=== PATIENT | female | born 1970 | race Caucasian/White ===

== ENCOUNTER 2020-08-07 12:40 | Observation (INO) | payer MEDICAID, OTHER ==
[~2020-08-07] VITALS: Ht 165.1 cm; Wt 85.6 kg
[2020-08-07] MEDS ORDERED: ONDANSETRON 4 MG/2 ML (SDV) Z0FRAN IVP ONE (13:00)
[2020-08-07] MEDS ORDERED: LACTATED RINGERS 1,000 ML IV ONE (13:00)
[2020-08-07] MEDS ORDERED: FAMOTIDINE 20MG/2ML IV (PEPCID) IVP ONE (13:00)
[2020-08-07] MEDS ORDERED: PANTOPRAZOLE 40 MG (PROTONIX) VIAL IV ONE (13:00)
[2020-08-07 13:08] LABS: BASOPHILS % (AUTO) 0 % (0-10); EOSINOPHILS # (AUTO) 0.2 10^3/uL (0.0-0.3); EOSINOPHILS % (AUTO) 1 % (0-10); HEMATOCRIT 38 % (35-52); HEMOGLOBIN 12.5 g/dL (11.5-16.0); LYMPHOCYTES # (AUTO) 2.7 10^3/uL (1.0-4.0); LYMPHOCYTES % (AUTO) 14 % (12-44); MEAN CORPUSCULAR HEMOGLOBIN 32 pg (25-34); MEAN CORPUSCULAR HGB CONC 33 g/dL (32-36); MEAN CORPUSCULAR VOLUME 96 fL (80-99); MEAN PLATELET VOLUME 10.9 fL (9.0-12.2); MONOCYTES # (AUTO) 1.2 10^3/uL (0.0-1.0); MONOCYTES % (AUTO) 6 % (0-12); NEUTROPHILS # (AUTO) 15.1 10^3/uL (1.8-7.8); NEUTROPHILS % (AUTO) 78 % (42-75); PLATELET COUNT 224 10^3/uL (130-400); WHITE BLOOD COUNT 19.3 10^3/uL (4.3-11.0)
[2020-08-07 13:20] LABS: EOSINOPHILS % (MANUAL) 2 %; LYMPHOCYTES % (MANUAL) 24 %; MONOCYTES % (MANUAL) 3 %; NEUTROPHILS % (MANUAL) 71 %; TOXIC GRANULATION/VACUOLAZATIO 1+
[2020-08-07 13:22] LABS: ALBUMIN 3.6 GM/DL (3.2-4.5); BILIRUBIN,TOTAL 0.3 MG/DL (0.1-1.0); CALCIUM 9.1 MG/DL (8.5-10.1); POTASSIUM 4.3 MMOL/L (3.6-5.0); TOTAL PROTEIN 8.5 GM/DL (6.4-8.2)
[2020-08-07 13:23] LABS: INR 1.2 (0.8-1.4); PROTHROMBIN TIME PATIENT 15.7 SEC (12.2-14.7)
--- NOTE | 2020-08-07 14:12 | Diagnostic Imaging Report ---
Indication: Hemoptysis No priors FINDINGS: There is limited lung expansion crowding the markings. This may account for vague increased density projecting over the basilar portion of the left lower lung however the possibility of a developing infiltrate could not be excluded. There is no failure pattern. No effusion and no pneumothorax. IMPRESSION: Limited by suboptimal inspiration. Equivocal findings for developing infiltrate in the left base. Dictated by: Dictated on workstation # [id number]
[2020-08-07 14:16] LABS: CLARITY,URINE CLOUDY; COLOR,URINE YELLOW; GLUCOSE, URINE (UA) NEGATIVE (NEGATIVE); KETONES,URINE TRACE (NEGATIVE); LEUKOCYTE ESTERASE ,URINE 2+ (NEGATIVE); NITRITE,URINE NEGATIVE (NEGATIVE); PROTEIN,URINE 2+ (NEGATIVE)
[2020-08-07] MEDS ORDERED: CATHETER FLUSH 10 ML SYR IV PRN ×2 (14:30→20:15)
[2020-08-07] MEDS ORDERED: NS 100 ML (IVPB) BAG IV ONE (14:30)
[2020-08-07] MEDS ORDERED: HOLD METFORMIN - RECEIVED CONTRAST 20 ML VIAL IV SCH (14:30)
[2020-08-07] MEDS ORDERED: IOHEXOL 350 MG/ML 100 ML (OMNIPAQUE 350) VIAL IV ONE (14:30)
[2020-08-07 14:41] LABS: BACTERIA,URINE TRACE /HPF; WBC,URINE 50-100 /HPF
[2020-08-07 14:42] LABS: AMORPHOUS SEDIMENT,UR FEW AMOR URATES /LPF
[2020-08-07 14:52] LABS: BILIRUBIN,URINE 1+ (NEGATIVE)
--- NOTE | 2020-08-07 15:36 | Diagnostic Imaging Report ---
PROCEDURE: CT abdomen and pelvis with contrast. TECHNIQUE: Multiple contiguous axial images were obtained through the abdomen and pelvis after administration of intravenous contrast. Auto Exposure Controls were utilized during the CT exam to meet ALARA standards for radiation dose reduction. All CT scans use one or more of the following dose optimizing techniques: automated exposure control, MA and/or KvP adjustment based on patient size and exam type or iterative reconstruction. INDICATION: Hemoptysis There are no prior CT studies available for comparison The stomach is distended by gas and fluid. This appearance is nonspecific. There is no sign of a gastric outlet obstruction however. There is also gas and fluid in both the large and small bowel in a nonspecific fashion. There is no sign of bowel obstruction. There does appear to be a considerable amount of fecal material in the rectosigmoid portion of the colon. There is no acute abnormality of the liver, spleen, pancreas, adrenals, gallbladder, kidneys, aorta or inferior vena cava. The urinary bladder is not well-distended and consequently difficult to assess. There is no obvious bladder abnormality evident. The thickened appearance of the bladder wall may be secondary to incomplete distention. The possibility of cystitis should also be considered. The uterus is small. The appendix is not well-visualized but there are no indirect signs of acute appendicitis. There is no mass or free fluid collection in the pelvis. The bone windows are unremarkable for fracture or for destructive lesion. There is a small amount of atelectasis/infiltrate in each lung base. IMPRESSION: 1. The stomach is distended by fluid and gas but there is no clear evidence for gastric outlet obstruction. If further study is desired, either endoscopy or an upper GI exam would be recommended. 2. The bowel gas pattern is nonspecific. There is no sign of bowel obstruction. 3. The urinary bladder is not well distended and difficult to assess. There is no obvious bladder abnormality identified, but the possibility of cystitis should be considered.. 4. These results were discussed with Dr. Obregon in the Emergency Room. Dictated by: Dictated on workstation # [id number]
[2020-08-07] MEDS ORDERED: cefTRIAXone FOR IV USE 1,000 MG in WATER (STERILE) FOR INJECTION 10 ML IV ONE (15:45)
[2020-08-07] MEDS ORDERED: MEROPENEM 500 MG in WATER (STERILE) FOR INJECTION 10 ML IV ONE (17:30)
--- NOTE | 2020-08-07 17:44 | ED General ---
General Chief Complaint: Coughing Up Blood Stated Complaint: COUGHING UP BLOOD Nursing Triage Note: patient brought by ems with complaint of coughing up blood. EMS states dried blood on bed looked like "coffee ground emesis" patient is from [place]. Nursing Sepsis Screen: No Definite Risk Source of Information: Patient, Caregiver, EMS Exam Limitations: Other (Intellectual disability) History of Present Illness Date Seen by Provider: Aug 07, 2020 Time Seen by Provider: 12:56 Initial Comments This 50 year old woman is a client of [facility] And presents to the emergency room with complaints of "coughing up blood". It was reported this looks like coffee grounds. She is afebrile. She reports a sensation of pain in the epigastrium. It is also noted that she has been treated for several days with Rocephin for UTI. Prior to that she had completed a course of Bactrim. She is tachycardic but vital signs are otherwise normal. She has significant intellectual disabilities and is therefore a poor historian and uncooperative with some aspects of exam. Her primary care provider is Rayna Jarrett. Allergies and Home Medications Allergies Coded Allergies: No Known Drug Allergies (Unverified , 08/07/20) Patient Home Medication List Home Medication List Reviewed: Yes Review of Systems Review of Systems Constitutional: no symptoms reported EENTM: no symptoms reported Respiratory: see HPI Cardiovascular: no symptoms reported Gastrointestinal: see HPI Genitourinary: no symptoms reported Musculoskeletal: no symptoms reported Skin: no symptoms reported Psychiatric/Neurological: See HPI Hematologic/Lymphatic: No Symptoms Reported Immunological/Allergic: no symptoms reported Past Lnpgrdn-Qgkoqo-Wqokub Hx Past Med/Social Hx: Reviewed Nursing Past Med/Soc Hx Patient Social History Alcohol Use: Denies Use Recreational Drug Use: No Smoking Status: Never a Smoker 2nd Hand Smoke Exposure: No Recent Foreign Travel: No Contact w/Someone Who Travel: No Recent Infectious Disease Expo: No Immunizations Up To Date Tetanus Booster (TDap): Unknown Date of Influenza Vaccine: May 24, 2020 Past Medical History Surgeries: No (Unknown) Respiratory: No Cardiac: No Neurological: Yes (Intellectual disability) Seizure Disorder : No Genitourinary: Yes (Urinary tract infection) Gastrointestinal: No Musculoskeletal: No Endocrine: No HEENT: No Cancer: No Psychosocial: No Integumentary: No Physical Exam-Suspected Sepsis Physical Exam Vital Signs Vital Signs - First Documented 08/07/20 13:00 Temp 37.2 Pulse 104 Resp 20 B/P (MAP) 135/95 (108) Pulse Ox 92 O2 Delivery Room Air Capillary Refill : Less Than 3 Seconds Blood Pressure Mean: 108 Height, Weight, BMI Height: '" Weight: lbs. oz. 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 as Tested Skin: normal color, warm/dry Focused Exam Lactate Level 08/07/20 14:58: Lactic Acid Level 0.88 Lactic Acid Level Progress/Results/Core Measures Suspected Sepsis Recent Fever Within 48 Hours: No Infection Criteria Present: None New/Unexplained Altered Menta: No Sepsis Screen: No Definite Risk SIRS Temperature: Pulse: 104 Respiratory Rate: 20 Laboratory Tests 08/07/20 12:40: White Blood Count 19.3H Blood Pressure 135 /95 Mean: 108 08/07/20 14:58: Lactic Acid Level 0.88 Laboratory Tests 08/07/20 12:40: Creatinine 1.00, INR Comment 1.2, Platelet Count 224, Total Bilirubin 0.3 Results/Orders Lab Results Laboratory Tests Test 08/07/20 12:25 08/07/20 12:40 08/07/20 14:08 08/07/20 14:58 Range/Units Coronavirus 2019 (TEJAS) Negative Negative White Blood Count 19.3 H 4.3-11.0 10^3/uL Red Blood Count 3.97 3.80-5.11 10^6/uL Hemoglobin 12.5 11.5-16.0 g/dL Hematocrit 38 35-52 % Mean Corpuscular Volume 96 80-99 fL Mean Corpuscular Hemoglobin 32 25-34 pg Mean Corpuscular Hemoglobin Concent 33 32-36 g/dL Red Cell Distribution Width 15.3 H 10.0-14.5 % Platelet Count 224 130-400 10^3/uL Mean Platelet Volume 10.9 9.0-12.2 fL Immature Granulocyte % (Auto) 1 % Neutrophils (%) (Auto) 78 H 42-75 % Lymphocytes (%) (Auto) 14 12-44 % Monocytes (%) (Auto) 6 0-12 % Eosinophils (%) (Auto) 1 0-10 % Basophils (%) (Auto) 0 0-10 % Neutrophils # (Auto) 15.1 H 1.8-7.8 10^3/uL Lymphocytes # (Auto) 2.7 1.0-4.0 10^3/uL Monocytes # (Auto) 1.2 H 0.0-1.0 10^3/uL Eosinophils # (Auto) 0.2 0.0-0.3 10^3/uL Basophils # (Auto) 0.0 0.0-0.1 10^3/uL Immature Granulocyte # (Auto) 0.1 0.0-0.1 10^3/uL Neutrophils % (Manual) 71 % Lymphocytes % (Manual) 24 % Monocytes % (Manual) 3 % Eosinophils % (Manual) 2 % Toxic Granulation 1+ Prothrombin Time 15.7 H 12.2-14.7 SEC INR Comment 1.2 0.8-1.4 Activated Partial Thromboplast Time 48 H 24-35 SEC Sodium Level 134 L 135-145 MMOL/L Potassium Level 4.3 3.6-5.0 MMOL/L Chloride Level 97 L 98-107 MMOL/L Carbon Dioxide Level 23 21-32 MMOL/L Anion Gap 14 5-14 MMOL/L Blood Urea Nitrogen 18 7-18 MG/DL Creatinine 1.00 0.60-1.30 MG/DL Estimat Glomerular Filtration Rate 59 BUN/Creatinine Ratio 18 Glucose Level 119 H 70-105 MG/DL Calcium Level 9.1 8.5-10.1 MG/DL Corrected Calcium 9.4 8.5-10.1 MG/DL Total Bilirubin 0.3 0.1-1.0 MG/DL Aspartate Amino Transf (AST/SGOT) 15 5-34 U/L Alanine Aminotransferase (ALT/SGPT) 19 0-55 U/L Alkaline Phosphatase 109 40-136 U/L C-Reactive Protein High Sensitivity 15.43 H 0.00-0.50 MG/DL Total Protein 8.5 H 6.4-8.2 GM/DL Albumin 3.6 3.2-4.5 GM/DL Lipase 51 8-78 U/L Serum Test, Qualitative NEGATIVE NEGATIVE Urine Color YELLOW Urine Clarity CLOUDY Urine pH 6.0 5-9 Urine Specific [place] >=1.030 1.016-1.022 Urine Protein 2+ H NEGATIVE Urine Glucose (UA) NEGATIVE NEGATIVE Urine Ketones TRACE H NEGATIVE Urine Nitrite NEGATIVE NEGATIVE Urine Bilirubin 1+ H NEGATIVE Urine Urobilinogen 0.2 < = 1.0 MG/DL Urine Leukocyte Esterase 2+ H NEGATIVE Urine RBC (Auto) 3+ H NEGATIVE Urine RBC 5-10 H /HPF Urine WBC 50-100 H /HPF Urine Crystals PRESENT H /LPF Urine Amorphous Sediment FEW DAMIR URATES H /LPF Urine Bacteria TRACE /HPF Urine Casts NONE /LPF Urine Mucus NEGATIVE /LPF Urine Culture Indicated CULTURE PENDING Lactic Acid Level 0.88 0.50-2.00 MMOL/L Micro Results Microbiology 08/07/20 Influenza Types A,B Antigen (GLENNY) - Final, Complete My Orders Orders - SAMMY ARANGO MD Covid 19 Inhouse Test (08/07/20 12:56) Cbc With Automated Diff (08/07/20 12:59) Comprehensive Metabolic Panel (08/07/20 12:59) Hs C Reactive Protein (08/07/20 12:59) Hcg,Qualitative Serum (08/07/20 12:59) Protime With Inr (08/07/20 12:59) Partial Thromboplastin Time (08/07/20 12:59) Ed Iv/Invasive Line Start (08/07/20 12:59) Lactated Ringers (Lr 1000 Ml Iv Solution (08/07/20 13:00) Famotidine Injection (Pepcid Injection) (08/07/20 13:00) Pantoprazole Injection (Protonix Injecti (08/07/20 13:00) Ondansetron Injection (Zofran Injectio (08/07/20 13:00) Chest 1 View, Ap/Pa Only (08/07/20 12:59) Manual Differential (08/07/20 12:40) Lipase (08/07/20 13:31) Blood Culture (08/07/20 13:51) Sputum Culture (08/07/20 13:51) Urinalysis (08/07/20 13:51) Urine Culture (08/07/20 13:51) Vital Signs Adult Sepsis Patie Q15M (08/07/20 13:51) O2 (08/07/20 13:51) Remove Rings In Anticipation O (08/07/20 13:51) Lactic Acid Analyzer (08/07/20 13:51) Influenza A And B Antigens (08/07/20 13:52) Ct Abdomen/Pelvis W (08/07/20 13:54) Iohexol Injection (Omnipaque 350 Mg/Ml 1 (08/07/20 14:30) Received Contrast (Hold Metformin- Contr (08/07/20 14:30) Sodium Chloride Flush (Catheter Flush Sy (08/07/20 14:30) Ns (Ivpb) (Sodium Chloride 0.9% Ivpb Bag (08/07/20 14:30) Ceftriaxone For Iv Use (Rocephin For I (08/07/20 15:45) Meropenem (Merrem 500 Mg) (08/07/20 17:30) Medications Given in ED Current Medications Medications Dose Ordered Sig/Edvin Route Start Time Stop Time Status Last Admin Dose Admin Ceftriaxone Sodium 1000 mg/ Sterile Water 10 ml @ 200 mls/hr ONCE ONCE IV 08/07/20 15:45 08/07/20 15:47 DC 08/07/20 16:22 200 MLS/HR Famotidine 20 mg ONCE ONCE IVP 08/07/20 13:00 08/07/20 13:02 DC 08/07/20 13:28 20 MG Iohexol 100 ml ONCE ONCE IV 08/07/20 14:30 08/07/20 14:35 DC 08/07/20 15:11 100 ML Lactated Ringer's 1,000 ml @ 0 mls/hr Q0M ONCE IV 08/07/20 13:00 08/07/20 13:02 DC 08/07/20 13:28 0 MLS/HR Meropenem 500 mg/ Sterile Water 10 ml @ 200 mls/hr ONCE ONCE IV 08/07/20 17:30 08/07/20 17:33 DC 08/07/20 19:08 200 MLS/HR Ondansetron HCl 8 mg ONCE ONCE IVP 08/07/20 13:00 08/07/20 13:02 DC 08/07/20 13:28 8 MG Pantoprazole 80 mg ONCE ONCE IV 08/07/20 13:00 08/07/20 13:02 DC 08/07/20 13:29 80 MG Sodium Chloride 100 ml ONCE ONCE IV 08/07/20 14:30 08/07/20 14:35 DC 08/07/20 15:11 80 ML Vital Signs/I&O 08/07/20 08/07/20 08/07/20 13:00 19:24 19:44 Temp 37.2 37.2 36.8 Pulse 104 90 96 Resp 18 B/P (MAP) 135/95 (108) 117/94 108/64 Pulse Ox 92 94 93 O2 Delivery Room Air Room Air Room Air Capillary Refill : Less Than 3 Seconds Blood Pressure Mean: 108 Progress Note : Progress Note Because of concern for possible coffee-ground emesis, Protonix and Pepcid were administered. A liter of IV fluid was administered. Zofran was also given for nausea. There was a significant amount of bowel gas noted on the chest x-ray. Therefore a CT scan was ordered to follow. Since patient is a poor historian and there is leukocytosis, evaluation of the abdomen and pelvis with CT scan was felt critical. Patient did meet septic criteria with tachycardia and leukocytosis. Source of infection was found to be urinary tract infection. Rocephin was given for initial management. However, patient seems to be failing outpatient Rocephin therapy, therefore we further treated with meropenem. Patient also had been on Bactrim and appears to have failed that. Because ashwini matthews does meet sepsis criteria and has failed multiple antibiotics in the outpatient setting, admission was felt most appropriate. I spoke with the caregiver at [facility] who agreed with this decision. Diagnostic Imaging Diagonstic Imaging: Xray Plain Films/CT/US/NM/MRI: chest Comments Chest x-ray viewed by me and report reviewed. See report below: NAME: BIJU GEE [facility] REC#: [id number] PT STATUS: REG ER : 1970 PHYSICIAN: SAMMY ARANGO MD ADMIT DATE: 08/07/20/ER Signed Date of Exam:08/07/20 CHEST 1 VIEW, AP/PA ONLY Indication: Hemoptysis No priors FINDINGS: There is limited lung expansion crowding the markings. This may account for vague increased density projecting over the basilar portion of the left lower lung however the possibility of a developing infiltrate could not be excluded. There is no failure pattern. No effusion and no pneumothorax. IMPRESSION: Limited by suboptimal inspiration. Equivocal findings for developing infiltrate in the left base. Dictated by: Dictated on workstation # [id number] Dict: 08/07/20 1407 Trans: 08/07/20 1531 [facility] [id number] Interpreted by: CONSUELO BALTAZAR Electronically signed by: CONSUELO BALTAZAR 08/07/20 1531 Diagonstic Imaging: CT Plain Films/CT/US/NM/MRI: abdomen, pelvis Comments CT abdomen pelvis viewed by me and report reviewed. See report below: NAME: BIJU GEE [facility] REC#: [id number] PT STATUS: REG ER : 1970 PHYSICIAN: SAMMY ARANGO MD ADMIT DATE: 08/07/20/ER Draft Date of Exam:08/07/20 CT ABDOMEN/PELVIS W PROCEDURE: CT abdomen and pelvis with contrast. TECHNIQUE: Multiple contiguous axial images were obtained through the abdomen and pelvis after administration of intravenous contrast. Auto Exposure Controls were utilized during the CT exam to meet ALARA standards for radiation dose reduction. All CT scans use one or more of the following dose optimizing techniques: automated exposure control, MA and/or KvP adjustment based on patient size and exam type or iterative reconstruction. INDICATION: Hemoptysis There are no prior CT studies available for comparison The stomach is distended by gas and fluid. This appearance is nonspecific. There is no sign of a gastric outlet obstruction however. There is also gas and fluid in both the large and small bowel in a nonspecific fashion. There is no sign of bowel obstruction. There does appear to be a considerable amount of fecal material in the rectosigmoid portion of the colon. There is no acute abnormality of the liver, spleen, pancreas, adrenals, gallbladder, kidneys, aorta or inferior vena cava. The urinary bladder is not well-distended and consequently difficult to assess. There is no obvious bladder abnormality evident. The uterus is small. The appendix is not well-visualized but there are no indirect signs of acute appendicitis. There is no mass or free fluid collection in the pelvis. The bone windows are unremarkable for fracture or for destructive lesion. There is a small amount of atelectasis/infiltrate in each lung base. IMPRESSION: 1. The stomach is distended by fluid and gas but there is no clear evidence for gastric outlet obstruction. If further study is desired, either endoscopy or an upper GI exam would be recommended. 2. The bowel gas pattern is nonspecific. There is no sign of bowel obstruction. 3. The urinary bladder is not well distended and difficult to assess. There is no obvious bladder abnormality. 4. These results were discussed with Dr. Obregon in the Emergency Room. Dictated on workstation # [id number] Dict: 08/07/20 1522 Trans: 08/07/20 1536 [facility] [id number] Interpreted by: PHAN ANTONY MD Departure Communication (Admissions) Time/Spoke to Admitting Phy: 17:29 Dr. Casiano Impression Primary Impression: Sepsis Qualified Codes: A41.9 - Sepsis, unspecified organism Additional Impressions: Urinary tract infection Qualified Codes: N39.0 - Urinary tract infection, site not specified Coffee ground vomiting Disposition: ADMITTED INPATIENT Condition: Improved Admissions Decision to Admit Reason: Admit from ER (General) Decision to Admit/Date: Aug 07, 2020 Time/Decision to Admit Time: 17:29 Copy Copies To 1: RAYNA JARRETT MD, JOSHUA T MD Aug 07, 2020 17:44
[2020-08-07] MEDS ORDERED: WATER (STERILE) FOR INJECTION 10 ML ONE (19:03)
--- NOTE | 2020-08-07 19:30 | NUR ---
BIJU GEE admitted to room 411-1, with an admitting diagnosis of UTI, SEPSIS, on 08/07/20 from ED via [facility], accompanied by STAFF.BIJU GEE introduced to surroundings, call light, bed controls, phone, TV, temperature control, lights, meal times, smoking policy, visitor policy, side rail policy, bathrooms and showers. Patient Rights given to patient in the handbook. BIJU GEE verbalizes understanding that [facility] is not responsible for the loss or damage to any personal effects or valuables that are kept in the patients posession during their hospitalization.BIJU GEE verbalizes understanding of Interdisciplinary Patient Education. Patient and/or family were informed about the Rapid Response Team and its purpose.
[2020-08-07 19:44] VITALS: BP 108/64
[2020-08-07] MEDS ORDERED: ONDANSETRON 4 MG/2 ML (SDV) Z0FRAN IV PRN (20:15)
[2020-08-07] MEDS ORDERED: clonazePAM 1 MG (KlonoPIN) TAB PO PRN (20:15)
[2020-08-07] MEDS ORDERED: ACETAMINOPHEN 500 MG TAB (TYLENOL) PO PRN (20:15)
[2020-08-07] MEDS: LACTATED RINGERS 1,000 ML IV SCH (21:48)
[2020-08-07] MEDS: PANTOPRAZOLE 40 MG (PROTONIX) VIAL IV SCH (21:49)
[2020-08-07] MEDS: PHENobarbital 64.8 MG (1 GRAIN) TAb PO SCH (22:04)
[2020-08-07] MEDS: QUEtiapine 200 MG (SEROquel) TAB IMMEDIATE RELEASE PO SCH (22:04)
[2020-08-07] MEDS: ZIPRASIDONE 40 MG (GEODON) CAP PO SCH (22:04)
[2020-08-07] MEDS: FAMOTIDINE 20MG/2ML IV (PEPCID) IV SCH (22:05)
[2020-08-07] MEDS: PHENYTOIN ORAL SUSPENSION 125 MG/5 ML UDC PO SCH (22:08)
[2020-08-07] MEDS: MEROPENEM 500 MG/SWFI 10 ML IV PUSH IV SCH ×2 (23:49)
[2020-08-08 00:45] VITALS: BP 101/63
[2020-08-08] MEDS: LACTATED RINGERS 1,000 ML IV SCH ×2 (04:40→12:12)
[2020-08-08 04:42] VITALS: BP 101/67
[2020-08-08] MEDS: MEROPENEM 500 MG/SWFI 10 ML IV PUSH IV SCH ×6 (05:07→19:12)
[2020-08-08 05:32] LABS: BASOPHILS % (AUTO) 0 % (0-10); HEMOGLOBIN 10.7 g/dL (11.5-16.0); MEAN CORPUSCULAR HEMOGLOBIN 31 pg (25-34); MONOCYTES # (AUTO) 0.8 10^3/uL (0.0-1.0)
[2020-08-08 05:34] LABS: EOSINOPHILS # (AUTO) 0.2 10^3/uL (0.0-0.3); EOSINOPHILS % (AUTO) 2 % (0-10); HEMATOCRIT 34 % (35-52); LYMPHOCYTES # (AUTO) 2.2 10^3/uL (1.0-4.0); LYMPHOCYTES % (AUTO) 23 % (12-44); MEAN CORPUSCULAR HGB CONC 32 g/dL (32-36); MEAN CORPUSCULAR VOLUME 98 fL (80-99); MONOCYTES % (AUTO) 9 % (0-12); NEUTROPHILS # (AUTO) 6.3 10^3/uL (1.8-7.8); NEUTROPHILS % (AUTO) 66 % (42-75); PLATELET COUNT 145 10^3/uL (130-400); WHITE BLOOD COUNT 9.6 10^3/uL (4.3-11.0)
[2020-08-08 05:55] LABS: CHLORIDE 98 MMOL/L (98-107); POTASSIUM 4.1 MMOL/L (3.6-5.0); SODIUM 135 MMOL/L (135-145)
[2020-08-08 05:56] LABS: CALCIUM 8.5 MG/DL (8.5-10.1); GLUCOSE 75 MG/DL (70-105)
[2020-08-08 05:58] LABS: CARBON DIOXIDE 26 MMOL/L (21-32)
[2020-08-08 06:00] LABS: CREATININE SERUM 0.83 MG/DL (0.60-1.30); GFR ESTIMATED > 60
[2020-08-08 06:01] LABS: BUN/CREATININE RATIO 17
[2020-08-08 08:00] VITALS: BP 131/86
[2020-08-08 12:00] VITALS: BP 134/73
--- NOTE | 2020-08-08 12:11 | History & Physical-Hospitalist ---
SISSY SHEN MED STUDENT 08/08/20 1211: History of Present Illness HPI/Chief Complaint CC: hematemesis, urinary tract infection HPI per ED: This 50 year old woman is a client of [facility] And presents to the emergency room with complaints of "coughing up blood". It was reported this looks like coffee grounds. She is afebrile. She reports a sensation of pain in the epigastrium. It is also noted that she has been treated for several days with Rocephin for UTI. Prior to that she had completed a course of Bactrim. She is tachycardic but vital signs are otherwise normal. She has significant intellectual disabilities and is therefore a poor historian and uncooperative with some aspects of exam. Her primary care provider is Rayna Jarrett. HPI: Jarvis presents from [facility] with complaints of coffee ground emesis. She reports that she got hurt yesterday and that she was throwing up, but is unable to provide any more situational context. She stated that she had "been bitten by a spider and turned into a werewolf, who does not like ladybugs." She also stated that she was screaming yesterday and that was scaring people. Jarvis also exhibits echolalia. Pt has significant intellectual disabilities and because of this, is a poor historian. She was cooperative with the physical exam. Source: patient, old records Exam Limitations: other (Intellectual Disability ) Date Seen 08/08/20 Time Seen by a Provider: 14:00 Attending Physician Doc Casiano MD PCP Referring Physician Date of Admission Aug 07, 2020 at 17:41 Home Medications & Allergies Home Medications Reviewed patient Home Medication Reconciliation performed by pharmacy medication reconciliations orthophotography technician and/or nursing. Patients Allergies have been reviewed. Allergies Allergies Coded Allergies No Known Drug Allergies (Vbceabwuir24/15/20) Past Eospjew-Uyucim-Iqzemt Hx Past Med/Social Hx: Reviewed Nursing Past Med/Soc Hx Patient Social History Employed/Student: unemployed Alcohol Use: Denies Use Recreational Drug Use: No Smoking Status: Never a Smoker 2nd Hand Smoke Exposure: No Recent Foreign Travel: No Contact w/other who traveled: No Recent Infectious Disease Expo: No Immunizations Up To Date Tetanus Booster (TDap): Unknown Date of Influenza Vaccine: May 24, 2020 Past Medical History Neurological: Seizure Disorder Intellectual Disability : No Unable to obtain accurate past medical history due to patient's intellectual disability. Family History Unable to obtain accurate family history due to patient's intellectual disability Review of Systems ROS-Unable to Obtain: Unable to obtain Physical Exam Physical Exam Vital Signs Vital Signs - First Documented 08/07/20 13:00 Temp 37.2 Pulse 104 Resp 20 B/P (MAP) 135/95 (108) Pulse Ox 92 O2 Delivery Room Air Capillary Refill : Less Than 3 Seconds Height, Weight, BMI Height: '" Weight: lbs. oz. kg; 31.40 BMI Method: General Appearance: No Apparent Distress, WD/WN HEENT: PERRL/EOMI; No Scleral Icterus (L), No Scleral Icterus (R) Neck: Non Tender, Supple; No Lymphadenopathy (L), No Lymphadenopathy (R) Respiratory: Chest Non Tender, Lungs Clear, No Accessory Muscle Use, No Respiratory Distress Cardiovascular: Regular Rate, Rhythm, No Murmur, Normal Peripheral Pulses, Other (1+ edema ) Gastrointestinal: Normal Bowel Sounds, Non Tender, Soft Neurologic/Psychiatric: Alert, Disoriented (Unable to state where she is, the date, or her name ) Skin: Normal Color, Warm/Dry; No Diaphoresis Lymphatic: No Adenopathy Results Results/Procedures Labs Laboratory Tests 08/07/20 12:40 08/08/20 05:00 Patient resulted labs reviewed. Assessment/Plan Admission Diagnosis Sepsis, Urinary tract infection Assessment and Plan Urinary tract infection Currently on Meropenem 500 mg/Sterile water. 10 mls @200 mls/hr Patient had previously failed treatment with Macrobid and Ceftriaxone Sepsis on arrival Met two of four SIRS Criteria., source of infection- urinary tract infection Wbc count decreased from 19.3 to 9.6 today Heart rate of 114, down to 90 Continue to monitor for development of severe sepsis with end-stage organ d amage Normocytic Anemia Hgb 10.7, was 12.5 (08/08/20) Most likely due to hematemesis Nurse stated there has not been any more vomiting today Continue to monitor Hgb at this time. Diagnosis/Problems Diagnosis/Problems (1) Urinary tract infection Status: Acute Assessment & Plan: Currently on Meropenem 500 mg/Sterile water. 10 mls @200 mls/hr Patient had previously failed treatment with Macrobid and Ceftriaxone Qualifiers: Urinary tract infection type: site unspecified Hematuria presence: without hematuria Qualified Codes: N39.0 - Urinary tract infection, site not specified (2) Sepsis Status: Acute Assessment & Plan: Met two of four SIRS Criteria., source of infection- urinary tract infection Wbc count decreased from 19.3 to 9.6 today Heart rate of 114, down to 90 Continue to monitor for development of severe sepsis with end-stage organ damage Qualifiers: Sepsis type: sepsis due to unspecified organism Sepsis acute organ dy sfunction status: without acute organ dysfunction Qualified Codes: A41.9 - Sepsis, unspecified organism (3) Normocytic anemia Status: Acute Assessment & Plan: Hgb 10.7, was 12.5 (08/08/20) Most likely due to hematemesis Nurse stated there has not been any more vomiting today Continue to monitor Hgb at this time. Clinical Quality Measures DVT/VTE Risk/Contraindication: Risk Factor Score Per Nursin RFS Level Per Nursing on Admit: 4+=Very High DOC CASIANO MD 08/08/204: Review of Systems Constitutional: see HPI Physical Exam Physical Exam HEENT: Other (poor dentition) Extremity: No Calf Tenderness, No Pedal Edema Neurologic/Psychiatric: Other (echolalia noted ) Assessment/Plan Admission Diagnosis Admission Status: Observation Assessment and Plan Pt admitted with sepsis from a UTI. Had been treated with Rocephin as an outpatient without resolution. Admitted for IV Merrem. Will await c/s. Hgb dropped some but HDS. Surgery consulted. Appreciate recs. If remains stable he will facilitate outpatient EGD. Supervisory-Addendum Brief Verification & Attestation Participated in pt care: history, MDM, physical Personally performed: exam, history, MDM, supervision of care Care discussed with: Medical Student Procedures: n/a Results interpretation: Verified all documentation Verification and Attestation of Medical Student E/M Service A medical student performed and documented this service in my presence. I reviewed and verified all information documented by the medical student and made modifications to such information, when appropriate. I personally performed the physical exam and medical decision making. Doc Casiano, Aug 08, 2020,19:45 SISSY SHEN MED STUDENT Aug 08, 2020 12:11 DOC CASIANO MD Aug 08, 2020 19:54
[2020-08-08] MEDS: PHENobarbital 64.8 MG (1 GRAIN) TAb PO SCH ×2 (12:15→20:42)
[2020-08-08] MEDS: QUEtiapine 200 MG (SEROquel) TAB IMMEDIATE RELEASE PO SCH ×2 (12:16→20:43)
[2020-08-08] MEDS: SERTRALINE 100 MG (ZOLOFT) TAB PO SCH (12:16)
[2020-08-08] MEDS: PANTOPRAZOLE 40 MG (PROTONIX) VIAL IV SCH ×2 (12:16→20:43)
[2020-08-08] MEDS: QUEtiapine 100 MG (SEROquel) TAB IMMEDIATE RELEASE PO SCH (12:17)
[2020-08-08] MEDS: PHENYTOIN ORAL SUSPENSION 125 MG/5 ML UDC PO SCH ×2 (12:57→20:42)
[2020-08-08] MEDS: ZIPRASIDONE 40 MG (GEODON) CAP PO SCH ×2 (12:58→19:13)
[2020-08-08] MEDS: FAMOTIDINE 20MG/2ML IV (PEPCID) IV SCH ×2 (13:09→20:43)
[2020-08-08 16:00] VITALS: BP 107/71
[2020-08-08 20:00] VITALS: BP 120/81
[2020-08-09] VITALS: BP 100/52
[2020-08-09] MEDS: MEROPENEM 500 MG/SWFI 10 ML IV PUSH IV SCH ×6 (00:01→13:13)
[2020-08-09 04:15] VITALS: BP 110/66
--- NOTE | 2020-08-09 04:19 | NUR ---
assumed care from TARA Arnold. agree with previous assessment. Pt resting in bed with eyes closed.
[2020-08-09 06:07] LABS: MEAN PLATELET VOLUME 10.5 fL (9.0-12.2); WHITE BLOOD COUNT 7.3 10^3/uL (4.3-11.0)
[2020-08-09 06:18] LABS: BUN/CREATININE RATIO 13; CALCIUM 8.4 MG/DL (8.5-10.1); CARBON DIOXIDE 26 MMOL/L (21-32); CHLORIDE 102 MMOL/L (98-107); CREATININE SERUM 0.77 MG/DL (0.60-1.30); GFR ESTIMATED > 60; GLUCOSE 91 MG/DL (70-105); POTASSIUM 3.5 MMOL/L (3.6-5.0); SODIUM 140 MMOL/L (135-145)
--- NOTE | 2020-08-09 07:50 | Progress Note - Surgery ---
MELISSA WHITE MED STUDENT 08/09/20 0749: Subjective Date Seen by a Provider: Aug 09, 2020 Time Seen by a Provider: 06:45 Subjective/Events-last exam Pt seen and examined. Pt was awake in bed, NAD. Pt has intellectual disability, responds with nonsensical responses at times, and is a poor historian. She did not appear to be in pain or discomfort. Review of Systems Pulmonary: No Dyspnea Cardiovascular: No: Chest Pain Gastrointestinal: No: Nausea, Vomiting, Abdominal Pain Focused Exam Lactate Level 08/07/20 14:58: Lactic Acid Level 0.88 Objective Exam Vital Signs Date Time Temp Pulse Resp B/P (MAP) Pulse Ox O2 Delivery O2 Flow Rate FiO2 08/09/20 04:15 36.1 90 22 110/66 (81) 96 Room Air 08/09/20 00:00 37.2 84 20 100/52 (68) 95 Room Air 08/08/20 20:00 37.2 99 18 120/81 (94) 96 Room Air 08/08/20 20:00 Room Air 08/08/20 16:00 37.2 103 20 107/71 (83) 94 Room Air 08/08/20 12:00 37.0 100 20 134/73 (93) 95 Room Air 08/08/20 08:58 Room Air 08/08/20 08:00 36.1 90 18 131/86 (101) 97 Room Air I & O 08/09/20 07:00 Intake Total 1160 ml Balance 1160 ml Capillary Refill : Less Than 3 Seconds General Appearance: No Apparent Distress, WD/WN HEENT: PERRL/EOMI, Other (poor dentition) Neck: Full Range of Motion, Normal Inspection; No Lymphadenopathy (L), No Lymphadenopathy (R) Respiratory: No Accessory Muscle Use, No Respiratory Distress Cardiovascular: No JVD, Other (1+ edema ) Gastrointestinal: other (pt refused abd exam) Extremity: Normal Inspection, Normal Range of Motion Neurologic/Psychiatric: Alert, Disoriented, Other (echolalia noted ) Skin: Normal Color, Warm/Dry; No Diaphoresis Lymphatic: No Adenopathy Results Lab Laboratory Tests 08/09/20 05:51: White Blood Count 7.3, Red Blood Count 3.19L, Hemoglobin 10.0L, Hematocrit 31L, Mean Corpuscular Volume 96, Mean Corpuscular Hemoglobin 31, Mean Corpuscular Hemoglobin Concent 33, Red Cell Distribution Width 15.5H, Platelet Count 146, Mean Platelet Volume 10.5, Sodium Level 140, Potassium Level 3.5L, Chloride Lev el 102, Carbon Dioxide Level 26, Anion Gap 12, Blood Urea Nitrogen 10, Creatinine 0.77, Estimat Glomerular Filtration Rate > 60, BUN/Creatinine Ratio 13, Glucose Level 91, Calcium Level 8.4L Microbiology 08/07/20 Blood Culture - Preliminary, Resulted No growth 08/07/20 Urine Culture - Final, Complete >=3 Gram Positive Isolates 08/07/20 Influenza Types A,B Antigen (GLENNY) - Final, Complete Assessment/Plan Assessment/Plan Assessment/Plan Hematemesis - coffee ground Anemia - Hgb 10.0 Intellectual disability Sepsis UTI Hgb continues to be stable at 10.0 Continue to monitor for further hematemesis Continue to monitor labs No surgical intervention needed at this time, may need upper scope if s/s worsen or significant changes in labs Clinical Quality Measures DVT/VTE Risk/Contraindication: Risk Factor Score Per Nursin RFS Level Per Nursing on Admit: 4+=Very High IRENE PATRICK DO 08/09/202114: Subjective Subjective/Events-last exam Patient laughing and smiling. Feeling well. She has not had any further hematemesis. Patient is tolerating diet. Appears to be comfortable. Objective Exam General Appearance: No Apparent Distress, WD/WN HEENT: PERRL/EOMI Neck: Full Range of Motion, Normal Inspection Respiratory: Chest Non Tender, No Accessory Muscle Use, No Respiratory Distress Cardiovascular: Regular Rate, Rhythm, No JVD Gastrointestinal: non tender, soft Extremity: Normal Inspection, Normal Range of Motion Neurologic/Psychiatric: Alert, Other (Intellectual disability) Skin: Normal Color, Warm/Dry Lymphatic: No Adenopathy Assessment/Plan Assessment/Plan Assessment/Plan Hematemesis - coffee ground Anemia - Hgb 10.0 Intellectual disability Sepsis UTI Hgb continues to be stable at 10.0 Continue to monitor for further hematemesis Protonix Medical management No surgical intervention, would plan outpatient endoscopy. Supervisory-Addendum Brief Verification & Attestation Participated in pt care: history, MDM, physical Personally performed: exam, history, MDM, supervision of care Care discussed with: Medical Student Procedures: n/a Results interpretation: Verified all documentation Verification and Attestation of Medical Student E/M Service A medical student performed and documented this service in my presence. I reviewed and verified all information documented by the medical student and made modifications to such information, when appropriate. I personally performed the physical exam and medical decision making. Irene Patrick, Aug 09, 2020,21:13 MELISSA WHITE MED STUDENT Aug 09, 2020 07:49 IRENE PATRICK DO Aug 09, 2020 21:15
[2020-08-09 08:00] VITALS: BP 153/95
[2020-08-09] MEDS: PHENYTOIN ORAL SUSPENSION 125 MG/5 ML UDC PO SCH (09:15)
[2020-08-09] MEDS: QUEtiapine 100 MG (SEROquel) TAB IMMEDIATE RELEASE PO SCH (09:16)
[2020-08-09] MEDS: PHENobarbital 64.8 MG (1 GRAIN) TAb PO SCH (09:17)
[2020-08-09] MEDS: PANTOPRAZOLE 40 MG (PROTONIX) VIAL IV SCH (09:17)
[2020-08-09] MEDS: FAMOTIDINE 20MG/2ML IV (PEPCID) IV SCH (09:17)
[2020-08-09] MEDS: SERTRALINE 100 MG (ZOLOFT) TAB PO SCH (09:17)
[2020-08-09] MEDS: ZIPRASIDONE 40 MG (GEODON) CAP PO SCH (09:17)
--- NOTE | 2020-08-09 10:55 | Discharge Inst-Simple/Standard ---
Discharge Inst-Standard Patient Instructions/Follow Up Plan of Care/Instructions/FU: Please continue to take your medications as written. Please follow up with your primary care doctor to follow up this hospital stay. Activity as Tolerated: Yes Discharge Diet: Soft Diet Return to The Hospital For: Chest pain, shortness of breath, fever, confusion, vomiting blood, if you feel you are getting worse. DOC GARCIA MD Aug 09, 2020 10:55
--- NOTE | 2020-08-09 11:57 | NUR ---
CM/SS: [facility] contacted - TARA Maravilla letting her know that pt would be discharged today. They will plan to pick her up around 2pm today. Information is faxed to her on hospital stay. Awaiting the discharge orders. Renita thanks this worker for calling.
[2020-08-09 12:00] VITALS: BP 119/74
--- NOTE | 2020-08-09 12:45 | Consultation - Surgery ---
MELISSA WHITE MED STUDENT 08/09/20 1245: History of Present Illness History of Present Illness Patient Consulted On(jay jay/time) 08/08/20 13:50 Date Seen by Provider: Aug 08, 2020 Time Seen by Provider: 16:00 Reason for Visit: Sepsis, UTI, hematemesis History of Present Illness HPI per ED: This 50 year old woman is a client of [facility] And presents to the emergency room with complaints of "coughing up blood". It was reported this looks like coffee grounds. She is afebrile. She reports a sensation of pain in the epigastrium. It is also noted that she has been treated for several days with Rocephin for UTI. Prior to that she had completed a course of Bactrim. She is tachycardic but vital signs are otherwise normal. She has significant intellectual disabilities and is therefore a poor historian and uncooperative with some aspects of exam. Her primary care provider is Rayna Jarrett. HPI: Pt is being consulted for new onset hematemesis beginning yesterday. He has intellectual disability and is a poor historian, responding appropriately to some questions but with nonsensical answers to others. She denies chest pain, SO B, abd pain, N/V. Allergies and Home Medications Allergies Coded Allergies: No Known Drug Allergies (Unverified , 08/07/20) Home Medications Cefdinir 300 Mg Capsule, 300 MG PO BID Prescribed by: DOC GARCIA on 08/09/20 1321 Patient Home Medication List Home Medication List Reviewed: Yes Past Oamrogu-Zvvwrb-Hizgqy Hx Patient Social History Alcohol Use: Denies Use Recreational Drug Use: No Smoking Status: Never a Smoker 2nd Hand Smoke Exposure: No Recent Foreign Travel: No Contact w/Someone Who Travel: No Recent Infectious Disease Expo: No Immunizations Up To Date Tetanus Booster (TDap): Unknown Date of Influenza Vaccine: May 24, 2020 Surgeries History of Surgeries: No (Unknown) Respiratory History of Respiratory Disorde: No Cardiovascular History of Cardiac Disorders: No Neurological History of Neurological Disord: Yes (Intellectual disability) Neurological Disorders: Seizure Disorder Reproductive System : No Genitourinary History of Genitourinary Disor: Yes (Urinary tract infection) Gastrointestinal History of Gastrointestinal Di: No Musculoskeletal History of Musculoskeletal Dis: No Endocrine History of Endocrine Disorders: No HEENT History of HEENT Disorders: No Cancer History of Cancer: No Psychosocial History of Psychiatric Problem: No Integumentary History of Skin or Integumenta: No Review of Systems-General ROS-Unable to Obtain: unable to obtain certain parts due to nonsensical responses Respiratory: No short of breath Cardiovascular: No chest pain Gastrointestinal: No abdominal pain, No constipation, No diarrhea; hematemesis; No nausea : No All Other Systems Reviewed Negative Unless Noted: Yes Physical Exam-General Problems Physical Exam Vital Signs Vital Signs - First Documented 08/07/20 13:00 Temp 37.2 Pulse 104 Resp 20 B/P (MAP) 135/95 (108) Pulse Ox 92 O2 Delivery Room Air Capillary Refill : Less Than 3 Seconds General Appearance: WD/WN, no apparent distress Eyes: Bilateral Eye Normal Inspection HEENT: PERRL/EOMI Neck: full range of motion, normal inspection Respiratory: no respiratory distress, no accessory muscle use, other (pt refused ) Cardiovascular: no edema, no JVD, other (pt refused) Gastrointestinal: non tender, soft Rectal: deferred Back: normal inspection Extremities: normal range of motion, normal inspection Neurologic/Psychiatric: no motor/sensory deficits, alert, disoriented x 3 (intellectual disability) Skin: normal color, warm/dry Data Review Labs Laboratory Tests 08/09/20 05:51: White Blood Count 7.3, Red Blood Count 3.19L, Hemoglobin 10.0L, Hematocrit 31L, Mean Corpuscular Volume 96, Mean Corpuscular Hemoglobin 31, Mean Corpuscular Hemoglobin Concent 33, Red Cell Distribution Width 15.5H, Platelet Count 146, Mean Platelet Volume 10.5, Sodium Level 140, Potassium Level 3.5L, Chloride Level 102, Carbon Dioxide Level 26, Anion Gap 12, Blood Urea Nitrogen 10, Creatinine 0.77, Estimat Glomerular Filtration Rate > 60, BUN/Creatinine Ratio 13, Glucose Level 91, Calcium Level 8.4L Microbiology 08/07/20 Blood Culture - Preliminary, Resulted No growth 08/07/20 Urine Culture - Final, Complete >=3 Gram Positive Isolates 08/07/20 Influenza Types A,B Antigen (GLENNY) - Final, Complete Assessment/Plan Assessment/Plan Assessment/Plan Hematemesis - hx coffee ground emesis, none since admission Anemia - Hgb 10.7 Intellectual disability Sepsis UTI Hgb continues to be stable at 10.7 Continue to monitor for further hematemesis Continue to monitor labs No surgical intervention needed at this time, may need upper scope if s/s worsen or significant changes in labs Clinical Quality Measures DVT/VTE Risk/Contraindication: Risk Factor Score Per Nursin RFS Level Per Nursing on Admit: 4+=Very High TUNG PAINTER DO 08/09/202109: History of Present Illness History of Present Illness History of Present Illness Consult requested by Dr. Rodriguez for hematemesis Late entry patient was seen on 08/08/2020. Patient is a 50-year-old female who presented to the emergency department yesterday with coughing up blood. It looked like coffee-ground emesis. Patient is poor historian and unable to provide any information. Nursing has reported that she has not had any further emesis today. Allergies and Home Medications Allergies Coded Allergies: No Known Drug Allergies (Unverified , 08/07/20) Home Medications Cefdinir 300 Mg Capsule, 300 MG PO BID Prescribed by: DOC GARCIA on 08/09/20 1321 Patient Home Medication List Home Medication List Reviewed: Yes Past Ttfzpev-Nvyaxq-Fhzxlj Hx Reviewed Nursing Assessment Reviewed/Agree w Nursing PMH: Yes Family Medical History Significant Family History: No Pertinent Family Hx Review of Systems-General ROS-Unable to Obtain: Patient unable to provide Physical Exam-General Problems Physical Exam General Appearance: WD/WN, no apparent distress HEENT: PERRL/EOMI, normal ENT inspection Neck: non-tender, normal inspection Respiratory: chest non-tender, no respiratory distress, no accessory muscle use Cardiovascular: regular rate, rhythm, no JVD Gastrointestinal: non tender, soft, no organomegaly Rectal: deferred Back: normal inspection, no CVA tenderness Extremities: normal range of motion, normal inspection Neurologic/Psychiatric: no motor/sensory deficits, alert, disoriented x 3 (intellectual disability) Skin: normal color, warm/dry Lymphatic: no adenopathy Assessment/Plan Assessment/Plan Assessment/Plan Hematemesis - hx coffee ground emesis, none since admission Anemia - Hgb 10.7 Intellectual disability Sepsis UTI Hgb continues to be stable at 10.7 Continue to monitor for further hematemesis Continue to monitor labs No surgical intervention needed at this time, may need upper scope if s/s worsen or significant changes in labs Supervisory-Addendum Brief Verification & Attestation Participated in pt care: history, MDM, physical Personally performed: exam, history, MDM, supervision of care Care discussed with: Medical Student Procedures: n/a Results interpretation: Verified all documentation Verification and Attestation of Medical Student E/M Service A medical student performed and documented this service in my presence. I reviewed and verified all information documented by the medical student and made modifications to such information, when appropriate. I personally performed the physical exam and medical decision making. Tung Painter, Aug 09, 2020,21:09 FOR DATE 08/08/20 MELISSA WHITE MED STUDENT Aug 09, 2020 12:45 TUNG PAINTER DO Aug 09, 2020 21:10
[2020-08-09] MEDS: QUEtiapine 200 MG (SEROquel) TAB IMMEDIATE RELEASE PO SCH (13:13)
[2020-08-09] MEDS ORDERED: CEFD300C3 PO (13:21)
--- NOTE | 2020-08-20 12:15 | Physician Query-Final Dx ---
ALICE LUCERO 08/20/20 1215: Final Diagnosis Give Final Diagnosis Please give Final Diagnosis MINH ENRIQUEZ 08/29/20 0954: DOC GARCIA MD 09/03/20 1848: Final Diagnosis Give Final Diagnosis Sepsis from UTI ALICE LUCERO Aug 20, 2020 12:15 MINH ENRIQUEZ Aug 29, 2020 09:54 DOC GARCIA MD Sep 03, 2020 18:48
== END 2020-08-09 14:45 | disposition home or self-care (01) ==
LOC: ER 12:42 → 4TH 17:41 → UNDOADMOB 17:41 → 4TH 19:30 → UNDODISOB 08-09 14:47
PROVIDERS: ADMIT Family Medicine; ATTEND Family Medicine
DX: A41.9 Sepsis, unspecified organism (principal); N39.0 Urinary tract infection, site not specified; Z20.828 Contact with and (suspected) exposure to other viral communicable diseases
CPT/HCPCS: 71045; 74177; 80048 ×2; 80053; 81000; 83605; 83690; 84703; 85007; 85025; 85027 ×2; 85610; 85730; 86141 ×2; 87040; 87088; 87804; 96361; 96374; 96375; 99284; G0378; U0002; 36415; 87635

== ENCOUNTER 2021-11-17 17:09 | Inpatient (IN) | payer MEDICARE, MEDICAID ==
[~2021-11-17] VITALS: Ht 162.5 cm; Wt 101.8 kg
[~2021-11-17 17:09] MED LIST: CEFD300C3 PO
[2021-11-17 17:35] LABS: BASOPHILS % (AUTO) 0 % (0-10); EOSINOPHILS % (AUTO) 0 % (0-10); HEMATOCRIT 31 % (35-52); HEMOGLOBIN 10.4 g/dL (11.5-16.0); LYMPHOCYTES # (AUTO) 1.3 10^3/uL (1.0-4.0); LYMPHOCYTES % (AUTO) 12 % (12-44); MEAN CORPUSCULAR HEMOGLOBIN 32 pg (25-34); MEAN CORPUSCULAR HGB CONC 34 g/dL (32-36); MEAN CORPUSCULAR VOLUME 93 fL (80-99); MEAN PLATELET VOLUME 10.4 fL (9.0-12.2); MONOCYTES # (AUTO) 1.4 10^3/uL (0.0-1.0); MONOCYTES % (AUTO) 13 % (0-12); NEUTROPHILS # (AUTO) 7.6 10^3/uL (1.8-7.8); NEUTROPHILS % (AUTO) 74 % (42-75); PLATELET COUNT 157 10^3/uL (130-400); WHITE BLOOD COUNT 10.3 10^3/uL (4.3-11.0)
--- NOTE | 2021-11-17 17:36 | ED Abdominal Pain ---
General Chief Complaint: Fever-Adult/Adol Stated Complaint: FEVER History of Present Illness Date Seen by Provider: Nov 17, 2021 Time Seen by Provider: 17:20 Initial Comments 51-year-old female presents via EMS for fever. She is in an adult [facility], history of mental health and disabilities. Chronic UTIs. Unable to obtain history from patient and no staff members are present. Timing/Duration: 2-3 Days Severity/Quality: Moderate Associated Symptoms: Denies Symptoms Allergies and Home Medications Allergies Coded Allergies: No Known Drug Allergies (Unverified , 08/07/20) Patient Home Medication List Home Medication List Reviewed: Yes Cefdinir (Cefdinir) 300 Mg Capsule, 300 MG PO BID Prescribed by: DOC GARCIA on 08/09/20 1321 Review of Systems Review of Systems Constitutional: see HPI, fever Genitourinary: See HPI, Other (cloudy urine) Skin: see HPI, other (patient with stool to legs and genitals, poor hygeine, malodorous. ) All Other Systems Reviewed Negative Unless Noted: Yes Past Qtjjyup-Cpzsud-Rppblv Hx Patient Social History Tobacco Use?: No Substance use?: No Alcohol Use?: No Immunizations Up To Date Tetanus Booster (TDap): Unknown Influenza Vaccine Up-to-Date: Yes; Up-to-Date Past Medical History Surgeries: No (Unknown) Respiratory: No Cardiac: No Neurological: Yes (Intellectual disability) Seizure Disorder Genitourinary: Yes (Urinary tract infection) Gastrointestinal: No Musculoskeletal: No Endocrine: No HEENT: No Cancer: No Psychosocial: No Integumentary: No Family Medical History Reviewed Nursing Family Hx No Pertinent Family Hx Unable to obtain accurate family history due to patient's intellectual disability Physical Exam Vital Signs Vital Signs - First Documented 11/17/21 11/17/21 17:14 17:15 Temp 38.6 Pulse 118 Resp 21 B/P (MAP) 134/81 (98) Pulse Ox 96 O2 Delivery Nasal Cannula O2 Flow Rate 2.00 Capillary Refill : Height/Weight/BMI Height: '" Weight: lbs. oz. kg; 31.40 BMI Method: General Appearance: WD/WN, no apparent distress Neck: non-tender, full range of motion, supple, normal inspection Respiratory: chest non-tender, lungs clear, normal breath sounds Cardiovascular: normal peripheral pulses, regular rate, rhythm Gastrointestinal: normal bowel sounds, non tender, soft Back: normal inspection, no CVA tenderness Neurologic/Psychiatric: alert Skin: normal color, warm/dry, other (No skin ulcers. ) Focused Exam Lactate Level 11/17/21 17:20: Lactic Acid Level 0.72 Lactic Acid Level Laboratory Tests Test 11/17/21 17:20 Lactic Acid Level 0.72 MMOL/L (0.50-2.00) Progress/Results/Core Measures Results/Orders Lab Results Laboratory Tests Test 11/17/21 17:20 11/17/21 17:30 Range/Units White Blood Count 10.3 4.3-11.0 10^3/uL Red Blood Count 3.30 L 3.80-5.11 10^6/uL Hemoglobin 10.4 L 11.5-16.0 g/dL Hematocrit 31 L 35-52 % Mean Corpuscular Volume 93 80-99 fL Mean Corpuscular Hemoglobin 32 25-34 pg Mean Corpuscular Hemoglobin Concent 34 32-36 g/dL Red Cell Distribution Width 14.1 10.0-14.5 % Platelet Count 157 130-400 10^3/uL Mean Platelet Volume 10.4 9.0-12.2 fL Immature Granulocyte % (Auto) 0 % Neutrophils (%) (Auto) 74 42-75 % Lymphocytes (%) (Auto) 12 12-44 % Monocytes (%) (Auto) 13 H 0-12 % Eosinophils (%) (Auto) 0 0-10 % Basophils (%) (Auto) 0 0-10 % Neutrophils # (Auto) 7.6 1.8-7.8 10^3/uL Lymphocytes # (Auto) 1.3 1.0-4.0 10^3/uL Monocytes # (Auto) 1.4 H 0.0-1.0 10^3/uL Eosinophils # (Auto) 0.0 0.0-0.3 10^3/uL Basophils # (Auto) 0.0 0.0-0.1 10^3/uL Immature Granulocyte # (Auto) 0.0 0.0-0.1 10^3/uL Prothrombin Time 14.9 H 12.2-14.7 SEC INR Comment 1.1 0.8-1.4 Activated Partial Thromboplast Time 41 H 24-35 SEC Sodium Level 129 L 135-145 MMOL/L Potassium Level 3.8 3.6-5.0 MMOL/L Chloride Level 99 98-107 MMOL/L Carbon Dioxide Level 17 L 21-32 MMOL/L Anion Gap 13 5-14 MMOL/L Blood Urea Nitrogen 19 H 7-18 MG/DL Creatinine 1.43 H 0.60-1.30 MG/DL Estimat Glomerular Filtration Rate 44 BUN/Creatinine Ratio 13 Glucose Level 122 H 70-105 MG/DL Lactic Acid Level 0.72 0.50-2.00 MMOL/L Calcium Level 8.7 8.5-10.1 MG/DL Corrected Calcium 9.3 8.5-10.1 MG/DL Total Bilirubin 0.7 0.1-1.0 MG/DL Aspartate Amino Transf (AST/SGOT) 17 5-34 U/L Alanine Aminotransferase (ALT/SGPT) 20 0-55 U/L Alkaline Phosphatase 116 40-136 U/L Total Protein 7.5 6.4-8.2 GM/DL Albumin 3.2 3.2-4.5 GM/DL Influenza Type A (RT-PCR) Not Detected Not Detecte Influenza Type B (RT-PCR) Not Detected Not Detecte SARS-CoV-2 RNA (RT-PCR) Not Detected Not Detecte Urine Color PALE YELLOW Urine Clarity TURBID Urine pH 8.0 5-9 Urine Specific Harris 1.015 L 1.016-1.022 Urine Protein 2+ H NEGATIVE Urine Glucose (UA) NEGATIVE NEGATIVE Urine Ketones 2+ H NEGATIVE Urine Nitrite POSITIVE H NEGATIVE Urine Bilirubin NEGATIVE NEGATIVE Urine Urobilinogen NORMAL < = 1.0 MG/DL Urine Leukocyte Esterase 3+ H NEGATIVE Urine RBC (Auto) 2+ H NEGATIVE Urine RBC NONE /HPF Urine WBC >100 H /HPF Urine Crystals PRESENT H /LPF Urine Amorphous Sediment LARGE DAMIR PHOSPHATE H /LPF Urine Bacteria LARGE H /HPF Urine Casts NONE /LPF Urine Mucus LARGE H /LPF Urine Culture Indicated CULTURE PENDING My Orders Orders - JESUS BARBA Influenza A And B By Pcr (11/17/21 17:20) Covid 19 Inhouse Test (11/17/21 17:20) Cbc With Automated Diff (11/17/21 17:20) Comprehensive Metabolic Panel (11/17/21 17:20) Blood Culture (11/17/21 17:20) Sputum Culture (11/17/21 17:20) Urinalysis (11/17/21 17:20) Urine Culture (11/17/21 17:20) Protime With Inr (11/17/21 17:20) Partial Thromboplastin Time (11/17/21 17:20) Chest 1 View, Ap/Pa Only (11/17/21 17:20) Ed Iv/Invasive Line Start (11/17/21 17:20) Vital Signs Adult Sepsis Patie Q15M (11/17/21 17:20) O2 (11/17/21 17:20) Lactic Acid Analyzer (11/17/21 17:20) Ibuprofen Tablet (Motrin Tablet) (11/17/21 17:43) Ed Iv/Invasive Line Start (11/17/21 18:15) Ns Iv 1000 Ml (Sodium Chloride 0.9%) (11/17/21 18:15) Cefepime Injection (Maxipime Injection) (11/17/21 18:15) Medications Given in ED Current Medications Medications Dose Ordered Sig/Devin Route Start Time Stop Time Status Last Admin Dose Admin Cefepime HCl 1000 mg/Sodium Chloride 50 ml @ 100 mls/hr ONCE ONCE IV 11/17/21 18:15 11/17/21 18:44 DC 11/17/21 18:33 100 MLS/HR Vital Signs/I&O 11/17/21 11/17/21 17:14 17:15 Temp 38.6 Pulse 118 Resp 21 B/P (MAP) 134/81 (98) Pulse Ox 96 96 O2 Delivery Nasal Cannula Nasal Cannula O2 Flow Rate 2.00 2.00 Progress Progress Note : Time: 17:20 Progress Note Patient seen and evaluated, awaiting staff members present to obtain more history. Will obtain labs, normal saline infusing from EMS. 1814 staff here from [facility], more history obtained. She recently stopped doxycycline for a UTI. She usually takes Macrobid daily but it was stopped while she was on the other antibiotic. Notified the staff member of the patient's poor hygiene when she arrived. [address] Rodriguez, agreed with plans for admission for IV antibiotics and fluid rehydration related to hyponatremia. Will have social service consult tomorrow. Diagnostic Imaging Diagonstic Imaging: Xray Plain Films/CT/US/NM/MRI: chest Comments NAME: [facility] REC#: [id number] PT STATUS: REG ER : 1970 PHYSICIAN: JESUS BARBA ADMIT DATE: 11/17/21/ER Signed Date of Exam:11/17/21 CHEST 1 VIEW, AP/PA ONLY EXAMINATION: Chest 1 view. HISTORY: Fever. COMPARISON: 08/07/2020. FINDINGS: The lung volumes are low. No focal consolidation is seen. Patchy opacities are seen in the lung bases. No large pleural effusion or pneumothorax is seen. The cardiomediastinal silhouette is prominent. No acute osseous abnormality is seen. IMPRESSION: 1. Low lung volumes with patchy bibasilar opacities. Findings may represent atelectasis, edema or infection. 2. Cardiomegaly. Dictated by: Dictated on workstation # [id number] Dict: 11/17/211814 Trans: 11/17/211816 [facility] [id number] Interpreted by: CHATO EASTON DO Electronically signed by: CHATO EASTON DO 11/17/211816 Reviewed: Reviewed by Me Departure Impression Primary Impression: UTI (urinary tract infection) Qualified Codes: N30.01 - Acute cystitis with hematuria Additional Impression: Hyponatremia Disposition: ADMITTED INPATIENT Condition: Stable Admissions Decision to Admit/Date: Nov 17, 2021 JESUS BARBA Nov 17, 2021 17:36
[2021-11-17] MEDS ORDERED: IBUPROFEN 800 MG (MOTRIN) TAB PO STA (17:43)
[2021-11-17 17:44] LABS: POTASSIUM 3.8 MMOL/L (3.6-5.0)
[2021-11-17 17:45] LABS: CALCIUM 8.7 MG/DL (8.5-10.1); INR 1.1 (0.8-1.4); PROTHROMBIN TIME PATIENT 14.9 SEC (12.2-14.7)
[2021-11-17 17:48] LABS: BILIRUBIN,TOTAL 0.7 MG/DL (0.1-1.0)
[2021-11-17 18:03] LABS: COLOR,URINE PALE YELLOW
[2021-11-17 18:04] LABS: CLARITY,URINE TURBID; GLUCOSE, URINE (UA) NEGATIVE (NEGATIVE); PROTEIN,URINE 2+ (NEGATIVE)
[2021-11-17 18:05] LABS: ALBUMIN 3.2 GM/DL (3.2-4.5); CREATININE SERUM 1.43 MG/DL (0.60-1.30); TOTAL PROTEIN 7.5 GM/DL (6.4-8.2)
[2021-11-17 18:05] LABS: AMORPHOUS SEDIMENT,UR LARGE AMOR PHOSPHATE /LPF; BACTERIA,URINE LARGE /HPF; BILIRUBIN,URINE NEGATIVE (NEGATIVE); KETONES,URINE 2+ (NEGATIVE); LEUKOCYTE ESTERASE ,URINE 3+ (NEGATIVE); NITRITE,URINE POSITIVE (NEGATIVE); WBC,URINE >100 /HPF
[2021-11-17] MEDS ORDERED: CEFEPIME INJECTION 1,000 MG in NS (IVPB) 50 ML IV ONE (18:15)
[2021-11-17] MEDS ORDERED: NS IV 1000 ML 1,000 ML IV SCH (18:15)
--- NOTE | 2021-11-17 18:19 | Diagnostic Imaging Report ---
EXAMINATION: Chest 1 view. HISTORY: Fever. COMPARISON: 08/07/2020. FINDINGS: The lung volumes are low. No focal consolidation is seen. Patchy opacities are seen in the lung bases. No large pleural effusion or pneumothorax is seen. The cardiomediastinal silhouette is prominent. No acute osseous abnormality is seen. IMPRESSION: 1. Low lung volumes with patchy bibasilar opacities. Findings may represent atelectasis, edema or infection. 2. Cardiomegaly. Dictated by: Dictated on workstation # [id number]
[2021-11-17 20:28] VITALS: BP 128/84
[2021-11-17] MEDS ORDERED: NS IV 1000 ML 1,000 ML ONE (20:28)
[2021-11-17] MEDS ORDERED: ONDANSETRON 4 MG/2 ML (SDV) Z0FRAN IV PRN (21:15)
[2021-11-17] MEDS ORDERED: ACETAMINOPHEN 325 MG TABLET PO PRN (21:15)
[2021-11-17] MEDS ORDERED: IBUPROFEN 600 MG (MOTRIN) TAB PO PRN (21:15)
[2021-11-17] MEDS: NS IV 1000 ML 1,000 ML IV SCH (22:37)
[2021-11-17] MEDS: CEFEPIME 1,000 MG/NS 50 ML IVPB IV SCH ×2 (23:54)
[2021-11-17 23:55] VITALS: BP 137/88
[2021-11-18 04:38] VITALS: BP 144/82
[2021-11-18] MEDS: CEFEPIME 1,000 MG/NS 50 ML IVPB IV SCH ×2 (05:25)
[2021-11-18 05:44] LABS: EOSINOPHILS # (AUTO) 0.1 10^3/uL (0.0-0.3); EOSINOPHILS % (AUTO) 1 % (0-10); HEMOGLOBIN 10.9 g/dL (11.5-16.0)
[2021-11-18 05:47] LABS: BASOPHILS % (AUTO) 0 % (0-10); HEMATOCRIT 34 % (35-52); LYMPHOCYTES # (AUTO) 0.8 10^3/uL (1.0-4.0); LYMPHOCYTES % (AUTO) 8 % (12-44); MEAN CORPUSCULAR HEMOGLOBIN 32 pg (25-34); MEAN CORPUSCULAR HGB CONC 32 g/dL (32-36); MEAN CORPUSCULAR VOLUME 99 fL (80-99); MEAN PLATELET VOLUME 10.8 fL (9.0-12.2); MONOCYTES # (AUTO) 1.2 10^3/uL (0.0-1.0); MONOCYTES % (AUTO) 12 % (0-12); NEUTROPHILS # (AUTO) 7.9 10^3/uL (1.8-7.8); NEUTROPHILS % (AUTO) 78 % (42-75); PLATELET COUNT 126 10^3/uL (130-400)
[2021-11-18 06:28] LABS: BAND NEUTROPHILS 9 %; ELLIPT/OVALOCYTES SLIGHT; EOSINOPHILS % (MANUAL) 1 %; LYMPHOCYTES % (MANUAL) 7 %; MONOCYTES % (MANUAL) 8 %; NEUTROPHILS % (MANUAL) 75 %
[2021-11-18 06:32] LABS: ALBUMIN 3.1 GM/DL (3.2-4.5); BILIRUBIN,TOTAL 0.5 MG/DL (0.1-1.0); CALCIUM 8.3 MG/DL (8.5-10.1); CREATININE SERUM 1.52 MG/DL (0.60-1.30); TOTAL PROTEIN 7.6 GM/DL (6.4-8.2)
[2021-11-18 07:16] VITALS: BP 121/75
[2021-11-18] MEDS: NS IV 1000 ML 1,000 ML IV SCH ×2 (07:27→17:37)
[2021-11-18] MEDS: cefTRIAXone 2,000 MG in NS (IVPB) 50 ML IV SCH (08:42)
[2021-11-18 11:17] VITALS: BP 129/72
[2021-11-18] MEDS ORDERED: SENN-117 PO (12:10)
[2021-11-18] MEDS ORDERED: CLON1TAB13 PO (12:10)
[2021-11-18] MEDS ORDERED: ASCO500T17 PO (12:10)
[2021-11-18] MEDS ORDERED: ONDA-106 PO (12:10)
[2021-11-18] MEDS ORDERED: QUET400T13 PO (12:10)
[2021-11-18] MEDS ORDERED: PHEN60TA9 PO (12:10)
[2021-11-18] MEDS ORDERED: DIPH25TA65 PO (12:10)
[2021-11-18] MEDS ORDERED: NITR-68 PO (12:10)
[2021-11-18] MEDS ORDERED: PHEN50TA5 PO (12:10)
[2021-11-18] MEDS ORDERED: IBUP-2185 PO (12:10)
[2021-11-18] MEDS ORDERED: NYST60PO TP (12:10)
[2021-11-18] MEDS ORDERED: HALO5TAB PO (12:10)
[2021-11-18] MEDS ORDERED: CLON0.5T25 PO (12:10)
[2021-11-18] MEDS ORDERED: CRAN450T9 PO (12:10)
[2021-11-18] MEDS ORDERED: PANT40TA52 PO (12:10)
[2021-11-18] MEDS ORDERED: DOXY100T2 PO (12:10)
[2021-11-18] MEDS ORDERED: ACET-2267 PO (12:10)
[2021-11-18] MEDS ORDERED: LOPE2TAB34 PO (12:10)
[2021-11-18] MEDS ORDERED: SERT-414 PO (12:10)
[2021-11-18] MEDS ORDERED: CARB15DR87 OU (12:10)
[2021-11-18] MEDS ORDERED: CLON0.5T4 PO (12:16)
--- NOTE | 2021-11-18 12:21 | History & Physical ---
ALVARO KENNEDY 11/18/21 1221: History of Present Illness History of Present Illness Reason for visit/HPI Pt is a 51yo female w/PMH of chronic UTIs and mental health issues who presented to the ER yesterday from her adult care facility due to fever. She was recently treated for a UTI with doxycycline and finished her course, but apparently did not restart the macrobid that she usually takes daily. She was awake and talking this morning but unable to provide much info about her health. She denies any pain, SOA, N/V or sweats/chills at the moment. Date of Admission Nov 18, 2021 at 12:02 Date Seen by a Provider: Nov 18, 2021 Time Seen by a Provider: 09:30 I consulted on this patient on 11/18/21 12:16 Attending Physician Nisha Sheppard MD Admitting Physician Faizan Fierro MD Consult Allergies and Home Medications Allergies Coded Allergies: No Known Drug Allergies (Unverified , 08/07/20) Patient Home Medication List Acetaminophen (Tylenol Extra Strength) 500 Mg Tablet, 1,000 MG PO Q6H PRN for PAIN-MILD (1-4), (Reported) Entered as Reported by: LAUREN CHOPRA on 11/18/211209 Last Action: Held Ascorbic Acid (Vitamin C) 500 Mg Tablet, 500 MG PO DAILY, (Reported) Entered as Reported by: LAUREN CHOPRA on 11/18/211209 Last Action: Held Carbamide Peroxide (Debrox) 15 Ml Drops, 5 DROPS OU BID, (Reported) Entered as Reported by: LAUREN CHOPRA on 11/18/211209 Last Action: Continued Clonazepam (Clonazepam) 1 Mg Tablet, 1 MG PO HS, (Reported) Entered as Reported by: LAUREN CHOPRA on 11/18/211209 Last Action: Continued Clonazepam (Clonazepam) 0.5 Mg Tablet, 0.5 MG PO DAILY, (Reported) Entered as Reported by: LAUREN CHOPRA on 11/18/211215 Last Action: Continued Cranberry Fruit (Cranberry) 450 Mg Tablet, 450 MG PO BID, (Reported) Entered as Reported by: LAUREN CHOPRA on 11/18/211209 Last Action: Held Diphenhydramine HCl (Benadryl Allergy) 25 Mg Tablet, 25 MG PO Q6H PRN for ALLERGY SYMPTOMS, (Reported) Entered as Reported by: LAUREN CHOPRA on 11/18/211209 Last Action: Held Doxycycline Hyclate (Doxycycline Hyclate) 100 Mg Tablet, 100 MG PO BID, (Reported) Entered as Reported by: LAUREN CHOPRA on 11/18/211209 Last Action: Held Haloperidol (Haloperidol) 5 Mg Tablet, 5 MG PO BID, (Reported) Entered as Reported by: LAUREN CHOPRA on 11/18/211209 Last Action: Continued Ibuprofen (Ibuprofen) 200 Mg Capsule, 400 MG PO Q6H PRN for PAIN-MILD (1-4), (Reported) Entered as Reported by: LAUREN CHOPRA on 11/18/211209 Last Action: Held Loperamide HCl (Loperamide) 2 Mg Tablet, 2 MG PO Q6H PRN for DIARRHEA, (Reported ) Entered as Reported by: LAUREN CHOPRA on 11/18/211209 Last Action: Held Nitrofurantoin Macrocrystal (Macrodantin) 100 Mg Capsule, 100 MG PO DAILY, (Reported) Entered as Reported by: LAUREN CHOPRA on 11/18/211209 Last Action: Held Nystatin (Nystop) 60 Gm Powder, 1 APPLIC TP Q8H PRN for GAULDING/REDNESS, (R eported) Entered as Reported by: LAUREN CHOPRA on 11/18/211209 Last Action: Held Ondansetron HCl (Ondansetron HCl) 8 Mg Tablet, 8 MG PO Q6H PRN for NAUSEA/VOMITING-1ST LINE, (Reported) Entered as Reported by: LAUREN CHOPRA on 11/18/211209 Last Action: Held Pantoprazole Sodium (Pantoprazole Sodium) 40 Mg Tablet.dr, 40 MG PO BID, (Reported) Entered as Reported by: LAUREN CHOPRA on 11/18/211209 Last Action: Continued Phenobarbital (Phenobarbital) 60 Mg Tablet, 60 MG PO BID, (Reported) Entered as Reported by: LAUREN CHOPRA on 11/18/211209 Last Action: Converted Phenytoin (Phenytoin) 50 Mg Tab.chew, 150 MG PO BID, (Reported) Entered as Reported by: LAUREN CHOPRA on 11/18/211209 Last Action: Continued Quetiapine Fumarate (Quetiapine Fumarate) 400 Mg Tablet, 400 MG PO BID, (Reported) Entered as Reported by: LAUREN CHOPRA on 11/18/211209 Last Action: Reviewed Sennosides/Docusate Sodium (Stimulant Laxative Plus Tablet) 1 Each Tablet, 1 EA PO BID, (Reported) Entered as Reported by: LAUREN CHOPRA on 11/18/211209 Last Action: Held Sertraline HCl (Sertraline HCl) 100 Mg Tablet, 200 MG PO DAILY, (Reported) Entered as Reported by: LAUREN CHOPRA on 11/18/211209 Last Action: Continued Discontinued Medications Cefdinir (Cefdinir) 300 Mg Capsule, 300 MG PO BID Discontinued Reason: No Longer Taking Prescribed by: DOC GARCIA on 08/09/20 1321 Last Action: Discontinued Past Wfliagv-Ibgzuh-Isofuk Hx Patient Social History Tobacco Use?: No Smoking Status: Never a Smoker Smokeless Tobacco Frequency: Never a User Use of E-Cig and/or Vaping Lee: Never a User Substance use?: No Alcohol Use?: No Pt feels they are or have been: No Immunizations Up To Date Date of Influenza Vaccine: May 24, 2020 Tetanus Booster (TDap): Unknown Current Status Advance Directives: Unable to obtain Communicates: Verbally Primary Language: Arabic Preferred Spoken Language: Arabic Is interpretation needed?: No Implanted or Applied Medical D: None Past Medical History Seizure Disorder Family Medical History Reviewed Nursing Family Hx No Pertinent Family Hx Unable to obtain accurate family history due to patient's intellectual disability Review of Systems Constitutional: No chills, No diaphoresis Respiratory: No short of breath Gastrointestinal: No abdominal pain, No nausea, No vomiting Physical Exam Vital Signs Vital Signs - First Documented 11/17/21 11/17/21 17:14 17:15 Temp 38.6 Pulse 118 Resp 21 B/P (MAP) 134/81 (98) Pulse Ox 96 O2 Delivery Nasal Cannula O2 Flow Rate 2.00 Capillary Refill : Height, Weight, BMI Height: '" Weight: lbs. oz. kg; 38.55 BMI Method: General Appearance: Obese (severely obese) HEENT: PERRL/EOMI Neck: Normal Inspection, Supple Respiratory: Lungs Clear, No Accessory Muscle Use Cardiovascular: Tachycardia Gastrointestinal: Normal Bowel Sounds, Non Tender, Soft Extremity: Normal Inspection, No Pedal Edema Neurologic/Psychiatric: Alert Skin: Normal Color Assessment/Plan Assessment and Plan UTI, Sepsis KAROLINA Hyponatremia, resolved Culture revealed proteus species. Continue IV fluids, d/c Cefepime, started Rocephin Creatinine 1.52 today - was 1.43 on admission Sodium up to 135 today Admission Diagnosis UTI, sepsis Admission Status: Inpatient Order (span 2 midnights) Reason for Inpatient Admission: IV fluids, abx NISHA SHEPPARD MD 11/18/212020: History of Present Illness History of Present Illness Time Seen by a Provider: 11:25 Allergies and Home Medications Allergies Coded Allergies: No Known Drug Allergies (Unverified , 08/07/20) Patient Home Medication List Home Medication List Reviewed: Yes Acetaminophen (Tylenol Extra Strength) 500 Mg Tablet, 1,000 MG PO Q6H PRN for PAIN-MILD (1-4), (Reported) Entered as Reported by: LAUREN CHOPRA on 11/18/211209 Last Action: Held Ascorbic Acid (Vitamin C) 500 Mg Tablet, 500 MG PO DAILY, (Reported) Entered as Reported by: LAUREN CHOPRA on 11/18/211209 Last Action: Held Carbamide Peroxide (Debrox) 15 Ml Drops, 5 DROPS OU BID, (Reported) Entered as Reported by: LAUREN CHOPRA on 11/18/211209 Last Action: Continued Clonazepam (Clonazepam) 1 Mg Tablet, 1 MG PO HS, (Reported) Entered as Reported by: LAUREN CHOPRA on 11/18/211209 Last Action: Continued Clonazepam (Clonazepam) 0.5 Mg Tablet, 0.5 MG PO DAILY, (Reported) Entered as Reported by: LAUREN CHOPRA on 11/18/211215 Last Action: Continued Cranberry Fruit (Cranberry) 450 Mg Tablet, 450 MG PO BID, (Reported) Entered as Reported by: LAUREN CHOPRA on 11/18/211209 Last Action: Held Diphenhydramine HCl (Benadryl Allergy) 25 Mg Tablet, 25 MG PO Q6H PRN for ALLERGY SYMPTOMS, (Reported) Entered as Reported by: LAUREN CHOPRA on 11/18/211209 Last Action: Held Doxycycline Hyclate (Doxycycline Hyclate) 100 Mg Tablet, 100 MG PO BID, (Reported) Entered as Reported by: LAUREN CHOPRA on 11/18/211209 Last Action: Held Haloperidol (Haloperidol) 5 Mg Tablet, 5 MG PO BID, (Reported) Entered as Reported by: LAUREN CHOPRA on 11/18/211209 Last Action: Continued Ibuprofen (Ibuprofen) 200 Mg Capsule, 400 MG PO Q6H PRN for PAIN-MILD (1-4), (Reported) Entered as Reported by: LAUREN CHOPRA on 11/18/211209 Last Action: Held Loperamide HCl (Loperamide) 2 Mg Tablet, 2 MG PO Q6H PRN for DIARRHEA, (Reported) Entered as Reported by: LAUREN CHOPRA on 11/18/211209 Last Action: Held Nitrofurantoin Macrocrystal (Macrodantin) 100 Mg Capsule, 100 MG PO DAILY, (Reported) Entered as Reported by: LAUREN CHOPRA on 11/18/211209 Last Action: Held Nystatin (Nystop) 60 Gm Powder, 1 APPLIC TP Q8H PRN for GAULDING/REDNESS, (Rep orted) Entered as Reported by: LAUREN CHOPRA on 11/18/211209 Last Action: Held Ondansetron HCl (Ondansetron HCl) 8 Mg Tablet, 8 MG PO Q6H PRN for NAUSEA/VOMITING-1ST LINE, (Reported) Entered as Reported by: LAUREN CHOPRA on 11/18/211209 Last Action: Held Pantoprazole Sodium (Pantoprazole Sodium) 40 Mg Tablet.dr, 40 MG PO BID, (Reported) Entered as Reported by: LAUREN CHOPRA on 11/18/211209 Last Action: Continued Phenobarbital (Phenobarbital) 60 Mg Tablet, 60 MG PO BID, (Reported) Entered as Reported by: LAUREN CHOPRA on 11/18/211209 Last Action: Converted Phenytoin (Phenytoin) 50 Mg Tab.chew, 150 MG PO BID, (Reported) Entered as Reported by: LAUREN CHOPRA on 11/18/211209 Last Action: Continued Quetiapine Fumarate (Quetiapine Fumarate) 400 Mg Tablet, 400 MG PO BID, (Reported) Entered as Reported by: LAUREN CHOPRA on 11/18/211209 Last Action: Reviewed Sennosides/Docusate Sodium (Stimulant Laxative Plus Tablet) 1 Each Tablet, 1 EA PO BID, (Reported) Entered as Reported by: LAUREN CHOPRA on 11/18/21 1210 Last Action: Held Sertraline HCl (Sertraline HCl) 100 Mg Tablet, 200 MG PO DAILY, (Reported) Entered as Reported by: LAUREN CHOPRA on 11/18/21 1210 Last Action: Continued Discontinued Medications Cefdinir (Cefdinir) 300 Mg Capsule, 300 MG PO BID Discontinued Reason: No Longer Taking Prescribed by: DOC GARCIA on 08/09/20 1321 Last Action: Discontinued Past Ozuwhqi-Tpyyig-Ntbzef Hx Past Medical History Anxiety, Bipolar Family Medical History No Pertinent Family Hx Assessment/Plan Assessment and Plan Admitted with sepsis due to UTI. Transition to Rocephin, urine culture with Proteus. Resume home meds. Problems: (1) Sepsis Status: Acute (2) UTI (urinary tract infection) Status: Acute Qualifiers: Qualified Codes: N30.01 - Acute cystitis with hematuria Admission Diagnosis Admission Status: Inpatient Order (span 2 midnights) Reason for Inpatient Admission: IV antibiotics Supervisory-Addendum Brief Verification & Attestation Participated in pt care: history, MDM, physical Personally performed: exam, history, MDM, supervision of care Care discussed with: Medical Student Procedures: n/a Results interpretation: Verified all documentation A medical student performed and documented this service in my presence. I reviewed and verified all information documented by the medical student and made modifications to such information, when appropriate. I personally performed the physical exam and medical decision making. ALVARO KENNEDY Nov 18, 2021 12:21 NISHA SHEPPARD MD Nov 18, 2021 20:21
[2021-11-18 15:40] VITALS: BP 111/56
[2021-11-18 19:34] VITALS: BP 111/57
[2021-11-18] MEDS ORDERED: clonazePAM 1 MG (KlonoPIN) TAB PO SCH (21:00)
[2021-11-18] MEDS ORDERED: PHENYTOIN ORAL SUSPENSION 125 MG/5 ML UDC ONE (22:06)
[2021-11-18] MEDS: PANTOPRAZOLE 40 MG (PROTONIX) TAB PO SCH (22:11)
[2021-11-18] MEDS: HALOPERIDOL 5 MG (HALDOL) TAB PO SCH (22:11)
[2021-11-18] MEDS: PHENYTOIN ORAL SUSPENSION 125 MG/5 ML UDC PO SCH (22:14)
[2021-11-18 23:56] VITALS: BP 121/67
[2021-11-19 03:10] VITALS: BP 107/79
[2021-11-19] MEDS: NS IV 1000 ML 1,000 ML IV SCH (03:39)
[2021-11-19] MEDS: PANTOPRAZOLE 40 MG (PROTONIX) TAB PO SCH (06:03)
[2021-11-19 07:50] VITALS: BP 119/81
[2021-11-19] MEDS ORDERED: clonazePAM 0.5 MG (KlonoPIN) TAB PO SCH (09:00)
[2021-11-19] MEDS ORDERED: CARBAM PEROXIDE 6.5% 15 ML DROPS (DEBROX) EACH EAR SCH (09:00)
[2021-11-19] MEDS ORDERED: SERTRALINE 100 MG (ZOLOFT) TAB PO SCH (09:00)
[2021-11-19] MEDS ORDERED: PHENobarbital 64.8 MG (1 GRAIN) TAb PO SCH (09:00)
[2021-11-19] MEDS: PHENYTOIN ORAL SUSPENSION 125 MG/5 ML UDC PO SCH (09:28)
[2021-11-19] MEDS: HALOPERIDOL 5 MG (HALDOL) TAB PO SCH (09:28)
[2021-11-19] MEDS: cefTRIAXone 2,000 MG in NS (IVPB) 50 ML IV SCH (09:29)
[2021-11-19 10:05] LABS: CALCIUM 8.2 MG/DL (8.5-10.1); CREATININE SERUM 0.99 MG/DL (0.60-1.30); POTASSIUM 3.6 MMOL/L (3.6-5.0)
[2021-11-19] MEDS ORDERED: guaiFENesin/DM (ROBITUSSIN DM) 10 ML UDC PO PRN (11:45)
[2021-11-19 12:02] VITALS: BP 120/75
[2021-11-19] MEDS ORDERED: AMOX-355 PO (12:53)
[2021-11-19 14:05] VITALS: BP 120/75
--- NOTE | 2021-11-19 16:54 | Discharge Summary ---
ALVARO KENNEDY 11/19/21 1654: Diagnosis/Chief Complaint Date of Admission Nov 18, 2021 at 12:02 Date of Discharge Nov 19, 2021 at 14:45 Discharge Date: Nov 19, 2021 Admission Diagnosis Admission Diagnosis UTI with sepsis Discharge Diagnosis UTI with sepsis Discharge Summary Hospital Course Hospital Course Jarvis is a 51yo female w/PMH of chronic UTIs and mental health issues who presented to the ER on 11/17 from her adult care facility due to fever. She was diagnosed with a septic UTI and hyponatremia. After receiving IV fluids and Cefepime in the ER, she was admitted and her treatment was switched to Rocephin. Her sodium was normalized by 11/18. Her vital signs have been stable throughout her stay and she has not had a fever since yesterday afternoon. She is medically stable for discharge and will continue treating UTI with PO Augmentin. Labs Laboratory Tests 11/17/21 17:20: Red Blood Count 3.30L, Hemoglobin 10.4L, Hematocrit 31L, Monocytes (%) (Auto) 13H, Monocytes # (Auto) 1.4H, Prothrombin Time 14.9H, Activated Partial Thromboplast Time 41H, Sodium Level 129L, Carbon Dioxide Level 17L, Blood Urea Nitrogen 19H, Creatinine 1.43H, Glucose Level 122H 11/17/21 17:30: Urine Specific [place] 1.015L, Urine Protein 2+H, Urine Ketones 2+H, Urine Nitrite POSITIVEH, Urine Leukocyte Esterase 3+H, Urine RBC (Auto) 2+H, Urine WBC >100H, Urine Crystals PRESENTH, Urine Amorphous Sediment LARGE DAMIR PHOSPHATEH, Urine Bacteria LARGEH, Urine Mucus LARGEH 11/18/21 05:37: Red Blood Count 3.46L, Hemoglobin 10.9L, Hematocrit 34L, Monocytes # (Auto) 1.2H , Carbon Dioxide Level 15L, Blood Urea Nitrogen 24H, Creatinine 1.52H, Platelet Count 126L, Neutrophils (%) (Auto) 78H, Lymphocytes (%) (Auto) 8L, Neutrophils # (Auto) 7.9H, Lymphocytes # (Auto) 0.8L, Chloride Level 108H, Calcium Level 8.3L, Albumin 3.1L 11/19/21 09:25: Carbon Dioxide Level 18L, Glucose Level 138H, Chloride Level 111H, Calcium Level 8.2L Laboratory Tests 11/19/21 09:25: Sodium Level 139, Potassium Level 3.6, Chloride Level 111H, Carbon Dioxide Level 18L, Anion Gap 10, Blood Urea Nitrogen 14, Creatinine 0.99, Estimat Glomerular Filtration Rate 69, BUN/Creatinine Ratio 14, Glucose Level 138H, Calcium Level 8.2L Microbiology 11/17/21 Blood Culture - Preliminary, Resulted No growth 11/17/21 Urine Culture - Final, Complete Proteus mirabilis Active Scripts Active Augmentin 500-125 Tablet (Amoxicillin/Potassium Clav) 1 Each Tablet 1 Each PO BID 7 Days Reported Clonazepam 0.5 Mg Tablet 0.5 Mg PO DAILY Vitamin C (Ascorbic Acid) 500 Mg Tablet 500 Mg PO DAILY Tylenol Extra Strength (Acetaminophen) 500 Mg Tablet 1,000 Mg PO Q6H PRN Sertraline HCl 100 Mg Tablet 200 Mg PO DAILY TAKES 2 (100MG) TABS Stimulant Laxative Plus Tablet (Sennosides/Docusate Sodium) 1 Each Tablet 1 Ea PO BID Quetiapine Fumarate 400 Mg Tablet 400 Mg PO BID Phenytoin 50 Mg Tab.chew 150 Mg PO BID TAKES 3 (50MG) TABS Phenobarbital 60 Mg Tablet 60 Mg PO BID Pantoprazole Sodium 40 Mg Tablet.dr 40 Mg PO BID Ondansetron HCl 8 Mg Tablet 8 Mg PO Q6H PRN Nystop (Nystatin) 60 Gm Powder 1 Applic TP Q8H PRN Macrodantin (Nitrofurantoin Macrocrystal) 100 Mg Capsule 100 Mg PO DAILY Loperamide (Loperamide HCl) 2 Mg Tablet 2 Mg PO Q6H PRN Ibuprofen 200 Mg Capsule 400 Mg PO Q6H PRN Haloperidol 5 Mg Tablet 5 Mg PO BID Debrox (Carbamide Peroxide) 15 Ml Drops 5 Drops OU BID Cranberry (Cranberry Fruit) 450 Mg Tablet 450 Mg PO BID Clonazepam 1 Mg Tablet 1 Mg PO HS Benadryl Allergy (Diphenhydramine HCl) 25 Mg Tablet 25 Mg PO Q6H PRN Procedures None. Discharge Physical Examination Allergies: Coded Allergies: No Known Drug Allergies (Unverified , 08/07/20) Vitals & I&Os Vital Signs Date Time Temp Pulse Resp B/P (MAP) Pulse Ox O2 Delivery O2 Flow Rate FiO2 11/19/21 14:05 36.2 98 18 120/75 97 Nasal Cannula 2.00 General Appearance: Alert, No Acute Distress HEENT: PERRLA, EOMI Respiratory: Clear to Auscultation Cardiovascular: Regular Rate Abdominal: Normal Bowel Sounds, Soft Discharge Home Medications Reviewed and agree with Discharge Medication list on patient's Discharge Instruction sheet Instructions to Patient/Family Please see electronic discharge instructions given to patient. Copy Copies To 1: PAYAM VAZQUEZ MD, JARIN M MD 11/19/21 1943: Diagnosis/Chief Complaint Discharge Time: 11:25 Discharge Summary Discharge Physical Examination Allergies: Coded Allergies: No Known Drug Allergies (Unverified , 08/07/20) Copy Copies To 1: PAYAM VAZQUEZ MD Supervisory-Addendum Brief Verification & Attestation Participated in pt care: history, MDM, physical Personally performed: exam, history, MDM, supervision of care Care discussed with: Medical Student Procedures: n/a Results interpretation: Verified all documentation A medical student performed and documented this service in my presence. I reviewed and verified all information documented by the medical student and made modifications to such information, when appropriate. I personally performed the physical exam and medical decision making. ALVARO KENNEDY Nov 19, 2021 16:54 NISHA SHEPPARD MD Nov 19, 2021 19:43
== END 2021-11-19 14:45 | disposition home or self-care (01) | DRG 872 ==
LOC: EDUNIT# 17:09 → EDSEX 17:10 → ER 17:10 → 4TH 19:00 → OBSVTOIN 11-18 12:02 → 4TH 11-19 09:44
PROVIDERS: ADMIT Family Medicine; ATTEND Internal Medicine
PROC: 8E0ZXY6 Isolation (ICD-10-PCS; principal; 2021-11-17)
DX: A41.59 Other Gram-negative sepsis (principal); N30.01 Acute cystitis with hematuria; N17.9 Acute kidney failure, unspecified; E87.1 Hypo-osmolality and hyponatremia; G40.909 Epilepsy, unspecified, not intractable, without status epilepticus; F41.9 Anxiety disorder, unspecified; F31.9 Bipolar disorder, unspecified; F79 Unspecified intellectual disabilities; Z20.822 Contact with and (suspected) exposure to COVID-19; Z79.899 Other long term (current) drug therapy
CPT/HCPCS: 36415; 71045; 80048; 80053; 81000; 83605; 85007; 85025; 85027; 85610; 85730; 87040; 87077; 87088; 87186; 87636; 94760; G0378

== ENCOUNTER 2021-11-20 12:00 | Emergency (ER) | payer MEDICARE, MEDICAID ==
[~2021-11-20] VITALS: Ht 162.5 cm; Wt 101.8 kg
[~2021-11-20 12:00] MED LIST changes: +ACET-2267 PO; +AMOX-355 PO; +ASCO500T17 PO; +CARB15DR87 OU; +CLON0.5T25 PO; +CLON0.5T4 PO; +CLON1TAB13 PO; +CRAN450T9 PO; +DIPH25TA65 PO; +DOXY100T2 PO; +HALO5TAB PO; +IBUP-2185 PO; +LOPE2TAB34 PO; +NITR-68 PO; +NYST60PO TP; +ONDA-106 PO; +PANT40TA52 PO; +PHEN50TA5 PO; +PHEN60TA9 PO; +QUET400T13 PO; +SENN-117 PO; +SERT-414 PO
--- NOTE | 2021-11-20 12:25 | ED General ---
General Stated Complaint: LOW 02 Source of Information: Patient Exam Limitations: No Limitations (TACOS CARMEN APRN) History of Present Illness Date Seen by Provider: Nov 20, 2021 Time Seen by Provider: 12:24 Initial Comments To ER with c/o low O2 and lethargy. She is MR From [place]. Just discharged yesterday from inpatient admission for UTI/hyponatremia. Timing/Duration: 1-2 Days Severity: Moderate Associated Systoms: Denies Symptoms (TACOS CARMEN APRN) Allergies and Home Medications Allergies Coded Allergies: No Known Drug Allergies (Unverified , 08/07/20) Patient Home Medication List Home Medication List Reviewed: Yes (TACOS CARMEN APRN) Acetaminophen (Tylenol Extra Strength) 500 Mg Tablet, 1,000 MG PO Q6H PRN for PAIN-MILD (1-4), (Reported) Entered as Reported by: LAUREN CHOPRA on 11/18/21 1210 Amoxicillin/Potassium Clav (Augmentin 500-125 Tablet) 1 Each Tablet, 1 EACH PO BID Prescribed by: NISHA SHEPPARD on 11/19/21 1253 Ascorbic Acid (Vitamin C) 500 Mg Tablet, 500 MG PO DAILY, (Reported) Entered as Reported by: LAUREN CHOPRA on 11/18/21 1210 Carbamide Peroxide (Debrox) 15 Ml Drops, 5 DROPS OU BID, (Reported) Entered as Reported by: LAUREN CHOPRA on 11/18/21 121 Clonazepam (Clonazepam) 1 Mg Tablet, 1 MG PO HS, (Reported) Entered as Reported by: LAUREN CHOPRA on 11/18/21 1210 Clonazepam (Clonazepam) 0.5 Mg Tablet, 0.5 MG PO DAILY, (Reported) Entered as Reported by: LAUREN CHOPRA on 11/18/21 1216 Cranberry Fruit (Cranberry) 450 Mg Tablet, 450 MG PO BID, (Reported) Entered as Reported by: LAUREN CHOPRA on 11/18/21 121 Diphenhydramine HCl (Benadryl Allergy) 25 Mg Tablet, 25 MG PO Q6H PRN for ALLERGY SYMPTOMS, (Reported) Entered as Reported by: LAUREN CHOPRA on 11/18/21 121 Haloperidol (Haloperidol) 5 Mg Tablet, 5 MG PO BID, (Reported) Entered as Reported by: LAUREN CHOPRA on 11/18/211209 Ibuprofen (Ibuprofen) 200 Mg Capsule, 400 MG PO Q6H PRN for PAIN-MILD (1-4), (Reported) Entered as Reported by: LAUREN CHOPRA on 11/18/211209 Loperamide HCl (Loperamide) 2 Mg Tablet, 2 MG PO Q6H PRN for DIARRHEA, (Reported) Entered as Reported by: LAUREN CHOPRA on 11/18/211209 Nitrofurantoin Macrocrystal (Macrodantin) 100 Mg Capsule, 100 MG PO DAILY, (Reported) Entered as Reported by: LAUREN CHOPRA on 11/18/211209 Nystatin (Nystop) 60 Gm Powder, 1 APPLIC TP Q8H PRN for GAULDING/REDNESS, (Reported) Entered as Reported by: LAUREN CHOPRA on 11/18/211209 Ondansetron HCl (Ondansetron HCl) 8 Mg Tablet, 8 MG PO Q6H PRN for NAUSEA/VOMITING-1ST LINE, (Reported) Entered as Reported by: LAUREN HCOPRA on 11/18/211209 Pantoprazole Sodium (Pantoprazole Sodium) 40 Mg Tablet.dr, 40 MG PO BID, (Reported) Entered as Reported by: LAUREN CHOPRA on 11/18/211209 Phenobarbital (Phenobarbital) 60 Mg Tablet, 60 MG PO BID, (Reported) Entered as Reported by: LAUREN CHOPRA on 11/18/211209 Phenytoin (Phenytoin) 50 Mg Tab.chew, 150 MG PO BID, (Reported) Entered as Reported by: LAUREN CHOPRA on 11/18/211209 Quetiapine Fumarate (Quetiapine Fumarate) 400 Mg Tablet, 400 MG PO BID, (Reported) Entered as Reported by: LAUREN CHOPRA on 11/18/211209 Sennosides/Docusate Sodium (Stimulant Laxative Plus Tablet) 1 Each Tablet, 1 EA PO BID, (Reported) Entered as Reported by: LAUREN CHOPRA on 11/18/211209 Sertraline HCl (Sertraline HCl) 100 Mg Tablet, 200 MG PO DAILY, (Reported) Entered as Reported by: LAUREN CHOPRA on 11/18/211209 Discontinued Medications Cefdinir (Cefdinir) 300 Mg Capsule, 300 MG PO BID Discontinued Reason: No Longer Taking Prescribed by: DOC GARCIA on 08/09/20 1321 Doxycycline Hyclate (Doxycycline Hyclate) 100 Mg Tablet, 100 MG PO BID, (Reported) Entered as Reported by: LAUREN CHOPRA on 11/18/21 1210 Review of Systems Review of Systems Constitutional: see HPI EENTM: see HPI Respiratory: no symptoms reported Cardiovascular: no symptoms reported Genitourinary: no symptoms reported Musculoskeletal: no symptoms reported Skin: no symptoms reported Psychiatric/Neurological: No Symptoms Reported Hematologic/Lymphatic: No Symptoms Reported (TACOS CARMEN APRN) Past Evpblwt-Yfeonf-Yxxpxj Hx Immunizations Up To Date Tetanus Booster (TDap): Unknown (TACOS CARMEN APRN) Past Medical History Surgery/Hospitalization HX: UTI, psych admissions Surgeries: No (Unknown) Respiratory: No Cardiac: No Neurological: Yes (Intellectual disability) Seizure Disorder Genitourinary: Yes (Urinary tract infection) Gastrointestinal: No Musculoskeletal: No Endocrine: No HEENT: No Cancer: No Psychosocial: No Anxiety, Bipolar Integumentary: No (TACOS CARMEN APRN) Family Medical History No Pertinent Family Hx Unable to obtain accurate family history due to patient's intellectual disability (TACOS CARMEN APRN) Physical Exam Vital Signs Vital Signs - First Documented 11/20/21 11/20/21 12:05 13:42 Temp 35.5 Pulse 109 Resp 19 B/P (MAP) 130/93 (105) Pulse Ox 97 O2 Delivery Room Air (SAMMY ARANGO MD) Vital Signs Capillary Refill : (TACOS CARMEN APRN) Height, Weight, BMI Height: '" Weight: lbs. oz. kg; 38.55 BMI Method: General Appearance: No Apparent Distress, WD/WN, Other (O2 94-95% room air, HR 105. ) Eyes: Bilateral Eye Normal Inspection, Bilateral Eye PERRL, Bilateral Eye EOMI Neck: Full Range of Motion, Normal Inspection Respiratory: Lungs Clear, Normal Breath Sounds, No Accessory Muscle Use, No Respiratory Distress Cardiovascular: Regular Rate, Rhythm, Normal Peripheral Pulses Gastrointestinal: Normal Bowel Sounds, Non Tender, Soft Extremity: Normal Capillary Refill, Normal Inspection Neurologic/Psychiatric: Alert, Oriented x3, Other (talkative and interactive with me. Does not seem lethargic to me though I dont know her baseline. ) Skin: Normal Color, Warm/Dry (TACOS CARMEN APRN) Focused Exam Lactate Level 11/20/21 12:19: Lactic Acid Level 0.96 (SAMMY ARANGO MD) Lactic Acid Level Laboratory Tests Test 11/20/21 12:19 Lactic Acid Level 0.96 MMOL/L (0.50-2.00) (SAMMY ARANGO MD) Progress/Results/Core Measures Suspected Sepsis SIRS Temperature: Pulse: Respiratory Rate: Laboratory Tests 11/20/21 12:19: White Blood Count 8.4 Blood Pressure / Mean: 11/20/21 12:19: Lactic Acid Level 0.96 Laboratory Tests 11/20/21 12:19: Creatinine 1.08, INR Comment 1.0, Platelet Count 196, Total Bilirubin 0.3 (TACOS CARMEN APRN) Results/Orders Lab Results Laboratory Tests Test 11/20/21 12:19 Range/Units White Blood Count 8.4 4.3-11.0 10^3/uL Red Blood Count 3.42 L 3.80-5.11 10^6/uL Hemoglobin 10.8 L 11.5-16.0 g/dL Hematocrit 33 L 35-52 % Mean Corpuscular Volume 97 80-99 fL Mean Corpuscular Hemoglobin 32 25-34 pg Mean Corpuscular Hemoglobin Concent 33 32-36 g/dL Red Cell Distribution Width 14.6 H 10.0-14.5 % Platelet Count 196 130-400 10^3/uL Mean Platelet Volume 10.8 9.0-12.2 fL Immature Granulocyte % (Auto) 1 % Neutrophils (%) (Auto) 70 42-75 % Lymphocytes (%) (Auto) 20 12-44 % Monocytes (%) (Auto) 8 0-12 % Eosinophils (%) (Auto) 1 0-10 % Basophils (%) (Auto) 0 0-10 % Neutrophils # (Auto) 5.9 1.8-7.8 10^3/uL Lymphocytes # (Auto) 1.7 1.0-4.0 10^3/uL Monocytes # (Auto) 0.7 0.0-1.0 10^3/uL Eosinophils # (Auto) 0.1 0.0-0.3 10^3/uL Basophils # (Auto) 0.0 0.0-0.1 10^3/uL Immature Granulocyte # (Auto) 0.0 0.0-0.1 10^3/uL Prothrombin Time 14.0 12.2-14.7 SEC INR Comment 1.0 0.8-1.4 Activated Partial Thromboplast Time 35 24-35 SEC Sodium Level 142 135-145 MMOL/L Potassium Level 3.9 3.6-5.0 MMOL/L Chloride Level 108 H 98-107 MMOL/L Carbon Dioxide Level 19 L 21-32 MMOL/L Anion Gap 15 H 5-14 MMOL/L Blood Urea Nitrogen 11 7-18 MG/DL Creatinine 1.08 0.60-1.30 MG/DL Estimat Glomerular Filtration Rate 62 BUN/Creatinine Ratio 10 Glucose Level 106 H 70-105 MG/DL Lactic Acid Level 0.96 0.50-2.00 MMOL/L Calcium Level 8.8 8.5-10.1 MG/DL Corrected Calcium 9.5 8.5-10.1 MG/DL Total Bilirubin 0.3 0.1-1.0 MG/DL Aspartate Amino Transf (AST/SGOT) 20 5-34 U/L Alanine Aminotransferase (ALT/SGPT) 19 0-55 U/L Alkaline Phosphatase 112 40-136 U/L B-Type Natriuretic Peptide 28.5 <100.0 PG/ML Total Protein 8.1 6.4-8.2 GM/DL Albumin 3.1 L 3.2-4.5 GM/DL (SAMMY ARANGO MD) Micro Results Microbiology 11/20/21 Blood Culture - Preliminary, Resulted No growth (SAMMY ARANGO MD) Vital Signs/I&O 11/20/21 11/20/21 12:05 13:42 Temp 35.5 Pulse 109 100 Resp 19 22 B/P (MAP) 130/93 (105) 130/83 Pulse Ox 97 98 O2 Delivery Room Air (SAMMY ARANGO MD) Vital Signs/I&O Capillary Refill : (TACOS CARMEN APRN) Diagnostic Imaging Diagonstic Imaging: Xray Comments NAME: [facility] REC#: [id number] PT STATUS: REG ER : 1970 PHYSICIAN: TACOS CARMEN APRN ADMIT DATE: 11/20/21/ER Draft Date of Exam:11/20/21 CHEST 1 VIEW, AP/PA ONLY INDICATION: Dyspnea. TECHNIQUE/COMPARISON: A single AP view of the chest was obtained with comparison made to the study of 11/17/2021. FINDINGS: The study is limited by suboptimal inspiration. There is slight improvement in aeration of the lung bases with mild residual atelectasis. There is a rounded focus projecting over the left upper lobe at the level of the aortic knob. This is seen better on the current study. No pneumothorax or definite pleural fluid is identified. IMPRESSION: Probable persistent basilar atelectasis. Patchy rounded area in the left upper lobe may represent focal infiltrate. Short-term radiographic followup is suggested to document resolution and exclude other underlying pathology. Dictated on workstation # [id number] Dict: 11/20/21 1243 Trans: 11/20/21 1247 [id number] Interpreted by: CONSUELO CHAVARRIA MD Electronically signed by: (TACOS CARMEN APRN) Departure Communication (Admissions) She was given Rx for augmentin for tx of UTI upon discharge--this has not yet been started. (TACOS CARMEN APRN) Impression Primary Impression: MARIAH pneumonia Disposition: 01 HOME, SELF-CARE Condition: Stable Departure-Patient Inst. Decision time for Depature: 13:18 (TACOS CARMEN APRN) Referrals: PAYAM VAZQUEZ MD (PCP/Family) Primary Care Physician Patient Instructions: Pneumonia in Adults Add. Discharge Instructions: There is a question of pneumnia in the left upper lobe. Start the antibitioc that was sent in yesterday (augmentin). Follow up with Primary care in a week or two for repeat chest x ray. Return to ER for any worsening. ATTENDING PHYSICIAN NOTE: I was physically present as attending physician in the emergency department during the care of this patient, but I was not directly involved in the decision making or delivery of care for this patient. (SAMMY ARANGO MD) TACOS CARMEN APRN Nov 20, 2021 12:25 SAMMY ARANGO MD Nov 22, 2021 06:12
[2021-11-20 12:29] LABS: BASOPHILS % (AUTO) 0 % (0-10); EOSINOPHILS # (AUTO) 0.1 10^3/uL (0.0-0.3); EOSINOPHILS % (AUTO) 1 % (0-10); HEMATOCRIT 33 % (35-52); HEMOGLOBIN 10.8 g/dL (11.5-16.0); LYMPHOCYTES # (AUTO) 1.7 10^3/uL (1.0-4.0); LYMPHOCYTES % (AUTO) 20 % (12-44); MEAN CORPUSCULAR HEMOGLOBIN 32 pg (25-34); MEAN CORPUSCULAR HGB CONC 33 g/dL (32-36); MEAN CORPUSCULAR VOLUME 97 fL (80-99); MEAN PLATELET VOLUME 10.8 fL (9.0-12.2); MONOCYTES # (AUTO) 0.7 10^3/uL (0.0-1.0); MONOCYTES % (AUTO) 8 % (0-12); NEUTROPHILS # (AUTO) 5.9 10^3/uL (1.8-7.8); NEUTROPHILS % (AUTO) 70 % (42-75); PLATELET COUNT 196 10^3/uL (130-400); WHITE BLOOD COUNT 8.4 10^3/uL (4.3-11.0)
[2021-11-20 12:38] LABS: ALBUMIN 3.1 GM/DL (3.2-4.5); POTASSIUM 3.9 MMOL/L (3.6-5.0)
[2021-11-20 12:39] LABS: CALCIUM 8.8 MG/DL (8.5-10.1)
[2021-11-20 12:41] LABS: TOTAL PROTEIN 8.1 GM/DL (6.4-8.2)
[2021-11-20 12:42] LABS: BILIRUBIN,TOTAL 0.3 MG/DL (0.1-1.0)
[2021-11-20 12:44] LABS: CREATININE SERUM 1.08 MG/DL (0.60-1.30)
--- NOTE | 2021-11-20 12:48 | Diagnostic Imaging Report ---
INDICATION: Dyspnea. TECHNIQUE/COMPARISON: A single AP view of the chest was obtained with comparison made to the study of 11/17/2021. FINDINGS: The study is limited by suboptimal inspiration. There is slight improvement in aeration of the lung bases with mild residual atelectasis. There is a rounded focus projecting over the left upper lobe at the level of the aortic knob. This is seen better on the current study. No pneumothorax or definite pleural fluid is identified. IMPRESSION: Probable persistent basilar atelectasis. Patchy rounded area in the left upper lobe may represent focal infiltrate. Short-term radiographic followup is suggested to document resolution and exclude other underlying pathology. Dictated by: Dictated on workstation # [id number]
[2021-11-20 13:42] VITALS: BP 130/83
== END 2021-11-20 13:42 | disposition home or self-care (01) ==
LOC: EDUNIT# 12:00 → ER 12:01
DX: J18.1 Lobar pneumonia, unspecified organism (principal)
CPT/HCPCS: 36415; 71045; 80053; 83605; 83880; 85025; 85610; 85730; 87040; 93005

== ENCOUNTER 2022-08-04 14:16 | Emergency (ER) | payer MEDICARE, MEDICAID ==
--- NOTE | 2022-08-04 15:51 | ED Neurological Problem ---
General Chief Complaint: Neurological Problems Stated Complaint: SEIZURE Nursing Triage Note: PT TO TRIAGE WITH COMPLAINT OF SEIZURE. STATES PT HAD A SEIZURE LAST APPROX 10 MINUTES. STATES PT TAKES SEIZURE MEDS. INITIALLY WAS SENT TO URGENT FOR EVALUATION, BUT WAS TOLD TO ER. STAFF STATES PT IS NOT ACTING HERSELF. 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 Source: other (caregiver) Exam Limitations: clinical condition (mental/intellectual disability) History of Present Illness Date Seen by Provider: Aug 04, 2022 Time Seen by Provider: 15:35 Initial Comments Patient is a 52-year-old female history of mental/intellectual disability who lives in a longterm history of seizure disorder, reportedly had a 10-minute long seizure today. As far as the caregiver who is present with the patient knows she does not have any "rescue medications". She is back to her normal level of disability. She is able to say yes and no and converse minimally. She is refusing any medications currently. She states she has not had lunch. She is holding onto her baby doll which she has at all times. Caregiver at the bedside states that she has been out of her phenobarbital for 5 days and that the pharmacy "has it on order". No recent illnesses at the longterm that the caregiver is aware of such as COVID or flu. Patient has not been ill. No concerns for injury during the seizure. History is limited as the caregiver present was not with the patient when she had her seizure earlier. Timing/Duration: 1-3 hours Allergies and Home Medications Allergies Coded Allergies: No Known Drug Allergies (Unverified , 08/07/20) Patient Home Medication List Home Medication List Reviewed: Yes Acetaminophen (Tylenol Extra Strength) 500 Mg Tablet, 1,000 MG PO Q6H PRN for PAIN-MILD (1-4), (Reported) Entered as Reported by: LAUREN CHOPRA on 11/18/21 1210 Amoxicillin/Potassium Clav (Augmentin 500-125 Tablet) 1 Each Tablet, 1 EACH PO BID Prescribed by: NISHA SHEPPARD on 11/19/21 1253 Ascorbic Acid (Vitamin C) 500 Mg Tablet, 500 MG PO DAILY, (Reported) Entered as Reported by: LAUREN CHOPRA on 11/18/21 1210 Carbamide Peroxide (Debrox) 15 Ml Drops, 5 DROPS OU BID, (Reported) Entered as Reported by: LAUREN CHOPRA on 11/18/21 1210 Clonazepam (Clonazepam) 1 Mg Tablet, 1 MG PO HS, (Reported) Entered as Reported by: LAUREN CHOPRA on 11/18/21 121 Clonazepam (Clonazepam) 0.5 Mg Tablet, 0.5 MG PO DAILY, (Reported) Entered as Reported by: LAUREN CHOPRA on 11/18/21 121 Cranberry Fruit (Cranberry) 450 Mg Tablet, 450 MG PO BID, (Reported) Entered as Reported by: LAUREN CHOPRA on 11/18/21 121 Diphenhydramine HCl (Benadryl Allergy) 25 Mg Tablet, 25 MG PO Q6H PRN for ALLERGY SYMPTOMS, (Reported) Entered as Reported by: LAUREN CHOPRA on 11/18/21 121 Haloperidol (Haloperidol) 5 Mg Tablet, 5 MG PO BID, (Reported) Entered as Reported by: LAUREN CHOPRA on 11/18/211209 Ibuprofen (Ibuprofen) 200 Mg Capsule, 400 MG PO Q6H PRN for PAIN-MILD (1-4), (Reported) Entered as Reported by: LAUREN CHOPRA on 11/18/211209 Loperamide HCl (Loperamide) 2 Mg Tablet, 2 MG PO Q6H PRN for DIARRHEA, (Reported) Entered as Reported by: LAUREN CHOPRA on 11/18/21 121 Nitrofurantoin Macrocrystal (Macrodantin) 100 Mg Capsule, 100 MG PO DAILY, (Reported) Entered as Reported by: LAUREN CHOPRA on 11/18/211209 Nystatin (Nystop) 60 Gm Powder, 1 APPLIC TP Q8H PRN for GAULDING/REDNESS, (Reported) Entered as Reported by: LAUREN CHOPRA on 11/18/211209 Ondansetron HCl (Ondansetron HCl) 8 Mg Tablet, 8 MG PO Q6H PRN for NAUSEA/VOMITING-1ST LINE, (Reported) Entered as Reported by: LAUREN CHOPRA on 11/18/21 121 Pantoprazole Sodium (Pantoprazole Sodium) 40 Mg Tablet.dr, 40 MG PO BID, (Reported) Entered as Reported by: LAUREN CHOPRA on 11/18/21 121 Phenobarbital (Phenobarbital) 60 Mg Tablet, 60 MG PO BID, (Reported) Entered as Reported by: LAUREN CHOPRA on 11/18/21 1210 Phenytoin (Phenytoin) 50 Mg Tab.chew, 150 MG PO BID, (Reported) Entered as Reported by: LAUREN CHOPRA on 11/18/21 121 Quetiapine Fumarate (Quetiapine Fumarate) 400 Mg Tablet, 400 MG PO BID, (Reported) Entered as Reported by: LAUREN CHOPRA on 11/18/21 121 Sennosides/Docusate Sodium (Stimulant Laxative Plus Tablet) 1 Each Tablet, 1 EA PO BID, (Reported) Entered as Reported by: LAUREN CHOPRA on 11/18/21 121 Sertraline HCl (Sertraline HCl) 100 Mg Tablet, 200 MG PO DAILY, (Reported) Entered as Reported by: LAUREN CHOPRA on 11/18/211209 Review of Systems Review of Systems Constitutional: see HPI patient unable to provide HPI/ROS due to intellectual disability Past Yjjyaop-Kzsrit-Dpyiqa Hx Patient Social History Tobacco Use?: No Use of E-Cig and/or Vaping dev: No Substance use?: No Alcohol Use?: No Pt feels they are or have been: No Immunizations Up To Date Tetanus Booster (TDap): Unknown Influenza Vaccine Up-to-Date: Yes; Up-to-Date First/Initial COVID19 Vaccinat: 2020 Second COVID19 Vaccination Reilly: 2020 Past Medical History Surgery/Hospitalization HX: UTI, psych admissions Surgeries: No (Unknown) Respiratory: No Cardiac: No Neurological: Yes (Intellectual disability) Seizure Disorder Genitourinary: Yes (Urinary tract infection) Gastrointestinal: No Musculoskeletal: No Endocrine: No HEENT: No Cancer: No Psychosocial: No Anxiety, Bipolar Integumentary: No Family Medical History No Pertinent Family Hx Unable to obtain accurate family history due to patient's intellectual disability Physical Exam Vital Signs Vital Signs - First Documented 08/04/22 14:24 Temp 36.3 Pulse 121 Resp 20 B/P (MAP) 125/84 (98) Pulse Ox 96 O2 Delivery Room Air Capillary Refill : Less Than 3 Seconds Height, Weight, BMI Height: '" Weight: lbs. oz. kg; 38.00 BMI Method: General Appearance: WD/WN, no apparent distress HEENT: PERRL/EOMI, other (moist oral mucosa - extremely poor dentition with multiple necrotic teeth visible on cursory exam. no bleeding from the mouth noted) Neck: normal inspection Respiratory: lungs clear, normal breath sounds, no respiratory distress, no accessory muscle use Cardiovascular: regular rate, rhythm, tachycardia (110), other (2+ right radial pulse (patient will not allow palpation of left radial pulse as she is holding her babydoll with that arm)) Gastrointestinal: normal bowel sounds, soft Extremities: normal range of motion, no pedal edema Neurologic/Psychiatric: alert, normal mood/affect ((per caregiver)) Crainal Nerves: normal speech, PERRL Motor/Sensory: no motor deficit Skin: normal color, warm/dry Progress/Results/Core Measures Results/Orders Vital Signs/I&O 08/04/22 14:24 Temp 36.3 Pulse 121 Resp 20 B/P (MAP) 125/84 (98) Pulse Ox 96 O2 Delivery Room Air Blood Pressure Mean: 98 Progress Progress Note : Time: 15:48 Progress Note Patient seen and examined, recent seizure this morning staff reported of 10 minutes duration. Patient is back to her neurologic baseline. Currently out of her phenobarbital which is 60 mg twice daily. Caregiver reported to nurse Garcia RN, just after I saw the patient that they have her phenobarbitol now at the facility. No clinical or objective findings to warrant laboratory evaluation. No need for emergent imaging such as CT scan of the head as the patient seems to be neurologically again at her baseline. Patient will be returned to [facility]. Departure Impression Primary Impression: Seizure Additional Impression: subtherapeutic phenobarbitol level Disposition: 01 HOME, SELF-CARE Condition: Stable Departure-Patient Inst. Decision time for Depature: 15:50 Referrals: NO,LOCAL PHYSICIAN (PCP/Family) Primary Care Physician Patient Instructions: Seizures, Adult (DC) Add. Discharge Instructions: Resume her normal schedule of medications today. Return to the Emergency Department for any new, concerning or emergent complaints. SISSY THORNE MD Aug 04, 2022 15:51
[2022-08-04 15:56] VITALS: BP 108/86
[2022-08-04] MEDS ORDERED: CLON1TAB13 PO ×2 (23:23→23:45)
[2022-08-04] MEDS ORDERED: CLON0.5T4 PO ×2 (23:23→23:45)
[2022-08-04] MEDS ORDERED: CEFD300C3 PO (23:23)
== END 2022-08-04 15:57 | disposition home or self-care (01) ==
LOC: EDUNIT# 14:16 → ER 14:19
DX: G40.909 Epilepsy, unspecified, not intractable, without status epilepticus (principal); R89.2 Abnormal level of other drugs, medicaments and biological substances in specimens from other organs, systems and tissues
CPT/HCPCS: 99282

== ENCOUNTER 2022-08-04 20:31 | Emergency (ER) | payer MEDICARE, MEDICAID ==
[~2022-08-04] VITALS: Ht 167.7 cm; Wt 72.7 kg
--- NOTE | 2022-08-04 20:56 | ED General ---
General Chief Complaint: Neurological Problems Stated Complaint: SEIZURE History of Present Illness Date Seen by Provider: Aug 04, 2022 Allergies and Home Medications Allergies Coded Allergies: No Known Drug Allergies (Unverified , 08/07/20) Patient Home Medication List Acetaminophen (Tylenol Extra Strength) 500 Mg Tablet, 1,000 MG PO Q6H PRN for PAIN-MILD (1-4), (Reported) Entered as Reported by: LAUREN CHOPRA on 11/18/21 1210 Amoxicillin/Potassium Clav (Augmentin 500-125 Tablet) 1 Each Tablet, 1 EACH PO BID Prescribed by: NISHA SHEPPARD on 11/19/21 1253 Ascorbic Acid (Vitamin C) 500 Mg Tablet, 500 MG PO DAILY, (Reported) Entered as Reported by: LAUREN CHOPRA on 11/18/21 121 Carbamide Peroxide (Debrox) 15 Ml Drops, 5 DROPS OU BID, (Reported) Entered as Reported by: LAUREN CHOPRA on 11/18/21 1210 Clonazepam (Clonazepam) 1 Mg Tablet, 1 MG PO HS, (Reported) Entered as Reported by: LAUREN CHOPRA on 11/18/21 1210 Clonazepam (Clonazepam) 0.5 Mg Tablet, 0.5 MG PO DAILY, (Reported) Entered as Reported by: LAUREN CHOPRA on 11/18/21 1216 Cranberry Fruit (Cranberry) 450 Mg Tablet, 450 MG PO BID, (Reported) Entered as Reported by: LAUREN CHOPRA on 11/18/21 121 Diphenhydramine HCl (Benadryl Allergy) 25 Mg Tablet, 25 MG PO Q6H PRN for ALLERGY SYMPTOMS, (Reported) Entered as Reported by: LAUREN CHOPRA on 11/18/21 1210 Haloperidol (Haloperidol) 5 Mg Tablet, 5 MG PO BID, (Reported) Entered as Reported by: LAUREN CHOPRA on 11/18/21 121 Ibuprofen (Ibuprofen) 200 Mg Capsule, 400 MG PO Q6H PRN for PAIN-MILD (1-4), (Reported) Entered as Reported by: LAUREN CHOPRA on 11/18/21 121 Loperamide HCl (Loperamide) 2 Mg Tablet, 2 MG PO Q6H PRN for DIARRHEA, (Reported) Entered as Reported by: LAUREN CHOPRA on 11/18/21 121 Nitrofurantoin Macrocrystal (Macrodantin) 100 Mg Capsule, 100 MG PO DAILY, (Reported) Entered as Reported by: LAUREN CHOPRA on 11/18/211209 Nystatin (Nystop) 60 Gm Powder, 1 APPLIC TP Q8H PRN for GAULDING/REDNESS, (Reported) Entered as Reported by: LAUREN CHOPRA on 11/18/211209 Ondansetron HCl (Ondansetron HCl) 8 Mg Tablet, 8 MG PO Q6H PRN for NAUSEA/VOMITING-1ST LINE, (Reported) Entered as Reported by: LAUREN CHOPRA on 11/18/211209 Pantoprazole Sodium (Pantoprazole Sodium) 40 Mg Tablet.dr, 40 MG PO BID, (Reported) Entered as Reported by: LAUREN CHOPRA on 11/18/211209 Phenobarbital (Phenobarbital) 60 Mg Tablet, 60 MG PO BID, (Reported) Entered as Reported by: LAUREN CHOPRA on 11/18/211209 Phenytoin (Phenytoin) 50 Mg Tab.chew, 150 MG PO BID, (Reported) Entered as Reported by: LAUREN CHOPRA on 11/18/211209 Quetiapine Fumarate (Quetiapine Fumarate) 400 Mg Tablet, 400 MG PO BID, (Reported) Entered as Reported by: LAUREN CHOPRA on 11/18/211209 Sennosides/Docusate Sodium (Stimulant Laxative Plus Tablet) 1 Each Tablet, 1 EA PO BID, (Reported) Entered as Reported by: LAUREN CHOPRA on 11/18/211209 Sertraline HCl (Sertraline HCl) 100 Mg Tablet, 200 MG PO DAILY, (Reported) Entered as Reported by: LAUREN CHOPRA on 11/18/211209 Past Iyhbspf-Jwcvde-Gwuiko Hx Immunizations Up To Date Tetanus Booster (TDap): Unknown First/Initial COVID19 Vaccinat: 2020 Second COVID19 Vaccination Reilly: 2020 Past Medical History Surgery/Hospitalization HX: UTI, psych admissions Surgeries: No (Unknown) Respiratory: No Cardiac: No Neurological: Yes (Intellectual disability) Seizure Disorder Genitourinary: Yes (Urinary tract infection) Gastrointestinal: No Musculoskeletal: No Endocrine: No HEENT: No Cancer: No Psychosocial: No Anxiety, Bipolar Integumentary: No Family Medical History No Pertinent Family Hx Unable to obtain accurate family history due to patient's intellectual disability Physical Exam Vital Signs Vital Signs - First Documented 08/04/22 20:36 Temp 36.1 Pulse 107 Resp 20 B/P (MAP) 119/87 (98) Pulse Ox 94 O2 Delivery Room Air Capillary Refill : Height, Weight, BMI Height: '" Weight: lbs. oz. kg; 38.00 BMI Method: Progress/Results/Core Measures Suspected Sepsis SIRS Temperature: Pulse: Respiratory Rate: Laboratory Tests 08/04/22 22:15: White Blood Count 11.5H Blood Pressure / Mean: Laboratory Tests 08/04/22 22:15: Creatinine 0.88, Platelet Count 255, Total Bilirubin 0.3 Results/Orders Lab Results Laboratory Tests Test 08/04/22 22:15 Range/Units White Blood Count 11.5 H 4.3-11.0 10^3/uL Red Blood Count 3.50 L 3.80-5.11 10^6/uL Hemoglobin 10.6 L 11.5-16.0 g/dL Hematocrit 33 L 35-52 % Mean Corpuscular Volume 94 80-99 fL Mean Corpuscular Hemoglobin 30 25-34 pg Mean Corpuscular Hemoglobin Concent 32 32-36 g/dL Red Cell Distribution Width 15.4 H 10.0-14.5 % Platelet Count 255 130-400 10^3/uL Mean Platelet Volume 9.6 9.0-12.2 fL Immature Granulocyte % (Auto) 0 % Neutrophils (%) (Auto) 81 H 42-75 % Lymphocytes (%) (Auto) 12 12-44 % Monocytes (%) (Auto) 7 0-12 % Eosinophils (%) (Auto) 0 0-10 % Basophils (%) (Auto) 0 0-10 % Neutrophils # (Auto) 9.4 H 1.8-7.8 10^3/uL Lymphocytes # (Auto) 1.3 1.0-4.0 10^3/uL Monocytes # (Auto) 0.8 0.0-1.0 10^3/uL Eosinophils # (Auto) 0.0 0.0-0.3 10^3/uL Basophils # (Auto) 0.0 0.0-0.1 10^3/uL Immature Granulocyte # (Auto) 0.0 0.0-0.1 10^3/uL Sodium Level 135 135-145 MMOL/L Potassium Level 3.7 3.6-5.0 MMOL/L Chloride Level 103 98-107 MMOL/L Carbon Dioxide Level 19 L 21-32 MMOL/L Anion Gap 13 5-14 MMOL/L Blood Urea Nitrogen 10 7-18 MG/DL Creatinine 0.88 0.60-1.30 MG/DL Estimat Glomerular Filtration Rate 79 BUN/Creatinine Ratio 11 Glucose Level 135 H 70-105 MG/DL Calcium Level 9.2 8.5-10.1 MG/DL Corrected Calcium 9.5 8.5-10.1 MG/DL Total Bilirubin 0.3 0.1-1.0 MG/DL Aspartate Amino Transf (AST/SGOT) 10 5-34 U/L Alanine Aminotransferase (ALT/SGPT) 14 0-55 U/L Alkaline Phosphatase 103 40-136 U/L Total Protein 8.6 H 6.4-8.2 GM/DL Albumin 3.6 3.2-4.5 GM/DL My Orders Orders - VERONICA PIERCE APRN Lorazepam Injection (Ativan Injection) (08/04/22 21:00) Cbc With Automated Diff (08/04/22 21:51) Comprehensive Metabolic Panel (08/04/22 21:51) Chest 1 View, Ap/Pa Only (08/04/22 21:51) Medications Given in ED Current Medications Medications Dose Ordered Sig/Devin Route Start Time Stop Time Status Last Admin Dose Admin Lorazepam 1 mg ONCE ONCE IM 08/04/22 21:00 08/04/22 21:01 DC 08/04/22 22:05 1 MG Vital Signs/I&O 08/04/22 20:36 Temp 36.1 Pulse 107 Resp 20 B/P (MAP) 119/87 (98) Pulse Ox 94 O2 Delivery Room Air Capillary Refill : Departure Impression Primary Impression: Observed seizure-like activity Additional Impression: Benzodiazepine withdrawal Disposition: HOME, SELF-CARE Condition: Improved Departure-Patient Inst. Decision time for Depature: 23:16 Referrals: NO,LOCAL PHYSICIAN (PCP/Family) Primary Care Physician Patient Instructions: Seizures Add. Discharge Instructions: Plan: 1. Take antibiotics twice a day as directed and complete full course even if she begins to feel better. 2. Call Dr. Fierro office first thing tomorrow to schedule close follow-up, she will be given a short prescription for clonazepam 0.5 mg to be taken daily in the morning and quazepam 1 mg to be taken at bedtime as previously prescribed. 3. Make sure that she takes her phenytoin at home as directed. 4. If she has any increasing symptoms such as shortness of breath, cough, fever, nausea, vomiting you can have her follow-up with her primary care or return to the ER for evaluation. 5. Her chest x-ray was concerning for some developing pneumonia, will go ahead and initiate antibiotics today again this is where close follow-up with your primary care provider will be beneficial. 6. You have been provided copies of her labs and imaging, make sure you take this to your follow-up appointment with you. 7. As discussed in the ER she had not been receiving her phenobarbital, clonzapam 0.5 mg in the morning, clonzapam 1mg mg at bedtime and is likely the cause of her seizure activity due to benzodiazepine withdrawal. 8. Return for any other new or concerning symptoms. All discharge instructions reviewed with patient and/or family. Voiced understanding. Scripts Cefdinir (Cefdinir) 300 Mg Capsule 300 MG PO BID for 10 Days, #20 CAP 0 Refills Prov: VERONICA PIERCE RELOCATION COUNSELOR 08/04/22 Clonazepam (Clonazepam) 0.5 Mg Tablet 0.5 MG PO DAILY for 7 Days, #7 TAB Prov: VERONICA IPERCE RELOCATION COUNSELOR 08/04/22 Clonazepam (Clonazepam) 1 Mg Tablet 1 MG PO HS, #7 TAB Prov: VERONICA PIERCE RELOCATION COUNSELOR 08/04/22 VERONICA PIERCE RELOCATION COUNSELOR Aug 04, 2022 20:56
[2022-08-04] MEDS ORDERED: LORazepam INJ 2 MG/ML (ATIVAN) VIAL IM ONE (21:00)
[2022-08-04 22:20] LABS: BASOPHILS % (AUTO) 0 % (0-10); EOSINOPHILS % (AUTO) 0 % (0-10); HEMATOCRIT 33 % (35-52); HEMOGLOBIN 10.6 g/dL (11.5-16.0); LYMPHOCYTES # (AUTO) 1.3 10^3/uL (1.0-4.0); LYMPHOCYTES % (AUTO) 12 % (12-44); MEAN CORPUSCULAR HEMOGLOBIN 30 pg (25-34); MEAN CORPUSCULAR HGB CONC 32 g/dL (32-36); MEAN CORPUSCULAR VOLUME 94 fL (80-99); MEAN PLATELET VOLUME 9.6 fL (9.0-12.2); MONOCYTES # (AUTO) 0.8 10^3/uL (0.0-1.0); MONOCYTES % (AUTO) 7 % (0-12); NEUTROPHILS # (AUTO) 9.4 10^3/uL (1.8-7.8); NEUTROPHILS % (AUTO) 81 % (42-75); PLATELET COUNT 255 10^3/uL (130-400); WHITE BLOOD COUNT 11.5 10^3/uL (4.3-11.0)
[2022-08-04 22:44] LABS: ALBUMIN 3.6 GM/DL (3.2-4.5); BILIRUBIN,TOTAL 0.3 MG/DL (0.1-1.0); CALCIUM 9.2 MG/DL (8.5-10.1); CREATININE SERUM 0.88 MG/DL (0.60-1.30); POTASSIUM 3.7 MMOL/L (3.6-5.0); TOTAL PROTEIN 8.6 GM/DL (6.4-8.2)
[2022-08-04] MEDS ORDERED: CEFD300C3 PO (23:23)
[2022-08-04] MEDS ORDERED: CLON1TAB13 PO ×2 (23:23→23:45)
[2022-08-04] MEDS ORDERED: CLON0.5T4 PO ×2 (23:23→23:45)
[2022-08-04 23:45] VITALS: BP 141/91
--- NOTE | 2022-08-05 08:03 | Diagnostic Imaging Report ---
CHEST 1 VIEW, AP/PA ONLY Indication: Aspiration Comparison: 11/20/2021 Findings: No focal airspace disease in the visualized lungs. No pleural effusion or pneumothorax. Normal cardiomediastinal silhouette. Impression: 1. No acute cardiopulmonary process by portable radiography. Dictated by: Dictated on workstation # [id number]
== END 2022-08-04 23:45 | disposition home or self-care (01) ==
LOC: EDUNIT# 20:31 → ER 20:32
DX: G40.909 Epilepsy, unspecified, not intractable, without status epilepticus (principal); F13.239 Sedative, hypnotic or anxiolytic dependence with withdrawal, unspecified
CPT/HCPCS: 36415; 71045; 80053; 85025

== ENCOUNTER 2022-10-28 10:20 | Emergency (ER) | payer MEDICARE, MEDICAID ==
[~2022-10-28] VITALS: Ht 172.7 cm; Wt 72.7 kg
[2022-10-28] MEDS ORDERED: NS IV 1000 ML 1,000 ML IV STA ×2 (10:51→11:39)
--- NOTE | 2022-10-28 10:55 | ED General ---
General Chief Complaint: General Problems/Pain Stated Complaint: LETHARGIC | Source of Information: Caregiver (from [place]) Exam Limitations: Physical Impairments (in patient; caregiver supplies history) History of Present Illness Date Seen by Provider: Oct 28, 2022 Time Seen by Provider: 10:42 Initial Comments Patient is a 52-year-old intellectually disabled individual who presents to the emergency room from a [facility] with chief complaint of not acting like herself, rapid heartbeat. She had COVID about 2 weeks ago. She has not really been eating and drinking as much as normal. She has had a coarse wet cough. No reported fevers. No nausea or vomiting. No problems with bowel or bladder reported. No falls or trauma reported. History limited as the patient is not capable of providing review of systems HPI due to her intellectual disability and the caregiver with her normally is one of their drivers and does not know her as well as some of the other caregivers. Timing/Duration: 3-4 Days Severity: Moderate Associated Systoms: Loss of Appetite, Weakness, Other (Tachycardia) Allergies and Home Medications Allergies Coded Allergies: No Known Drug Allergies (Unverified , 10/28/22) Patient Home Medication List Home Medication List Reviewed: Yes Acetaminophen (Tylenol Extra Strength) 500 Mg Tablet, 1,000 MG PO Q6H PRN for PAIN-MILD (1-4), (Reported) Entered as Reported by: LAUREN CHOPRA on 11/18/21 1210 Amoxicillin/Potassium Clav (Augmentin 500-125 Tablet) 1 Each Tablet, 1 EACH PO BID Prescribed by: NISHA SHEPPARD on 11/19/21 1253 Ascorbic Acid (Vitamin C) 500 Mg Tablet, 500 MG PO DAILY, (Reported) Entered as Reported by: LAUREN CHOPRA on 11/18/21 1210 Carbamide Peroxide (Debrox) 15 Ml Drops, 5 DROPS OU BID, (Reported) Entered as Reported by: LAUREN CHOPRA on 11/18/21 1210 Cefdinir (Cefdinir) 300 Mg Capsule, 300 MG PO BID Prescribed by: VERONICA PIERCE on 08/04/22 2323 Cefdinir (Cefdinir) 300 Mg Capsule, 300 MG PO BID Prescribed by: SISSY THORNE on 10/28/22 1307 Clonazepam (Clonazepam) 1 Mg Tablet, 1 MG PO HS Prescribed by: LIDIA LYONS on 08/04/222345 Clonazepam (Clonazepam) 0.5 Mg Tablet, 0.5 MG PO DAILY Prescribed by: LIDIA LYONS on 08/04/222345 Cranberry Fruit (Cranberry) 450 Mg Tablet, 450 MG PO BID, (Reported) Entered as Reported by: LAUREN CHOPRA on 11/18/211209 Diphenhydramine HCl (Benadryl Allergy) 25 Mg Tablet, 25 MG PO Q6H PRN for ALLERGY SYMPTOMS, (Reported) Entered as Reported by: LAUREN CHOPRA on 11/18/211209 Haloperidol (Haloperidol) 5 Mg Tablet, 5 MG PO BID, (Reported) Entered as Reported by: LAUREN CHOPRA on 11/18/211209 Ibuprofen (Ibuprofen) 200 Mg Capsule, 400 MG PO Q6H PRN for PAIN-MILD (1-4), (Reported) Entered as Reported by: LAUREN CHOPRA on 11/18/211209 Loperamide HCl (Loperamide) 2 Mg Tablet, 2 MG PO Q6H PRN for DIARRHEA, (Reported) Entered as Reported by: LAUREN CHOPRA on 11/18/211209 Nitrofurantoin Macrocrystal (Macrodantin) 100 Mg Capsule, 100 MG PO DAILY, (Reported) Entered as Reported by: LAUREN CHOPRA on 11/18/211209 Nystatin (Nystop) 60 Gm Powder, 1 APPLIC TP Q8H PRN for GAULDING/REDNESS, (Reported) Entered as Reported by: LAUREN CHOPRA on 11/18/211209 Ondansetron HCl (Ondansetron HCl) 8 Mg Tablet, 8 MG PO Q6H PRN for NAUSEA /VOMITING-1ST LINE, (Reported) Entered as Reported by: LAUREN CHOPRA on 11/18/211209 Pantoprazole Sodium (Pantoprazole Sodium) 40 Mg Tablet.dr, 40 MG PO BID, (Reported) Entered as Reported by: LAUREN CHOPRA on 11/18/211209 Phenobarbital (Phenobarbital) 60 Mg Tablet, 60 MG PO BID, (Reported) Entered as Reported by: LAUREN CHOPRA on 11/18/211209 Phenytoin (Phenytoin) 50 Mg Tab.chew, 150 MG PO BID, (Reported) Entered as Reported by: LAUERN CHOPRA on 11/18/21 1210 Quetiapine Fumarate (Quetiapine Fumarate) 400 Mg Tablet, 400 MG PO BID, (Reported) Entered as Reported by: LAUREN CHOPRA on 11/18/21 1210 Sennosides/Docusate Sodium (Stimulant Laxative Plus Tablet) 1 Each Tablet, 1 EA PO BID, (Reported) Entered as Reported by: LAUREN CHOPRA on 11/18/21 1210 Sertraline HCl (Sertraline HCl) 100 Mg Tablet, 200 MG PO DAILY, (Reported) Entered as Reported by: LAUREN CHOPRA on 11/18/21 1210 Review of Systems Review of Systems Constitutional: see HPI Unable to obtain from patient due to her intellectual disability Past [id number] Hx Immunizations Up To Date Tetanus Booster (TDap): Unknown First/Initial COVID19 Vaccinat: 2020 Second COVID19 Vaccination Reilly: 2020 Third COVID19 Vaccination Date: 2020 Past Medical History Surgery/Hospitalization HX: UTI, psych admissions Surgeries: No (Unknown) Respiratory: No Cardiac: No Neurological: Yes (Intellectual disability) Seizure Disorder Genitourinary: Yes (Urinary tract infection) Gastrointestinal: No Musculoskeletal: No Endocrine: No HEENT: No Cancer: No Psychosocial: No Anxiety, Bipolar Integumentary: No Family Medical History No Pertinent Family Hx Unable to obtain accurate family history due to patient's intellectual disability Physical Exam Vital Signs Vital Signs - First Documented 10/28/22 10:35 Temp 35.9 Pulse 87 Resp 18 B/P (MAP) 113/63 (80) Pulse Ox 95 O2 Delivery Room Air Capillary Refill : Height, Weight, BMI Height: '" Weight: lbs. oz. kg; 25.00 BMI Method: General Appearance: No Apparent Distress, WD/WN HEENT: Pharynx Normal, Other (Dry mucous membranes, poor dentition) Neck: Supple Respiratory: No Accessory Muscle Use, No Respiratory Distress, Decreased Breath Sounds (Diminished breath sounds throughout, room air oxygen saturations 92 to 94%) Cardiovascular: Regular Rate, Rhythm, Tachycardia (121) Gastrointestinal: Soft, Other (Patient moans and is upset with palpation of the abdomen (especially lower/suprapubic region). Normal bowel sounds, soft, nondistended; no rebound.) Extremity: Normal Inspection, Normal Range of Motion, Non Tender, No Calf Tenderness, No Pedal Edema Neurologic/Psychiatric: Alert, No Motor/Sensory Deficits Skin: Normal Color, Warm/Dry Focused Exam Lactate Level 10/28/22 12:10: Lactic Acid Level 1.66 Lactic Acid Level Laboratory Tests Test 10/28/22 12:10 Lactic Acid Level 1.66 MMOL/L (0.50-2.00) Progress/Results/Core Measures Suspected Sepsis SIRS Temperature: Pulse: Respiratory Rate: Laboratory Tests 10/28/22 10:55: White Blood Count 20.1H Blood Pressure / Mean: 10/28/22 12:10: Lactic Acid Level 1.66 Laboratory Tests 10/28/22 10:55: Creatinine 1.07, Platelet Count 361, Total Bilirubin 0.2 10/28/22 12:05: INR Comment 1.0 Results/Orders Lab Results Laboratory Tests Test 10/28/22 10:55 10/28/22 11:30 10/28/22 12:05 10/28/22 12:10 Range/Units White Blood Count 20.1 H 4.3-11.0 10^3/uL Red Blood Count 4.45 3.80-5.11 10^6/uL Hemoglobin 13.7 11.5-16.0 g/dL Hematocrit 42 35-52 % Mean Corpuscular Volume 94 80-99 fL Mean Corpuscular Hemoglobin 31 25-34 pg Mean Corpuscular Hemoglobin Concent 33 32-36 g/dL Red Cell Distribution Width 15.7 H 10.0-14.5 % Platelet Count 361 130-400 10^3/uL Mean Platelet Volume 9.2 9.0-12.2 fL Immature Granulocyte % (Auto) 1 % Neutrophils (%) (Auto) 86 H 42-75 % Lymphocytes (%) (Auto) 9 L 12-44 % Monocytes (%) (Auto) 4 0-12 % Eosinophils (%) (Auto) 0 0-10 % Basophils (%) (Auto) 0 0-10 % Neutrophils # (Auto) 17.2 H 1.8-7.8 10^3/uL Lymphocytes # (Auto) 1.9 1.0-4.0 10^3/uL Monocytes # (Auto) 0.8 0.0-1.0 10^3/uL Eosinophils # (Auto) 0.1 0.0-0.3 10^3/uL Basophils # (Auto) 0.1 0.0-0.1 10^3/uL Immature Granulocyte # (Auto) 0.1 0.0-0.1 10^3/uL Neutrophils % (Manual) 84 % Lymphocytes % (Manual) 12 % Monocytes % (Manual) 4 % Toxic Granulation 2+ Blood Morphology Comment NORMAL Sodium Level 136 135-145 MMOL/L Potassium Level 5.1 H 3.6-5.0 MMOL/L Chloride Level 106 98-107 MMOL/L Carbon Dioxide Level 19 L 21-32 MMOL/L Anion Gap 11 5-14 MMOL/L Blood Urea Nitrogen 29 H 7-18 MG/DL Creatinine 1.07 0.60-1.30 MG/DL Estimat Glomerular Filtration Rate 62 BUN/Creatinine Ratio 27 Glucose Level 146 H 70-105 MG/DL Calcium Level 10.0 8.5-10.1 MG/DL Total Bilirubin 0.2 0.1-1.0 MG/DL Direct Bilirubin 0.2 0.0-0.3 MG/DL Indirect Bilirubin 0.0 MG/DL Aspartate Amino Transf (AST/SGOT) 22 5-34 U/L Alanine Aminotransferase (ALT/SGPT) 39 0-55 U/L Alkaline Phosphatase 151 H 40-136 U/L Total Protein 10.1 H 6.4-8.2 GM/DL Albumin 3.9 3.2-4.5 GM/DL Urine Color BROWN H Urine Clarity CLOUDY Urine pH 8.0 5-9 Urine Specific [place] 1.020 1.016-1.022 Urine Protein 3+ H NEGATIVE Urine Glucose (UA) 1+ H NEGATIVE Urine Ketones 1+ H NEGATIVE Urine Nitrite POSITIVE H NEGATIVE Urine Bilirubin 2+ H NEGATIVE Urine Urobilinogen 1.0 < = 1.0 MG/DL Urine Leukocyte Esterase 2+ H NEGATIVE Urine RBC (Auto) 3+ H NEGATIVE Urine RBC 10-25 H /HPF Urine WBC 25-50 H /HPF Urine Squamous Epithelial Cells 2-5 /HPF Urine Crystals NONE /LPF Urine Bacteria LARGE H /HPF Urine Casts NONE /LPF Urine Mucus SMALL H /LPF Urine Culture Indicated YES Prothrombin Time 13.4 12.2-14.7 SEC INR Comment 1.0 0.8-1.4 Activated Partial Thromboplast Time 28 24-35 SEC Lactic Acid Level 1.66 0.50-2.00 MMOL/L My Orders Orders - FADUMO,SISSY M MD Ed Iv/Invasive Line Start (10/28/22 10:51) Cbc With Automated Diff (10/28/22 10:51) Basic Metabolic Panel (10/28/22 10:51) Ua Culture If Indicated (10/28/22 10:51) Ns Iv 1000 Ml (Sodium Chloride 0.9%) (10/28/22 10:51) Manual Differential (10/28/22 10:55) Blood Culture (10/28/22 11:37) Sputum Culture (10/28/22 11:37) Protime With Inr (10/28/22 11:37) Partial Thromboplastin Time (10/28/22 11:37) Ed Iv/Invasive Line Start (10/28/22 11:37) Vital Signs Adult Sepsis Patie Q15M (10/28/22 11:37) O2 (10/28/22 11:37) Remove Rings In Anticipation O (10/28/22 11:37) Lactic Acid Analyzer (10/28/22 11:37) Liver Panel (10/28/22 11:37) Ns Iv 1000 Ml (Sodium Chloride 0.9%) (10/28/22 11:39) Urine Culture (10/28/22 11:30) Ceftriaxone 1 Gm Pre-Mix (Rocephin 1 Gm (10/28/22 12:30) Medications Given in ED Current Medications Medications Dose Ordered Sig/Devin Route Start Time Stop Time Status Last Admin Dose Admin Ceftriaxone Sodium/Dextrose 50 ml @ 100 mls/hr ONCE ONCE IV 10/28/22 12:30 10/28/22 12:59 DC 10/28/22 12:43 100 MLS/HR Vital Signs/I&O 10/28/22 10:35 Temp 35.9 Pulse 87 Resp 18 B/P (MAP) 113/63 (80) Pulse Ox 95 O2 Delivery Room Air Capillary Refill : Progress Note : Time: 13:07 Departure Impression Primary Impression: Urinary tract infection Qualified Codes: N39.0 - Urinary tract infection, site not specified; R31.9 - Hematuria, unspecified Additional Impression: Dehydration Disposition: 01 HOME, SELF-CARE Condition: Improved Departure-Patient Inst. Decision time for Depature: 13:05 Referrals: PAYAM FIERRO MD (PCP/Family) Primary Care Physician Patient Instructions: Urinary Tract Infection, Adult (DC) Add. Discharge Instructions: She will need to be on antibiotics twice a day for the next 6 days starting tomorrow. Cefdinir 300 mg twice a day. Encourage fluids so that she stays well-hydrated. She can have Tylenol or ibuprofen as needed for pain. If she gets a fever over 101, has worsening abdominal pain or vomiting please bring her back to the emergency room for reevaluation. She needs to follow-up with Dr. Fierro in 1 week. Scripts Cefdinir (Cefdinir) 300 Mg Capsule 300 MG PO BID, #12 CAP 0 Refills Prov: SISSY THORNE MD 10/28/22 Copy Copies To 1: PAYAM FIERRO MD, KATHRYN M MD Oct 28, 2022 10:54
[2022-10-28 11:06] LABS: BASOPHILS # (AUTO) 0.1 10^3/uL (0.0-0.1); BASOPHILS % (AUTO) 0 % (0-10); EOSINOPHILS # (AUTO) 0.1 10^3/uL (0.0-0.3); EOSINOPHILS % (AUTO) 0 % (0-10); HEMATOCRIT 42 % (35-52); HEMOGLOBIN 13.7 g/dL (11.5-16.0); LYMPHOCYTES # (AUTO) 1.9 10^3/uL (1.0-4.0); LYMPHOCYTES % (AUTO) 9 % (12-44); MEAN CORPUSCULAR HEMOGLOBIN 31 pg (25-34); MEAN CORPUSCULAR HGB CONC 33 g/dL (32-36); MEAN CORPUSCULAR VOLUME 94 fL (80-99); MEAN PLATELET VOLUME 9.2 fL (9.0-12.2); MONOCYTES # (AUTO) 0.8 10^3/uL (0.0-1.0); MONOCYTES % (AUTO) 4 % (0-12); NEUTROPHILS # (AUTO) 17.2 10^3/uL (1.8-7.8); NEUTROPHILS % (AUTO) 86 % (42-75); PLATELET COUNT 361 10^3/uL (130-400); WHITE BLOOD COUNT 20.1 10^3/uL (4.3-11.0)
[2022-10-28 11:18] LABS: POTASSIUM 5.1 MMOL/L (3.6-5.0)
[2022-10-28 11:24] LABS: CREATININE SERUM 1.07 MG/DL (0.60-1.30); LYMPHOCYTES % (MANUAL) 12 %; MONOCYTES % (MANUAL) 4 %; NEUTROPHILS % (MANUAL) 84 %; RBC MORPH NORMAL; TOXIC GRANULATION/VACUOLAZATIO 2+
[2022-10-28 11:41] LABS: BILIRUBIN,URINE 2+ (NEGATIVE); CLARITY,URINE CLOUDY; COLOR,URINE BROWN; GLUCOSE, URINE (UA) 1+ (NEGATIVE); KETONES,URINE 1+ (NEGATIVE); LEUKOCYTE ESTERASE ,URINE 2+ (NEGATIVE); NITRITE,URINE POSITIVE (NEGATIVE); PROTEIN,URINE 3+ (NEGATIVE)
[2022-10-28 11:51] LABS: ALBUMIN 3.9 GM/DL (3.2-4.5)
[2022-10-28 11:54] LABS: TOTAL PROTEIN 10.1 GM/DL (6.4-8.2)
[2022-10-28 11:54] LABS: BACTERIA,URINE LARGE /HPF; WBC,URINE 25-50 /HPF
[2022-10-28 11:56] LABS: BILIRUBIN,TOTAL 0.2 MG/DL (0.1-1.0)
[2022-10-28 12:00] LABS: BILIRUBIN,DIRECT 0.2 MG/DL (0.0-0.3)
[2022-10-28] MEDS ORDERED: cefTRIAXone 1 GM PRE-MIX 50 ML IV ONE (12:30)
[2022-10-28 12:36] LABS: PROTHROMBIN TIME PATIENT 13.4 SEC (12.2-14.7)
[2022-10-28] MEDS ORDERED: CEFD300C3 PO (13:07)
[2022-10-28] MEDS ORDERED: KETOROLAC 15 MG/ML VIAL IVP ONE (13:15)
[2022-10-28 13:50] VITALS: BP 121/81
== END 2022-10-28 13:50 | disposition home or self-care (01) ==
LOC: EDUNIT# 10:20 → ER 10:23
DX: N39.0 Urinary tract infection, site not specified (principal); E86.0 Dehydration
CPT/HCPCS: 36415; 80048; 80076; 81000; 83605; 85007; 85027; 85610; 85730; 87040; 87077; 87088; 87186; 93005

== ENCOUNTER → 2022-10-31 | Outpatient (CLI) | payer MEDICARE, MEDICAID ==
--- NOTE | 2022-10-31 16:51 | Diagnostic Imaging Report ---
INDICATION: Cough and shortness of breath PA and lateral chest obtained at 0411 p.m. and compared to 08/04/2022. Heart is normal in size. There is central vascular congestion. Overlying artifact is noted. There is no definite consolidation or pneumothorax or pleural fluid. IMPRESSION: Cardiomegaly. There is some central vascular congestion noted with no focal consolidation or pneumothorax or pleural fluid. There is poor inspiration. Dictated by: Dictated on workstation # [id number]
== END ==
LOC: RAD 15:42
PROVIDERS: ATTEND Nurse Practitioner Family
DX: R09.89 Other specified symptoms and signs involving the circulatory and respiratory systems (principal); R05.9 Cough, unspecified; R06.02 Shortness of breath
CPT/HCPCS: 71046

== ENCOUNTER 2023-02-11 17:41 | Inpatient (IN) | payer MEDICARE, MEDICAID ==
[~2023-02-11] VITALS: Ht 165 cm; Wt 95.1 kg
--- NOTE | 2023-02-11 17:52 | ED General ---
General Stated Complaint: CODE History of Present Illness Date Seen by Provider: Feb 11, 2023 Time Seen by Provider: 17:49 Initial Comments 52-year-old female brought in from [facility]. She has known MR. Patient had a witnessed cardiac/respiratory collapse after choking on a pancake. Patient had CPR started immediately was in asystole for approximately 15 to 20 minutes had 4 rounds of epi. Patient then had ROSC. Patient arrives intubated nonresponsive with fixed pupils. (MOHINI JONAS DO) Allergies and Home Medications Allergies Coded Allergies: No Known Drug Allergies (Unverified , 10/28/22) Patient Home Medication List Home Medication List Reviewed: Yes (MOHINI JONAS DO) Acetaminophen (Tylenol Extra Strength) 500 Mg Tablet, 1,000 MG PO Q6H PRN for PAIN-MILD (1-4), (Reported) Entered as Reported by: LAUREN CHOPRA on 11/18/21 1210 Amoxicillin/Potassium Clav (Augmentin 500-125 Tablet) 1 Each Tablet, 1 EACH PO BID Prescribed by: NISHA SHEPPARD on 11/19/21 1253 Ascorbic Acid (Vitamin C) 500 Mg Tablet, 500 MG PO DAILY, (Reported) Entered as Reported by: LAUREN CHOPRA on 11/18/21 1210 Carbamide Peroxide (Debrox) 15 Ml Drops, 5 DROPS OU BID, (Reported) Entered as Reported by: LAUREN CHOPRA on 11/18/21 1210 Cefdinir (Cefdinir) 300 Mg Capsule, 300 MG PO BID Prescribed by: VERONICA PIERCE on 08/04/22 2323 Cefdinir (Cefdinir) 300 Mg Capsule, 300 MG PO BID Prescribed by: SISSY THORNE on 10/28/22 1307 Clonazepam (Clonazepam) 1 Mg Tablet, 1 MG PO HS Prescribed by: LIDIA LYONS on 08/04/22 2346 Clonazepam (Clonazepam) 0.5 Mg Tablet, 0.5 MG PO DAILY Prescribed by: LIDIA LYONS on 08/04/22 2346 Cranberry Fruit (Cranberry) 450 Mg Tablet, 450 MG PO BID, (Reported) Entered as Reported by: LAUREN CHOPRA on 11/18/21 1210 Diphenhydramine HCl (Benadryl Allergy) 25 Mg Tablet, 25 MG PO Q6H PRN for ALLERGY SYMPTOMS, (Reported) Entered as Reported by: LAUREN CHOPRA on 11/18/211209 Haloperidol (Haloperidol) 5 Mg Tablet, 5 MG PO BID, (Reported) Entered as Reported by: LAUREN CHOPRA on 11/18/211209 Ibuprofen (Ibuprofen) 200 Mg Capsule, 400 MG PO Q6H PRN for PAIN-MILD (1-4), (Reported) Entered as Reported by: LAUREN CHOPRA on 11/18/211209 Loperamide HCl (Loperamide) 2 Mg Tablet, 2 MG PO Q6H PRN for DIARRHEA, (Reported) Entered as Reported by: LAUREN CHOPRA on 11/18/211209 Nitrofurantoin Macrocrystal (Macrodantin) 100 Mg Capsule, 100 MG PO DAILY, (Reported) Entered as Reported by: LAUREN CHOPRA on 11/18/211209 Nystatin (Nystop) 60 Gm Powder, 1 APPLIC TP Q8H PRN for GAULDING/REDNESS, (Reported) Entered as Reported by: LAUREN CHOPRA on 11/18/211209 Ondansetron HCl (Ondansetron HCl) 8 Mg Tablet, 8 MG PO Q6H PRN for NAUSEA/VOMITING-1ST LINE, (Reported) Entered as Reported by: LAUREN CHOPRA on 11/18/211209 Pantoprazole Sodium (Pantoprazole Sodium) 40 Mg Tablet.dr, 40 MG PO BID, (Reported) Entered as Reported by: LAUREN CHOPRA on 11/18/211209 Phenobarbital (Phenobarbital) 60 Mg Tablet, 60 MG PO BID, (Reported) Entered as Reported by: LAUREN CHOPRA on 11/18/211209 Phenytoin (Phenytoin) 50 Mg Tab.chew, 150 MG PO BID, (Reported) Entered as Reported by: LAUREN CHOPRA on 11/18/211209 Quetiapine Fumarate (Quetiapine Fumarate) 400 Mg Tablet, 400 MG PO BID, (Report ed) Entered as Reported by: LAUREN CHOPRA on 11/18/211209 Sennosides/Docusate Sodium (Stimulant Laxative Plus Tablet) 1 Each Tablet, 1 EA PO BID, (Reported) Entered as Reported by: LAUREN CHOPRA on 3/28/22 1210 Sertraline HCl (Sertraline HCl) 100 Mg Tablet, 200 MG PO DAILY, (Reported) Entered as Reported by: LAUREN CHOPRA on 11/18/21 1210 Review of Systems Review of Systems Constitutional: see HPI (MOHINI JONAS DO) Past [place] Hx Immunizations Up To Date Tetanus Booster (TDap): Unknown First/Initial COVID19 Vaccinat: 2020 Second COVID19 Vaccination Reilly: 2020 Third COVID19 Vaccination Date: 2020 (MOHINI JONAS DO) Past Medical History Surgery/Hospitalization HX: UTI, psych admissions, PATIENT OF [place], COGNITIVE/DEVELOPMENTAL DISABILITY Surgeries: No (Unknown) Respiratory: No Cardiac: No Neurological: Yes (Intellectual disability) Seizure Disorder Genitourinary: Yes (Urinary tract infection) Gastrointestinal: No Musculoskeletal: No Endocrine: No HEENT: No Cancer: No Psychosocial: No Anxiety, Bipolar Integumentary: No (MOHINI JONAS DO) Family Medical History No Pertinent Family Hx Unable to obtain accurate family history due to patient's intellectual disability (MOHINI JONAS DO) Physical Exam Vital Signs Vital Signs - First Documented 02/11/23 02/11/23 17:42 18:21 Temp 36.6 Pulse 126 Resp 10 B/P (MAP) 94/62 (73) Pulse Ox 100 O2 Delivery Ambu Bag FiO2 60 (SISSY THORNE MD) Vital Signs Capillary Refill : (MOHINI JONAS DO) Height, Weight, BMI Height: '" Weight: lbs. oz. kg; 24.00 BMI Method: General Appearance: Other (Intubated) Eyes: Bilateral Eye Other (Fixed pupils) Respiratory: Other (Intubated) Cardiovascular: Tachycardia Neurologic/Psychiatric: Other (Intubated, nonresponsive) (MOHINI JONAS DO) Focused Exam Lactate Level 02/11/23 17:49: Lactic Acid Level 9.32*H (SISSY THORNE MD) Time of Focused Exam: 18:30 Respiratory: Lungs Clear, No Accessory Muscle Use, No Respiratory Distress Cardiovascular: Regular Rate, Rhythm Capillary Refill: Less Than 3 Seconds Skin: warm/dry, pallor Lactic Acid Level Laboratory Tests Test 02/11/23 17:49 Lactic Acid Level 9.32 MMOL/L (0.50-2.00) *H (SISSY THORNE MD) Within 3hrs of presentation: Admin fluids, Admin ABX, Blood cultures prior to ABX's, Focus exam, Lactate level (SISSY THORNE MD) Procedures/Interventions Lumen: triple Central Line Procedure: sterile drapes applied, sterile dressing applied Position: internal jugular (R) Anesthesia: Lidocaine Volume Anesthetic (ccs): 2 Complications: none Post Position: sutured, good blood return, position confirmed w/ CXR (SISSY THORNE MD) I&D : Progress [facility] forceps and hemostats used to pull multiple small and large pieces of food product from oropharynx and trachea (SISSY THORNE MD) Progress/Results/Core Measures Suspected Sepsis SIRS Temperature: Pulse: Respiratory Rate: Blood Pressure / Mean: (JONAS,MOHINI L DO) Results/Orders Lab Results Laboratory Tests Test 02/11/23 17:47 02/11/23 17:49 Range/Units Urine Color YELLOW Urine Clarity CLOUDY Urine pH 8.0 5-9 Urine Specific [place] 1.020 1.016-1.022 Urine Protein 3+ H NEGATIVE Urine Glucose (UA) NEGATIVE NEGATIVE Urine Ketones NEGATIVE NEGATIVE Urine Nitrite NEGATIVE NEGATIVE Urine Bilirubin NEGATIVE NEGATIVE Urine Urobilinogen 0.2 < = 1.0 MG/DL Urine Leukocyte Esterase 3+ H NEGATIVE Urine RBC (Auto) 2+ H NEGATIVE Urine RBC 5-10 H /HPF Urine WBC TNTC H /HPF Urine Squamous Epithelial Cells 5-10 /HPF Urine Crystals PRESENT H /LPF Urine Triple Phosphate Crystals FEW H /LPF Urine Bacteria LARGE H /HPF Urine Casts NONE /LPF Urine Mucus NEGATIVE /LPF Urine Other FEW TRANS CELLS /HPF Urine Culture Indicated YES White Blood Count 19.3 H 4.3-11.0 10^3/uL Red Blood Count 3.22 L 3.80-5.11 10^6/uL Hemoglobin 10.0 L 11.5-16.0 g/dL Hematocrit 33 L 35-52 % Mean Corpuscular Volume 102 H 80-99 fL Mean Corpuscular Hemoglobin 31 25-34 pg Mean Corpuscular Hemoglobin Concent 31 L 32-36 g/dL Red Cell Distribution Width 16.4 H 10.0-14.5 % Platelet Count 291 130-400 10^3/uL Mean Platelet Volume 9.7 9.0-12.2 fL Immature Granulocyte % (Auto) 6 % Neutrophils (%) (Auto) 65 42-75 % Lymphocytes (%) (Auto) 24 12-44 % Monocytes (%) (Auto) 5 0-12 % Eosinophils (%) (Auto) 0 0-10 % Basophils (%) (Auto) 0 0-10 % Neutrophils # (Auto) 12.5 H 1.8-7.8 10^3/uL Lymphocytes # (Auto) 4.7 H 1.0-4.0 10^3/uL Monocytes # (Auto) 1.0 0.0-1.0 10^3/uL Eosinophils # (Auto) 0.1 0.0-0.3 10^3/uL Basophils # (Auto) 0.1 0.0-0.1 10^3/uL Immature Granulocyte # (Auto) 1.1 H 0.0-0.1 10^3/uL Neutrophils % (Manual) 55 % Lymphocytes % (Manual) 31 % Monocytes % (Manual) 4 % Metamyelocytes % 2 % Myelocytes % 1 % Band Neutrophils 7 % Macrocytosis SLIGHT Sodium Level 136 135-145 MMOL/L Potassium Level 3.9 3.6-5.0 MMOL/L Chloride Level 103 98-107 MMOL/L Carbon Dioxide Level 14 L 21-32 MMOL/L Anion Gap 19 H 5-14 MMOL/L Blood Urea Nitrogen 15 7-18 MG/DL Creatinine 1.30 0.60-1.30 MG/DL Estimat Glomerular Filtration Rate 49 BUN/Creatinine Ratio 12 Glucose Level 292 H 70-105 MG/DL Lactic Acid Level 9.32 *H 0.50-2.00 MMOL/L Calcium Level 8.8 8.5-10.1 MG/DL Corrected Calcium 9.5 8.5-10.1 MG/DL Magnesium Level 2.1 1.6-2.4 MG/DL Total Bilirubin 0.2 0.1-1.0 MG/DL Aspartate Amino Transf (AST/SGOT) 87 H 5-34 U/L Alanine Aminotransferase (ALT/SGPT) 36 0-55 U/L Alkaline Phosphatase 154 H 40-136 U/L Troponin I < 0.028 <0.028 NG/ML Total Protein 7.6 6.4-8.2 GM/DL Albumin 3.1 L 3.2-4.5 GM/DL (SISSY THORNE MD) My Orders Orders - SISSY THORNE MD Ceftriaxone Iv/Im (Rocephin Iv/Im) (02/11/23 18:45) Blood Culture (02/11/23 18:40) Lactic Acid Analyzer (02/11/23 18:40) Blood Culture (02/11/23 18:44) Ns Iv 1000 Ml (Sodium Chloride 0.9%) (02/11/23 19:03) Chest 1 View, Ap/Pa Only (02/11/23 19:52) Ed Admission (Communication) (02/11/23 19:52) (SISSY THORNE MD) Medications Given in ED Current Medications Medications Dose Ordered Sig/Devin Route Start Time Stop Time Status Last Admin Dose Admin Ceftriaxone Sodium 1000 mg/ Sodium Chloride 50 ml @ 100 mls/hr ONCE ONCE IV 02/11/23 18:45 02/11/23 19:14 DC 02/11/23 20:44 100 MLS/HR Propofol 100 ml @ ud STK-MED ONCE IV 02/11/23 18:02 02/11/23 18:07 DC 02/11/23 18:12 20 MLS/HR Sodium Chloride 1,000 ml @ ud STK-MED ONCE .ROUTE 02/11/23 19:03 02/11/23 19:07 DC 02/11/23 19:40 1,000 MLS/HR (SISSY THORNE MD) Vital Signs/I&O 02/11/23 02/11/23 02/11/23 02/11/23 17:42 18:12 18:21 21:00 Temp 36.6 36.6 Pulse 126 112 117 84 Resp 10 22 16 B/P (MAP) 94/62 (73) 124/72 109/75 Pulse Ox 100 100 100 O2 Delivery Ambu Bag Mechanical Ventilator FiO2 60 02/11/23 23:59 Intake Total 100 ml Balance 100 ml (SISSY THORNE MD) Vital Signs/I&O Capillary Refill : (MOHINI JONAS DO) Progress Note : Time: 21:06 Progress Note Patient seen and examined by me at shift change, 6:15 PM. Patient tachycardic in the 120s good blood pressure. Intubated and being bagged. Sats 96%. Lung sounds mostly clear. Abdomen slightly distended. Heart regular and tachycardic. No obvious outward signs of trauma. Pupils dilated approximately 5 mm. Patient had copious amounts of partially chewed food in the oropharynx and upper trachea. Chiara forceps and hemostats used to remove is much as possible. Differential diagnosis based on history and physical exam, respiratory arrest due to aspiration. Laboratory evaluation includes CBC, Chem-12, troponin, blood cultures, lactic acid, urinalysis, chest x-ray, CT head without contrast, postcentral line placement chest x-ray. Labs reviewed and interpreted by me. CBC shows a white blood cell count of 19.3, hemoglobin of 10 hematocrit of 33 platelet count of 291. Chem-12 shows a sodium of 136 potassium of 3.9 chloride of 103 bicarb of 14 BUN of 15 creatinine 1.3 serum blood sugar 292. Her AST is slightly elevated at 87 alk phos of 154. Albumin is low at 3.1. Troponin is undetectable, lactic acid is significantly elevated at 9.32. Her urinalysis shows 3+ protein with 3+ leukocyte esterase and too numerous to count white blood cells, large bacteria. Cultures have been sent. Patient is treated in the emergency department with normal saline x3 L. She is given 1 g of Rocephin IV. At 1 point on propofol for sedation she did drop her pressures into the mid 70s systolic. Right internal jugular central line was placed, triple-lumen. No complications. Post procedure chest x-ray was reviewed by me, she is developing possible infiltrates in the right middle and right lower lobe. Orogastric tube has been placed. Heart rate is down in the 70s currently. Blood pressure is good. 30ml/kg fluid bolus 2190 ml (lactic >9) - this has been satisfied with 2L NS and additional IV medications. She is on 60% FiO2. AC; TV 450 with 5 of PEEP and still on propofol. ABG is still pending. Case was discussed with Dr. Kowalski on for the hospitalist service who accepts the patient to the ICU. I also spoke with Dr. Shaw telemetry ICU at 8:24 PM. (SISSY THORNE MD) ECG Initial ECG Impression Date: Feb 11, 2023 Initial ECG Impression Time: 18:02 Initial ECG Rate: 121 Initial ECG Rhythm: S.Tach Comment sinus tach 121; no acute ST segment change (SISSY THORNE MD) Diagnostic Imaging Diagonstic Imaging: Xray Comments [facility] [place] NAME: [facility] REC#: [id number] PT STATUS: REG ER : 1970 PHYSICIAN: MOHINI JONAS DO ADMIT DATE: 02/11/23/ER Signed Date of Exam:02/11/23 CHEST 1 VIEW, AP/PA ONLY INDICATION: Post code, intubated. TECHNIQUE: Single view chest 5:57 PM. CORRELATION STUDY: 10/31/2022 FINDINGS: Overlying defibrillator pads and monitor leads are present obscuring detail. Endotracheal tube, tip approximately 5.4 cm above the efren. Heart size and mediastinum are unremarkable. Left costophrenic angle incompletely imaged. Visualized lung rush generally clear. There is rather prominent gas distention of the stomach. IMPRESSION: 1. Endotracheal tube tip at approximately the level of the clavicles. Dictated by: Dictated on workstation # [id number] Dict: 02/11/231823 Trans: 02/11/231920 JOSSELYN [id number] Interpreted by: DOMINIQUE THORNTON DO Electronically signed by: DOMINIQUE THORNTON DO 02/11/231920 Diagonstic Imaging: CT Comments [facility] [place] NAME: [facility] REC#: [id number] PT STATUS: REG ER : 1970 PHYSICIAN: MOHINI JONAS DO ADMIT DATE: 02/11/23/ER Draft Date of Exam:02/11/23 CT HEAD WO PROCEDURE: CT head without contrast. TECHNIQUE: Multiple contiguous axial images were obtained through the brain without the use of intravenous contrast. Auto Exposure Controls were utilized during the CT exam to meet ALARA standards for radiation dose reduction. INDICATION: 52-year-old female, choked on pancakes. Code. CORRELATION STUDY: None. FINDINGS: There is generalized atrophic changes, advanced for the patient's age. There is a streak artifact over the skull base and posterior fossa. No definitive regional area of decreased attenuation suggest edema. No midline shift or mass effect. No intracranial hemorrhage. Opacification of the posterior nasal cavity. Small amount of fluid in the sphenoid sinuses. Mastoid air cells clear. Examination is compromised by suboptimal patient positioning. IMPRESSION: Negative for acute intracranial abnormality. Generalized atrophic changes, advanced for the patient's age. Dictated on workstation # [id number] Dict: 02/11/232024 Trans: 02/11/232054 PJE [id number] Interpreted by: DOMINIQUE THORNTON DO Electronically signed by: [place] [facility]: Xray Plain Films/CT/US/NM/MRI: chest Comments [facility] [place] NAME: [facility] REC#: [id number] PT STATUS: REG ER : 1970 PHYSICIAN: SISSY THORNE MD ADMIT DATE: 02/11/23/ER Draft Date of Exam:02/11/23 CHEST 1 VIEW, AP/PA ONLY INDICATION: Choked on pancakes, intubated, code. TECHNIQUE: Single view chest 8:02 PM. CORRELATION STUDY: 02/11/2023. FINDINGS: Endotracheal tube is in the trachea, approximately 3.4 cm above the efren. Gastric tube tip in the fundal aspect of the stomach. Right IJ central line tip at the high right atrium. Heart size and mediastinum are generally stable. Vasculature appears increased with bilateral perihilar opacities that may reflect central edema. Minimal patchy opacity in the right mid lung field and lung base. Questioned trace left pleural effusion. IMPRESSION: 1. Support lines and tubes as above. 2. Central bilateral perihilar opacities favors edema. More focal opacity in right mid and lower lung field could be reflective of asymmetric edema versus perhaps aspiration. Follow-up imaging recommended. Dictated on workstation # [id number] Dict: 02/11/232026 Trans: 02/11/232049 PJE [id number] Interpreted by: DOMINIQUE THORNTON DO Electronically signed by: (SISSY THORNE MD) Critical Care Note Critical Care Start Time: 18:00 Stop Time: 20:00 Total Time (minutes) 45 minutes critical care time in the evaluation and management of this 52-year-old status post respiratory arrest with ROSC. Time includes initial evaluation, fluid resuscitation. Review of medical records. Management of sedation. Discussion with admitting provider, discussed XUN with telemetry ICU, discussion with family. Time does not include that spent in procedures of foreign body removal from the airway and central line placement. (SISSY THORNE MD) Departure Communication (Admissions) Time/Spoke to Admitting Phy: 19:[address] Kowalski (Hospitalist regional psychiatric director) accepts to ICU Time/Spoke to Consulting Phy: 20:24 discussed with eICU (SISSY THORNE MD) Impression Primary Impression: Respiratory arrest Additional Impression: Aspiration into respiratory tract Qualified Codes: T17.908A - Unspecified foreign body in respiratory tract, part unspecified causing other injury, initial encounter Disposition: ADMITTED INPATIENT Condition: Critical Admissions Decision to Admit Reason: Admit from ER (General) Decision to Admit/Date: Feb 11, 2023 Time/Decision to Admit Time: 21:06 (SISSY THORNE MD) Departure-Patient Inst. Referrals: PAYAM VAZQUEZ MD (PCP/Family) Primary Care Physician MOHINI JONAS DO Feb 11, 2023 17:52 SISSY THORNE MD Feb 11, 2023 21:11
[2023-02-11 17:59] LABS: BASOPHILS # (AUTO) 0.1 10^3/uL (0.0-0.1); BASOPHILS % (AUTO) 0 % (0-10); EOSINOPHILS # (AUTO) 0.1 10^3/uL (0.0-0.3); EOSINOPHILS % (AUTO) 0 % (0-10); HEMATOCRIT 33 % (35-52); LYMPHOCYTES # (AUTO) 4.7 10^3/uL (1.0-4.0); LYMPHOCYTES % (AUTO) 24 % (12-44); MEAN CORPUSCULAR HEMOGLOBIN 31 pg (25-34); MEAN CORPUSCULAR HGB CONC 31 g/dL (32-36); MEAN CORPUSCULAR VOLUME 102 fL (80-99); MEAN PLATELET VOLUME 9.7 fL (9.0-12.2); MONOCYTES % (AUTO) 5 % (0-12); NEUTROPHILS # (AUTO) 12.5 10^3/uL (1.8-7.8); NEUTROPHILS % (AUTO) 65 % (42-75); PLATELET COUNT 291 10^3/uL (130-400); WHITE BLOOD COUNT 19.3 10^3/uL (4.3-11.0)
[2023-02-11] MEDS ORDERED: PROPOFOL DRIP (ICU) 100 ML IV ONE (18:02)
[2023-02-11 18:06] LABS: BILIRUBIN,URINE NEGATIVE (NEGATIVE); CLARITY,URINE CLOUDY; COLOR,URINE YELLOW; GLUCOSE, URINE (UA) NEGATIVE (NEGATIVE); KETONES,URINE NEGATIVE (NEGATIVE); LEUKOCYTE ESTERASE ,URINE 3+ (NEGATIVE); NITRITE,URINE NEGATIVE (NEGATIVE); PROTEIN,URINE 3+ (NEGATIVE)
[2023-02-11 18:09] LABS: ALBUMIN 3.1 GM/DL (3.2-4.5)
[2023-02-11 18:10] LABS: CHLORIDE 103 MMOL/L (98-107); POTASSIUM 3.9 MMOL/L (3.6-5.0); SODIUM 136 MMOL/L (135-145)
[2023-02-11 18:11] LABS: CALCIUM 8.8 MG/DL (8.5-10.1)
[2023-02-11 18:12] LABS: GLUCOSE 292 MG/DL (70-105); TOTAL PROTEIN 7.6 GM/DL (6.4-8.2)
[2023-02-11 18:13] LABS: CARBON DIOXIDE 14 MMOL/L (21-32)
[2023-02-11 18:14] LABS: BILIRUBIN,TOTAL 0.2 MG/DL (0.1-1.0)
[2023-02-11 18:15] LABS: ALKALINE PHOSPHATASE 154 U/L (40-136)
[2023-02-11 18:16] LABS: BAND NEUTROPHILS 7 %; GFR ESTIMATED 49; LYMPHOCYTES % (MANUAL) 31 %; MONOCYTES % (MANUAL) 4 %; NEUTROPHILS % (MANUAL) 55 %
[2023-02-11 18:17] LABS: BUN/CREATININE RATIO 12; METAMYELOCYTES % 2 %; MYELOCYTES % 1 %
[2023-02-11 18:18] LABS: MAGNESIUM 2.1 MG/DL (1.6-2.4)
[2023-02-11 18:19] LABS: ALANINE AMINOTRANSFERASE 36 U/L (0-55)
[2023-02-11 18:28] LABS: BACTERIA,URINE LARGE /HPF; TRIPLE PHOSPHATE CRYSTAL,UR FEW /LPF; WBC,URINE TNTC /HPF
[2023-02-11 18:29] LABS: URINE OTHER FEW TRANS CELLS /HPF
--- NOTE | 2023-02-11 18:29 | Diagnostic Imaging Report ---
INDICATION: Post code, intubated. TECHNIQUE: Single view chest 5:57 PM. CORRELATION STUDY: 10/31/2022 FINDINGS: Overlying defibrillator pads and monitor leads are present obscuring detail. Endotracheal tube, tip approximately 5.4 cm above the efren. Heart size and mediastinum are unremarkable. Left costophrenic angle incompletely imaged. Visualized lung rush generally clear. There is rather prominent gas distention of the stomach. IMPRESSION: 1. Endotracheal tube tip at approximately the level of the clavicles. Dictated by: Dictated on workstation # [id number]
[2023-02-11] MEDS ORDERED: cefTRIAXone IV/IM 1,000 MG in NS (IVPB) 50 ML IV ONE (18:45)
[2023-02-11] MEDS ORDERED: NS IV 1000 ML 1,000 ML ONE (19:03)
--- NOTE | 2023-02-11 20:34 | Tele-ICU Progress Note ---
Subjective Date Seen by a Provider: Feb 11, 2023 Subjective/Events-last exam This virtual visit was conducted using real time audio/video. Thank you for asking us to see this patient for respiratory insufficiency due to recent asystolic arrest due to aspirating a pancaake. ROSC after epi x 4. PMH:Developmentally disabled, recent UTI. PE: VSS. 108/77. O2 sat 100% on AC16/450/60%/+5. HEENT: No obvious masses, adenopathy or JVD. Chest: clear to auscultation. CV: RRR S1 S2 No murmur or added sounds. Abd: Non-tender. Bowel sounds Y. : Unremarkable. [place] Y. [employer]IC/psychiatric: Grossly intact. No obvious focal findings. Extremities: No edema. Capillary refill < 3 seconds. Skin: unremarkable. Results: Elevated WCC 19.3, Lactate 9.32. Decreased Hb10.0. CXR: clear. Available chart/ vitals / labs / images reviewed. Video assessment done using teleICU camera, rest of exam as per RN. A/P: Respiratory insufficiency: Continue present management with ventilator, weaning O2 as nadiya. Monitor for increasing oxygenation needs. Critical Care: critically ill patient. Cont. IVF, abx Discussed with TARA Gutierrez and ER . Asked RN to reach out to eICU if any questions or concerns later. Time spent with patient/coordination of care with other health professionals (mins): 25 Sepsis Event Evaluation Height, Weight, BMI Height: '" Weight: lbs. oz. kg; 26.00 BMI Method: Focused Exam Lactate Level 02/11/23 17:49: Lactic Acid Level 9.32*H Lactic Acid Level Laboratory Tests Test 02/11/23 17:49 Lactic Acid Level 9.32 MMOL/L (0.50-2.00) *H Exam Exam Patient acknowledged, consented, and participated in this virtual visit which was conducted using real time audio/video Vital Signs Date Time Temp Pulse Resp B/P (MAP) Pulse Ox O2 Delivery O2 Flow Rate FiO2 02/11/23 18:21 117 22 100 60 02/11/23 18:12 112 124/72 02/11/23 17:42 36.6 126 10 94/62 (73) 100 Ambu Bag Height & Weight Height: '" Weight: lbs. oz. kg; 26.00 BMI Method: General Appearance: Other (Intubated) Respiratory: Other (Intubated) Cardiovascular: Tachycardia Capillary Refill: Less Than 3 Seconds Neurologic/Psychiatric: Other (Intubated, nonresponsive) Results Lab Laboratory Tests 02/11/23 17:49 Assessment/Plan Assessment/Plan See free text. Critical Care: Ventilator Management KARLA HEDRICK MD Feb 11, 2023 20:34
--- NOTE | 2023-02-11 20:50 | Diagnostic Imaging Report ---
INDICATION: Choked on pancakes, intubated, code. TECHNIQUE: Single view chest 8:02 PM. CORRELATION STUDY: 02/11/2023. FINDINGS: Endotracheal tube is in the trachea, approximately 3.4 cm above the efren. Gastric tube tip in the fundal aspect of the stomach. Right IJ central line tip at the high right atrium. Heart size and mediastinum are generally stable. Vasculature appears increased with bilateral perihilar opacities that may reflect central edema. Minimal patchy opacity in the right mid lung field and lung base. Questioned trace left pleural effusion. IMPRESSION: 1. Support lines and tubes as above. 2. Central bilateral perihilar opacities favors edema. More focal opacity in right mid and lower lung field could be reflective of asymmetric edema versus perhaps aspiration. Follow-up imaging recommended. Dictated by: Dictated on workstation # [id number]
--- NOTE | 2023-02-11 20:55 | Diagnostic Imaging Report ---
PROCEDURE: CT head without contrast. TECHNIQUE: Multiple contiguous axial images were obtained through the brain without the use of intravenous contrast. Auto Exposure Controls were utilized during the CT exam to meet ALARA standards for radiation dose reduction. INDICATION: 52-year-old female, choked on pancakes. Code. CORRELATION STUDY: None. FINDINGS: There is generalized atrophic changes, advanced for the patient's age. There is a streak artifact over the skull base and posterior fossa. No definitive regional area of decreased attenuation suggest edema. No midline shift or mass effect. No intracranial hemorrhage. Opacification of the posterior nasal cavity. Small amount of fluid in the sphenoid sinuses. Mastoid air cells clear. Examination is compromised by suboptimal patient positioning. IMPRESSION: Negative for acute intracranial abnormality. Generalized atrophic changes, advanced for the patient's age. Dictated by: Dictated on workstation # [id number]
[2023-02-11] MEDS ORDERED: BISACODYL 10 MG SUPP (DULCOLAX) PR PRN (22:00)
[2023-02-11] MEDS ORDERED: polyethylene glycoL POWDER 17 GM (MIRALAX) PACK PO PRN (22:00)
[2023-02-11] MEDS ORDERED: NS IV 500 ML 500 ML IV PRN (22:00)
[2023-02-11] MEDS ORDERED: ONDANSETRON 4 MG (ZOFRAN) ORAL DISSOLVE TAB PO PRN (22:00)
[2023-02-11] MEDS ORDERED: MELATONIN 3 MG TABLET PO PRN (22:00)
[2023-02-11] MEDS ORDERED: ANTACID SUSP 30 ML UDC (MYLANTA) PO PRN (22:00)
[2023-02-11] MEDS ORDERED: ACETAMINOPHEN 325 MG TABLET PO PRN (22:00)
[2023-02-11] MEDS ORDERED: ONDANSETRON 4 MG/2 ML (SDV) Z0FRAN IV PRN (22:00)
[2023-02-11] MEDS ORDERED: MILK OF MAGNESIA 400 MG/5 ML 30 ML UDC PO PRN (22:00)
[2023-02-11] MEDS ORDERED: diphenhydrAMINE 50 MG/ML INJ (BENADRYL) IVP PRN (22:00)
[2023-02-11] MEDS ORDERED: diphenhydrAMINE 25 MG TAB (BENADRYL) PO PRN (22:00)
[2023-02-11] MEDS ORDERED: LACTULOSE SYRUP 10GM/15ML (ENULOSE) 30ML UDC PO PRN (22:00)
[2023-02-11] MEDS ORDERED: VANCOMYCIN INJECTION 0.1 MG in NS (IVPB) 250 ML IV SCH (22:00)
[2023-02-11] MEDS ORDERED: CALCIUM CARBONATE 500 MG (TUMS) TAB.CHEW PO PRN (22:00)
[2023-02-11 22:32] VITALS: BP 111/78
[2023-02-11] MEDS: NS IV 1000 ML 1,000 ML IV SCH (23:05)
[2023-02-11] MEDS ORDERED: PIPERACILLIN/TAZO 4.5 GM VIAL (ZOSYN) IV ONE (23:19)
[2023-02-11] MEDS ORDERED: NS (IVPB) 100 ML ONE (23:20)
[2023-02-11] MEDS: PIPERACILLIN SODIUM/TAZOBACTAM 4.5 GM in NS (IVPB) 100 ML IV SCH (23:24)
[2023-02-12] VITALS (8 sets, daily range): BP systolic 96–119; BP diastolic 58–75
[2023-02-12] MEDS: inSUlin ASPART (NovoLOG) 1 UNIT/0.01 ML (CHARGE PER UNIT) SC SCH ×5 (00:08→23:46)
[2023-02-12] MEDS ORDERED: VANCOMYCIN 1250 MG/NS 250 ML PREMIX IV ONE (00:15)
[2023-02-12] MEDS: PROPOFOL DRIP (ICU) 100 ML IV SCH ×4 (03:43→20:12)
[2023-02-12 04:32] LABS: BASOPHILS % (AUTO) 0 % (0-10); EOSINOPHILS % (AUTO) 0 % (0-10); HEMATOCRIT 28 % (35-52); HEMOGLOBIN 8.7 g/dL (11.5-16.0); LYMPHOCYTES # (AUTO) 0.9 10^3/uL (1.0-4.0); LYMPHOCYTES % (AUTO) 6 % (12-44); MEAN CORPUSCULAR HEMOGLOBIN 31 pg (25-34); MEAN CORPUSCULAR HGB CONC 32 g/dL (32-36); MEAN CORPUSCULAR VOLUME 98 fL (80-99); MEAN PLATELET VOLUME 9.8 fL (9.0-12.2); MONOCYTES # (AUTO) 0.5 10^3/uL (0.0-1.0); MONOCYTES % (AUTO) 3 % (0-12); NEUTROPHILS # (AUTO) 14.6 10^3/uL (1.8-7.8); NEUTROPHILS % (AUTO) 91 % (42-75); PLATELET COUNT 193 10^3/uL (130-400); WHITE BLOOD COUNT 16.2 10^3/uL (4.3-11.0)
[2023-02-12 04:42] LABS: ALBUMIN 2.6 GM/DL (3.2-4.5)
[2023-02-12 04:44] LABS: CALCIUM 7.9 MG/DL (8.5-10.1)
[2023-02-12 04:45] LABS: TOTAL PROTEIN 6.5 GM/DL (6.4-8.2)
[2023-02-12 04:47] LABS: BILIRUBIN,TOTAL 0.3 MG/DL (0.1-1.0)
[2023-02-12 04:48] LABS: PHOSPHORUS 2.9 MG/DL (2.3-4.7)
[2023-02-12 04:49] LABS: CREATININE SERUM 0.79 MG/DL (0.60-1.30)
[2023-02-12 04:51] LABS: MAGNESIUM 1.6 MG/DL (1.6-2.4)
[2023-02-12] MEDS: KCL 20 MEQ TAB (K-DUR) PO SCH (04:51)
[2023-02-12] MEDS ORDERED: MAGNESIUM 1 GM/100 ML IVPB 100 ML IV SCH (05:15)
[2023-02-12] MEDS: POTASSIUM CL 10MEQ/50ML IVPB 50 ML IV SCH ×9 (05:20→21:40)
[2023-02-12] MEDS: PIPERACILLIN SODIUM/TAZOBACTAM 4.5 GM in NS (IVPB) 100 ML IV SCH ×3 (05:29→21:39)
[2023-02-12] MEDS: MAGNESIUM 1 GM/100 ML IVPB 100 ML IV SCH ×4 (05:29→08:20)
--- NOTE | 2023-02-12 05:38 | History & Physical ---
History of Present Illness HPI/Chief Complaint Chief complaint: Acute hypoxic respiratory failure due to sausage obstructing airway suspected anoxic brain injury HPI: This is a 52-year-old female who is intellectually challenged who lives at a nursing home who suffered an airway obstruction with sausage she had been eating for supper. She was found to have obstructed airway for 15 minutes before she arrived to the ER. Suction device remove the food she was successfully intubated with central line placement and ROSC obtained following respiratory arrest causing cardiac arrest. Her DURABLE POWER OF BRAND SALES CONSULTANT is a nurse and all details were updated and the decision to remain full code if she were to go into cardiac arrest again was made. At this current time patient is stable not requiring any pressor therapy she did receive broad-spectrum antibiotics to cover for aspiration pneumonia and currently she is on a spontaneous breathing trial with hopes to wean off ventilator soon. Source: family, RN/, old records Exam Limitations: clinical condition Date Seen 02/12/23 Time Seen by a Provider: 10:00 Attending Physician Faizan Fierro MD PCP Admitting Physician: Siena Kowalski DO Attending Physician: Siena Kowalski DO Referring Physician Date of Admission Feb 11, 2023 at 21:12 Home Medications & Allergies Home Medications Reviewed patient Home Medication Reconciliation performed by pharmacy medication reconciliations chemical production technician and/or nursing. Patients Allergies have been reviewed. Allergies Allergies Coded Allergies No Known Drug Allergies (Unverified10/28/22) Past Lwjdzwp-Memvbh-Xerjsn Hx Past Med/Social Hx: Reviewed Nursing Past Med/Soc Hx, Reviewed and Corrections made Patient Social History Marrital Status: single Employed/Student: unemployed Alcohol Use: Denies Use Smoking Status: Never a Smoker 2nd Hand Smoke Exposure: No Immunizations Up To Date Tetanus Booster (TDap): Unknown Date of Influenza Vaccine: May 24, 2020 Past Medical History Neurological: Seizure Disorder Intellectual Disability Psychosocial: Anxiety, Bipolar Family History No Pertinent Family Hx Unable to obtain accurate family history due to patient's intellectual disability Review of Systems ROS-Unable to Obtain: Intubation Constitutional: see HPI Physical Exam Physical Exam Vital Signs Vital Signs - First Documented 02/11/23 02/11/23 02/11/23 17:42 18:21 21:46 Temp 36.6 Pulse 126 Resp 10 B/P (MAP) 94/62 (73) Pulse Ox 100 O2 Delivery Ambu Bag O2 Flow Rate 50.00 FiO2 60 Capillary Refill : Less Than 3 Seconds Height, Weight, BMI Height: '" Weight: lbs. oz. kg; 26.81 BMI Method: General Appearance: No Apparent Distress, Chronically ill, Other (Intubated) Eyes: Bilateral Eye Other (Fixed pupils) Respiratory: Lungs Clear, No Accessory Muscle Use, No Respiratory Distress Cardiovascular: Regular Rate, Rhythm Neurologic/Psychiatric: Other (Intubated, nonresponsive) Results Results/Procedures Labs Laboratory Tests 02/11/23 17:49 02/12/23 04:04 02/12/23 15:00 Patient resulted labs reviewed. Assessment/Plan Admission Diagnosis Assessment: Acute hypoxic respiratory failure from sausage lodged in airway causing respiratory arrest and cardiac arrest but ROSC obtained by paramedics during arrest outside of hospital aspiration pneumonia Intellectual delay Seizure disorder Plan: IV antibiotics Ventilator Sedatives Admission Status: Inpatient Order (span 2 midnights) Reason for Inpatient Admission: Respiratory arrest SIENA KOWALSKI DO Feb 12, 2023 05:38
[2023-02-12] MEDS: PANTOPRAZOLE 40 MG (PROTONIX) VIAL IV SCH (06:21)
--- NOTE | 2023-02-12 06:52 | Diagnostic Imaging Report ---
INDICATION: Pneumonia Single AP view of the chest is obtained with comparison made to study one day earlier. Endotracheal tube remains in place with tip at the level of thoracic inlet. Nasogastric tube passes below the diaphragm. There is mild perihilar atelectasis and/or pneumonitis with mild blunting left costophrenic sulcus. These findings have remained stable. There is no pneumothorax or new infiltrate. IMPRESSION: Atelectasis and/or pneumonitis have not significantly changed. Dictated by: Dictated on workstation # [id number]
[2023-02-12] MEDS: NS IV 1000 ML 1,000 ML IV SCH ×3 (07:00→18:56)
[2023-02-12] MEDS ORDERED: ROCURONIUM 50 MG/5 ML (ZEMURON) VIAL IV ONE (07:03)
[2023-02-12] MEDS: ENOXAPARIN 40 MG/0.4 ML (LOVENOX) SYR SC SCH (07:53)
[2023-02-12] MEDS: DOCUSATE SODIUM 100 MG (COLACE) CAP PO SCH ×2 (07:53→21:11)
[2023-02-12] MEDS: SENNOSIDES 8.6 MG (SENOKOT) TAB PO SCH ×2 (07:53→21:11)
--- NOTE | 2023-02-12 08:40 | Tele-ICU Progress Note ---
Subjective Date Seen by a Provider: Feb 12, 2023 Time Seen by a Provider: 08:32 Subjective/Events-last exam (Tele-ICU Physician , Progress Note ) Service provided via interactive audio and video telecommunications E-CARE system to a patient admitted to ICU bed in [facility]. Patient is seen today due to persistent need of ICU care Available chart/ vitals / labs / Images reviewed Video assessment done using teleICU camera, rest of exam as per RN Discussed with RN Events overnight : Hospital course: 52 y/o F with PMhx significant for developmental delay who was brought in to ED following cardiac arrest from choking event at [facility]. Per EMS pt required 4 rounds of CPR with ROSC. She was intubated for airway protection and admitted to MICU for close monitoring. 02/12: No events overnight. Remains intubated. Mild jerking mvmts noted concerning for anoxic brain injury. A/P Acute respiratory failure -Intubated and sedated on propofol. -Wean sedation as tolerated. Will likely need neuro consult for EEG to r/o subclinical status Leukocytosis: -Concern for ? aspiration -Cont broad spectrum antibiotics, awaiting final cultures Lactic acidosis: Resolved -Likely elevated in setting of post arrest Lines : periph , (Central Line Necessity Reviewed) Woods: + Nutrition: NPO VTE Prophylaxis: cordell 1`30 bid Stress Ulcer Prophylaxis:protonix Plans in collaboration with bedside consultants and IM MDs. Discussed with RN to reach out if any questions or concerns A total of 25 minutes of critical care time was devoted to this patient today, required to treat and/or prevent further deterioration of critical care condition ( as above ) Sepsis Event Evaluation Height, Weight, BMI Height: '" Weight: lbs. oz. kg; 26.81 BMI Method: Focused Exam Lactate Level 02/11/23 17:49: Lactic Acid Level 9.32*H 02/11/23 21:58: Lactic Acid Level 1.23 Time of Focused Exam: 18:30 Exam Exam Patient acknowledged, consented, and participated in this virtual visit which was conducted using real time audio/video Vital Signs Date Time Temp Pulse Resp B/P (MAP) Pulse Ox O2 Delivery O2 Flow Rate FiO2 02/12/23 08:00 35.6 88 30 103/60 (74) 97 Mechanical Ventilator 21.00 02/12/23 07:42 35.9 Mechanical Ventilator 21.00 02/12/23 07:14 Mechanical Ventilator 21.00 02/12/23 07:09 90 19 100 21 02/12/23 07:03 84 02/12/23 07:00 35.5 85 16 96/67 (77) 100 Mechanical Ventilator 35.00 02/12/23 06:45 35.5 81 15 107/63 (75) 99 Mechanical Ventilator 35.00 02/12/23 06:30 35.5 81 16 97/68 (78) 99 Mechanical Ventilator 35.00 02/12/23 06:30 35.5 80 16 97/68 (78) 100 Mechanical Ventilator 35.00 02/12/23 06:15 35.5 79 14 104/67 (77) 100 Mechanical Ventilator 35.00 02/12/23 06:00 35.5 78 15 98/66 (78) 100 Mechanical Ventilator 35.00 02/12/23 06:00 35.5 75 16 98/66 (77) 100 Mechanical Ventilator 35.00 02/12/23 05:54 35 02/12/23 05:45 35.6 76 12 94/62 (72) Mechanical Ventilator 35.00 02/12/23 05:30 35.6 75 16 94/64 (74) 99 Mechanical Ventilator 35.00 02/12/23 05:30 35.5 75 16 94/64 (75) 99 Mechanical Ventilator 35.00 02/12/23 05:15 35.6 77 15 98/65 (76) 99 Mechanical Ventilator 35.00 02/12/23 05:00 35.5 77 15 98/66 (77) 99 Mechanical Ventilator 35.00 02/12/23 05:00 35.5 74 16 98/66 (77) 99 Mechanical Ventilator 35.00 02/12/23 04:45 35.5 79 15 100/68 (75) Mechanical Ventilator 35.00 02/12/23 04:30 35.5 79 16 106/71 (84) 100 Mechanical Ventilator 35.00 02/12/23 04:30 35.6 76 16 106/71 (83) 99 Mechanical Ventilator 35.00 02/12/23 04:28 Mechanical Ventilator 35.00 02/12/23 04:21 75 104/73 02/12/23 04:15 35.6 83 11 105/73 (83) 100 Mechanical Ventilator 35.00 6/22/23 04:10 100 Mechanical Ventilator 50 02/12/23 04:00 35.6 80 15 106/73 (83) 100 Mechanical Ventilator 35.00 02/12/23 04:00 35.5 84 16 106/73 (84) 100 Mechanical Ventilator 50.00 02/12/23 03:45 35.5 74 15 104/70 (82) Mechanical Ventilator 50.00 02/12/23 03:43 77 111/75 02/12/23 03:30 35.5 79 15 111/75 (86) 100 Mechanical Ventilator 50.00 02/12/23 03:30 35.5 79 16 111/75 (87) 100 Mechanical Ventilator 50.00 02/12/23 03:15 35.5 76 16 109/74 (84) 100 Mechanical Ventilator 50.00 02/12/23 03:00 35.5 79 16 104/71 (82) 100 Mechanical Ventilator 50.00 02/12/23 03:00 35.5 79 16 111/76 (88) 100 Mechanical Ventilator 50.00 02/12/23 02:45 35.5 67 16 104/71 (84) Mechanical Ventilator 50.00 02/12/23 02:30 35.5 68 16 103/67 (79) 100 Mechanical Ventilator 50.00 02/12/23 02:30 35.5 70 13 103/67 (81) 100 Mechanical Ventilator 50.00 02/12/23 02:15 35.5 68 16 107/73 (84) 100 Mechanical Ventilator 50.00 02/12/23 02:00 35.4 64 16 100/72 (81) 100 Mechanical Ventilator 50.00 02/12/23 02:00 35.4 16 100/72 (81) 100 Mechanical Ventilator 50.00 02/12/23 01:45 35.4 63 16 101/71 (81) 100 Mechanical Ventilator 50.00 02/12/23 01:38 62 16 100 50 02/12/23 01:21 50 02/12/23 01:00 65 02/12/23 01:00 35.4 104/70 (83) Mechanical Ventilator 60.00 02/12/23 01:00 35.4 63 16 104/70 (81) 100 Mechanical Ventilator 50.00 02/12/23 00:45 35.4 65 16 104/72 (83) 100 Mechanical Ventilator 50.00 02/12/23 00:45 35.4 65 15 104/72 (83) 100 Mechanical Ventilator 60.00 02/12/23 00:30 35.4 69 16 101/67 (78) 100 Mechanical Ventilator 60.00 02/12/23 00:30 35.4 69 16 101/67 (78) 100 Mechanical Ventilator 50.00 02/12/23 00:15 35.4 101/70 (81) 02/12/23 00:00 35.4 69 16 100/70 (80) 100 Mechanical Ventilator 50.00 02/12/23 00:00 35.4 70 15 100/70 (81) 100 Mechanical Ventilator 60.00 02/11/23 23:59 100 Mechanical Ventilator 60 02/11/23 23:45 35.4 73 16 104/72 (83) Mechanical Ventilator 60.00 02/11/23 23:45 35.4 72 16 104/72 (83) 100 Mechanical Ventilator 50.00 02/11/23 23:30 35.4 73 15 108/76 (85) 100 Mechanical Ventilator 60.00 02/11/23 23:30 35.4 72 16 108/76 (87) 100 Mechanical Ventilator 50.00 02/11/23 23:15 35.3 73 15 104/75 (86) 100 Mechanical Ventilator 60.00 02/11/23 23:15 35.3 73 16 104/75 (85) 100 Mechanical Ventilator 50.00 02/11/23 23:00 35.3 73 16 109/75 (86) 100 Mechanical Ventilator 50.00 02/11/23 23:00 35.3 73 16 109/75 (87) 02/11/23 22:45 35.3 71 15 112/79 (90) Mechanical Ventilator 02/11/23 22:45 35.3 72 16 112/79 (90) 100 Mechanical Ventilator 50.00 02/11/23 22:32 73 16 100 60 02/11/23 22:30 35.3 73 16 111/78 (89) 100 Mechanical Ventilator 50.00 02/11/23 22:30 35.3 73 16 111/78 (88) 100 Mechanical Ventilator 02/11/23 22:15 35.3 74 15 112/78 (90) 100 Mechanical Ventilator 02/11/23 22:15 35.3 75 16 112/78 (89) 100 Mechanical Ventilator 50.00 02/11/23 22:12 732 104/76 02/11/23 22:02 75 16 113/81 (92) 100 Mechanical Ventilator 50.00 02/11/23 22:00 76 16 02/11/23 21:46 36.1 75 16 117/82 (94) 100 Mechanical Ventilator 50.00 02/11/23 21:39 71 02/11/23 21:00 36.6 84 16 109/75 100 Mechanical Ventilator 02/11/23 18:21 117 22 100 60 02/11/23 18:12 112 124/72 02/11/23 17:42 36.6 126 10 94/62 (73) 100 Ambu Bag I & O 02/12/23 07:00 Intake Total 1600 ml Output Total 850 ml Balance 750 ml Height & Weight Height: '" Weight: lbs. oz. kg; 26.81 BMI Method: General Appearance: Other (Intubated) Respiratory: Lungs Clear, No Accessory Muscle Use, No Respiratory Distress Cardiovascular: Regular Rate, Rhythm Capillary Refill: Less Than 3 Seconds Neurologic/Psychiatric: Other (Intubated, nonresponsive) Results Lab Laboratory Tests 02/11/23 17:49 02/12/23 04:04 Radiology Date of Exam:02/11/23 CT HEAD WO PROCEDURE: CT head without contrast. TECHNIQUE: Multiple contiguous axial images were obtained through the brain without the use of intravenous contrast. Auto Exposure Controls were utilized during the CT exam to meet ALARA standards for radiation dose reduction. INDICATION: 52-year-old female, choked on pancakes. Code. CORRELATION STUDY: None. FINDINGS: There is generalized atrophic changes, advanced for the patient's age. There is a streak artifact over the skull base and posterior fossa. No definitive regional area of decreased attenuation suggest edema. No midline shift or mass effect. No intracranial hemorrhage. Opacification of the posterior nasal cavity. Small amount of fluid in the sphenoid sinuses. Mastoid air cells clear. Examination is compromised by suboptimal patient positioning. IMPRESSION: Negative for acute intracranial abnormality. Generalized atrophic changes, advanced for the patient's age. Assessment/Plan Assessment/Plan . ALEJANDRO ALVAREZ MD Feb 12, 2023 08:40
[2023-02-12] MEDS: VANCOMYCIN 1250 MG/NS 250 ML PREMIX IV SCH ×2 (10:10→22:42)
[2023-02-12] MEDS ORDERED: OLAN10TA71 PO (10:48)
[2023-02-12] MEDS ORDERED: CLON1TAB13 PO (10:48)
[2023-02-12] MEDS ORDERED: SENN-259 PO (10:48)
[2023-02-12] MEDS ORDERED: GUAI5SYR PO (10:48)
[2023-02-12] MEDS ORDERED: ERGO1250 PO (10:54)
[2023-02-12 10:57] LABS: ABG BASE EXCESS -5.7 MMOL/L (-2.5-2.5); ABG OXYGEN SATURATION 98 % (94-100); ABG PCO2 31 MMHG (35-45); ABG PH 7.39 (7.37-7.43); ABG PO2 87 MMHG (79-93); ABG TCO2 19.5 MMOL/L (21.0-31.0)
[2023-02-12 11:00] LABS: INSPIRED O2 21%; PATIENT TEMP 36.4; VENTILATOR YES
[2023-02-12] MEDS ORDERED: RT-ALBUTEROL SULF 2.5 MG/3 ML PRE-MIX VIAL INH PRN (11:30)
[2023-02-12] MEDS: RT-ALBUTEROL SULF 2.5 MG/3 ML PRE-MIX VIAL INH SCH ×2 (14:14→22:01)
[2023-02-12] MEDS: NOREPINEPHRINE 8 MG/250 ML 250 ML IV SCH (16:20)
[2023-02-12] MEDS ORDERED: KCL 20 MEQ TAB (K-DUR) PO NR (17:15)
[2023-02-12] MEDS ORDERED: POTASSIUM BICARB 20 MEQ (EFFER-K) TABLET PO NR (18:30)
[2023-02-12] MEDS: levETIRAcetam 1000 mg/NS 100ml 100 ML IV SCH (21:13)
[2023-02-13 02:20] VITALS: BP 109/71
[2023-02-13] MEDS: RT-ALBUTEROL SULF 2.5 MG/3 ML PRE-MIX VIAL INH SCH ×4 (02:20→21:45)
[2023-02-13] MEDS: PROPOFOL DRIP (ICU) 100 ML IV SCH ×2 (02:24→10:18)
[2023-02-13] MEDS: NS IV 1000 ML 1,000 ML IV SCH ×3 (03:01→18:38)
[2023-02-13 03:50] LABS: BASOPHILS % (AUTO) 0 % (0-10); EOSINOPHILS % (AUTO) 0 % (0-10); HEMATOCRIT 26 % (35-52); LYMPHOCYTES # (AUTO) 1.7 10^3/uL (1.0-4.0); LYMPHOCYTES % (AUTO) 18 % (12-44); MEAN CORPUSCULAR HEMOGLOBIN 31 pg (25-34); MEAN CORPUSCULAR HGB CONC 31 g/dL (32-36); MEAN CORPUSCULAR VOLUME 98 fL (80-99); MEAN PLATELET VOLUME 9.7 fL (9.0-12.2); MONOCYTES # (AUTO) 0.6 10^3/uL (0.0-1.0); MONOCYTES % (AUTO) 6 % (0-12); NEUTROPHILS # (AUTO) 7.5 10^3/uL (1.8-7.8); NEUTROPHILS % (AUTO) 76 % (42-75); PLATELET COUNT 165 10^3/uL (130-400); WHITE BLOOD COUNT 9.9 10^3/uL (4.3-11.0)
[2023-02-13 04:01] LABS: ALBUMIN 2.5 GM/DL (3.2-4.5); POTASSIUM 3.6 MMOL/L (3.6-5.0)
[2023-02-13 04:04] LABS: TOTAL PROTEIN 6.2 GM/DL (6.4-8.2)
[2023-02-13 04:05] LABS: BILIRUBIN,TOTAL 0.2 MG/DL (0.1-1.0)
[2023-02-13 04:07] LABS: CREATININE SERUM 0.81 MG/DL (0.60-1.30); PHOSPHORUS 2.9 MG/DL (2.3-4.7)
[2023-02-13 04:10] LABS: MAGNESIUM 2.1 MG/DL (1.6-2.4)
[2023-02-13] MEDS: MAGNESIUM 1 GM/100 ML IVPB 100 ML IV SCH (04:16)
[2023-02-13] MEDS: POTASSIUM CL 10MEQ/50ML IVPB 50 ML IV SCH (04:57)
[2023-02-13] MEDS: KCL 20 MEQ TAB (K-DUR) PO SCH (04:57)
[2023-02-13] MEDS: inSUlin ASPART (NovoLOG) 1 UNIT/0.01 ML (CHARGE PER UNIT) SC SCH ×3 (04:58→18:35)
[2023-02-13] MEDS: PIPERACILLIN SODIUM/TAZOBACTAM 4.5 GM in NS (IVPB) 100 ML IV SCH ×3 (05:33→22:59)
[2023-02-13] MEDS ORDERED: POTASSIUM BICARB 20 MEQ (EFFER-K) TABLET PO ONE (06:00)
[2023-02-13] MEDS: PANTOPRAZOLE 40 MG (PROTONIX) VIAL IV SCH (06:20)
[2023-02-13 08:13] VITALS: BP 130/82
[2023-02-13 08:13] LABS: ABG BASE EXCESS -6.6 MMOL/L (-2.5-2.5); ABG OXYGEN SATURATION 98 % (94-100); ABG PCO2 31 MMHG (35-45); ABG PH 7.37 (7.37-7.43); ABG PO2 91 MMHG (79-93)
[2023-02-13 08:16] LABS: ALLENS TEST POSITIVE; INSPIRED O2 ROOM AIR
[2023-02-13 08:17] LABS: PATIENT TEMP 35.5; VENTILATOR YES
[2023-02-13] MEDS: LACRI-LUBE OPTHALMIC OINT 3.5 GM TUBE OU PRN ×2 (08:32→21:23)
[2023-02-13] MEDS: DOCUSATE SODIUM 100 MG (COLACE) CAP PO SCH ×2 (08:33→21:12)
[2023-02-13] MEDS: levETIRAcetam 1000 mg/NS 100ml 100 ML IV SCH ×2 (08:33→21:09)
[2023-02-13] MEDS: SENNOSIDES 8.6 MG (SENOKOT) TAB PO SCH ×2 (08:33→21:12)
[2023-02-13] MEDS: ENOXAPARIN 40 MG/0.4 ML (LOVENOX) SYR SC SCH (08:33)
[2023-02-13] MEDS ORDERED: TROUGH ORDER-PHARMACY XX ONE (09:00)
[2023-02-13] MEDS ORDERED: ACETAMINOPHEN 500 MG TAB (TYLENOL) PO PRN (10:30)
[2023-02-13] MEDS: NOREPINEPHRINE 8 MG/250 ML 250 ML IV SCH (10:35)
[2023-02-13 10:45] VITALS: BP 122/72
--- NOTE | 2023-02-13 11:18 | Tele-ICU Progress Note ---
Subjective Date Seen by a Provider: Feb 13, 2023 Time Seen by a Provider: 11:17 Subjective/Events-last exam (Tele-ICU Physician , Progress Note ) Service provided via interactive audio and video telecommunications E-CARE system to a patient admitted to ICU bed in [facility]. Patient is seen today due to persistent need of ICU care Available chart/ vitals / labs / Images reviewed Video assessment done using teleICU camera, rest of exam as per RN Discussed with RN Events overnight : Afebrile hemodynamically stable Respiratory - 21 I/O = Drips: Pressors- no VENT SETTINGS and ABG reviewed NOT CANDIDATE for SBTreviewed possible contraindications including Cardiovascular Stability /Sedation Score / FI02/PEEP / ABG / CXR/ secretions Sedation, discussed with RN, RASS on propofol 20 Hospital course: AC 16-400-+5 21 % - RASS - 2 on propofol 20 A/P S/p witnessed cardiac/respiratory collapse after choking -EMS pt required 4 rounds of CPR with ROSC, CPR started immediately was in asystole for approximately 15 to 20 minutes had 4 rounds of epi. Acute respiratory failure -Intubated 02/12 - - AC 16-400-+5 21 % - RASS - 2 on propofol 20 - will stop propofol , try to assess mental status AMS post arrest - asystole for approximately 15 to 20 minutes , nonresponsive with fixed pupils on arrival - will stop propofol , try to assess mental status - less likely seizure, will resume home AED , keppra started empirically - follow Leukocytosis / UTI -Concern for ? aspiration -antibiotics, awaiting final cultures Will start TF tomorrow - as per RN - minimal bowel sounds Lives in care center. She has known MR- ? state guardian Lines : periph , (Central Line Necessity Reviewed) Woods: + Nutrition: VTE Prophylaxis: cordell 40 Stress Ulcer Prophylaxis:protonix Lines : R IJ , (Central Line Necessity Reviewed) Woods: + OG: Nutrition: npo Analgesia: Anxiety/ delirium VTE Prophylaxis: Stress Ulcer Prophylaxis: Plans in collaboration with bedside consultants and IM MDs. Discussed with RN to reach out if any questions or concerns Case and care daily discussed on multidisciplinary rounds ( RN, PharmD, Port Patrol Officer , Respiratory Therapy, culture room worker ) A total of 33 minutes of critical care time was devoted to this patient today, required to treat and/or prevent further deterioration of critical care condition ( as above ) . I am remotely monitoring this patient from another state. I am unable to do the bedside exam, and history/physical and pertinent information is taken from other notes in the computer and bedside staff. Sepsis Event Evaluation Height, Weight, BMI Height: '" Weight: lbs. oz. kg; 26.99 BMI Method: Focused Exam Lactate Level 02/11/23 17:49: Lactic Acid Level 9.32*H 02/11/23 21:58: Lactic Acid Level 1.23 Time of Focused Exam: 18:30 Exam Exam Patient acknowledged, consented, and participated in this virtual visit which was conducted using real time audio/video Vital Signs Date Time Temp Pulse Resp B/P (MAP) Pulse Ox O2 Delivery O2 Flow Rate FiO2 02/13/23 11:00 35.8 88 18 118/76 (87) 95 Mechanical Ventilator 21.00 02/13/23 10:45 87 18 98 21 02/13/23 10:00 35.7 86 16 114/74 (87) 96 Mechanical Ventilator 21.00 02/13/23 09:00 35.7 86 18 121/79 (93) 96 Mechanical Ventilator 21.00 02/13/23 08:13 82 16 96 21 02/13/23 08:00 35.5 80 16 122/81 (96) 96 Mechanical Ventilator 21.00 02/13/23 07:56 36.0 02/13/23 07:00 80 02/13/23 07:00 35.3 80 16 123/80 (98) 97 Mechanical Ventilator 21.00 02/13/23 06:59 80 123/80 02/13/23 06:00 35.2 80 15 118/79 (92) 97 Mechanical Ventilator 21.00 02/13/23 05:36 21 02/13/23 05:00 35.2 80 16 111/75 (87) 97 Mechanical Ventilator 21.00 02/13/23 04:45 35.2 80 16 110/74 (88) 96 Mechanical Ventilator 21.00 02/13/23 04:30 35.2 81 15 115/77 (91) 97 Mechanical Ventilator 21.00 02/13/23 04:15 98 Mechanical Ventilator 21 02/13/23 04:15 35.2 81 15 113/76 (89) 94 Mechanical Ventilator 21.00 02/13/23 04:00 35.2 81 15 115/77 (90) 97 Mechanical Ventilator 21.00 02/13/23 03:15 35.3 16 111/71 (86) 97 Mechanical Ventilator 21.00 02/13/23 03:00 35.4 83 16 109/71 (86) 96 Mechanical Ventilator 21.00 02/13/23 02:45 35.4 84 15 111/73 (87) 97 Mechanical Ventilator 21.00 02/13/23 02:30 35.5 82 15 110/71 (86) 94 Mechanical Ventilator 21.00 02/13/23 02:24 82 109/71 02/13/23 02:20 82 16 97 21 02/13/23 02:15 35.5 82 16 109/71 (86) 94 Mechanical Ventilator 21.00 02/13/23 02:00 35.6 82 16 104/71 (82) 96 Mechanical Ventilator 21.00 02/13/23 01:45 35.6 82 15 106/70 (83) 95 Mechanical Ventilator 21.00 02/13/23 01:30 35.7 82 16 104/69 (81) 95 Mechanical Ventilator 21.00 02/13/23 01:23 21 02/13/23 01:15 35.7 82 16 95/61 (74) 97 Mechanical Ventilator 21.00 02/13/23 01:00 83 02/13/23 01:00 35.8 82 15 91/60 (71) 97 Mechanical Ventilator 21.00 02/13/23 00:45 35.8 92/61 (70) 02/13/23 00:30 35.8 86 16 93/60 (70) 94 Mechanical Ventilator 21.00 02/13/23 00:15 35.9 93/58 (69) 02/13/23 00:02 89 96/60 02/13/23 00:00 36.0 02/12/23 23:59 97 Mechanical Ventilator 21 02/12/23 23:00 36.1 96 15 103/63 (76) 96 Mechanical Ventilator 21.00 02/12/23 22:01 97 16 96 21 02/12/23 22:00 36.4 96 17 107/65 (79) 96 Mechanical Ventilator 21.00 02/12/23 21:54 21 02/12/23 21:45 36.4 96 16 102/67 (78) 94 Mechanical Ventilator 21.00 02/12/23 21:30 36.4 97 16 108/69 (81) 94 Mechanical Ventilator 21.00 02/12/23 21:15 36.5 96 16 105/65 (79) 92 Mechanical Ventilator 21.00 02/12/23 21:00 36.5 98 18 101/64 (75) 96 Mechanical Ventilator 21.00 02/12/23 20:45 36.6 97 16 101/64 (77) 95 Mechanical Ventilator 21.00 02/12/23 20:30 36.6 98 16 104/64 (76) 94 Mechanical Ventilator 21.00 02/12/23 20:15 36.6 97 16 109/65 (79) Mechanical Ventilator 21.00 02/12/23 20:12 97 111/67 02/12/23 20:00 36.6 96 17 111/67 (82) 96 Mechanical Ventilator 21.00 02/12/23 20:00 96 Mechanical Ventilator 21 02/12/23 19:56 36.4 02/12/23 19:00 100 02/12/23 19:00 36.8 99 18 109/63 (78) 96 Mechanical Ventilator 21.00 02/12/23 18:31 99 18 95 21 02/12/23 18:30 98 103/58 02/12/23 18:00 37.1 100 17 90/54 (66) 95 Mechanical Ventilator 21.00 02/12/23 17:20 21 02/12/23 17:00 37.2 106 18 109/66 (80) 95 Mechanical Ventilator 21.00 02/12/23 16:00 37.3 109 17 102/62 (75) 95 Mechanical Ventilator 21.00 02/12/23 16:00 96 Mechanical Ventilator 21 02/12/23 15:27 36.5 02/12/23 15:00 37.4 111 8 104/63 (77) 94 Mechanical Ventilator 21.00 02/12/23 14:45 112 114/68 02/12/23 14:29 110 119/69 02/12/23 14:15 105 23 94 21 02/12/23 14:00 37.3 107 10 110/72 (85) 96 Mechanical Ventilator 21.00 02/12/23 13:20 30 02/12/23 13:00 37.0 105 7 121/71 (88) 98 Mechanical Ventilator 21.00 02/12/23 12:51 93 02/12/23 12:00 98 Mechanical Ventilator 30 02/12/23 12:00 36.6 92 114/71 (85) Mechanical Ventilator 21.00 02/12/23 11:39 102 25 100 30 02/12/23 11:33 36.0 Mechanical Ventilator 21.00 02/12/23 11:19 35.8 92 100 I & O 02/13/23 07:00 Intake Total 5405 ml Output Total 1650 ml Balance 3755 ml Height & Weight Height: '" Weight: lbs. oz. kg; 26.99 BMI Method: General Appearance: No Apparent Distress, Chronically ill, Other (Intubated) Respiratory: Lungs Clear, No Accessory Muscle Use, No Respiratory Distress Cardiovascular: Regular Rate, Rhythm Capillary Refill: Less Than 3 Seconds Neurologic/Psychiatric: Other (Intubated, nonresponsive) Results Lab Laboratory Tests 02/11/23 17:49 02/12/23 04:04 02/12/23 15:00 02/13/23 03:40 Assessment/Plan Assessment/Plan 1 FATMATA REYES MD Feb 13, 2023 11:18
--- NOTE | 2023-02-13 12:00 | Progress Note ---
Subjective Date Seen by a Provider: Feb 13, 2023 Time Seen by a Provider: 11:45 Subjective/Events-last exam No progress being made Maintain on ventilator Anoxic brain injury clear that she will not recover Signed letter of terminal illness and eICU will also sign it and submit to courts Focused Exam Lactate Level 02/11/23 17:49: Lactic Acid Level 9.32*H 02/11/23 21:58: Lactic Acid Level 1.23 Time of Focused Exam: 18:30 Objective Exam Last Set of Vital Signs Vital Signs Date Time Temp Pulse Resp B/P (MAP) Pulse Ox O2 Delivery O2 Flow Rate FiO2 02/13/23 11:54 36.0 02/13/23 11:00 88 18 118/76 (87) 95 Mechanical Ventilator 21.00 02/13/23 10:45 21 Capillary Refill : Less Than 3 Seconds I&O Intake and Output 02/13/23 00:00 Intake Total 4105 ml Output Total 2225 ml Balance 1880 ml Intake Oral 150 ml IV Total 3955 ml Output Urine Total 1975 ml Gastric Drainage Total 250 ml General: Other (Eyes open but nonresponsive) Lungs: Clear to Auscultation Heart: Regular Rate Results Lab Laboratory Tests 02/12/23 15:00: Potassium Level 3.0L 02/12/23 17:35: Glucometer 130H 02/12/23 23:43: Glucometer 104 02/13/23 03:40: Potassium Level 3.6, White Blood Count 9.9, Red Blood Count 2.62L, Hemoglobin 8.0L, Hematocrit 26L, Mean Corpuscular Volume 98, Mean Corpuscular Hemoglobin 31, Mean Corpuscular Hemoglobin Concent 31L, Red Cell Distribution Width 17.1H, Platelet Count 165, Mean Platelet Volume 9.7, Immature Granulocyte % (Auto) 0, Neutrophils (%) (Auto) 76H, Lymphocytes (%) (Auto) 18, Monocytes (%) (Auto) 6, Eosinophils (%) (Auto) 0, Basophils (%) (Auto) 0, Neutrophils # (Auto) 7.5, Lymphocytes # (Auto) 1.7, Monocytes # (Auto) 0.6, Eosinophils # (Auto) 0.0, Basophils # (Auto) 0.0, Immature Granulocyte # (Auto) 0.0, Sodium Level 142, Chloride Level 117H, Carbon Dioxide Level 17L, Anion Gap 8, Blood Urea Nitrogen 10, Creatinine 0.81, Estimat Glomerular Filtration Rate 87, BUN/Creatinine Ratio 12, Glucose Level 103, Calcium Level 8.0L, Corrected Calcium 9.2, Phosphorus Level 2.9, Magnesium Level 2.1, Total Bilirubin 0.2, Aspartate Amino Transf (AST/SGOT) 46H, Alanine Aminotransferase (ALT/SGPT) 51, Alkaline Phosphatase 113, Total Protein 6.2L, Albumin 2.5L 02/13/23 08:06: Blood Gas Puncture Site R RADIAL, Blood Gas Patient Temperature 35.5, Arterial Blood pH 7.37, Arterial Blood Partial Pressure CO2 31L, Arterial Blood Partial Pressure O2 91, Arterial Blood HCO3 18L, Arterial Blood Total CO2 19.0L, Arterial Blood Oxygen Saturation 98, Arterial Blood Base Excess -6.6L, Adonay Test POSITIVE, Blood Gas Ventilator Setting YES, Blood Gas Inspired Oxygen ROOM AIR 02/13/23 09:05: Vancomycin Level Trough 29.8*H 02/13/23 11:41: Glucometer 103 Microbiology 02/11/23 MRSA Screen - Final, Complete MRSA not isolated 02/11/23 Blood Culture - Preliminary, Resulted No growth 02/11/23 Urine Culture - Preliminary, Resulted Probable E.coli Susceptibility To Follow Mixed Bacterial Estephania See Comments Assessment/Plan Assessment/Plan Assess & Plan/Chief Complaint Assessment: Acute hypoxic respiratory failure from sausage lodged in airway causing respiratory arrest and cardiac arrest but ROSC obtained by paramedics during arrest outside of hospital aspiration pneumonia Intellectual delay Seizure disorder Plan: IV antibiotics Ventilator Sedatives Submit letter to court for terminal extubation and place on hospice and DNR SARA NEAL DO Feb 13, 2023 12:00
--- NOTE | 2023-02-13 12:01 | Diagnostic Imaging Report ---
CHEST 1 VIEW, AP/PA ONLY Indication: Intubation Comparison: 02/12/2023 Findings: Stable ET and enteric tubes. Stable right IJ central venous catheter. Hazy opacity in left lung base are similar. No pneumothorax. Stable cardiac silhouette. Impression: 1. Well-positioned support devices. 2. No change in left basilar opacities that favor atelectasis. Dictated by: Dictated on workstation # [id number]
[2023-02-13 14:52] VITALS: BP 121/78
[2023-02-13 18:18] VITALS: BP 129/85
[2023-02-13] MEDS: NS IV SCH ×3 (20:13)
[2023-02-13] MEDS: PHENYTOIN IV SCH ×3 (20:13)
[2023-02-13] MEDS: MICRON FILTER IV SCH ×3 (20:13)
[2023-02-13 21:45] VITALS: BP 116/78
[2023-02-14] MEDS: inSUlin ASPART (NovoLOG) 1 UNIT/0.01 ML (CHARGE PER UNIT) SC SCH ×4 (00:20→18:06)
[2023-02-14 02:19] VITALS: BP 128/78
[2023-02-14] MEDS: RT-ALBUTEROL SULF 2.5 MG/3 ML PRE-MIX VIAL INH SCH ×4 (02:19→21:39)
[2023-02-14] MEDS: NS IV 1000 ML 1,000 ML IV SCH ×3 (03:37→17:33)
[2023-02-14 03:56] LABS: BASOPHILS % (AUTO) 0 % (0-10); EOSINOPHILS % (AUTO) 0 % (0-10); HEMATOCRIT 26 % (35-52); HEMOGLOBIN 8.3 g/dL (11.5-16.0); LYMPHOCYTES % (AUTO) 10 % (12-44); MEAN CORPUSCULAR HEMOGLOBIN 31 pg (25-34); MEAN CORPUSCULAR HGB CONC 32 g/dL (32-36); MEAN CORPUSCULAR VOLUME 97 fL (80-99); MEAN PLATELET VOLUME 9.6 fL (9.0-12.2); MONOCYTES # (AUTO) 0.5 10^3/uL (0.0-1.0); MONOCYTES % (AUTO) 5 % (0-12); NEUTROPHILS # (AUTO) 8.8 10^3/uL (1.8-7.8); NEUTROPHILS % (AUTO) 84 % (42-75); PLATELET COUNT 165 10^3/uL (130-400); WHITE BLOOD COUNT 10.5 10^3/uL (4.3-11.0)
[2023-02-14 04:04] LABS: ALBUMIN 2.5 GM/DL (3.2-4.5); POTASSIUM 3.6 MMOL/L (3.6-5.0)
[2023-02-14 04:07] LABS: TOTAL PROTEIN 6.2 GM/DL (6.4-8.2)
[2023-02-14 04:09] LABS: BILIRUBIN,TOTAL 0.3 MG/DL (0.1-1.0)
[2023-02-14 04:10] LABS: PHOSPHORUS 2.7 MG/DL (2.3-4.7)
[2023-02-14 04:11] LABS: CREATININE SERUM 0.72 MG/DL (0.60-1.30)
[2023-02-14 04:14] LABS: MAGNESIUM 1.6 MG/DL (1.6-2.4)
[2023-02-14] MEDS: MAGNESIUM 1 GM/100 ML IVPB 100 ML IV SCH ×4 (05:22→08:34)
[2023-02-14] MEDS: NOREPINEPHRINE 8 MG/250 ML 250 ML IV SCH ×2 (05:22→23:04)
[2023-02-14] MEDS: KCL 20 MEQ TAB (K-DUR) PO SCH (05:31)
[2023-02-14] MEDS: POTASSIUM CL 10MEQ/50ML IVPB 50 ML IV SCH (05:31)
[2023-02-14] MEDS: PIPERACILLIN SODIUM/TAZOBACTAM 4.5 GM in NS (IVPB) 100 ML IV SCH (05:41)
[2023-02-14] MEDS ORDERED: TROUGH ORDER-PHARMACY XX ONE (06:00)
[2023-02-14 06:09] VITALS: BP 127/80
[2023-02-14] MEDS: PANTOPRAZOLE 40 MG (PROTONIX) VIAL IV SCH (06:33)
--- NOTE | 2023-02-14 06:36 | Progress Note ---
Subjective Date Seen by a Provider: Feb 14, 2023 Time Seen by a Provider: 11:00 Subjective/Events-last exam No significant changes ESBL on UCx Aunt at bedside No return of cognitive function Focused Exam Lactate Level 02/11/23 17:49: Lactic Acid Level 9.32*H 02/11/23 21:58: Lactic Acid Level 1.23 Time of Focused Exam: 18:30 Objective Exam Last Set of Vital Signs Vital Signs Date Time Temp Pulse Resp B/P (MAP) Pulse Ox O2 Delivery O2 Flow Rate FiO2 02/14/23 06:09 110 19 92 21 02/14/23 06:00 127/80 (96) Mechanical Ventilator 21.00 02/14/23 04:30 36.7 Capillary Refill : Less Than 3 Seconds I&O Intake and Output 02/14/23 00:00 Intake Total 4353 ml Output Total 1300 ml Balance 3053 ml Intake Oral 50 ml IV Total 3803 ml Enteral Flush 100 ml Other 400 ml Output Urine Total 1300 ml General: Other (sedated on vent and unresponsive) Lungs: Clear to Auscultation Heart: Regular Rate Results Lab Laboratory Tests 02/13/23 08:06: Blood Gas Puncture Site R RADIAL, Blood Gas Patient Temperature 35.5, Arterial Blood pH 7.37, Arterial Blood Partial Pressure CO2 31L, Arterial Blood Partial Pressure O2 91, Arterial Blood HCO3 18L, Arterial Blood Total CO2 19.0L, Arterial Blood Oxygen Saturation 98, Arterial Blood Base Excess -6.6L, Adonay Test POSITIVE, Blood Gas Ventilator Setting YES, Blood Gas Inspired Oxygen ROOM AIR 02/13/23 09:05: Vancomycin Level Trough 29.8*H 02/13/23 11:41: Glucometer 103 02/13/23 14:12: Stool Occult Blood Immunoassay NEGATIVE 02/13/23 18:15: Glucometer 95 02/14/23 00:13: Glucometer 92 02/14/23 03:45: White Blood Count 10.5, Red Blood Count 2.69L, Hemoglobin 8.3L, Hematocrit 26L, Mean Corpuscular Volume 97, Mean Corpuscular Hemoglobin 31, Mean Corpuscular Hemoglobin Concent 32, Red Cell Distribution Width 17.4H, Platelet Count 165, Mean Platelet Volume 9.6, Immature Granulocyte % (Auto) 1, Neutrophils (%) (Auto) 84H, Lymphocytes (%) (Auto) 10L, Monocytes (%) (Auto) 5, Eosinophils (%) (Auto) 0, Basophils (%) (Auto) 0, Neutrophils # (Auto) 8.8H, Lymphocytes # (Auto) 1.0, Monocytes # (Auto) 0.5, Eosinophils # (Auto) 0.0, Basophils # (Auto) 0.0, Immature Granulocyte # (Auto) 0.1, Sodium Level 141, Potassium Level 3.6, Chloride Level 115H, Carbon Dioxide Level 18L, Anion Gap 8, Blood Urea Nitrogen 7, Creatinine 0.72, Estimat Glomerular Filtration Rate 101, BUN/Creatinine Ratio 10, Glucose Level 103, Calcium Level 8.0L, Corrected Calcium 9.2, Phosphorus Level 2.7, Magnesium Level 1.6, Total Bilirubin 0.3, Aspartate Amino Transf (AST/SGOT) 35H, Alanine Aminotransferase (ALT/SGPT) 40, Alkaline Phosphatase 114, Total Protein 6.2L, Albumin 2.5L, Triglycerides Level 71 Microbiology 02/11/23 MRSA Screen - Final, Complete MRSA not isolated 02/11/23 Blood Culture - Preliminary, Resulted No growth 02/11/23 Urine Culture - Preliminary, Resulted Probable E.coli Susceptibility To Follow Mixed Bacterial Estephania See Comments Assessment/Plan Assessment/Plan Assess & Plan/Chief Complaint Assessment: Acute hypoxic respiratory failure from sausage lodged in airway causing respiratory arrest and cardiac arrest but ROSC obtained by paramedics during arrest outside of hospital Aspiration pneumonia Intellectual delay Seizure disorder Complicated UTI ESBL change abx to Camila Plan: IV antibiotics Ventilator Sedatives Submit letter to court for terminal extubation and place on hospice and DNR SARA NEAL DO Feb 14, 2023 06:36
[2023-02-14] MEDS: PROPOFOL DRIP (ICU) 100 ML IV SCH ×2 (07:20→18:45)
[2023-02-14] MEDS ORDERED: POTASSIUM BICARB 20 MEQ (EFFER-K) TABLET PO ONE (08:00)
--- NOTE | 2023-02-14 08:22 | Diagnostic Imaging Report ---
EXAMINATION: Chest 1 view HISTORY: Pneumonia. COMPARISON: 02/13/2023 FINDINGS: Endotracheal tube tip terminates 5 cm above the efren. Gastric tube tip terminates below the field of view. There is a small left pleural effusion with overlying airspace opacity. No pneumothorax. Right lung is clear. Heart size is normal. IMPRESSION: 1. Small left pleural effusion with overlying atelectasis or pneumonia. Dictated by: Dictated on workstation # [id number]
[2023-02-14] MEDS: LACRI-LUBE OPTHALMIC OINT 3.5 GM TUBE OU PRN (08:31)
[2023-02-14] MEDS: SENNOSIDES 8.6 MG (SENOKOT) TAB PO SCH ×2 (08:33→21:00)
[2023-02-14] MEDS: ENOXAPARIN 40 MG/0.4 ML (LOVENOX) SYR SC SCH (08:33)
[2023-02-14] MEDS: NS IV SCH ×6 (08:34→21:36)
[2023-02-14] MEDS: levETIRAcetam 1000 mg/NS 100ml 100 ML IV SCH ×2 (08:34→22:05)
[2023-02-14] MEDS: PHENYTOIN IV SCH ×6 (08:34→21:36)
[2023-02-14] MEDS: MICRON FILTER IV SCH ×6 (08:34→21:36)
[2023-02-14] MEDS: DOCUSATE SODIUM 100 MG (COLACE) CAP PO SCH ×2 (08:34→21:00)
--- NOTE | 2023-02-14 10:02 | Tele-ICU Progress Note ---
Subjective Date Seen by a Provider: Feb 14, 2023 Time Seen by a Provider: 10:02 Subjective/Events-last exam (Tele-ICU Physician , Progress Note ) Service provided via interactive audio and video telecommunications E-CARE system to a patient admitted to ICU bed in [facility]. Patient is seen today due to persistent need of ICU care Available chart/ vitals / labs / Images reviewed Video assessment done using teleICU camera, rest of exam as per RN Discussed with RN Events overnight : Afebrile hemodynamically stable Respiratory - 21 I/O =+ Drips: NS 125 Pressors- no VENT SETTINGS and ABG reviewed NOT CANDIDATE for SBTreviewed possible contraindications including Cardiovascular Stability /Sedation Score / FI02/PEEP / ABG / CXR/ secretions Sedation, discussed with RN, RASS on propofol 20 Hospital course: AC 16-400-+5 21 % - RASS - 2 on propofol 20 02/14- AC 12-400-+5 21 % - RR 20s OFF propofol for 24 H , stop IVF , start TF A/P S/p witnessed cardiac/respiratory collapse after choking -EMS pt required 4 rounds of CPR with ROSC, CPR started immediately was in asystole for approximately 15 to 20 minutes had 4 rounds of epi. Acute respiratory failure -Intubated 02/12 - - AC 12-400-+5 21 % - RR 20s - RASS - 2 on propofol 20 AMS post arrest, ANOXIC BRAIN DAMAGE - asystole for approximately 15 to 20 minutes , nonresponsive with fixed pupils on arrival - propofol OFF for 24 H, ninimal if any response , pupils not fixed , breathing over the vent , - less likely seizure, home AED resumed , keppra started empirically - follow Leukocytosis / UTI -Concern for ? aspiration -antibiotics, awaiting final cultures Will start TF - as per RN - minimal bowel sounds She has known MR-Discussed with Dr Kowalski - in my medical opinion pprogmnosius for meanigful brain recovery is extremely poor , agree with letter to court for terminal extubation and place on hospice and DNR Lines : periph , (Central Line Necessity Reviewed) Woods: + Nutrition: VTE Prophylaxis: cordell 40 Stress Ulcer Prophylaxis:protonix Lines : R IJ , (Central Line Necessity Reviewed) Woods: + OG: Nutrition: npo Analgesia: Anxiety/ delirium VTE Prophylaxis: cordell Stress Ulcer Prophylaxis: na Plans in collaboration with bedside consultants and IM MDs. Discussed with RN to reach out if any questions or concerns Case and care daily discussed on multidisciplinary rounds ( RN, PharmD, Pre Billing Clinician , Respiratory Therapy, protective services social worker ) A total of 33 minutes of critical care time was devoted to this patient today, r equired to treat and/or prevent further deterioration of critical care condition ( as above ) . I am remotely monitoring this patient from another state. I am unable to do the bedside exam, and history/physical and pertinent information is taken from other notes in the computer and bedside staff. Sepsis Event Evaluation Height, Weight, BMI Height: '" Weight: lbs. oz. kg; 27.54 BMI Method: Focused Exam Lactate Level 02/11/23 17:49: Lactic Acid Level 9.32*H 02/11/23 21:58: Lactic Acid Level 1.23 Time of Focused Exam: 18:30 Exam Exam Patient acknowledged, consented, and participated in this virtual visit which was conducted using real time audio/video Vital Signs Date Time Temp Pulse Resp B/P (MAP) Pulse Ox O2 Delivery O2 Flow Rate FiO2 02/14/23 09:00 110 21 131/78 (93) 94 Mechanical Ventilator 21.00 02/14/23 08:00 110 20 128/79 (97) 94 Mechanical Ventilator 21.00 02/14/23 07:23 36.7 02/14/23 07:00 112 02/14/23 07:00 112 21 125/79 (93) 92 Mechanical Ventilator 21.00 02/14/23 06:09 110 19 92 21 02/14/23 06:00 109 20 127/80 (96) 94 Mechanical Ventilator 21.00 02/14/23 05:30 21 02/14/23 05:00 111 18 138/87 (104) 95 Mechanical Ventilator 21.00 02/14/23 04:30 36.7 109 21 136/90 (109) 94 Mechanical Ventilator 21.00 02/14/23 04:15 106 21 131/83 (99) 93 Mechanical Ventilator 21.00 02/14/23 04:01 95 Mechanical Ventilator 20 02/14/23 04:00 108 17 128/81 (98) 94 Mechanical Ventilator 21.00 02/14/23 03:45 105 17 129/80 (96) 93 Mechanical Ventilator 21.00 02/14/23 03:30 106 15 127/79 (95) 93 Mechanical Ventilator 21.00 02/14/23 03:15 107 21 124/81 (95) 94 Mechanical Ventilator 21.00 02/14/23 03:00 107 15 128/78 (100) 94 Mechanical Ventilator 21.00 02/14/23 02:45 106 17 128/79 (96) 94 Mechanical Ventilator 21.00 02/14/23 02:30 125/77 (92) 02/14/23 02:19 107 21 95 21 02/14/23 02:15 107 17 126/78 (96) 92 Mechanical Ventilator 21.00 02/14/23 02:00 107 19 130/76 (98) 95 Mechanical Ventilator 21.00 02/14/23 01:45 106 19 128/79 (93) 95 Mechanical Ventilator 21.00 02/14/23 01:30 101 20 132/80 (97) 96 Mechanical Ventilator 21.00 02/14/23 01:21 21 02/14/23 01:15 129/83 (95) 02/14/23 01:00 98 15 128/79 (93) 96 Mechanical Ventilator 21.00 02/14/23 01:00 100 02/14/23 00:45 35.8 96 14 126/77 (92) 96 Mechanical Ventilator 21.00 02/14/23 00:30 100 15 125/79 (93) 96 Mechanical Ventilator 21.00 02/14/23 00:15 108/71 (86) 02/14/23 00:00 114/76 (87) 02/13/23 23:59 96 Mechanical Ventilator 18 02/13/23 23:45 98 13 113/73 (86) 98 Mechanical Ventilator 21.00 02/13/23 23:15 96 15 108/71 (83) 96 Mechanical Ventilator 21.00 02/13/23 23:00 95 13 105/69 (80) Mechanical Ventilator 21.00 02/13/23 22:45 96 13 99/66 (77) 96 Mechanical Ventilator 21.00 02/13/23 22:30 100 13 112/73 (87) 96 Mechanical Ventilator 21.00 02/13/23 22:15 98 15 115/74 (85) Mechanical Ventilator 21.00 02/13/23 22:00 101 17 119/77 (90) Mechanical Ventilator 21.00 02/13/23 21:45 98 14 116/78 (89) 96 Mechanical Ventilator 21.00 02/13/23 21:45 98 14 96 21 02/13/23 21:30 98 13 121/78 (90) 97 Mechanical Ventilator 21.00 02/13/23 21:26 21 02/13/23 21:15 105 16 129/84 (97) 99 Mechanical Ventilator 21.00 02/13/23 21:00 105 16 126/82 (97) 98 Mechanical Ventilator 21.00 02/13/23 20:20 97 Mechanical Ventilator 20 02/13/23 20:00 108 18 126/84 (98) 98 Mechanical Ventilator 21.00 02/13/23 19:15 36.6 108 17 124/81 (94) 97 Mechanical Ventilator 21.00 02/13/23 19:00 108 15 128/82 (96) 98 Mechanical Ventilator 21.00 02/13/23 19:00 108 02/13/23 18:45 112 19 129/84 (98) 97 Mechanical Ventilator 21.00 02/13/23 18:30 112 17 130/84 (97) 98 Mechanical Ventilator 21.00 02/13/23 18:18 110 21 97 21 02/13/23 18:15 110 18 129/85 (97) 79 Mechanical Ventilator 21.00 02/13/23 18:00 110 20 127/83 (97) 98 Mechanical Ventilator 21.00 02/13/23 17:20 21 02/13/23 17:00 106 19 117/80 (90) 98 Mechanical Ventilator 21.00 02/13/23 16:00 96 Mechanical Ventilator 21 02/13/23 16:00 110 20 119/78 (89) 98 Mechanical Ventilator 21.00 02/13/23 16:00 36.4 Mechanical Ventilator 21.00 02/13/23 15:00 114 23 123/71 (88) 96 Mechanical Ventilator 21.00 02/13/23 14:52 113 23 98 21 02/13/23 14:00 36.8 90 21 129/84 (94) 94 Mechanical Ventilator 21.00 02/13/23 13:20 21 02/13/23 13:00 36.4 90 18 129/80 (102) 100 Mechanical Ventilator 21.00 02/13/23 12:30 90 02/13/23 12:00 36.1 88 17 122/78 (96) 100 Mechanical Ventilator 21.00 02/13/23 12:00 95 Mechanical Ventilator 21 02/13/23 11:54 36.0 02/13/23 11:00 35.8 88 18 118/76 (87) 95 Mechanical Ventilator 21.00 02/13/23 10:45 87 18 98 21 I & O 02/14/23 07:00 Intake Total 2978 ml Output Total 1675 ml Balance 1303 ml Height & Weight Height: '" Weight: lbs. oz. kg; 27.54 BMI Method: General Appearance: No Apparent Distress, Chronically ill, Other (Intubated) Respiratory: Lungs Clear, No Accessory Muscle Use, No Respiratory Distress Cardiovascular: Regular Rate, Rhythm Capillary Refill: Less Than 3 Seconds Neurologic/Psychiatric: Other (Intubated, nonresponsive) Results Lab Laboratory Tests 02/12/23 15:00 02/13/23 03:40 02/14/23 03:45 Assessment/Plan Assessment/Plan 1 FATMATA REYES MD Feb 14, 2023 10:02
[2023-02-14 10:54] VITALS: BP 136/80
[2023-02-14] MEDS: MEROPENEM 1,000 MG in NS (IVPB) 100 ML IV SCH ×2 (12:58→20:41)
[2023-02-14 15:01] VITALS: BP 140/86
[2023-02-14] MEDS: KETOROLAC 30 MG/ML VIAL IVP PRN (16:44)
[2023-02-14] MEDS ORDERED: MIDAZOLAM 5 MG/5 ML (VERSED) VIAL IVP ONE (16:45)
[2023-02-14 18:41] VITALS: BP 126/75
[2023-02-14 21:39] VITALS: BP 123/77
[2023-02-15 02:18] VITALS: BP 135/82
[2023-02-15] MEDS: RT-ALBUTEROL SULF 2.5 MG/3 ML PRE-MIX VIAL INH SCH ×4 (02:18→21:11)
[2023-02-15 03:54] LABS: ABG BASE EXCESS -2.3 MMOL/L (-2.5-2.5); ABG OXYGEN SATURATION 97 % (94-100); ABG PCO2 33 MMHG (35-45); ABG PH 7.43 (7.37-7.43); ABG PO2 79 MMHG (79-93); ABG TCO2 22.6 MMOL/L (21.0-31.0); ALLENS TEST YES-POS
[2023-02-15 03:55] LABS: VENTILATOR NO
[2023-02-15 03:56] LABS: INSPIRED O2 21%; PATIENT TEMP 36.1
[2023-02-15] MEDS: MEROPENEM 1,000 MG in NS (IVPB) 100 ML IV SCH ×3 (04:47→20:36)
[2023-02-15 05:07] LABS: BASOPHILS % (AUTO) 0 % (0-10); EOSINOPHILS % (AUTO) 0 % (0-10); HEMATOCRIT 28 % (35-52); HEMOGLOBIN 8.9 g/dL (11.5-16.0); LYMPHOCYTES % (AUTO) 7 % (12-44); MEAN CORPUSCULAR HEMOGLOBIN 31 pg (25-34); MEAN CORPUSCULAR HGB CONC 32 g/dL (32-36); MEAN CORPUSCULAR VOLUME 96 fL (80-99); MONOCYTES # (AUTO) 0.8 10^3/uL (0.0-1.0); MONOCYTES % (AUTO) 6 % (0-12); NEUTROPHILS # (AUTO) 12.8 10^3/uL (1.8-7.8); NEUTROPHILS % (AUTO) 86 % (42-75); PLATELET COUNT 164 10^3/uL (130-400); WHITE BLOOD COUNT 14.9 10^3/uL (4.3-11.0)
[2023-02-15 05:29] LABS: ALBUMIN 2.6 GM/DL (3.2-4.5); BILIRUBIN,TOTAL 0.3 MG/DL (0.1-1.0); CALCIUM 8.2 MG/DL (8.5-10.1); CREATININE SERUM 0.78 MG/DL (0.60-1.30); MAGNESIUM 2.2 MG/DL (1.6-2.4); PHOSPHORUS 2.9 MG/DL (2.3-4.7); POTASSIUM 3.5 MMOL/L (3.6-5.0); TOTAL PROTEIN 6.5 GM/DL (6.4-8.2)
[2023-02-15] MEDS: POTASSIUM CL 10MEQ/50ML IVPB 50 ML IV SCH ×5 (05:46→08:20)
[2023-02-15] MEDS: MAGNESIUM 1 GM/100 ML IVPB 100 ML IV SCH (05:46)
[2023-02-15] MEDS: KCL 20 MEQ TAB (K-DUR) PO SCH (05:46)
[2023-02-15] MEDS: inSUlin ASPART (NovoLOG) 1 UNIT/0.01 ML (CHARGE PER UNIT) SC SCH ×4 (05:49→18:38)
[2023-02-15] MEDS: PROPOFOL DRIP (ICU) 100 ML IV SCH ×2 (06:08→17:58)
[2023-02-15] MEDS: PANTOPRAZOLE 40 MG (PROTONIX) VIAL IV SCH (06:08)
[2023-02-15 06:50] VITALS: BP 138/86
--- NOTE | 2023-02-15 06:51 | Progress Note ---
Subjective Date Seen by a Provider: Feb 15, 2023 Time Seen by a Provider: 11:00 Subjective/Events-last exam No major changes Aunt at bedside Remains on ventilator Labs reviewed Antibiotics maintained Focused Exam Time of Focused Exam: 18:30 Objective Exam Last Set of Vital Signs Vital Signs Date Time Temp Pulse Resp B/P (MAP) Pulse Ox O2 Delivery O2 Flow Rate FiO2 02/15/23 06:08 100 138/86 02/15/23 06:00 21 95 Mechanical Ventilator 21.00 02/15/23 05:21 21 02/14/23 19:30 36.9 Capillary Refill : Less Than 3 Seconds I&O Intake and Output 02/15/23 00:00 Intake Total 3178 ml Output Total 1950 ml Balance 1228 ml Intake Oral 0 ml IV Total 1753 ml Tube Feeding 905 ml Enteral Flush 400 ml Other 120 ml Output Urine Total 1950 ml General: Other (Unresponsive on vent) Lungs: Clear to Auscultation Heart: Regular Rate Results Lab Laboratory Tests 02/14/23 11:42: Glucometer 132H 02/14/23 18:02: Glucometer 115H 02/15/23 00:54: Glucometer 122H 02/15/23 03:40: Blood Gas Puncture Site RR, Blood Gas Patient Temperature 36.1, Arterial Blood pH 7.43, Arterial Blood Partial Pressure CO2 33L, Arterial Blood Partial Pressure O2 79, Arterial Blood HCO3 22L, Arterial Blood Total CO2 22.6, Arterial Blood Oxygen Saturation 97, Arterial Blood Base Excess -2.3, Adonay Test YES-POS, Blood Gas Ventilator Setting NO, Blood Gas Inspired Oxygen 21% 02/15/23 04:50: White Blood Count 14.9H, Red Blood Count 2.86L, Hemoglobin 8.9L, Hematocrit 28L, Mean Corpuscular Volume 96, Mean Corpuscular Hemoglobin 31, Mean Corpuscular Hemoglobin Concent 32, Red Cell Distribution Width 17.2H, Platelet Count 164, Mean Platelet Volume 10.0, Immature Granulocyte % (Auto) 1, Neutrophils (%) (Auto) 86H, Lymphocytes (%) (Auto) 7L, Monocytes (%) (Auto) 6, Eosinophils (%) (Auto) 0, Basophils (%) (Auto) 0, Neutrophils # (Auto) 12.8H, Lymphocytes # (Auto) 1.0, Monocytes # (Auto) 0.8, Eosinophils # (Auto) 0.0, Basophils # (Auto) 0.0, Immature Granulocyte # (Auto) 0.2H, Sodium Level 139, Potassium Level 3.5L, Chloride Level 112H, Carbon Dioxide Level 20L, Anion Gap 7, Blood Urea Nitrogen 11, Creatinine 0.78, Estimat Glomerular Filtration Rate 91, BUN/Creatinine Ratio 14, Glucose Level 111H, Calcium Level 8.2L, Corrected Calcium 9.3, Phosphorus Level 2.9, Magnesium Level 2.2, Total Bilirubin 0.3, Aspartate Amino Transf (AST/SGOT) 32, Alanine Aminotransferase (ALT/SGPT) 33, Alkaline Phosphatase 124, Total Protein 6.5, Albumin 2.6L Microbiology 02/11/23 MRSA Screen - Final, Complete MRSA not isolated 02/11/23 Blood Culture - Preliminary, Resulted No growth 02/11/23 Urine Culture - Final, Complete Mixed Bacterial Estephania#2 Escherichia coli Escherichia coli#2 Assessment/Plan Assessment/Plan Assess & Plan/Chief Complaint Assessment: Acute hypoxic respiratory failure from sausage lodged in airway causing respiratory arrest and cardiac arrest but ROSC obtained by paramedics during arrest outside of hospital Aspiration pneumonia Intellectual delay Seizure disorder Complicated UTI ESBL change abx to Camila Plan: IV antibiotics Ventilator Sedatives Submit letter to court for terminal extubation and place on hospice and DNR SARA NEAL DO Feb 15, 2023 06:51
--- NOTE | 2023-02-15 07:43 | Diagnostic Imaging Report ---
INDICATION: Dyspnea, followup pneumonia. COMPARISON: 02/14/2023. DISCUSSION: Single portable upright view of the chest was obtained. Endotracheal tube, enteric tube, and right-sided central line are stable. Stable normal heart size. Improved aeration of the left lung base. No residual consolidation on today's exam. No pneumothorax or osseous abnormality. IMPRESSION: Improved aeration of the left lung base. Dictated by: Dictated on workstation # [id number]
--- NOTE | 2023-02-15 08:38 | Tele-ICU Progress Note ---
Progress Note video rounds completed 52 y/o female with cardiac arrest secondary to respiratory arrest following aspiration. Cuurently on full ventilatory support: AC /21%/5 All VSS No new changes. Plan is for court order for terminal extubation I am remotely monitoring this patient from another state. I am unable to do the bedside exam, and history/physical and pertinent information is taken from other notes in the computer and bedside staff. Focused Exam Height, Weight, BMI Height: '" Weight: lbs. oz. kg; 29.16 BMI Method: Time of Focused Exam: 18:30 Labs Laboratory Tests 02/15/23 04:50 Results Results/Procedures Labs Laboratory Tests 02/14/23 03:45 02/15/23 04:50 Patient resulted labs reviewed. Results Labs Labs Laboratory Tests 02/14/23 11:42: Glucometer 132H 02/14/23 18:02: Glucometer 115H 02/15/23 00:54: Glucometer 122H 02/15/23 03:40: Blood Gas Puncture Site RR, Blood Gas Patient Temperature 36.1, Arterial Blood pH 7.43, Arterial Blood Partial Pressure CO2 33L, Arterial Blood Partial Pressure O2 79, Arterial Blood HCO3 22L, Arterial Blood Total CO2 22.6, Arterial Blood Oxygen Saturation 97, Arterial Blood Base Excess -2.3, Adonay Test YES-POS, Blood Gas Ventilator Setting NO, Blood Gas Inspired Oxygen 21% 02/15/23 04:50: White Blood Count 14.9H, Red Blood Count 2.86L, Hemoglobin 8.9L, Hematocrit 28L, Mean Corpuscular Volume 96, Mean Corpuscular Hemoglobin 31, Mean Corpuscular Hemoglobin Concent 32, Red Cell Distribution Width 17.2H, Platelet Count 164, Mean Platelet Volume 10.0, Immature Granulocyte % (Auto) 1, Neutrophils (%) (Auto) 86H, Lymphocytes (%) (Auto) 7L, Monocytes (%) (Auto) 6, Eosinophils (%) (Auto) 0, Basophils (%) (Auto) 0, Neutrophils # (Auto) 12.8H, Lymphocytes # (Auto) 1.0, Monocytes # (Auto) 0.8, Eosinophils # (Auto) 0.0, Basophils # (Auto) 0.0, Immature Granulocyte # (Auto) 0.2H, Sodium Level 139, Potassium Level 3.5L, Chloride Level 112H, Carbon Dioxide Level 20L, Anion Gap 7, Blood Urea Nitrogen 11, Creatinine 0.78, Estimat Glomerular Filtration Rate 91, BUN/Creatinine Ratio 14, Glucose Level 111H, Calcium Level 8.2L, Corrected Calcium 9.3, Phosphorus Level 2.9, Magnesium Level 2.2, Total Bilirubin 0.3, Aspartate Amino Transf (AST/SGOT) 32, Alanine Aminotransferase (ALT/SGPT) 33, Alkaline Phosphatase 124, Total Protein 6.5, Albumin 2.6L Microbiology 02/11/23 MRSA Screen - Final, Complete MRSA not isolated 02/11/23 Blood Culture - Preliminary, Resulted No growth 02/11/23 Urine Culture - Final, Complete Mixed Bacterial Estephania#2 Escherichia coli Escherichia coli#2 MANDY ROY MD Feb 15, 2023 08:38
[2023-02-15] MEDS: SENNOSIDES 8.6 MG (SENOKOT) TAB PO SCH ×2 (09:38→21:00)
[2023-02-15] MEDS: DOCUSATE SODIUM 100 MG (COLACE) CAP PO SCH ×2 (09:38→21:00)
[2023-02-15] MEDS: ENOXAPARIN 40 MG/0.4 ML (LOVENOX) SYR SC SCH (09:38)
[2023-02-15] MEDS: NS IV SCH ×6 (09:48→21:46)
[2023-02-15] MEDS: MICRON FILTER IV SCH ×6 (09:48→21:46)
[2023-02-15] MEDS: PHENYTOIN IV SCH ×6 (09:48→21:46)
[2023-02-15] MEDS: levETIRAcetam 1000 mg/NS 100ml 100 ML IV SCH ×2 (09:48→21:59)
[2023-02-15 10:44] VITALS: BP 125/81
[2023-02-15 14:38] VITALS: BP 131/82
[2023-02-15] MEDS: NOREPINEPHRINE 8 MG/250 ML 250 ML IV SCH (17:58)
[2023-02-15 18:41] VITALS: BP 116/74
[2023-02-15 21:11] VITALS: BP 131/81
[2023-02-16] VITALS (7 sets, daily range): BP systolic 91–121; BP diastolic 57–81
[2023-02-16] MEDS: RT-ALBUTEROL SULF 2.5 MG/3 ML PRE-MIX VIAL INH SCH ×4 (02:49→18:44)
[2023-02-16] MEDS: MEROPENEM 1,000 MG in NS (IVPB) 100 ML IV SCH ×3 (04:09→19:43)
[2023-02-16 04:58] LABS: BASOPHILS % (AUTO) 0 % (0-10); EOSINOPHILS % (AUTO) 0 % (0-10); HEMATOCRIT 28 % (35-52); HEMOGLOBIN 8.7 g/dL (11.5-16.0); LYMPHOCYTES # (AUTO) 1.1 10^3/uL (1.0-4.0); LYMPHOCYTES % (AUTO) 7 % (12-44); MEAN CORPUSCULAR HEMOGLOBIN 31 pg (25-34); MEAN CORPUSCULAR HGB CONC 31 g/dL (32-36); MEAN CORPUSCULAR VOLUME 98 fL (80-99); MEAN PLATELET VOLUME 10.3 fL (9.0-12.2); MONOCYTES # (AUTO) 0.8 10^3/uL (0.0-1.0); MONOCYTES % (AUTO) 5 % (0-12); NEUTROPHILS % (AUTO) 86 % (42-75); PLATELET COUNT 204 10^3/uL (130-400); WHITE BLOOD COUNT 15.1 10^3/uL (4.3-11.0)
[2023-02-16] MEDS: PROPOFOL DRIP (ICU) 100 ML IV SCH ×2 (05:00→16:46)
[2023-02-16 05:25] LABS: ALBUMIN 2.6 GM/DL (3.2-4.5); BILIRUBIN,TOTAL 0.3 MG/DL (0.1-1.0); CALCIUM 8.4 MG/DL (8.5-10.1); CREATININE SERUM 0.71 MG/DL (0.60-1.30); MAGNESIUM 1.8 MG/DL (1.6-2.4); PHOSPHORUS 2.4 MG/DL (2.3-4.7); POTASSIUM 3.8 MMOL/L (3.6-5.0); TOTAL PROTEIN 6.7 GM/DL (6.4-8.2)
[2023-02-16 05:34] LABS: LYMPHOCYTES % (MANUAL) 7 %; MONOCYTES % (MANUAL) 4 %; NEUTROPHILS % (MANUAL) 89 %; RBC MORPH NORMAL
[2023-02-16] MEDS: POTASSIUM CL 10MEQ/50ML IVPB 50 ML IV SCH ×3 (05:39→06:03)
[2023-02-16] MEDS: KCL 20 MEQ TAB (K-DUR) PO SCH (05:40)
[2023-02-16] MEDS: MAGNESIUM 1 GM/100 ML IVPB 100 ML IV SCH ×3 (05:40→07:58)
[2023-02-16] MEDS: inSUlin ASPART (NovoLOG) 1 UNIT/0.01 ML (CHARGE PER UNIT) SC SCH ×4 (05:40→18:01)
[2023-02-16] MEDS: PANTOPRAZOLE 40 MG (PROTONIX) VIAL IV SCH (06:03)
--- NOTE | 2023-02-16 06:06 | Progress Note ---
Subjective Date Seen by a Provider: Feb 16, 2023 Time Seen by a Provider: 09:00 Subjective/Events-last exam No changes Awaiting approval from court to terminally extubate after organ donation process Focused Exam Time of Focused Exam: 18:30 Objective Exam Last Set of Vital Signs Vital Signs Date Time Temp Pulse Resp B/P (MAP) Pulse Ox O2 Delivery O2 Flow Rate FiO2 02/16/23 06:00 105 17 121/77 (92) 93 Mechanical Ventilator 21.00 02/16/23 05:21 21 02/15/23 15:53 36.5 Capillary Refill : Less Than 3 Seconds I&O Intake and Output 02/16/23 00:00 Intake Total 1383 ml Output Total 1100 ml Balance 283 ml Intake Oral 0 ml IV Total 653 ml Tube Feeding 510 ml Enteral Flush 200 ml Other 20 ml Output Urine Total 1100 ml General: Other (On ventilator) Lungs: Clear to Auscultation Heart: Regular Rate Results Lab Laboratory Tests 02/15/23 11:32: Glucometer 115H 02/15/23 17:44: Glucometer 121H 02/16/23 00:34: Glucometer 113H 02/16/23 04:40: White Blood Count 15.1H, Red Blood Count 2.85L, Hemoglobin 8.7L, Hematocrit 28L, Mean Corpuscular Volume 98, Mean Corpuscular Hemoglobin 31, Mean Corpuscular Hemoglobin Concent 31L, Red Cell Distribution Width 17.9H, Platelet Count 204, Mean Platelet Volume 10.3, Immature Granulocyte % (Auto) 1, Neutrophils (%) (Auto) 86H, Lymphocytes (%) (Auto) 7L, Monocytes (%) (Auto) 5, Eosinophils (%) (Auto) 0, Basophils (%) (Auto) 0, Neutrophils # (Auto) 13.0H, Lymphocytes # (Auto) 1.1, Monocytes # (Auto) 0.8, Eosinophils # (Auto) 0.0, Basophils # (Auto) 0.0, Immature Granulocyte # (Auto) 0.2H, Neutrophils % (Manual) 89, Lymphocytes % (Manual) 7, Monocytes % (Manual) 4, Blood Morphology Comment NORMAL, Sodium Level 140, Potassium Level 3.8, Chloride Level 111H, Carbon Dioxide Level 21, An ion Gap 8, Blood Urea Nitrogen 14, Creatinine 0.71, Estimat Glomerular Filtration Rate 102, BUN/Creatinine Ratio 20, Glucose Level 105, Calcium Level 8.4L, Corrected Calcium 9.5, Phosphorus Level 2.4, Magnesium Level 1.8, Total Bilirubin 0.3, Aspartate Amino Transf (AST/SGOT) 26, Alanine Aminotransferase (ALT/SGPT) 26, Alkaline Phosphatase 111, Total Protein 6.7, Albumin 2.6L, Triglycerides Level 68 02/16/23 05:42: Bedside Blood Gas pH (LAB) 7.463H, Bedside Blood Gas pCO2 (LAB) 31.1L, Bedside Blood Gas pO2 (LAB) 84, Bedside Blood Gas HCO3 (LAB) 22.3L, POC Blood Gas Total CO2 Calc 23L, Bedside Bl Gas O2 Saturation (Calc) 97, Bedside Arterial Blood Base Excess -2 Microbiology 02/11/23 MRSA Screen - Final, Complete MRSA not isolated 02/11/23 Blood Culture - Preliminary, Resulted No growth 02/11/23 Urine Culture - Final, Complete Mixed Bacterial Estephania#2 Escherichia coli Escherichia coli#2 Assessment/Plan Assessment/Plan Assess & Plan/Chief Complaint Assessment: Acute hypoxic respiratory failure from sausage lodged in airway causing respiratory arrest and cardiac arrest but ROSC obtained by paramedics during arrest outside of hospital Aspiration pneumonia Intellectual delay Seizure disorder Complicated UTI ESBL change abx to Camila Plan: IV antibiotics Ventilator Sedatives Submit letter to court for terminal extubation and place on hospice and DNR Organ donation process SARA NEAL DO Feb 16, 2023 06:06
--- NOTE | 2023-02-16 07:58 | Diagnostic Imaging Report ---
Indication: Pneumonia Single AP view of the chest is obtained with comparison made to study one day earlier. Overall heart size is within normal limits. Pulmonary vascularity is at the upper limits of normal. There is left basilar atelectasis and/or pneumonitis with blunting of the left costophrenic sulcus. Endotracheal tube is in place with tip at the level of thoracic inlet. No pneumothorax is seen. IMPRESSION: Pulmonary vascularity is at the upper limits normal with increasing left basilar density which could be due to atelectasis and/or pneumonitis with associated left pleural fluid. Dictated by: Dictated on workstation # [id number]
[2023-02-16] MEDS: PHENYTOIN IV SCH ×6 (07:59→21:24)
[2023-02-16] MEDS: MICRON FILTER IV SCH ×6 (07:59→21:24)
[2023-02-16] MEDS: NS IV SCH ×6 (07:59→21:24)
[2023-02-16] MEDS: SENNOSIDES 8.6 MG (SENOKOT) TAB PO SCH ×2 (08:06→20:38)
[2023-02-16] MEDS: levETIRAcetam 1000 mg/NS 100ml 100 ML IV SCH ×2 (08:06→20:38)
[2023-02-16] MEDS: ENOXAPARIN 40 MG/0.4 ML (LOVENOX) SYR SC SCH (08:06)
[2023-02-16] MEDS: DOCUSATE SODIUM 10 MG/ML 10 ML UDC (COLACE) PO SCH ×2 (08:18→20:38)
--- NOTE | 2023-02-16 10:24 | Tele-ICU Progress Note ---
Subjective Date Seen by a Provider: Feb 16, 2023 Subjective/Events-last exam (Tele-ICU Physician , Progress Note ) Service provided via interactive audio and video telecommunications E-CARE system to a patient admitted to ICU bed in [facility]. Patient is seen today due to persistent need of ICU care Available chart/ vitals / labs / Images reviewed Video assessment done using teleICU camera, rest of exam as per RN Discussed with RN Events overnight : Afebrile hemodynamically stable Respiratory - 21 I/O =+ Drips: NS 125 Pressors- no VENT SETTINGS and ABG reviewed NOT CANDIDATE for SBTreviewed possible contraindications including Cardiovascular Stability /Sedation Score / FI02/PEEP / ABG / CXR/ secretions Hospital course: AC 16-400-+5 21 % - RASS - 2 on propofol 20 02/14- AC 12-400-+5 21 % - RR 20s OFF propofol for 24 H , stop IVF , start TF 02/16 - off propofol for 72H , not follow any commands A/P S/p witnessed cardiac/respiratory collapse after choking -EMS pt required 4 rounds of CPR with ROSC, CPR started immediately was in asystole for approximately 15 to 20 minutes had 4 rounds of epi. Acute respiratory failure -Intubated 02/12 - - AC 12-400-+5 21 % AMS post arrest, ANOXIC BRAIN DAMAGE - asystole for approximately 15 to 20 minutes , nonresponsive with fixed pupils on arrival - propofol OFF for 72 H, minimal if any response , pupils not fixed , breathing over the vent , - less likely seizure, home AED resumed , keppra started empirically - follow Leukocytosis / UTI- Ecoli -Concern for ? aspiration -merrem Nutritions - cont TF - as per RN - minimal bowel sounds She has known MR-Discussed with Dr Kowalski - in my medical opinion pprogmnosius for meanigful brain recovery is extremely poor , agree with letter to court for terminal extubation and and DNR Lines : periph , (Central Line Necessity Reviewed) Woods: + Nutrition: VTE Prophylaxis: cordell 40 Stress Ulcer Prophylaxis:protonix Lines : R IJ , (Central Line Necessity Reviewed) Woods: + OG: Nutrition: npo Analgesia: Anxiety/ delirium VTE Prophylaxis: cordell Stress Ulcer Prophylaxis: ppi Plans in collaboration with bedside consultants and IM MDs. Discussed with RN to reach out if any questions or concerns Case and care daily discussed on multidisciplinary rounds ( RN, PharmD, Harvesting Manager , Respiratory Therapy, creamery worker ) A total of 33 minutes of critical care time was devoted to this patient today, required to treat and/or prevent further deterioration of critical care condition ( as above ) . I am remotely monitoring this patient from another state. I am unable to do the bedside exam, and history/physical and pertinent information is taken from other notes in the computer and bedside staff. Sepsis Event Evaluation Height, Weight, BMI Height: '" Weight: lbs. oz. kg; 33.35 BMI Method: Focused Exam Time of Focused Exam: 18:30 Exam Exam Patient acknowledged, consented, and participated in this virtual visit which was conducted using real time audio/video Vital Signs Date Time Temp Pulse Resp B/P (MAP) Pulse Ox O2 Delivery O2 Flow Rate FiO2 02/16/23 09:29 97 Mechanical Ventilator 30.00 02/16/23 09:27 98 24 94 30 02/16/23 09:05 36.8 100 92 02/16/23 08:00 100 15 98/60 (73) 92 Mechanical Ventilator 21.00 02/16/23 07:48 36.8 Mechanical Ventilator 21.00 02/16/23 07:45 94 Mechanical Ventilator 21 02/16/23 07:00 103 02/16/23 07:00 103 24 119/82 (94) 93 Mechanical Ventilator 21.00 02/16/23 06:48 101 17 94 21 02/16/23 06:00 105 17 121/77 (92) 93 Mechanical Ventilator 21.00 02/16/23 05:21 21 02/16/23 05:00 112 23 121/77 (92) 94 Mechanical Ventilator 21.00 02/16/23 05:00 107 119/77 02/16/23 04:00 93 Mechanical Ventilator 21 02/16/23 04:00 110 21 129/78 (95) 94 Mechanical Ventilator 21.00 02/16/23 03:00 107 20 119/77 (91) 94 Mechanical Ventilator 21.00 02/16/23 02:49 116 33 94 21 02/16/23 02:00 105 16 119/81 (94) 94 Mechanical Ventilator 21.00 02/16/23 01:21 21 02/16/23 01:00 120 02/16/23 01:00 118 26 118/74 (89) 94 Mechanical Ventilator 21.00 02/16/23 00:00 114 22 118/74 (89) 94 Mechanical Ventilator 21.00 02/15/23 23:59 94 Mechanical Ventilator 21 02/15/23 23:00 116 18 106/67 (80) 94 Mechanical Ventilator 21.00 02/15/23 22:00 115 20 112/79 (90) 93 Mechanical Ventilator 21.00 02/15/23 21:21 21 02/15/23 21:11 121 27 93 21 02/15/23 21:00 125 26 131/81 (98) 93 Mechanical Ventilator 21.00 02/15/23 20:00 118 20 117/74 (88) 94 Mechanical Ventilator 21.00 02/15/23 20:00 94 Mechanical Ventilator 21 02/15/23 19:00 120 02/15/23 19:00 121 20 120/74 (89) 93 Mechanical Ventilator 21.00 02/15/23 18:41 121 21 93 21 02/15/23 18:00 124 23 116/74 (87) 92 Mechanical Ventilator 21.00 02/15/23 17:21 21 02/15/23 17:00 128 25 122/73 (84) 92 Mechanical Ventilator 21.00 02/15/23 16:00 95 Mechanical Ventilator 21 02/15/23 16:00 128 20 119/72 (84) 90 Mechanical Ventilator 21.00 02/15/23 15:53 36.5 02/15/23 15:00 124 22 92 Mechanical Ventilator 21.00 02/15/23 14:38 117 25 92 21 02/15/23 14:00 108 21 131/82 (98) Mechanical Ventilator 21.00 02/15/23 13:21 21 02/15/23 13:00 102 20 133/87 (105) 92 Mechanical Ventilator 21.00 02/15/23 12:26 100 02/15/23 12:00 101 22 137/87 (105) 93 Mechanical Ventilator 21.00 02/15/23 12:00 95 Mechanical Ventilator 21 02/15/23 11:51 36.0 02/15/23 11:00 97 17 133/87 (105) 92 Mechanical Ventilator 21.00 02/15/23 10:44 97 16 91 21 I & O 02/16/23 07:00 Intake Total 1583 ml Output Total 1375 ml Balance 208 ml Height & Weight Height: '" Weight: lbs. oz. kg; 33.35 BMI Method: General Appearance: No Apparent Distress, Chronically ill, Other (Intubated) Respiratory: Lungs Clear, No Accessory Muscle Use, No Respiratory Distress Cardiovascular: Regular Rate, Rhythm Capillary Refill: Less Than 3 Seconds Neurologic/Psychiatric: Other (Intubated, nonresponsive) Results Lab Laboratory Tests 02/15/23 04:50 02/16/23 04:40 Assessment/Plan Assessment/Plan 1 FATMATA REYES MD Feb 16, 2023 10:24
[2023-02-16] MEDS: NOREPINEPHRINE 8 MG/250 ML 250 ML IV SCH (11:53)
[2023-02-16] MEDS: KETOROLAC 30 MG/ML VIAL IVP PRN (17:21)
[2023-02-16] MEDS ORDERED: LORazepam INJ 2 MG/ML (ATIVAN) VIAL IVP ONE (18:00)
[2023-02-17] MEDS ORDERED: fentaNYL INJ 100 MCG/2 ML AMP IVP ONE (00:15)
[2023-02-17] MEDS: inSUlin ASPART (NovoLOG) 1 UNIT/0.01 ML (CHARGE PER UNIT) SC SCH ×5 (00:26→23:16)
[2023-02-17] MEDS: RT-ALBUTEROL SULF 2.5 MG/3 ML PRE-MIX VIAL INH SCH ×7 (02:48→22:05)
[2023-02-17 02:49] VITALS: BP 97/62
[2023-02-17] MEDS: MEROPENEM 1,000 MG in NS (IVPB) 100 ML IV SCH ×3 (04:16→19:36)
[2023-02-17] MEDS: PROPOFOL DRIP (ICU) 100 ML IV SCH ×2 (04:22→15:32)
[2023-02-17 04:47] LABS: BASOPHILS % (AUTO) 0 % (0-10); EOSINOPHILS # (AUTO) 0.1 10^3/uL (0.0-0.3); EOSINOPHILS % (AUTO) 1 % (0-10); HEMATOCRIT 27 % (35-52); HEMOGLOBIN 8.3 g/dL (11.5-16.0); LYMPHOCYTES # (AUTO) 1.3 10^3/uL (1.0-4.0); LYMPHOCYTES % (AUTO) 12 % (12-44); MEAN CORPUSCULAR HEMOGLOBIN 31 pg (25-34); MEAN CORPUSCULAR HGB CONC 31 g/dL (32-36); MEAN CORPUSCULAR VOLUME 100 fL (80-99); MEAN PLATELET VOLUME 10.1 fL (9.0-12.2); MONOCYTES # (AUTO) 0.6 10^3/uL (0.0-1.0); MONOCYTES % (AUTO) 6 % (0-12); NEUTROPHILS # (AUTO) 9.2 10^3/uL (1.8-7.8); NEUTROPHILS % (AUTO) 81 % (42-75); PLATELET COUNT 179 10^3/uL (130-400); WHITE BLOOD COUNT 11.3 10^3/uL (4.3-11.0)
[2023-02-17 04:59] LABS: ALBUMIN 2.4 GM/DL (3.2-4.5); BILIRUBIN,TOTAL 0.2 MG/DL (0.1-1.0); CALCIUM 8.2 MG/DL (8.5-10.1); CREATININE SERUM 0.66 MG/DL (0.60-1.30); PHOSPHORUS 2.2 MG/DL (2.3-4.7); POTASSIUM 3.8 MMOL/L (3.6-5.0); TOTAL PROTEIN 6.3 GM/DL (6.4-8.2)
[2023-02-17] MEDS ORDERED: POTASSIUM CL 10MEQ/50ML IVPB 100 ML IV ONE (05:43)
[2023-02-17] MEDS: POTASSIUM CL 10MEQ/50ML IVPB 50 ML IV SCH ×3 (05:49→06:19)
[2023-02-17] MEDS: NOREPINEPHRINE 8 MG/250 ML 250 ML IV SCH (05:50)
[2023-02-17] MEDS: KCL 20 MEQ TAB (K-DUR) PO SCH (06:20)
[2023-02-17] MEDS: MAGNESIUM 1 GM/100 ML IVPB 100 ML IV SCH (06:20)
[2023-02-17 07:06] VITALS: BP 113/73
[2023-02-17] MEDS: PANTOPRAZOLE 40 MG (PROTONIX) VIAL IV SCH (07:36)
--- NOTE | 2023-02-17 07:44 | Tele-ICU Progress Note ---
Subjective Date Seen by a Provider: Feb 17, 2023 Time Seen by a Provider: 07:39 Subjective/Events-last exam (Tele-ICU Physician , Progress Note ) Service provided via interactive audio and video telecommunications E-CARE system to a patient admitted to ICU bed in [facility]. Patient is seen today due to persistent need of ICU care Available chart/ vitals / labs / Images reviewed Video assessment done using teleICU camera, rest of exam as per RN Discussed with RN 52 yo F with anoxic brain damage after choking led to prolonged CP arrest Remains unresponsive, now on AC 12, Vt 400, FiO2 35%, not much suctioning needs. called for possible Sz activity, IV Atvian given and helped, did not change BP I reviewed CXR, ET ok, vague RLL opacity Off sedation 96h, does not obey commands, no cough or gag, no corneal Getting TF On DVT prophylaxsis with cordell 40 Has right IJ catheter-sit looks ok, State guardian to decide to about withdrawal of care Sepsis Event Evaluation Height, Weight, BMI Height: '" Weight: lbs. oz. kg; 34.19 BMI Method: Focused Exam Time of Focused Exam: 18:30 Exam Exam Patient acknowledged, consented, and participated in this virtual visit which was conducted using real time audio/video Vital Signs Date Time Temp Pulse Resp B/P (MAP) Pulse Ox O2 Delivery O2 Flow Rate FiO2 02/17/23 07:06 89 14 96 30 02/17/23 06:00 102 12 123/81 (95) 94 Mechanical Ventilator 30.00 02/17/23 05:03 30 02/17/23 05:00 94 12 107/72 (82) 92 Mechanical Ventilator 30.00 02/17/23 04:28 92 Mechanical Ventilator 30 02/17/23 04:00 96 12 117/77 (88) 92 Mechanical Ventilator 30.00 02/17/23 03:52 36.6 02/17/23 03:00 96 12 105/67 (80) 94 Mechanical Ventilator 30.00 02/17/23 02:49 98 18 94 30 02/17/23 02:00 96 12 97/62 (75) 93 Mechanical Ventilator 30.00 02/17/23 01:59 30 02/17/23 01:00 90 02/17/23 01:00 90 12 105/68 (80) 91 Mechanical Ventilator 30.00 02/17/23 00:00 36.5 02/17/23 00:00 30 02/17/23 00:00 94 Mechanical Ventilator 30 02/17/23 00:00 92 12 104/69 (81) 97 Mechanical Ventilator 30.00 02/16/23 23:00 91 12 92/61 (71) 94 Mechanical Ventilator 30.00 02/16/23 22:03 86 12 96 30 02/16/23 22:00 86 12 91/61 (71) 95 Mechanical Ventilator 30.00 02/16/23 21:37 30 02/16/23 21:00 89 12 95/60 (72) 96 Mechanical Ventilator 30.00 02/16/23 20:09 92 Mechanical Ventilator 30 02/16/23 20:00 95 12 98/61 (74) 94 Mechanical Ventilator 30.00 02/16/23 19:00 93 02/16/23 19:00 93 12 98/63 (73) 96 Mechanical Ventilator 30.00 02/16/23 18:44 93 12 96 30 02/16/23 18:00 105 187 117/69 (85) 92 Mechanical Ventilator 30.00 02/16/23 17:21 30 02/16/23 17:00 98 20 120/73 (89) 93 Mechanical Ventilator 30.00 02/16/23 16:03 97 Mechanical Ventilator 30 02/16/23 16:00 36.4 Mechanical Ventilator 30.00 02/16/23 16:00 104 19 118/73 (88) 97 Mechanical Ventilator 30.00 02/16/23 15:00 99 15 104/67 (79) 97 Mechanical Ventilator 30.00 02/16/23 14:37 101 15 90 30 02/16/23 14:00 102 13 94/57 (69) 95 Mechanical Ventilator 30.00 02/16/23 13:51 92 Mechanical Ventilator 30.00 02/16/23 13:21 30 02/16/23 13:00 112 17 122/77 (92) 93 Mechanical Ventilator 21.00 02/16/23 12:52 109 02/16/23 12:16 96 Mechanical Ventilator 21 02/16/23 12:16 97 Mechanical Ventilator 21.00 02/16/23 12:00 103 15 125/78 (94) 97 Mechanical Ventilator 30.00 02/16/23 11:53 98 111/72 02/16/23 11:39 36.9 Mechanical Ventilator 30.00 02/16/23 11:00 98 15 115/74 (88) 96 Mechanical Ventilator 30.00 02/16/23 10:00 98 13 111/72 (85) 96 Mechanical Ventilator 30.00 02/16/23 09:29 97 Mechanical Ventilator 30.00 02/16/23 09:27 98 24 94 30 02/16/23 09:21 21 02/16/23 09:05 36.8 100 92 02/16/23 09:00 105 22 113/65 (81) 95 Mechanical Ventilator 21.00 02/16/23 08:00 100 15 98/60 (73) 92 Mechanical Ventilator 21.00 02/16/23 07:48 36.8 Mechanical Ventilator 21.00 02/16/23 07:45 94 Mechanical Ventilator 21 I & O 02/17/23 07:00 Intake Total 1980 ml Output Total 1025 ml Balance 955 ml Height & Weight Height: '" Weight: lbs. oz. kg; 34.19 BMI Method: General Appearance: No Apparent Distress, Chronically ill, Other (Intubated) HEENT: PERRL/EOMI Neck: Other (pupils are 2 mm and do not react to light) Respiratory: Lungs Clear, No Accessory Muscle Use, No Respiratory Distress Cardiovascular: Regular Rate, Rhythm Capillary Refill: Less Than 3 Seconds Gastrointestinal: normal bowel sounds, non tender, soft Extremity: No Pedal Edema Neurologic/Psychiatric: Other (Intubated, nonresponsive) Results Lab Laboratory Tests 02/16/23 04:40 02/17/23 04:34 Assessment/Plan Assessment/Plan Cerebral anoxia after prolong cardiac arrest, state guardian to decide about withdrawal of care, Will continue on vent Continue IV meropenem On IV Kepra and fospheyntoin Will continue ot give PRN Ativan Critical Care: Ventilator Management Time spent with patient (mins): 30 MANDY NAVARRO MD Feb 17, 2023 07:44
[2023-02-17] MEDS: ENOXAPARIN 40 MG/0.4 ML (LOVENOX) SYR SC SCH (08:05)
[2023-02-17] MEDS: SENNOSIDES 8.6 MG (SENOKOT) TAB PO SCH ×2 (08:05→20:32)
[2023-02-17] MEDS: levETIRAcetam 1000 mg/NS 100ml 100 ML IV SCH ×2 (08:05→20:32)
[2023-02-17] MEDS: DOCUSATE SODIUM 10 MG/ML 10 ML UDC (COLACE) PO SCH ×2 (08:05→20:32)
[2023-02-17] MEDS: NS IV SCH ×6 (08:06→20:32)
[2023-02-17] MEDS: PHENYTOIN IV SCH ×6 (08:06→20:32)
[2023-02-17] MEDS: MICRON FILTER IV SCH ×6 (08:06→20:32)
[2023-02-17] MEDS ORDERED: LORazepam INJ 2 MG/ML (ATIVAN) VIAL IVP ONE ×2 (08:15)
--- NOTE | 2023-02-17 09:02 | Diagnostic Imaging Report ---
CHEST 1 VIEW, AP/PA ONLY Indication: Pneumonia Comparison: 02/16/2023 Findings: Stable ET and enteric tubes. Stable right PICC. Stable low lung volumes. Left basilar pulmonary opacities are similar. No pneumothorax. Stable cardiac silhouette. Impression: 1. Stable support devices. 2. Unchanged left basilar opacities that could be due to atelectasis and/or pleural effusion. Dictated by: Dictated on workstation # [id number]
--- NOTE | 2023-02-17 09:08 | Progress Note ---
Subjective Date Seen by a Provider: Feb 17, 2023 Time Seen by a Provider: 09:00 Subjective/Events-last exam No major changes Awaiting court decision regarding terminal extubation and organ harvesting Aunt is at the bedside Focused Exam Time of Focused Exam: 18:30 Objective Exam Last Set of Vital Signs Vital Signs Date Time Temp Pulse Resp B/P (MAP) Pulse Ox O2 Delivery O2 Flow Rate FiO2 02/17/23 08:00 95 15 93/65 (74) 93 Mechanical Ventilator 30.00 02/17/23 07:46 36.6 02/17/23 07:06 30 Capillary Refill : Less Than 3 Seconds I&O Intake and Output 02/17/23 00:00 Intake Total 2080 ml Output Total 1325 ml Balance 755 ml Intake Oral 0 ml IV Total 800 ml Tube Feeding 800 ml Enteral Flush 200 ml Other 280 ml Output Urine Total 1325 ml General: Other (Sedated and intubated) Results Lab Laboratory Tests 02/16/23 11:25: Glucometer 92 02/16/23 17:11: Glucometer 100 02/17/23 00:01: Glucometer 96 02/17/23 04:34: White Blood Count 11.3H, Red Blood Count 2.69L, Hemoglobin 8.3L, Hematocrit 27L, Mean Corpuscular Volume 100H, Mean Corpuscular Hemoglobin 31, Mean Corpuscular Hemoglobin Concent 31L, Red Cell Distribution Width 18.3H, Platelet Count 179, Mean Platelet Volume 10.1, Immature Granulocyte % (Auto) 1, Neutrophils (%) (Auto) 81H, Lymphocytes (%) (Auto) 12, Monocytes (%) (Auto) 6, Eosinophils (%) (Auto) 1, Basophils (%) (Auto) 0, Neutrophils # (Auto) 9.2H, Lymphocytes # (Auto) 1.3, Monocytes # (Auto) 0.6, Eosinophils # (Auto) 0.1, Basophils # (Auto) 0.0, Immature Granulocyte # (Auto) 0.1, Sodium Level 144, Potassium Level 3.8, Chloride Level 112H, Carbon Dioxide Level 24, Anion Gap 8, Blood Urea Nitrogen 13, Creatinine 0.66, Estimat Glomerular Filtration Rate 105, BUN/Creatinine Ratio 20, Glucose Level 110H, Calcium Level 8.2L, Corrected Calcium 9.5, Phosphorus Level 2.2L, Magnesium Level 2.0, Total Bilirubin 0.2, Aspartate Amino Transf (AST/SGOT) 27, Alanine Aminotransferase (ALT/SGPT) 23, Alkaline Phosphatase 90, Total Protein 6.3L, Albumin 2.4L Microbiology 02/11/23 MRSA Screen - Final, Complete MRSA not isolated 02/11/23 Blood Culture - Preliminary, Resulted No growth 02/11/23 Urine Culture - Final, Complete Mixed Bacterial Estephania#2 Escherichia coli Escherichia coli#2 Assessment/Plan Assessment/Plan Assess & Plan/Chief Complaint Assessment: Acute hypoxic respiratory failure from sausage lodged in airway causing respiratory arrest and cardiac arrest but ROSC obtained by paramedics during arrest outside of hospital Aspiration pneumonia Intellectual delay Seizure disorder Complicated UTI ESBL change abx to Camila Plan: IV antibiotics Ventilator Sedatives Submit letter to court for terminal extubation and place on hospice and DNR Organ donation process SARA NEAL DO Feb 17, 2023 09:08
[2023-02-17 10:35] VITALS: BP 113/73
[2023-02-17] MEDS: LORazepam INJ 2 MG/ML (ATIVAN) VIAL IVP PRN ×3 (13:00→22:44)
[2023-02-17 15:22] VITALS: BP 115/77
--- NOTE | 2023-02-17 15:33 | Progress Note ---
Standard Progress Note Progress Notes/Assess & Plan Date Seen by a Provider: Feb 17, 2023 Time Seen by a Provider: 15:33 Progress/Assessment & Plan Again looks like Sz activity, will give 1 mg IVP AtMANDY Ross MD Feb 17, 2023 15:33
[2023-02-17] MEDS ORDERED: LORazepam INJ 2 MG/ML (ATIVAN) VIAL IVP NR (15:45)
[2023-02-17 19:02] VITALS: BP 115/76
[2023-02-17] MEDS: NS IV 1000 ML 1,000 ML IV SCH (20:32)
[2023-02-17 22:05] VITALS: BP 98/53
[2023-02-18] MEDS: NOREPINEPHRINE 8 MG/250 ML 250 ML IV SCH ×2 (00:08→18:27)
[2023-02-18] MEDS: LORazepam INJ 2 MG/ML (ATIVAN) VIAL IVP PRN ×3 (02:00→19:48)
[2023-02-18] MEDS: RT-ALBUTEROL SULF 2.5 MG/3 ML PRE-MIX VIAL INH SCH ×6 (02:06→22:09)
[2023-02-18 02:34] VITALS: BP 105/67
[2023-02-18] MEDS: PROPOFOL DRIP (ICU) 100 ML IV SCH ×2 (02:40→17:10)
[2023-02-18] MEDS: MEROPENEM 1,000 MG in NS (IVPB) 100 ML IV SCH ×3 (04:35→19:36)
[2023-02-18 04:47] LABS: BASOPHILS % (AUTO) 0 % (0-10); EOSINOPHILS # (AUTO) 0.1 10^3/uL (0.0-0.3); EOSINOPHILS % (AUTO) 1 % (0-10); HEMATOCRIT 27 % (35-52); HEMOGLOBIN 8.3 g/dL (11.5-16.0); LYMPHOCYTES # (AUTO) 1.4 10^3/uL (1.0-4.0); LYMPHOCYTES % (AUTO) 14 % (12-44); MEAN CORPUSCULAR HEMOGLOBIN 31 pg (25-34); MEAN CORPUSCULAR HGB CONC 31 g/dL (32-36); MEAN CORPUSCULAR VOLUME 100 fL (80-99); MEAN PLATELET VOLUME 9.8 fL (9.0-12.2); MONOCYTES # (AUTO) 0.6 10^3/uL (0.0-1.0); MONOCYTES % (AUTO) 6 % (0-12); NEUTROPHILS # (AUTO) 7.7 10^3/uL (1.8-7.8); NEUTROPHILS % (AUTO) 78 % (42-75); PLATELET COUNT 183 10^3/uL (130-400); WHITE BLOOD COUNT 9.9 10^3/uL (4.3-11.0)
[2023-02-18 05:19] LABS: ALBUMIN 2.5 GM/DL (3.2-4.5); BILIRUBIN,TOTAL 0.1 MG/DL (0.1-1.0); CALCIUM 8.3 MG/DL (8.5-10.1); CREATININE SERUM 0.57 MG/DL (0.60-1.30); MAGNESIUM 1.8 MG/DL (1.6-2.4); PHOSPHORUS 2.3 MG/DL (2.3-4.7); POTASSIUM 3.9 MMOL/L (3.6-5.0); TOTAL PROTEIN 6.3 GM/DL (6.4-8.2)
[2023-02-18] MEDS: POTASSIUM CL 10MEQ/50ML IVPB 50 ML IV SCH (05:27)
[2023-02-18] MEDS: MAGNESIUM 1 GM/100 ML IVPB 100 ML IV SCH ×3 (05:27→05:48)
[2023-02-18] MEDS: inSUlin ASPART (NovoLOG) 1 UNIT/0.01 ML (CHARGE PER UNIT) SC SCH ×4 (05:27→23:43)
[2023-02-18] MEDS: KCL 20 MEQ TAB (K-DUR) PO SCH (05:27)
--- NOTE | 2023-02-18 05:56 | Progress Note ---
Subjective Date Seen by a Provider: Feb 18, 2023 Time Seen by a Provider: 11:00 Subjective/Events-last exam No changes Maintain on ventilator Submitting letter to courts Focused Exam Time of Focused Exam: 18:30 Objective Exam Last Set of Vital Signs Vital Signs Date Time Temp Pulse Resp B/P (MAP) Pulse Ox O2 Delivery O2 Flow Rate FiO2 02/18/23 05:21 30 02/18/23 05:00 96 12 111/72 (85) 95 Mechanical Ventilator 30.00 02/18/23 03:51 35.6 Capillary Refill : Less Than 3 Seconds I&O Intake and Output 02/18/23 00:00 Intake Total 3353 ml Output Total 1375 ml Balance 1978 ml Intake Oral 0 ml IV Total 1353 ml Tube Feeding 840 ml Enteral Flush 400 ml Other 760 ml Output Urine Total 1375 ml General: Other (Sedated and ventilated) Lungs: Clear to Auscultation Heart: Regular Rate Results Lab Laboratory Tests 02/17/23 11:34: Glucometer 108 02/17/23 17:37: Glucometer 111H 02/17/23 23:15: Glucometer 130H 02/18/23 04:38: White Blood Count 9.9, Red Blood Count 2.66L, Hemoglobin 8.3L, Hematocrit 27L, Mean Corpuscular Volume 100H, Mean Corpuscular Hemoglobin 31, Mean Corpuscular Hemoglobin Concent 31L, Red Cell Distribution Width 18.0H, Platelet Count 183, Mean Platelet Volume 9.8, Immature Granulocyte % (Auto) 1, Neutrophils (%) (Auto) 78H, Lymphocytes (%) (Auto) 14, Monocytes (%) (Auto) 6, Eosinophils (%) (Auto) 1, Basophils (%) (Auto) 0, Neutrophils # (Auto) 7.7, Lymphocytes # (Auto) 1.4, Monocytes # (Auto) 0.6, Eosinophils # (Auto) 0.1, Basophils # (Auto) 0.0, Immature Granulocyte # (Auto) 0.1, Sodium Level 141, Potassium Level 3.9, Chloride Level 109H, Carbon Dioxide Level 26, Anion Gap 6, Blood Urea Nitrogen 11, Creatinine 0.57L, Estimat Glomerular Filtration Rate 109, BUN/Creatinine Ratio 19, Glucose Level 119H, Calcium Level 8.3L, Corrected Calcium 9.5, Phosphorus Level 2.3, Magnesium Level 1.8, Total Bilirubin 0.1, Aspartate Amino Transf (AST/SGOT) 30, Alanine Aminotransferase (ALT/SGPT) 25, Alkaline Phosphatase 88, Total Protein 6.3L, Albumin 2.5L, Triglycerides Level 83 Microbiology 02/11/23 MRSA Screen - Final, Complete MRSA not isolated 02/11/23 Blood Culture - Final, Complete No growth 02/11/23 Urine Culture - Final, Complete Mixed Bacterial Estephania#2 Escherichia coli Escherichia coli#2 Assessment/Plan Assessment/Plan Assess & Plan/Chief Complaint Assessment: Acute hypoxic respiratory failure from sausage lodged in airway causing respiratory arrest and cardiac arrest but ROSC obtained by paramedics during arrest outside of hospital Aspiration pneumonia Intellectual delay Seizure disorder Complicated UTI ESBL change abx to Camila Plan: IV antibiotics Ventilator Sedatives Submit letter to court for terminal extubation and place on hospice and DNR Organ donation process SARA NEAL DO Feb 18, 2023 05:56
[2023-02-18] MEDS ORDERED: POTASSIUM BICARB 20 MEQ (EFFER-K) TABLET PO ONE (06:00)
[2023-02-18] MEDS: PANTOPRAZOLE 40 MG (PROTONIX) VIAL IV SCH (06:03)
[2023-02-18 07:17] VITALS: BP 128/75
[2023-02-18] MEDS: levETIRAcetam 1000 mg/NS 100ml 100 ML IV SCH ×2 (07:58→20:05)
[2023-02-18] MEDS: SENNOSIDES 8.6 MG (SENOKOT) TAB PO SCH ×2 (07:58→20:05)
[2023-02-18] MEDS: NS IV SCH ×6 (07:58→20:06)
[2023-02-18] MEDS: DOCUSATE SODIUM 10 MG/ML 10 ML UDC (COLACE) PO SCH ×2 (07:58→20:05)
[2023-02-18] MEDS: MICRON FILTER IV SCH ×6 (07:58→20:06)
[2023-02-18] MEDS: ENOXAPARIN 40 MG/0.4 ML (LOVENOX) SYR SC SCH (07:58)
[2023-02-18] MEDS: PHENYTOIN IV SCH ×6 (07:58→20:06)
[2023-02-18 10:49] VITALS: BP 110/66
--- NOTE | 2023-02-18 12:06 | Tele-ICU Progress Note ---
Subjective Date Seen by a Provider: Feb 18, 2023 Time Seen by a Provider: 12:06 Subjective/Events-last exam (Tele-ICU Physician , Progress Note ) Service provided via interactive audio and video telecommunications E-CARE system to a patient admitted to ICU bed in [facility]. Patient is seen today due to persistent need of ICU care Available chart/ vitals / labs / Images reviewed Video assessment done using teleICU camera, rest of exam as per RN Discussed with RN Events overnight : Afebrile hemodynamically stable Respiratory - 21 I/O =+ Drips: Pressors- no VENT SETTINGS and ABG reviewed NOT CANDIDATE for SBTreviewed possible contraindications including Cardiovascular Stability /Sedation Score / FI02/PEEP / ABG / CXR/ secretions Hospital course: AC 16-400-+5 21 % - RASS - 2 on propofol 20 02/14- AC 12-400-+5 21 % - RR 20s OFF propofol for 24 H , stop IVF , start TF 02/16 - off propofol for 72H , not follow any commands A/P S/p witnessed cardiac/respiratory collapse after choking -EMS pt required 4 rounds of CPR with ROSC, CPR started immediately was in asystole for approximately 15 to 20 minutes had 4 rounds of epi. Acute respiratory failure -Intubated 02/12 - - AC 12-400-+5 21 % RR 18 -letter to court for terminal extubation and and DNR- await responce AMS post arrest, ANOXIC BRAIN DAMAGE - asystole for approximately 15 to 20 minutes , nonresponsive with fixed pupils on arrival -does not obey commands, no cough or gag, no corneal - propofol OFF since 02/13- breathing over the vent , - less likely seizure, home AED resumed , keppra started empirically - follow Leukocytosis / UTI- Ecoli -Concern for ? aspiration -merrem Nutritions - cont TF She has known MR-Discussed with Dr Kowalski - in my medical opinion pprogmnosius for meanigful brain recovery is extremely poor , agree with letter to court for terminal extubation and and DNR Lines : periph , (Central Line Necessity Reviewed) Woods: + Nutrition: tf VTE Prophylaxis: cordell 40 Stress Ulcer Prophylaxis:protonix Lines : R IJ , (Central Line Necessity Reviewed) Woods: + OG: Nutrition: npo Analgesia: Anxiety/ delirium VTE Prophylaxis: cordell Stress Ulcer Prophylaxis: ppi Plans in collaboration with bedside consultants and IM MDs. Discussed with RN to reach out if any questions or concerns Case and care daily discussed on multidisciplinary rounds ( RN, PharmD, Director Regulatory Affairs , Respiratory Therapy, street worker ) A total of 31 minutes of critical care time was devoted to this patient today, required to treat and/or prevent further deterioration of critical care condition ( as above ) . I am remotely monitoring this patient from another state. I am unable to do the bedside exam, and history/physical and pertinent information is taken from other notes in the computer and bedside staff. Sepsis Event Evaluation Height, Weight, BMI Height: '" Weight: lbs. oz. kg; 35.07 BMI Method: Focused Exam Time of Focused Exam: 18:30 Exam Exam Patient acknowledged, consented, and participated in this virtual visit which was conducted using real time audio/video Vital Signs Date Time Temp Pulse Resp B/P (MAP) Pulse Ox O2 Delivery O2 Flow Rate FiO2 02/18/23 11:50 35.6 Mechanical Ventilator 21.00 02/18/23 11:00 108 16 110/62 (78) 96 Mechanical Ventilator 21.00 02/18/23 10:49 103 14 97 21 02/18/23 10:00 109 16 108/73 (85) 98 Mechanical Ventilator 21.00 02/18/23 09:21 21 02/18/23 09:00 112 19 117/61 (79) 96 Mechanical Ventilator 21.00 02/18/23 08:00 118 30 116/65 (82) 93 Mechanical Ventilator 21.00 02/18/23 07:48 96 Mechanical Ventilator 21 02/18/23 07:32 35.9 Mechanical Ventilator 30.00 02/18/23 07:31 93 21 02/18/23 07:17 Mechanical Ventilator 21.00 02/18/23 07:17 105 22 97 30 02/18/23 07:09 93 02/18/23 07:00 94 20 122/77 (92) 98 Mechanical Ventilator 30.00 02/18/23 06:00 89 12 120/73 (89) 98 Mechanical Ventilator 30.00 02/18/23 05:21 30 02/18/23 05:00 96 12 111/72 (85) 95 Mechanical Ventilator 30.00 02/18/23 04:00 93 Mechanical Ventilator 30 02/18/23 04:00 92 12 113/71 (85) 96 Mechanical Ventilator 30.00 02/18/23 03:51 35.6 02/18/23 03:10 Mechanical Ventilator 30.00 02/18/23 03:00 98 12 114/71 (85) 94 Mechanical Ventilator 35.00 02/18/23 02:37 Mechanical Ventilator 35.00 02/18/23 02:34 101 15 93 35 02/18/23 02:07 Mechanical Ventilator 50.00 02/18/23 02:00 97 12 115/74 (88) 89 Mechanical Ventilator 30.00 02/18/23 01:12 30 02/18/23 01:00 101 12 112/64 (80) 93 Mechanical Ventilator 30.00 02/18/23 01:00 101 02/18/23 00:08 110 98/53 02/18/23 00:00 36.1 02/18/23 00:00 105 12 102/61 (75) 91 Mechanical Ventilator 30.00 02/17/23 23:41 95 Mechanical Ventilator 30 02/17/23 23:00 113 12 113/69 (84) 96 Mechanical Ventilator 30.00 02/17/23 22:15 110 12 106/61 (76) 95 Mechanical Ventilator 30.00 02/17/23 22:05 110 13 95 30 02/17/23 22:00 108 12 96/52 (67) 95 Mechanical Ventilator 30.00 02/17/23 21:21 30 02/17/23 21:00 99 12 118/67 (84) 97 Mechanical Ventilator 30.00 02/17/23 20:00 97 Mechanical Ventilator 30 02/17/23 20:00 109 12 115/70 (85) 96 Mechanical Ventilator 30.00 02/17/23 19:43 35.7 02/17/23 19:05 111 12 115/76 (89) 97 Mechanical Ventilator 30.00 02/17/23 19:02 112 21 97 30 02/17/23 19:00 112 02/17/23 18:00 110 27 109/62 (78) 97 Mechanical Ventilator 30.00 02/17/23 17:21 30 02/17/23 17:00 105 13 112/61 (78) 94 Mechanical Ventilator 30.00 02/17/23 16:24 94 Mechanical Ventilator 30 02/17/23 16:00 115 20 99/57 (71) 95 Mechanical Ventilator 30.00 02/17/23 15:48 36.9 02/17/23 15:22 111 20 93 30 02/17/23 15:00 101 13 88/58 (68) 94 Mechanical Ventilator 30.00 02/17/23 14:00 98 12 95/57 (70) 95 Mechanical Ventilator 30.00 02/17/23 13:21 30 02/17/23 13:00 105 19 92/55 (67) 93 Mechanical Ventilator 30.00 02/17/23 12:36 94 Mechanical Ventilator 30 02/17/23 12:19 103 I & O 02/18/23 07:00 Intake Total 3593 ml Output Total 1725 ml Balance 1868 ml Height & Weight Height: '" Weight: lbs. oz. kg; 35.07 BMI Method: General Appearance: No Apparent Distress, Chronically ill, Other (Intubated) HEENT: PERRL/EOMI Neck: Other (pupils are 2 mm and do not react to light) Respiratory: Lungs Clear, No Accessory Muscle Use, No Respiratory Distress Cardiovascular: Regular Rate, Rhythm Capillary Refill: Less Than 3 Seconds Gastrointestinal: normal bowel sounds, non tender, soft Extremity: No Pedal Edema Neurologic/Psychiatric: Other (Intubated, nonresponsive) Results Lab Laboratory Tests 02/17/23 04:34 02/18/23 04:38 Assessment/Plan Assessment/Plan 1 FATMATA REYES MD Feb 18, 2023 12:06
[2023-02-18 15:22] VITALS: BP 79/55
[2023-02-18] MEDS ORDERED: KETOROLAC 15 MG/ML VIAL IVP NR (17:15)
[2023-02-18] MEDS ORDERED: LORazepam INJ 2 MG/ML (ATIVAN) VIAL IVP NR (17:15)
[2023-02-18 18:42] VITALS: BP 109/69
[2023-02-18 22:09] VITALS: BP 117/67
[2023-02-19] MEDS: LORazepam INJ 2 MG/ML (ATIVAN) VIAL IVP PRN ×7 (00:13→23:49)
[2023-02-19] MEDS: PROPOFOL DRIP (ICU) 100 ML IV SCH ×2 (01:30→13:00)
[2023-02-19 02:49] VITALS: BP 107/68
[2023-02-19] MEDS: RT-ALBUTEROL SULF 2.5 MG/3 ML PRE-MIX VIAL INH SCH ×6 (02:49→22:27)
[2023-02-19] MEDS: MEROPENEM 1,000 MG in NS (IVPB) 100 ML IV SCH ×3 (03:57→20:01)
[2023-02-19 04:10] LABS: BASOPHILS % (AUTO) 0 % (0-10); EOSINOPHILS # (AUTO) 0.1 10^3/uL (0.0-0.3); EOSINOPHILS % (AUTO) 2 % (0-10); HEMATOCRIT 27 % (35-52); HEMOGLOBIN 8.5 g/dL (11.5-16.0); LYMPHOCYTES # (AUTO) 1.7 10^3/uL (1.0-4.0); LYMPHOCYTES % (AUTO) 19 % (12-44); MEAN CORPUSCULAR HEMOGLOBIN 31 pg (25-34); MEAN CORPUSCULAR HGB CONC 31 g/dL (32-36); MEAN CORPUSCULAR VOLUME 99 fL (80-99); MEAN PLATELET VOLUME 9.9 fL (9.0-12.2); MONOCYTES # (AUTO) 0.3 10^3/uL (0.0-1.0); MONOCYTES % (AUTO) 4 % (0-12); NEUTROPHILS # (AUTO) 6.5 10^3/uL (1.8-7.8); NEUTROPHILS % (AUTO) 74 % (42-75); PLATELET COUNT 196 10^3/uL (130-400); WHITE BLOOD COUNT 8.7 10^3/uL (4.3-11.0)
[2023-02-19 04:35] LABS: ALBUMIN 2.4 GM/DL (3.2-4.5)
[2023-02-19 04:36] LABS: POTASSIUM 3.3 MMOL/L (3.6-5.0)
[2023-02-19 04:37] LABS: CALCIUM 8.2 MG/DL (8.5-10.1)
[2023-02-19 04:38] LABS: TOTAL PROTEIN 5.9 GM/DL (6.4-8.2)
[2023-02-19 04:40] LABS: BILIRUBIN,TOTAL 0.1 MG/DL (0.1-1.0)
[2023-02-19 04:41] LABS: PHOSPHORUS 2.3 MG/DL (2.3-4.7)
[2023-02-19 04:42] LABS: CREATININE SERUM 0.56 MG/DL (0.60-1.30)
[2023-02-19 04:44] LABS: MAGNESIUM 2.1 MG/DL (1.6-2.4)
[2023-02-19] MEDS: MAGNESIUM 1 GM/100 ML IVPB 100 ML IV SCH (05:15)
[2023-02-19] MEDS: KCL 20 MEQ TAB (K-DUR) PO SCH (05:18)
[2023-02-19] MEDS: POTASSIUM CL 10MEQ/50ML IVPB 50 ML IV SCH (05:18)
[2023-02-19] MEDS: inSUlin ASPART (NovoLOG) 1 UNIT/0.01 ML (CHARGE PER UNIT) SC SCH ×4 (05:18→23:59)
--- NOTE | 2023-02-19 06:11 | Progress Note ---
Subjective Date Seen by a Provider: Feb 19, 2023 Time Seen by a Provider: 11:00 Subjective/Events-last exam Patient is now DNR After terminal extubation will perform organ harvesting Focused Exam Time of Focused Exam: 18:30 Objective Exam Last Set of Vital Signs Vital Signs Date Time Temp Pulse Resp B/P (MAP) Pulse Ox O2 Delivery O2 Flow Rate FiO2 02/19/23 05:14 21 02/19/23 05:00 96 21 104/72 (83) 100 Mechanical Ventilator 21.00 02/19/23 04:00 35.5 Capillary Refill : Less Than 3 Seconds I&O Intake and Output 02/19/23 00:00 Intake Total 1700 ml Output Total 2400 ml Balance -700 ml Intake Oral 0 ml IV Total 500 ml Tube Feeding 480 ml Enteral Flush 300 ml Other 420 ml Output Urine Total 2400 ml General: Other (Intubated and sedated) Results Lab Laboratory Tests 02/18/23 11:40: Glucometer 99 02/18/23 17:47: Glucometer 97 02/18/23 23:42: Glucometer 102 02/19/23 04:06: White Blood Count 8.7, Red Blood Count 2.75L, Hemoglobin 8.5L, Hematocrit 27L, Mean Corpuscular Volume 99, Mean Corpuscular Hemoglobin 31, Mean Corpuscular Hemoglobin Concent 31L, Red Cell Distribution Width 17.9H, Platelet Count 196, Mean Platelet Volume 9.9, Immature Granulocyte % (Auto) 2, Neutrophils (%) (Auto) 74, Lymphocytes (%) (Auto) 19, Monocytes (%) (Auto) 4, Eosinophils (%) (Auto) 2, Basophils (%) (Auto) 0, Neutrophils # (Auto) 6.5, Lymphocytes # (Auto) 1.7, Monocytes # (Auto) 0.3, Eosinophils # (Auto) 0.1, Basophils # (Auto) 0.0, Immature Granulocyte # (Auto) 0.1, Sodium Level 141, Potassium Level 3.3L, Chloride Level 107, Carbon Dioxide Level 27, Anion Gap 7, Blood Urea Nitrogen 10, Creatinine 0.56L, Estimat Glomerular Filtration Rate 110, BUN/Creatinine Ratio 18, Glucose Level 105, Calcium Level 8.2L, Corrected Calcium 9.5, Phosphorus Level 2.3, Magnesium Level 2.1, Total Bilirubin 0.1, Aspartate Amino Transf (AST/SGOT) 23, Alanine Aminotransferase (ALT/SGPT) 22, Alkaline Phosphatase 90, Total Protein 5.9L, Albumin 2.4L 02/19/23 05:31: Glucometer 108 Microbiology 02/11/23 MRSA Screen - Final, Complete MRSA not isolated 02/11/23 Blood Culture - Final, Complete No growth 02/11/23 Urine Culture - Final, Complete Mixed Bacterial Estephania#2 Escherichia coli Escherichia coli#2 Assessment/Plan Assessment/Plan Assess & Plan/Chief Complaint Assessment: Acute hypoxic respiratory failure from sausage lodged in airway causing respiratory arrest and cardiac arrest but ROSC obtained by paramedics during arrest outside of hospital Aspiration pneumonia Intellectual delay Seizure disorder Complicated UTI ESBL change abx to Camila Plan: IV antibiotics Ventilator Sedatives DNR Organ donation process SARA NEAL DO Feb 19, 2023 06:11
[2023-02-19] MEDS: PANTOPRAZOLE 40 MG (PROTONIX) VIAL IV SCH (06:14)
[2023-02-19] MEDS: POTASSIUM BICARB 20 MEQ (EFFER-K) TABLET PO SCH ×2 (06:14→09:06)
[2023-02-19] MEDS ORDERED: KETOROLAC 15 MG/ML VIAL ONE (06:33)
[2023-02-19] MEDS ORDERED: MIDAZOLAM 2 MG/2 ML (VERSED) VIAL ONE (06:53)
[2023-02-19] MEDS ORDERED: MIDAZOLAM 2 MG/2 ML (VERSED) VIAL IVP ONE (07:00)
[2023-02-19 07:42] VITALS: BP 107/65
--- NOTE | 2023-02-19 08:40 | Tele-ICU Progress Note ---
Subjective Date Seen by a Provider: Feb 19, 2023 Time Seen by a Provider: 08:37 Subjective/Events-last exam (Tele-ICU Physician , Progress Note ) Service provided via interactive audio and video telecommunications E-CARE system to a patient admitted to ICU bed in [facility]. Patient is seen today due to persistent need of ICU care Available chart/ vitals / labs / Images reviewed Video assessment done using teleICU camera, rest of exam as per RN Day 7 on vent Remains unresponsive on vent AC12 Vt 400 FIO2 21%, CBC ok, BMP potassium, 3.3- has been replaced orally Manager Client Service has given permission to prepare for organ donation and then withdraw care. Sepsis Event Evaluation Height, Weight, BMI Height: '" Weight: lbs. oz. kg; 34.93 BMI Method: Focused Exam Time of Focused Exam: 18:30 Exam Exam Patient acknowledged, consented, and participated in this virtual visit which was conducted using real time audio/video Vital Signs Date Time Temp Pulse Resp B/P (MAP) Pulse Ox O2 Delivery O2 Flow Rate FiO2 02/19/23 08:00 36.5 Mechanical Ventilator 25.00 02/19/23 08:00 93 102/65 (77) 95 Mechanical Ventilator 25.00 02/19/23 07:42 93 12 95 21 02/19/23 07:03 98 02/19/23 07:00 100 107/65 (79) 94 Mechanical Ventilator 21.00 02/19/23 06:00 103 115/75 (88) 93 Mechanical Ventilator 21.00 02/19/23 05:14 21 02/19/23 05:00 96 21 104/72 (83) 100 Mechanical Ventilator 21.00 02/19/23 04:00 98 Mechanical Ventilator 21 02/19/23 04:00 35.5 89 14 100/61 (74) 97 Mechanical Ventilator 21.00 02/19/23 03:00 87 14 104/63 (77) 97 Mechanical Ventilator 21.00 02/19/23 02:49 84 13 98 21 02/19/23 02:00 80 12 107/68 (81) 97 Mechanical Ventilator 21.00 02/19/23 01:21 21 02/19/23 01:00 90 02/19/23 01:00 89 12 107/64 (78) 96 Mechanical Ventilator 21.00 02/19/23 00:00 97 Mechanical Ventilator 21 02/19/23 00:00 35.5 90 21 119/75 (90) 97 Mechanical Ventilator 21.00 02/18/23 23:00 86 12 108/66 (80) 97 Mechanical Ventilator 21.00 02/18/23 22:09 96 13 97 21 02/18/23 22:00 90 21 117/67 (84) 100 Mechanical Ventilator 21.00 02/18/23 21:21 21 02/18/23 21:00 85 13 112/66 (81) 98 Mechanical Ventilator 21.00 02/18/23 20:00 97 Mechanical Ventilator 21 02/18/23 20:00 98 16 114/69 (84) 99 Mechanical Ventilator 21.00 02/18/23 19:57 36.0 02/18/23 19:00 100 02/18/23 19:00 96 13 110/68 (82) 96 Mechanical Ventilator 21.00 02/18/23 18:42 96 17 97 21 02/18/23 18:00 101 12 109/69 (82) 97 Mechanical Ventilator 21.00 02/18/23 17:21 21 02/18/23 17:00 104 15 108/75 (86) 97 Mechanical Ventilator 21.00 02/18/23 16:15 98 Mechanical Ventilator 21 02/18/23 16:00 108 39 122/78 (93) 98 Mechanical Ventilator 21.00 02/18/23 15:53 36.1 Mechanical Ventilator 21.00 02/18/23 15:22 103 17 96 21 02/18/23 15:00 108 18 101/66 (78) 96 Mechanical Ventilator 21.00 02/18/23 14:00 98 13 108/64 (79) 97 Mechanical Ventilator 21.00 02/18/23 13:21 21 02/18/23 13:00 101 14 103/63 (76) 97 Mechanical Ventilator 21.00 02/18/23 12:59 101 02/18/23 12:00 98 Mechanical Ventilator 21 02/18/23 12:00 109 16 95/90 (92) 97 Mechanical Ventilator 21.00 02/18/23 11:50 35.6 Mechanical Ventilator 21.00 02/18/23 11:00 108 16 110/62 (78) 96 Mechanical Ventilator 21.00 02/18/23 10:49 103 14 97 21 02/18/23 10:00 109 16 108/73 (85) 98 Mechanical Ventilator 21.00 02/18/23 09:21 21 02/18/23 09:00 112 19 117/61 (79) 96 Mechanical Ventilator 21.00 I & O 02/19/23 06:59 Intake Total 1753 ml Output Total 2775 ml Balance -1022 ml Height & Weight Height: '" Weight: lbs. oz. kg; 34.93 BMI Method: General Appearance: No Apparent Distress, Chronically ill, Other (Intubated) HEENT: PERRL/EOMI Neck: Other (pupils are 2 mm and do not react to light) Respiratory: Lungs Clear, No Accessory Muscle Use, No Respiratory Distress, Rhonci Cardiovascular: Regular Rate, Rhythm Capillary Refill: Less Than 3 Seconds Gastrointestinal: normal bowel sounds, non tender, soft Extremity: No Pedal Edema Neurologic/Psychiatric: Other (Intubated, nonresponsive) Results Lab Laboratory Tests 02/18/23 04:38 02/19/23 04:06 Assessment/Plan Assessment/Plan acute/chronic resp fialure, Court has agreed to let make her an organ donor and then withdraw care, will keep on same vent settings until then. Critical Care: Ventilator Management Time spent with patient (mins): 20 MANDY NAVARRO MD Feb 19, 2023 08:40
[2023-02-19] MEDS: MICRON FILTER IV SCH ×6 (09:06→20:03)
[2023-02-19] MEDS: NS IV SCH ×6 (09:06→20:03)
[2023-02-19] MEDS: PHENYTOIN IV SCH ×6 (09:06→20:03)
[2023-02-19] MEDS: ENOXAPARIN 40 MG/0.4 ML (LOVENOX) SYR SC SCH (09:07)
[2023-02-19] MEDS: SENNOSIDES 8.6 MG (SENOKOT) TAB PO SCH ×2 (09:07→20:04)
[2023-02-19] MEDS: DOCUSATE SODIUM 10 MG/ML 10 ML UDC (COLACE) PO SCH ×2 (09:07→20:04)
[2023-02-19] MEDS: levETIRAcetam 1000 mg/NS 100ml 100 ML IV SCH ×2 (09:08→20:02)
[2023-02-19 10:32] VITALS: BP 103/70
[2023-02-19] MEDS ORDERED: HYDROCORTISONE 250 MG (Solu-CORTEF) VIAL IV ONE (12:30)
[2023-02-19] MEDS ORDERED: HYDROCORTISONE 100 MG/2 ML (Solu-CORTEF) VIAL IV NR (12:30)
[2023-02-19] MEDS: NOREPINEPHRINE 8 MG/250 ML 250 ML IV SCH (12:45)
--- NOTE | 2023-02-19 14:33 | Anesthesia-Procedure Note ---
Procedures/Interventions Procedure Start/Stop/Diagnosis Date of Procedure: Feb 19, 2023 Start Time: 14:10 Stop Time: 14:30 Arterial Line Arterial Line Catheter: 20G Type: Radial Location: Left Procedure: prepped, draped in sterile fashion, good wave-form was obtained, patient tolerated procedure well, no immediate complications, post procedure area cleaned, post procedure dressing applied MARY LENNON CRNA Feb 19, 2023 14:33
[2023-02-19 15:18] VITALS: BP 114/73
[2023-02-19 18:51] VITALS: BP 106/67
[2023-02-19] MEDS: HYDROCORTISONE 100 MG/2 ML (Solu-CORTEF) VIAL IV SCH (20:00)
[2023-02-19 22:27] VITALS: BP 99/60
[2023-02-20] MEDS: PROPOFOL DRIP (ICU) 100 ML IV SCH (00:20)
[2023-02-20 02:15] VITALS: BP 99/60
[2023-02-20] MEDS: RT-ALBUTEROL SULF 2.5 MG/3 ML PRE-MIX VIAL INH SCH ×2 (02:15→06:44)
[2023-02-20] MEDS: HYDROCORTISONE 100 MG/2 ML (Solu-CORTEF) VIAL IV SCH (03:20)
[2023-02-20] MEDS: MEROPENEM 1,000 MG in NS (IVPB) 100 ML IV SCH (03:20)
[2023-02-20] MEDS: MAGNESIUM 1 GM/100 ML IVPB 100 ML IV SCH (05:39)
[2023-02-20] MEDS: POTASSIUM CL 10MEQ/50ML IVPB 50 ML IV SCH (05:43)
[2023-02-20] MEDS: KCL 20 MEQ TAB (K-DUR) PO SCH (05:44)
[2023-02-20] MEDS: inSUlin ASPART (NovoLOG) 1 UNIT/0.01 ML (CHARGE PER UNIT) SC SCH (05:44)
[2023-02-20] MEDS ORDERED: POTASSIUM BICARB 20 MEQ (EFFER-K) TABLET PO ONE (06:00)
[2023-02-20] MEDS: PANTOPRAZOLE 40 MG (PROTONIX) VIAL IV SCH (06:05)
[2023-02-20] MEDS: NOREPINEPHRINE 8 MG/250 ML 250 ML IV SCH (06:05)
[2023-02-20 06:44] VITALS: BP_SYST 106; BP_SYST 114; BP_DIAS 64; BP_DIAS 69
[2023-02-20] MEDS: LORazepam INJ 2 MG/ML (ATIVAN) VIAL IVP PRN (08:20)
[2023-02-20] MEDS: ENOXAPARIN 40 MG/0.4 ML (LOVENOX) SYR SC SCH (08:21)
[2023-02-20] MEDS: DOCUSATE SODIUM 10 MG/ML 10 ML UDC (COLACE) PO SCH (08:21)
[2023-02-20] MEDS: levETIRAcetam 1000 mg/NS 100ml 100 ML IV SCH (08:21)
[2023-02-20] MEDS: PHENYTOIN IV SCH ×3 (08:21)
[2023-02-20] MEDS: NS IV SCH ×3 (08:21)
[2023-02-20] MEDS: MICRON FILTER IV SCH ×3 (08:21)
[2023-02-20] MEDS: SENNOSIDES 8.6 MG (SENOKOT) TAB PO SCH (08:21)
[2023-02-20] MEDS ORDERED: LORazepam/NS DRIP 100 ML IV SCH (08:30)
[2023-02-20] MEDS ORDERED: morphine INJ 10 MG/ML 1ML (SYR OR VIAL) IVP PRN (09:00)
--- NOTE | 2023-02-20 10:39 | Discharge Summary ---
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 Intellectual delay baseline Aspiration pneumonia Discharge Summary Discharge Physical Examination Allergies: Coded Allergies: No Known Drug Allergies (Unverified , 10/28/22) Vitals & I&Os Vital Signs Date Time Temp Pulse Resp B/P (MAP) Pulse Ox O2 Delivery O2 Flow Rate FiO2 02/20/23 08:00 36.2 98 Mechanical Ventilator 35.00 02/20/23 07:00 110 02/20/23 07:00 13 02/20/23 06:44 35 General Appearance: Other (Intubated) Respiratory: Clear to Auscultation Cardiovascular: Regular Rate Hospital Course Was the Problem List Reviewed?: Yes Long hospital course after she sustained unrecoverable anoxic brain injury fo llowing airway obstruction with sausage. She remained intubated until court order appropriate for guardian to make her DO NOT RESUSCITATE and the plan was for organ harvesting post terminal extubation. Labs (last 24 hrs) Laboratory Tests 02/11/23 17:47: Urine Color YELLOW, Urine Clarity CLOUDY, Urine pH 8.0, Urine Specific [place] 1.020, Urine Protein 3+H, Urine Glucose (UA) NEGATIVE, Urine Ketones NEGATIVE, Urine Nitrite NEGATIVE, Urine Bilirubin NEGATIVE, Urine Urobilinogen 0.2, Urine Leukocyte Esterase 3+H, Urine RBC (Auto) 2+H, Urine RBC 5-10H, Urine WBC TNTCH, Urine Squamous Epithelial Cells 5-10, Urine Crystals PRESENTH, Urine Triple Phosphate Crystals FEWH, Urine Bacteria LARGEH, Urine Casts NONE, Urine Mucus NEGATIVE, Urine Other FEW TRANS CELLS, Urine Culture Indicated YES 02/11/23 17:49: White Blood Count 19.3H, Red Blood Count 3.22L, Hemoglobin 10.0L, Hematocrit 33L , Mean Corpuscular Volume 102H, Mean Corpuscular Hemoglobin 31, Mean Corpuscular Hemoglobin Concent 31L, Red Cell Distribution Width 16.4H, Platelet Count 291, Mean Platelet Volume 9.7, Immature Granulocyte % (Auto) 6, Neutrophils (%) (Auto) 65, Lymphocytes (%) (Auto) 24, Monocytes (%) (Auto) 5, Eosinophils (%) (Auto) 0, Basophils (%) (Auto) 0, Neutrophils # (Auto) 12.5H, Lymphocytes # (Auto) 4.7H, Monocytes # (Auto) 1.0, Eosinophils # (Auto) 0.1, Basophils # (Auto) 0.1, Immature Granulocyte # (Auto) 1.1H, Neutrophils % (Manual) 55, Lymphocytes % (Manual) 31, Monocytes % (Manual) 4, Metamyelocytes % 2, Myelocytes % 1, Band Neutrophils 7, Macrocytosis SLIGHT, Sodium Level 136, Potassium Level 3.9, Chloride Level 103, Carbon Dioxide Level 14L, Anion Gap 19H , Blood Urea Nitrogen 15, Creatinine 1.30, Estimat Glomerular Filtration Rate 49 , BUN/Creatinine Ratio 12, Glucose Level 292H, Lactic Acid Level 9.32*H, Calcium Level 8.8, Corrected Calcium 9.5, Magnesium Level 2.1, Total Bilirubin 0.2, Aspartate Amino Transf (AST/SGOT) 87H, Alanine Aminotransferase (ALT/SGPT) 36, Alkaline Phosphatase 154H, Troponin I < 0.028, Total Protein 7.6, Albumin 3.1L 02/11/23 21:12: Lab Scanned Report Referred Lab Report 02/11/23 21:58: Lactic Acid Level 1.23 02/12/23 00:00: Glucometer 110 02/12/23 04:04: White Blood Count 16.2H, Red Blood Count 2.82L, Hemoglobin 8.7L, Hematocrit 28L, Mean Corpuscular Volume 98, Mean Corpuscular Hemoglobin 31, Mean Corpuscular Hemoglobin Concent 32, Red Cell Distribution Width 16.2H, Platelet Count 193, Mean Platelet Volume 9.8, Immature Granulocyte % (Auto) 0, Neutrophils (%) (Auto) 91H, Lymphocytes (%) (Auto) 6L, Monocytes (%) (Auto) 3, Eosinophils (%) (Auto) 0, Basophils (%) (Auto) 0, Neutrophils # (Auto) 14.6H, Lymphocytes # (Auto) 0.9L, Monocytes # (Auto) 0.5, Eosinophils # (Auto) 0.0, Basophils # (Auto) 0.0, Immature Granulocyte # (Auto) 0.1, Sodium Level 139, Potassium Level 3.0L, Chloride Level 111H, Carbon Dioxide Level 17L, Anion Gap 11, Blood Urea Nitrogen 13, Creatinine 0.79, Estimat Glomerular Filtration Rate 90, BUN/Creatinine Ratio 16, Glucose Level 110H, Calcium Level 7.9L, Corrected Calcium 9.0, Phosphorus Level 2.9, Magnesium Level 1.6, Total Bilirubin 0.3, Aspartate Amino Transf (AST/SGOT) 84H, Alanine Aminotransferase (ALT/SGPT) 52, Alkaline Phosphatase 124, Total Protein 6.5, Albumin 2.6L 02/12/23 10:50: Blood Gas Puncture Site R RAD, Blood Gas Patient Temperature 36.4, Arterial Blood pH 7.39, Arterial Blood Partial Pressure CO2 31L, Arterial Blood Partial Pressure O2 87, Arterial Blood HCO3 19L, Arterial Blood Total CO2 19.5L, Art erial Blood Oxygen Saturation 98, Arterial Blood Base Excess -5.7L, [place] Test NA, Blood Gas Ventilator Setting YES, Blood Gas Inspired Oxygen 21% 02/12/23 11:32: Glucometer 102 02/12/23 15:00: Potassium Level 3.0L 02/12/23 17:35: Glucometer 130H 02/12/23 23:43: Glucometer 104 02/13/23 03:40: Potassium Level 3.6, White Blood Count 9.9, Red Blood Count 2.62L, Hemoglobin 8.0L, Hematocrit 26L, Mean Corpuscular Volume 98, Mean Corpuscular Hemoglobin 31, Mean Corpuscular Hemoglobin Concent 31L, Red Cell Distribution Width 17.1H, Platelet Count 165, Mean Platelet Volume 9.7, Immature Granulocyte % (Auto) 0, Neutrophils (%) (Auto) 76H, Lymphocytes (%) (Auto) 18, Monocytes (%) (Auto) 6, Eosinophils (%) (Auto) 0, Basophils (%) (Auto) 0, Neutrophils # (Auto) 7.5, Lymphocytes # (Auto) 1.7, Monocytes # (Auto) 0.6, Eosinophils # (Auto) 0.0, Basophils # (Auto) 0.0, Immature Granulocyte # (Auto) 0.0, Sodium Level 142, Chloride Level 117H, Carbon Dioxide Level 17L, Anion Gap 8, Blood Urea Nitrogen 10, Creatinine 0.81, Estimat Glomerular Filtration Rate 87, BUN/Creatinine Ratio 12, Glucose Level 103, Calcium Level 8.0L, Corrected Calcium 9.2, Phosphorus Level 2.9, Magnesium Level 2.1, Total Bilirubin 0.2, Aspartate Amino Transf (AST/SGOT) 46H, Alanine Aminotransferase (ALT/SGPT) 51, Alkaline Phosphatase 113, Total Protein 6.2L, Albumin 2.5L 02/13/23 08:06: Blood Gas Puncture Site R RADIAL, Blood Gas Patient Temperature 35.5, Arterial Blood pH 7.37, Arterial Blood Partial Pressure CO2 31L, Arterial Blood Partial Pressure O2 91, Arterial Blood HCO3 18L, Arterial Blood Total CO2 19.0L, Arterial Blood Oxygen Saturation 98, Arterial Blood Base Excess -6.6L, [place] Test POSITIVE, Blood Gas Ventilator Setting YES, Blood Gas Inspired Oxygen ROOM AIR 02/13/23 09:05: Vancomycin Level Trough 29.8*H 02/13/23 11:41: Glucometer 103 02/13/23 14:12: Stool Occult Blood Immunoassay NEGATIVE 02/13/23 18:15: Glucometer 95 02/14/23 00:13: Glucometer 92 02/14/23 03:45: White Blood Count 10.5, Red Blood Count 2.69L, Hemoglobin 8.3L, Hematocrit 26L, Mean Corpuscular Volume 97, Mean Corpuscular Hemoglobin 31, Mean Corpuscular Hemoglobin Concent 32, Red Cell Distribution Width 17.4H, Platelet Count 165, Mean Platelet Volume 9.6, Immature Granulocyte % (Auto) 1, Neutrophils (%) (Auto) 84H, Lymphocytes (%) (Auto) 10L, Monocytes (%) (Auto) 5, Eosinophils (%) (Auto) 0, Basophils (%) (Auto) 0, Neutrophils # (Auto) 8.8H, Lymphocytes # (Auto) 1.0, Monocytes # (Auto) 0.5, Eosinophils # (Auto) 0.0, Basophils # (Auto) 0.0, Immature Granulocyte # (Auto) 0.1, Sodium Level 141, Potassium Level 3.6, Chloride Level 115H, Carbon Dioxide Level 18L, Anion Gap 8, Blood Urea Nitrogen 7, Creatinine 0.72, Estimat Glomerular Filtration Rate 101, BUN/Creatinine Ratio 10, Glucose Level 103, Calcium Level 8.0L, Corrected Calcium 9.2, Phosphorus Level 2.7, Magnesium Level 1.6, Total Bilirubin 0.3, Aspartate Amino Transf (AST/SGOT) 35H, Alanine Aminotransferase (ALT/SGPT) 40, Alkaline Phosphatase 114, Total Protein 6.2L, Albumin 2.5L, Triglycerides Level 71 02/14/23 11:42: Glucometer 132H 02/14/23 18:02: Glucometer 115H 02/15/23 00:54: Glucometer 122H 02/15/23 03:40: Blood Gas Puncture Site RR, Blood Gas Patient Temperature 36.1, Arterial Blood pH 7.43, Arterial Blood Partial Pressure CO2 33L, Arterial Blood Partial Pressure O2 79, Arterial Blood HCO3 22L, Arterial Blood Total CO2 22.6, Arterial Blood Oxygen Saturation 97, Arterial Blood Base Excess -2.3, [place] Test YES-POS, Blood Gas Ventilator Setting NO, Blood Gas Inspired Oxygen 21% 02/15/23 04:50: White Blood Count 14.9H, Red Blood Count 2.86L, Hemoglobin 8.9L, Hematocrit 28L, Mean Corpuscular Volume 96, Mean Corpuscular Hemoglobin 31, Mean Corpuscular Hemoglobin Concent 32, Red Cell Distribution Width 17.2H, Platelet Count 164, Mean Platelet Volume 10.0, Immature Granulocyte % (Auto) 1, Neutrophils (%) (Auto) 86H, Lymphocytes (%) (Auto) 7L, Monocytes (%) (Auto) 6, Eosinophils (%) (Auto) 0, Basophils (%) (Auto) 0, Neutrophils # (Auto) 12.8H, Lymphocytes # (Auto) 1.0, Monocytes # (Auto) 0.8, Eosinophils # (Auto) 0.0, Basophils # (Auto) 0.0, Immature Granulocyte # (Auto) 0.2H, Sodium Level 139, Potassium Level 3.5L, Chloride Level 112H, Carbon Dioxide Level 20L, Anion Gap 7, Blood Urea Nitrogen 11, Creatinine 0.78, Estimat Glomerular Filtration Rate 91, BUN/Creatinine Ratio 14, Glucose Level 111H, Calcium Level 8.2L, Corrected Calcium 9.3, Phosphorus Level 2.9, Magnesium Level 2.2, Total Bilirubin 0.3, Aspartate Amino Transf (AST/SGOT) 32, Alanine Aminotransferase (ALT/SGPT) 33, Alkaline Phosphatase 124, Total Protein 6.5, Albumin 2.6L 02/15/23 11:32: Glucometer 115H 02/15/23 17:44: Glucometer 121H 02/16/23 00:34: Glucometer 113H 02/16/23 04:40: White Blood Count 15.1H, Red Blood Count 2.85L, Hemoglobin 8.7L, Hematocrit 28L, Mean Corpuscular Volume 98, Mean Corpuscular Hemoglobin 31, Mean Corpuscular Hemoglobin Concent 31L, Red Cell Distribution Width 17.9H, Platelet Count 204, Mean Platelet Volume 10.3, Immature Granulocyte % (Auto) 1, Neutrophils (%) (Auto) 86H, Lymphocytes (%) (Auto) 7L, Monocytes (%) (Auto) 5, Eosinophils (%) (Auto) 0, Basophils (%) (Auto) 0, Neutrophils # (Auto) 13.0H, Lymphocytes # (Auto) 1.1, Monocytes # (Auto) 0.8, Eosinophils # (Auto) 0.0, Basophils # (Auto) 0.0, Immature Granulocyte # (Auto) 0.2H, Neutrophils % (Manual) 89, Lymphocytes % (Manual) 7, Monocytes % (Manual) 4, Blood Morphology Comment NORMAL, Sodium Level 140, Potassium Level 3.8, Chloride Level 111H, Carbon Dioxide Level 21, Anion Gap 8, Blood Urea Nitrogen 14, Creatinine 0.71, Estimat Glomerular Filtration Rate 102, BUN/Creatinine Ratio 20, Glucose Level 105, Calcium Level 8.4L, Corrected Calcium 9.5, Phosphorus Level 2.4, Magnesium Level 1.8, Total Bilirubin 0.3, Aspartate Amino Transf (AST/SGOT) 26, Alanine Aminotransferase (ALT/SGPT) 26, Alkaline Phosphatase 111, Total Protein 6.7, Albumin 2.6L, Triglycerides Level 68 02/16/23 05:42: Bedside Blood Gas pH (LAB) 7.463H, Bedside Blood Gas pCO2 (LAB) 31.1L, Bedside Blood Gas pO2 (LAB) 84, Bedside Blood Gas HCO3 (LAB) 22.3L, POC Blood Gas Total CO2 Calc 23L, Bedside Bl Gas O2 Saturation (Calc) 97, Bedside Arterial Blood Base Excess -2 02/16/23 11:25: Glucometer 92 02/16/23 17:11: Glucometer 100 02/17/23 00:01: Glucometer 96 02/17/23 04:34: White Blood Count 11.3H, Red Blood Count 2.69L, Hemoglobin 8.3L, Hematocrit 27L, Mean Corpuscular Volume 100H, Mean Corpuscular Hemoglobin 31, Mean Corpuscular Hemoglobin Concent 31L, Red Cell Distribution Width 18.3H, Platelet Count 179, Mean Platelet Volume 10.1, Immature Granulocyte % (Auto) 1, Neutrophils (%) (Auto) 81H, Lymphocytes (%) (Auto) 12, Monocytes (%) (Auto) 6, Eosinophils (%) (Auto) 1, Basophils (%) (Auto) 0, Neutrophils # (Auto) 9.2H, Lymphocytes # (Auto) 1.3, Monocytes # (Auto) 0.6, Eosinophils # (Auto) 0.1, Basophils # (Auto) 0.0, Immature Granulocyte # (Auto) 0.1, Sodium Level 144, Potassium Level 3.8, Chloride Level 112H, Carbon Dioxide Level 24, Anion Gap 8, Blood Urea Nitrogen 13, Creatinine 0.66, Estimat Glomerular Filtration Rate 105, BUN/Creatinine R atio 20, Glucose Level 110H, Calcium Level 8.2L, Corrected Calcium 9.5, [place] sphorus Level 2.2L, Magnesium Level 2.0, Total Bilirubin 0.2, Aspartate Amino Transf (AST/SGOT) 27, Alanine Aminotransferase (ALT/SGPT) 23, Alkaline Phosphatase 90, Total Protein 6.3L, Albumin 2.4L 02/17/23 11:34: Glucometer 108 02/17/23 17:37: Glucometer 111H 02/17/23 23:15: Glucometer 130H 02/18/23 04:38: White Blood Count 9.9, Red Blood Count 2.66L, Hemoglobin 8.3L, Hematocrit 27L, Mean Corpuscular Volume 100H, Mean Corpuscular Hemoglobin 31, Mean Corpuscular Hemoglobin Concent 31L, Red Cell Distribution Width 18.0H, Platelet Count 183, Mean Platelet Volume 9.8, Immature Granulocyte % (Auto) 1, Neutrophils (%) (Auto) 78H, Lymphocytes (%) (Auto) 14, Monocytes (%) (Auto) 6, Eosinophils (%) (Auto) 1, Basophils (%) (Auto) 0, Neutrophils # (Auto) 7.7, Lymphocytes # (Auto) 1.4, Monocytes # (Auto) 0.6, Eosinophils # (Auto) 0.1, Basophils # (Auto) 0.0, Immature Granulocyte # (Auto) 0.1, Sodium Level 141, Potassium Level 3.9, Chloride Level 109H, Carbon Dioxide Level 26, Anion Gap 6, Blood Urea Nitrogen 11, Creatinine 0.57L, Estimat Glomerular Filtration Rate 109, BUN/Creatinine Ratio 19, Glucose Level 119H, Calcium Level 8.3L, Corrected Calcium 9.5, Phosphorus Level 2.3, Magnesium Level 1.8, Total Bilirubin 0.1, Aspartate Amino Transf (AST/SGOT) 30, Alanine Aminotransferase (ALT/SGPT) 25, Alkaline Phosphatase 88, Total Protein 6.3L, Albumin 2.5L, Triglycerides Level 83 02/18/23 11:40: Glucometer 99 02/18/23 17:47: Glucometer 97 02/18/23 23:42: Glucometer 102 02/19/23 04:06: White Blood Count 8.7, Red Blood Count 2.75L, Hemoglobin 8.5L, Hematocrit 27L, Mean Corpuscular Volume 99, Mean Corpuscular Hemoglobin 31, Mean Corpuscular Hemoglobin Concent 31L, Red Cell Distribution Width 17.9H, Platelet Count 196, Mean Platelet Volume 9.9, Immature Granulocyte % (Auto) 2, Neutrophils (%) (Auto) 74, Lymphocytes (%) (Auto) 19, Monocytes (%) (Auto) 4, Eosinophils (%) (Auto) 2, Basophils (%) (Auto) 0, Neutrophils # (Auto) 6.5, Lymphocytes # (Auto) 1.7, Monocytes # (Auto) 0.3, Eosinophils # (Auto) 0.1, Basophils # (Auto) 0.0, Immature Granulocyte # (Auto) 0.1, Sodium Level 141, Potassium Level 3.3L, Chloride Level 107, Carbon Dioxide Level 27, Anion Gap 7, Blood Urea Nitrogen 10, Creatinine 0.56L, Estimat Glomerular Filtration Rate 110, BUN/Creatinine Ratio 18, Glucose Level 105, Calcium Level 8.2L, Corrected Calcium 9.5, Phosphor us Level 2.3, Magnesium Level 2.1, Total Bilirubin 0.1, Aspartate Amino Transf (AST/SGOT) 23, Alanine Aminotransferase (ALT/SGPT) 22, Alkaline Phosphatase 90, Total Protein 5.9L, Albumin 2.4L 02/19/23 05:31: Glucometer 108 02/19/23 11:23: Glucometer 101 02/19/23 11:46: Urine Color YELLOW, Urine Clarity CLEAR, Urine pH 8.5, Urine Specific [place] 1.010L, Urine Protein TRACEH, Urine Glucose (UA) NEGATIVE, Urine Ketones NEGATIVE, Urine Nitrite NEGATIVE, Urine Bilirubin NEGATIVE, Urine Urobilinogen 0.2, Urine Leukocyte Esterase TRACEH, Urine RBC (Auto) 2+H, Urine RBC 25-50H, Urine WBC 10-25H, Urine Squamous Epithelial Cells 2-5, Urine Crystals NONE, Urine Bacteria TRACE, Urine Casts NONE, Urine Mucus NEGATIVE, Urine Culture Indicated YES 02/19/23 11:50: SARS-CoV-2 RNA (RT-PCR) Not Detected 02/19/23 12:00: White Blood Count 11.7H, Red Blood Count 3.09L, Hemoglobin 9.6L, Hematocrit 31L, Mean Corpuscular Volume 99, Mean Corpuscular Hemoglobin 31, Mean Corpuscular Hemoglobin Concent 32, Red Cell Distribution Width 18.0H, Platelet Count 244, Mean Platelet Volume 10.0, Immature Granulocyte % (Auto) 1, Neutrophils (%) (Auto) 76H, Lymphocytes (%) (Auto) 17, Monocytes (%) (Auto) 4, Eosinophils (%) (Auto) 2, Basophils (%) (Auto) 0, Neutrophils # (Auto) 8.9H, Lymphocytes # (Auto) 2.0, Monocytes # (Auto) 0.5, Eosinophils # (Auto) 0.2, Basophils # (Auto) 0.0, Immature Granulocyte # (Auto) 0.2H, Sodium Level 140, Potassium Level 4.5, Chloride Level 106, Carbon Dioxide Level 28, Anion Gap 6, Blood Urea Nitrogen 9, Creatinine 0.60, Estimat Glomerular Filtration Rate 108, BUN/Creatinine Ratio 15, Glucose Level 111H, Mean Blood Glucose 105, Hemoglobin A1c 5.3, Lactic Acid Level 0.61, Calcium Level 8.5, Corrected Calcium 9.6, Phosphorus Level 2.3, Magn esium Level 2.1, Total Bilirubin 0.2, Aspartate Amino Transf (AST/SGOT) 26, Alanine Aminotransferase (ALT/SGPT) 25, Alkaline Phosphatase 98, Lactate Dehydrogenase 240H, Total Creatine Kinase 31, Troponin I < 0.028, Total Protein 6.5, Albumin 2.6L, Triglycerides Level 105, Cholesterol Level 163, LDL Cholesterol Direct 114, VLDL Cholesterol 21, HDL Cholesterol 40, Amylase Level 48, Lipase 65 02/19/23 15:15: Blood Gas Puncture Site L ART LINE, Blood Gas Patient Temperature 36.3, Arterial Blood pH 7.47H, Arterial Blood Partial Pressure CO2 42, Arterial Blood Partial Pressure O2 53L, Arterial Blood HCO3 30H, Arterial Blood Total CO2 31.5H, Arterial Blood Oxygen Saturation 90L, Arterial Blood Base Excess 6.2H, [place] Test NA, Blood Gas Ventilator Setting YES, Blood Gas Inspired Oxygen 21% 02/19/23 17:40: White Blood Count 9.2, Red Blood Count 2.87L, Hemoglobin 9.0L, Hematocrit 28L, Mean Corpuscular Volume 99, Mean Corpuscular Hemoglobin 31, Mean Corpuscular Hemoglobin Concent 32, Red Cell Distribution Width 17.9H, Platelet Count 229, Mean Platelet Volume 10.0, Immature Granulocyte % (Auto) 2, Neutrophils (%) (Auto) 88H, Lymphocytes (%) (Auto) 8L, Monocytes (%) (Auto) 1, Eosinophils (%) (Auto) 0, Basophils (%) (Auto) 0, Neutrophils # (Auto) 8.1H, Lymphocytes # (Auto) 0.8L, Monocytes # (Auto) 0.1, Eosinophils # (Auto) 0.0, Basophils # (Auto) 0.0, Immature Granulocyte # (Auto) 0.2H, Sodium Level 141, Potassium Level 4.3, Chloride Level 106, Carbon Dioxide Level 27, Anion Gap 8, Blood Urea Nitrogen 11, Creatinine 0.62, Estimat Glomerular Filtration Rate 107, BUN/Creatinine Ratio 18, Glucose Level 120H, Mean Blood Glucose 103, Hemoglobin A1c 5.2, Lactic Acid Level 0.91, Calcium Level 8.4L, Corrected Calcium 9.6, Phosphorus Level 2.9, Magnesium Level 2.1, Total Bilirubin 0.2, Aspartate Amino Transf (AST/SGOT) 26, Alanine Aminotransferase (ALT/SGPT) 23, Alkaline Phosphatase 95, Lactate Dehydrogenase 233H, Total Creatine Kinase 26L, Troponin I < 0.028, Total Protein 6.2L, Albumin 2.5L, Triglycerides Level 61, Cholesterol Level 157, LDL Cholesterol Direct 113, VLDL Cholesterol 12, HDL Cholesterol 41, Amylase Level 43, Lipase 41 02/19/23 17:45: Glucometer 114H 02/19/23 21:00: Blood Gas Puncture Site LEFT ART LINE, Blood Gas Patient Temperature 36.5, Arterial Blood pH 7.47H, Arterial Blood Partial Pressure CO2 41, Arterial Blood Partial Pressure O2 54L, Arterial Blood HCO3 30H, Arterial Blood Total CO2 31.1H , Arterial Blood Oxygen Saturation 91L, Arterial Blood Base Excess 6.0H, [place] Test ART LINE, Blood Gas Ventilator Setting YES, Blood Gas Inspired Oxygen 21 02/19/23 23:56: White Blood Count 7.9, Red Blood Count 2.80L, Hemoglobin 8.7L, Hematocrit 28L, Mean Corpuscular Volume 99, Mean Corpuscular Hemoglobin 31, Mean Corpuscular Hemoglobin Concent 32, Red Cell Distribution Width 17.9H, Platelet Count 232, Mean Platelet Volume 10.0, Immature Granulocyte % (Auto) 2, Neutrophils (%) (Auto) 83H, Lymphocytes (%) (Auto) 12, Monocytes (%) (Auto) 2, Eosinophils (%) (Auto) 0, Basophils (%) (Auto) 0, Neutrophils # (Auto) 6.6, Lymphocytes # (Auto) 1.0, Monocytes # (Auto) 0.2, Eosinophils # (Auto) 0.0, Basophils # (Auto) 0.0, Immature Granulocyte # (Auto) 0.2H, Prothrombin Time 14.2, INR Comment 1.1, Activated Partial Thromboplast Time 37H, Fibrinogen 480, Sodium Level 143, Potassium Level 3.6, Chloride Level 107, Carbon Dioxide Level 26, Anion Gap 10, Blood Urea Nitrogen 12, Creatinine 0.62, Estimat Glomerular Filtration Rate 107, BUN/Creatinine Ratio 19, Glucose Level 115H, Lactic Acid Level 0.51, Calcium Level 8.3L, Corrected Calcium 9.5, Ionized Calcium (Measured) 1.16, Ionized Calcium pH 7.47, Ionized Calcium (Corrected) 1.19, Phosphorus Level 2.9, Magnesium Level 2.1, Total Bilirubin 0.1, Gamma Glutamyl Transpeptidase 262H, Aspartate Amino Transf (AST/SGOT) 23, Alanine Aminotransferase (ALT/SGPT) 22, Alkaline Phosphatase 103, Lactate Dehydrogenase 222H, Total Creatine Kinase 22L, Troponin I < 0.028, Total Protein 6.0L, Albumin 2.5L, Triglycerides Level 86, Cholesterol Level 157, LDL Cholesterol Direct 113, VLDL Cholesterol 17, HDL Cholesterol 40, Amylase Level 40, Lipase 33 02/19/23 23:59: Glucometer 118H 02/20/23 03:33: Blood Gas Puncture Site L ART, Blood Gas Patient Temperature 36.2, Arterial Blood pH 7.46H, Arterial Blood Partial Pressure CO2 42, Arterial Blood Partial Pressure O2 62L, Arterial Blood HCO3 30H, Arterial Blood Total CO2 31.5H, Arterial Blood Oxygen Saturation 95, Arterial Blood Base Excess 6.1H, Adonay Test ART LINE, Blood Gas Ventilator Setting YES, Blood Gas Inspired Oxygen 21% 02/20/23 04:12: White Blood Count 12.8H, Red Blood Count 2.92L, Hemoglobin 9.3L, Hematocrit 29L, Mean Corpuscular Volume 98, Mean Corpuscular Hemoglobin 32, Mean Corpuscular Hemoglobin Concent 32, Red Cell Distribution Width 18.1H, Platelet Count 306, Mean Platelet Volume 10.1, Immature Granulocyte % (Auto) 2, Neutrophils (%) (Auto) 77H, Lymphocytes (%) (Auto) 17, Monocytes (%) (Auto) 4, Eosinophils (%) (Auto) 0, Basophils (%) (Auto) 0, Neutrophils # (Auto) 9.8H, Lymphocytes # (Auto) 2.1, Monocytes # (Auto) 0.6, Eosinophils # (Auto) 0.0, Basophils # (Auto) 0.0, Immature Granulocyte # (Auto) 0.3H, Prothrombin Time 13.5, INR Comment 1.0, Activated Partial Thromboplast Time 35, Fibrinogen 495, Sodium Level 143, Potassium Level 3.4L, Chloride Level 107, Carbon Dioxide Level 26, Anion Gap 10, Blood Urea Nitrogen 13, Creatinine 0.66, Estimat Glomerular Filtration Rate 105, BUN/Creatinine Ratio 20, Glucose Level 109H, Lactic Acid Level 0.67, Calcium Level 8.5, Corrected Calcium 9.5, Ionized Calcium (Measured) TNP:Client Request, Ionized Calcium pH TNP:Client Request, Ionized Calcium (Corrected) TNP:Client Request, Phosphorus Level 2.8, Magnesium Level 2.2, Total Bilirubin 0.2, Gamma Glutamyl Transpeptidase TNP:Client Request, Aspartate Amino Transf (AST/SGOT) 24, Alanine Aminotransferase (ALT/SGPT) 23, Alkaline Phosphatase 112, Lactate Dehydrogenase 264H, Total Creatine Kinase 26L, Troponin I < 0.028, Total Protein 6.6, Albumin 2.7L, Triglycerides Level 88, Cholesterol Level 172, LDL Cholesterol Direct 124, VLDL Cholesterol 18, HDL Cholesterol 44, Amylase Level 50, Lipase 48 Microbiology 02/19/23 Blood Culture - Preliminary, Resulted No growth 02/19/23 Gram Stain - Final, Resulted 02/19/23 Sputum Culture - Preliminary, Resulted YEAST 02/19/23 Urine Culture - Final, Complete NO GROWTH Pending Labs Microbiology Date/Time Source Procedure Growth Status 02/19/23 12:00 Port Internal Jugular Blood Culture - Preliminary No growth Resulted 02/19/23 11:53 Sputum Endotracheal Gram Stain - Final Resulted 02/19/23 11:53 Sputum Culture - Preliminary YEAST Resulted 02/19/23 11:50 Peripheral Right Wrist Blood Culture - Preliminary No growth Resulted 02/19/23 11:46 Urine Indwelling Cath (Prison) Urine Culture - Final NO GROWTH Complete 02/11/23 21:50 Nasal MRSA Screen - Final MRSA not isolated Complete 02/11/23 18:50 Peripheral Left Forearm Blood Culture - Final No growth Complete 02/11/23 17:49 Peripheral Left Wrist Blood Culture - Final No growth Complete 02/11/23 17:47 Urine Woods Cath Urine Culture - Final Mixed Bacterial Estephania#2 Escherichia coli Escherichia coli#2 Complete Laboratory Tests 02/11/23 17:47: Urine Color YELLOW, Urine Clarity CLOUDY, Urine pH 8.0, Urine Specific [place] 1.020, Urine Protein 3+, Urine Glucose (UA) NEGATIVE, Urine Ketones NEGATIVE, Urine Nitrite NEGATIVE, Urine Bilirubin NEGATIVE, Urine Urobilinogen 0.2, Urine Leukocyte Esterase 3+, Urine RBC (Auto) 2+, Urine RBC 5-10, Urine WBC TNTC, Urine Squamous Epithelial Cells 5-10, Urine Crystals PRESENT, Urine Triple Phosphate Crystals FEW, Urine Bacteria LARGE, Urine Casts NONE, Urine Mucus NEGATIVE, Urine Other FEW TRANS CELLS, Urine Culture Indicated YES 02/11/23 17:49: White Blood Count 19.3, Red Blood Count 3.22, Hemoglobin 10.0, Hematocrit 33, Mean Corpuscular Volume 102, Mean Corpuscular Hemoglobin 31, Mean Corpuscular Hemoglobin Concent 31, Red Cell Distribution Width 16.4, Platelet Count 291, Mean Platelet Volume 9.7, Immature Granulocyte % (Auto) 6, Neutrophils (%) (Auto) 65, Lymphocytes (%) (Auto) 24, Monocytes (%) (Auto) 5, Eosinophils (%) (Auto) 0, Basophils (%) (Auto) 0, Neutrophils # (Auto) 12.5, Lymphocytes # (Auto) 4.7, Monocytes # (Auto) 1.0, Eosinophils # (Auto) 0.1, Basophils # (Auto) 0.1, Immature Granulocyte # (Auto) 1.1, Neutrophils % (Manual) 55, Lymphocytes % (Manual) 31, Monocytes % (Manual) 4, Metamyelocytes % 2, Myelocytes % 1, Band Neutrophils 7, Macrocytosis SLIGHT, Sodium Level 136, Potassium Level 3.9, Chloride Level 103, Carbon Dioxide Level 14, Anion Gap 19, Blood Urea Nitrogen 15, Creatinine 1.30, Estimat Glomerular Filtration Rate 49, BUN/Creatinine Ratio 12, Glucose Level 292, Lactic Acid Level 9.32, Calcium Level 8.8, Corrected Calcium 9.5, Magnesium Level 2.1, Total Bilirubin 0.2, Aspartate Amino Transf (AST/SGOT) 87, Alanine Aminotransferase (ALT/SGPT) 36, Alkaline Phosphatase 154, Troponin I < 0.028, Total Protein 7.6, Albumin 3.1 02/11/23 21:12: Lab Scanned Report Referred Lab Report 02/11/23 21:58: Lactic Acid Level 1.23 02/12/23 00:00: Glucometer 110 02/12/23 04:04: White Blood Count 16.2, Red Blood Count 2.82, Hemoglobin 8.7, Hematocrit 28, Mean Corpuscular Volume 98, Mean Corpuscular Hemoglobin 31, Mean Corpuscular Hemoglobin Concent 32, Red Cell Distribution Width 16.2, Platelet Count 193, Mean Platelet Volume 9.8, Immature Granulocyte % (Auto) 0, Neutrophils (%) (Auto) 91, Lymphocytes (%) (Auto) 6, Monocytes (%) (Auto) 3, Eosinophils (%) (Auto) 0, Basophils (%) (Auto) 0, Neutrophils # (Auto) 14.6, Lymphocytes # (Auto) 0.9, Monocytes # (Auto) 0.5, Eosinophils # (Auto) 0.0, Basophils # (Auto) 0.0, Immature Granulocyte # (Auto) 0.1, Sodium Level 139, Potassium Level 3.0, Chloride Level 111, Carbon Dioxide Level 17, Anion Gap 11, Blood Urea Nitrogen 13, Creatinine 0.79, Estimat Glomerular Filtration Rate 90, BUN/Creatinine Ratio 16, Glucose Level 110, Calcium Level 7.9, Corrected Calcium 9.0, Phosphorus Level 2.9, Magnesium Level 1.6, Total Bilirubin 0.3, Aspartate Amino Transf (AST/SGOT) 84, Alanine Aminotransferase (ALT/SGPT) 52, Alkaline Phosphatase 124, Total Protein 6.5, Albumin 2.6 02/12/23 10:50: Blood Gas Puncture Site R RAD, Blood Gas Patient Temperature 36.4, Arterial Blood pH 7.39, Arterial Blood Partial Pressure CO2 31, Arterial Blood Partial Pressure O2 87, Arterial Blood HCO3 19, Arterial Blood Total CO2 19.5, Arterial Blood Oxygen Saturation 98, Arterial Blood Base Excess -5.7, [place]ay Test NA, Blood Gas Ventilator Setting YES, Blood Gas Inspired Oxygen 21% 02/12/23 11:32: Glucometer 102 02/12/23 15:00: Potassium Level 3.0 02/12/23 17:35: Glucometer 130 02/12/23 23:43: Glucometer 104 02/13/23 03:40: Potassium Level 3.6, White Blood Count 9.9, Red Blood Count 2.62, Hemoglobin 8.0, Hematocrit 26, Mean Corpuscular Volume 98, Mean Corpuscular Hemoglobin 31, Mean Corpuscular Hemoglobin Concent 31, Red Cell Distribution Width 17.1, Pl atelet Count 165, Mean Platelet Volume 9.7, Immature Granulocyte % (Auto) 0, Neutrophils (%) (Auto) 76, Lymphocytes (%) (Auto) 18, Monocytes (%) (Auto) 6, Eosinophils (%) (Auto) 0, Basophils (%) (Auto) 0, Neutrophils # (Auto) 7.5, Lymphocytes # (Auto) 1.7, Monocytes # (Auto) 0.6, Eosinophils # (Auto) 0.0, Basophils # (Auto) 0.0, Immature Granulocyte # (Auto) 0.0, Sodium Level 142, Chloride Level 117, Carbon Dioxide Level 17, Anion Gap 8, Blood Urea Nitrogen 10, Creatinine 0.81, Estimat Glomerular Filtration Rate 87, BUN/Creatinine Ratio 12, Glucose Level 103, Calcium Level 8.0, Corrected Calcium 9.2, Phosphorus Level 2.9, Magnesium Level 2.1, Total Bilirubin 0.2, Aspartate Amino Transf (AST/SGOT) 46, Alanine Aminotransferase (ALT/SGPT) 51, Alkaline Phosphatase 113, Total Protein 6.2, Albumin 2.5 02/13/23 08:06: Blood Gas Puncture Site R RADIAL, Blood Gas Patient Temperature 35.5, Arterial Blood pH 7.37, Arterial Blood Partial Pressure CO2 31, Arterial Blood Partial Pressure O2 91, Arterial Blood HCO3 18, Arterial Blood Total CO2 19.0, Arterial Blood Oxygen Saturation 98, Arterial Blood Base Excess -6.6, [place] Test POSITIVE, Blood Gas Ventilator Setting YES, Blood Gas Inspired Oxygen ROOM AIR 02/13/23 09:05: Vancomycin Level Trough 29.8 02/13/23 11:41: Glucometer 103 02/13/23 14:12: Stool Occult Blood Immunoassay NEGATIVE 02/13/23 18:15: Glucometer 95 02/14/23 00:13: Glucometer 92 02/14/23 03:45: White Blood Count 10.5, Red Blood Count 2.69, Hemoglobin 8.3, Hematocrit 26, Mean Corpuscular Volume 97, Mean Corpuscular Hemoglobin 31, Mean Corpuscular Hemoglobin Concent 32, Red Cell Distribution Width 17.4, Platelet Count 165, Mean Platelet Volume 9.6, Immature Granulocyte % (Auto) 1, Neutrophils (%) (Auto) 84, Lymphocytes (%) (Auto) 10, Monocytes (%) (Auto) 5, Eosinophils (%) (Auto) 0, Basophils (%) (Auto) 0, Neutrophils # (Auto) 8.8, Lymphocytes # (Auto) 1.0, Monocytes # (Auto) 0.5, Eosinophils # (Auto) 0.0, Basophils # (Auto) 0.0, Immature Granulocyte # (Auto) 0.1, Sodium Level 141, Potassium Level 3.6, Chloride Level 115, Carbon Dioxide Level 18, Anion Gap 8, Blood Urea Nitrogen 7, Creatinine 0.72, Estimat Glomerular Filtration Rate 101, BUN/Creatinine Ratio 10, Glucose Level 103, Calcium Level 8.0, Corrected Calcium 9.2, Phosphorus Level 2.7, Magnesium Level 1.6, Total Bilirubin 0.3, Aspartate Amino Transf (AST/SGOT) 35, Alanine Aminotransferase (ALT/SGPT) 40, Alkaline Phosphatase 114, Total Protein 6.2, Albumin 2.5, Triglycerides Level 71 02/14/23 11:42: Glucometer 132 02/14/23 18:02: Glucometer 115 02/15/23 00:54: Glucometer 122 02/15/23 03:40: Blood Gas Puncture Site RR, Blood Gas Patient Temperature 36.1, Arterial Blood pH 7.43, Arterial Blood Partial Pressure CO2 33, Arterial Blood Partial Pressure O2 79, Arterial Blood HCO3 22, Arterial Blood Total CO2 22.6, Arterial Blood Oxygen Saturation 97, Arterial Blood Base Excess -2.3, [place] Test YES-POS, Blood Gas Ventilator Setting NO, Blood Gas Inspired Oxygen 21% 02/15/23 04:50: White Blood Count 14.9, Red Blood Count 2.86, Hemoglobin 8.9, Hematocrit 28, Mean Corpuscular Volume 96, Mean Corpuscular Hemoglobin 31, Mean Corpuscular Hemoglobin Concent 32, Red Cell Distribution Width 17.2, Platelet Count 164, Mean Platelet Volume 10.0, Immature Granulocyte % (Auto) 1, Neutrophils (%) (Auto) 86, Lymphocytes (%) (Auto) 7, Monocytes (%) (Auto) 6, Eosinophils (%) (Auto) 0, Basophils (%) (Auto) 0, Neutrophils # (Auto) 12.8, Lymphocytes # (Auto) 1.0, Monocytes # (Auto) 0.8, Eosinophils # (Auto) 0.0, Basophils # (Auto) 0.0, Immature Granulocyte # (Auto) 0.2, Sodium Level 139, Potassium Level 3.5, Chloride Level 112, Carbon Dioxide Level 20, Anion Gap 7, Blood Urea Nitrogen 11, Creatinine 0.78, Estimat Glomerular Filtration Rate 91, BUN/Creatinine Ratio 14, Glucose Level 111, Calcium Level 8.2, Corrected Calcium 9.3, Phosphorus Level 2.9, Magnesium Level 2.2, Total Bilirubin 0.3, Aspartate Amino Transf (AST/SGOT) 32, Alanine Aminotransferase (ALT/SGPT) 33, Alkaline Phosphatase 124, Total Protein 6.5, Albumin 2.6 02/15/23 11:32: Glucometer 115 02/15/23 17:44: Glucometer 121 02/16/23 00:34: Glucometer 113 02/16/23 04:40: White Blood Count 15.1, Red Blood Count 2.85, Hemoglobin 8.7, Hematocrit 28, Mean Corpuscular Volume 98, Mean Corpuscular Hemoglobin 31, Mean Corpuscular Hemoglobin Concent 31, Red Cell Distribution Width 17.9, Platelet Count 204, Mean Platelet Volume 10.3, Immature Granulocyte % (Auto) 1, Neutrophils (%) (Auto) 86, Lymphocytes (%) (Auto) 7, Monocytes (%) (Auto) 5, Eosinophils (%) (Auto) 0, Basophils (%) (Auto) 0, Neutrophils # (Auto) 13.0, Lymphocytes # (Auto) 1.1, Monocytes # (Auto) 0.8, Eosinophils # (Auto) 0.0, Basophils # (Auto) 0.0, Immature Granulocyte # (Auto) 0.2, Neutrophils % (Manual) 89, Lymphocytes % (Manual) 7, Monocytes % (Manual) 4, Blood Morphology Comment NORMAL, Sodium Level 140, Potassium Level 3.8, Chloride Level 111, Carbon Dioxide Level 21, Anion Gap 8, Blood Urea Nitrogen 14, Creatinine 0.71, Estimat Glomerular Filtration Rate 102, BUN/Creatinine Ratio 20, Glucose Level 105, Calcium Level 8.4, Corrected Calcium 9.5, Phosphorus Level 2.4, Magnesium Level 1.8, Total Bilirubin 0.3, Aspartate Amino Transf (AST/SGOT) 26, Alanine Aminotransferase (ALT/SGPT) 26, Alkaline Phosphatase 111, Total Protein 6.7, Albumin 2.6, Triglycerides Level 68 02/16/23 05:42: Bedside Blood Gas pH (LAB) 7.463, Bedside Blood Gas pCO2 (LAB) 31.1, Bedside Blood Gas pO2 (LAB) 84, Bedside Blood Gas HCO3 (LAB) 22.3, POC Blood Gas Total CO2 Calc 23, Bedside Bl Gas O2 Saturation (Calc) 97, Bedside Arterial Blood Base Excess -2 02/16/23 11:25: Glucometer 92 02/16/23 17:11: Glucometer 100 02/17/23 00:01: Glucometer 96 02/17/23 04:34: White Blood Count 11.3, Red Blood Count 2.69, Hemoglobin 8.3, Hematocrit 27, Mean Corpuscular Volume 100, Mean Corpuscular Hemoglobin 31, Mean Corpuscular Hemoglobin Concent 31, Red Cell Distribution Width 18.3, Platelet Count 179, Mean Platelet Volume 10.1, Immature Granulocyte % (Auto) 1, Neutrophils (%) (Auto) 81, Lymphocytes (%) (Auto) 12, Monocytes (%) (Auto) 6, Eosinophils (%) (Auto) 1, Basophils (%) (Auto) 0, Neutrophils # (Auto) 9.2, Lymphocytes # (Auto) 1.3, Monocytes # (Auto) 0.6, Eosinophils # (Auto) 0.1, Basophils # (Auto) 0.0, I mmature Granulocyte # (Auto) 0.1, Sodium Level 144, Potassium Level 3.8, Chloride Level 112, Carbon Dioxide Level 24, Anion Gap 8, Blood Urea Nitrogen 13, Creatinine 0.66, Estimat Glomerular Filtration Rate 105, BUN/Creatinine Ratio 20, Glucose Level 110, Calcium Level 8.2, Corrected Calcium 9.5, Phosphorus Level 2.2, Magnesium Level 2.0, Total Bilirubin 0.2, Aspartate Amino Transf (AST/SGOT) 27, Alanine Aminotransferase (ALT/SGPT) 23, Alkaline Phosphatase 90, Total Protein 6.3, Albumin 2.4 02/17/23 11:34: Glucometer 108 02/17/23 17:37: Glucometer 111 02/17/23 23:15: Glucometer 130 02/18/23 04:38: White Blood Count 9.9, Red Blood Count 2.66, Hemoglobin 8.3, Hematocrit 27, Mean Corpuscular Volume 100, Mean Corpuscular Hemoglobin 31, Mean Corpuscular Hemoglobin Concent 31, Red Cell Distribution Width 18.0, Platelet Count 183, Mean Platelet Volume 9.8, Immature Granulocyte % (Auto) 1, Neutrophils (%) (Auto) 78, Lymphocytes (%) (Auto) 14, Monocytes (%) (Auto) 6, Eosinophils (%) (Auto) 1, Basophils (%) (Auto) 0, Neutrophils # (Auto) 7.7, Lymphocytes # (Auto) 1.4, Monocytes # (Auto) 0.6, Eosinophils # (Auto) 0.1, Basophils # (Auto) 0.0, Immature Granulocyte # (Auto) 0.1, Sodium Level 141, Potassium Level 3.9, Chloride Level 109, Carbon Dioxide Level 26, Anion Gap 6, Blood Urea Nitrogen 11, Creatinine 0.57, Estimat Glomerular Filtration Rate 109, BUN/Creatinine Ratio 19, Glucose Level 119, Calcium Level 8.3, Corrected Calcium 9.5, Phospho ruben Level 2.3, Magnesium Level 1.8, Total Bilirubin 0.1, Aspartate Amino Transf (AST/SGOT) 30, Alanine Aminotransferase (ALT/SGPT) 25, Alkaline Phosphatase 88, Total Protein 6.3, Albumin 2.5, Triglycerides Level 83 02/18/23 11:40: Glucometer 99 02/18/23 17:47: Glucometer 97 02/18/23 23:42: Glucometer 102 02/19/23 04:06: White Blood Count 8.7, Red Blood Count 2.75, Hemoglobin 8.5, Hematocrit 27, Mean Corpuscular Volume 99, Mean Corpuscular Hemoglobin 31, Mean Corpuscular Hemoglobin Concent 31, Red Cell Distribution Width 17.9, Platelet Count 196, Mean Platelet Volume 9.9, Immature Granulocyte % (Auto) 2, Neutrophils (%) (Auto) 74, Lymphocytes (%) (Auto) 19, Monocytes (%) (Auto) 4, Eosinophils (%) (Auto) 2, Basophils (%) (Auto) 0, Neutrophils # (Auto) 6.5, Lymphocytes # (Auto) 1.7, Monocytes # (Auto) 0.3, Eosinophils # (Auto) 0.1, Basophils # (Auto) 0.0, Immature Granulocyte # (Auto) 0.1, Sodium Level 141, Potassium Level 3.3, Chlo ride Level 107, Carbon Dioxide Level 27, Anion Gap 7, Blood Urea Nitrogen 10, Creatinine 0.56, Estimat Glomerular Filtration Rate 110, BUN/Creatinine Ratio 18, Glucose Level 105, Calcium Level 8.2, Corrected Calcium 9.5, Phosphorus Level 2.3, Magnesium Level 2.1, Total Bilirubin 0.1, Aspartate Amino Transf (AST/SGOT) 23, Alanine Aminotransferase (ALT/SGPT) 22, Alkaline Phosphatase 90, Total Protein 5.9, Albumin 2.4 02/19/23 05:31: Glucometer 108 02/19/23 11:23: Glucometer 101 02/19/23 11:46: Urine Color YELLOW, Urine Clarity CLEAR, Urine pH 8.5, Urine Specific [place] 1.010, Urine Protein TRACE, Urine Glucose (UA) NEGATIVE, Urine Ketones NEGATIVE, Urine Nitrite NEGATIVE, Urine Bilirubin NEGATIVE, Urine Urobilinogen 0.2, Urine Leukocyte Esterase TRACE, Urine RBC (Auto) 2+, Urine RBC 25-50, Urine WBC 10-25, Urine Squamous Epithelial Cells 2-5, Urine Crystals NONE, Urine Bacteria TRACE, Urine Casts NONE, Urine Mucus NEGATIVE, Urine Culture Indicated YES 02/19/23 11:50: SARS-CoV-2 RNA (RT-PCR) Not Detected 02/19/23 12:00: White Blood Count 11.7, Red Blood Count 3.09, Hemoglobin 9.6, Hematocrit 31, Mean Corpuscular Volume 99, Mean Corpuscular Hemoglobin 31, Mean Corpuscular Hemoglobin Concent 32, Red Cell Distribution Width 18.0, Platelet Count 244, Mean Platelet Volume 10.0, Immature Granulocyte % (Auto) 1, Neutrophils (%) (Auto) 76, Lymphocytes (%) (Auto) 17, Monocytes (%) (Auto) 4, Eosinophils (%) (Auto) 2, Basophils (%) (Auto) 0, Neutrophils # (Auto) 8.9, Lymphocytes # (Auto) 2.0, Monocytes # (Auto) 0.5, Eosinophils # (Auto) 0.2, Basophils # (Auto) 0.0, Immature Granulocyte # (Auto) 0.2, Sodium Level 140, Potassium Level 4.5, Chloride Level 106, Carbon Dioxide Level 28, Anion Gap 6, Blood Urea Nitrogen 9, Creatinine 0.60, Estimat Glomerular Filtration Rate 108, BUN/Creatinine Ratio 15, Glucose Level 111, Mean Blood Glucose 105, Hemoglobin A1c 5.3, Lactic Acid Level 0.61, Calcium Level 8.5, Corrected Calcium 9.6, Phosphorus Level 2.3, Magnesium Level 2.1, Total Bilirubin 0.2, Aspartate Amino Transf (AST/SGOT) 26, Alanine Aminotransferase (ALT/SGPT) 25, Alkaline Phosphatase 98, Lactate Dehydrogenase 240, Total Creatine Kinase 31, Troponin I < 0.028, Total Protein 6.5, Albumin 2.6, Triglycerides Level 105, Cholesterol Level 163, LDL Cholesterol Direct 114, VLDL Cholesterol 21, HDL Cholesterol 40, Amylase Level 48, Lipase 65 02/19/23 15:15: Blood Gas Puncture Site L ART LINE, Blood Gas Patient Temperature 36.3, Arterial Blood pH 7.47, Arterial Blood Partial Pressure CO2 42, Arterial Blood Partial Pressure O2 53, Arterial Blood HCO3 30, Arterial Blood Total CO2 31.5, Arterial Blood Oxygen Saturation 90, Arterial Blood Base Excess 6.2, [place] Test NA, Blood Gas Ventilator Setting YES, Blood Gas Inspired Oxygen 21% 02/19/23 17:40: White Blood Count 9.2, Red Blood Count 2.87, Hemoglobin 9.0, Hematocrit 28, Mean Corpuscular Volume 99, Mean Corpuscular Hemoglobin 31, Mean Corpuscular Hem oglobin Concent 32, Red Cell Distribution Width 17.9, Platelet Count 229, Mean Platelet Volume 10.0, Immature Granulocyte % (Auto) 2, Neutrophils (%) (Auto) 88, Lymphocytes (%) (Auto) 8, Monocytes (%) (Auto) 1, Eosinophils (%) (Auto) 0, Basophils (%) (Auto) 0, Neutrophils # (Auto) 8.1, Lymphocytes # (Auto) 0.8, Monocytes # (Auto) 0.1, Eosinophils # (Auto) 0.0, Basophils # (Auto) 0.0, Immature Granulocyte # (Auto) 0.2, Sodium Level 141, Potassium Level 4.3, Chloride Level 106, Carbon Dioxide Level 27, Anion Gap 8, Blood Urea Nitrogen 11, Creatinine 0.62, Estimat Glomerular Filtration Rate 107, BUN/Creatinine Ratio 18, Glucose Level 120, Mean Blood Glucose 103, Hemoglobin A1c 5.2, Lactic Acid Level 0.91, Calcium Level 8.4, Corrected Calcium 9.6, Phosphorus Level 2.9, Magnesium Level 2.1, Total Bilirubin 0.2, Aspartate Amino Transf (AST/SGOT) 26, Alanine Aminotransferase (ALT/SGPT) 23, Alkaline Phosphatase 95, Lactate Dehydrogenase 233, Total Creatine Kinase 26, Troponin I < 0.028, Total Protein 6.2, Albumin 2.5, Triglycerides Level 61, Cholesterol Level 157, LDL Cholesterol Direct 113, VLDL Cholesterol 12, HDL Cholesterol 41, Amylase Level 43, Lipase 41 02/19/23 17:45: Glucometer 114 02/19/23 21:00: Blood Gas Puncture Site LEFT ART LINE, Blood Gas Patient Temperature 36.5, Arterial Blood pH 7.47, Arterial Blood Partial Pressure CO2 41, Arterial Blood Partial Pressure O2 54, Arterial Blood HCO3 30, Arterial Blood Total CO2 31.1, Arterial Blood Oxygen Saturation 91, Arterial Blood Base Excess 6.0, Adonay Test ART LINE, Blood Gas Ventilator Setting YES, Blood Gas Inspired Oxygen 21 02/19/23 23:56: White Blood Count 7.9, Red Blood Count 2.80, Hemoglobin 8.7, Hematocrit 28, Mean Corpuscular Volume 99, Mean Corpuscular Hemoglobin 31, Mean Corpuscular Hemoglobin Concent 32, Red Cell Distribution Width 17.9, Platelet Count 232, Mean Platelet Volume 10.0, Immature Granulocyte % (Auto) 2, Neutrophils (%) (Auto) 83, Lymphocytes (%) (Auto) 12, Monocytes (%) (Auto) 2, Eosinophils (%) (Auto) 0, Basophils (%) (Auto) 0, Neutrophils # (Auto) 6.6, Lymphocytes # (Auto) 1.0, Monocytes # (Auto) 0.2, Eosinophils # (Auto) 0.0, Basophils # (Auto) 0.0, Immature Granulocyte # (Auto) 0.2, Prothrombin Time 14.2, INR Comment 1.1, Acti vated Partial Thromboplast Time 37, Fibrinogen 480, Sodium Level 143, Potassium Level 3.6, Chloride Level 107, Carbon Dioxide Level 26, Anion Gap 10, Blood Urea Nitrogen 12, Creatinine 0.62, Estimat Glomerular Filtration Rate 107, BUN/Creatinine Ratio 19, Glucose Level 115, Lactic Acid Level 0.51, Calcium Level 8.3, Corrected Calcium 9.5, Ionized Calcium (Measured) 1.16, Ionized Ca lcium pH 7.47, Ionized Calcium (Corrected) 1.19, Phosphorus Level 2.9, Magnesium Level 2.1, Total Bilirubin 0.1, Gamma Glutamyl Transpeptidase 262, Aspartate Amino Transf (AST/SGOT) 23, Alanine Aminotransferase (ALT/SGPT) 22, Alkaline Phosphatase 103, Lactate Dehydrogenase 222, Total Creatine Kinase 22, Troponin I < 0.028, Total Protein 6.0, Albumin 2.5, Triglycerides Level 86, Cholesterol Level 157, LDL Cholesterol Direct 113, VLDL Cholesterol 17, HDL Cholesterol 40, Amylase Level 40, Lipase 33 02/19/23 23:59: Glucometer 118 02/20/23 03:33: Blood Gas Puncture Site L ART, Blood Gas Patient Temperature 36.2, Arterial Blood pH 7.46, Arterial Blood Partial Pressure CO2 42, Arterial Blood Partial Pressure O2 62, Arterial Blood HCO3 30, Arterial Blood Total CO2 31.5, Arterial Blood Oxygen Saturation 95, Arterial Blood Base Excess 6.1, [place]onay Test ART LINE, Blood Gas Ventilator Setting YES, Blood Gas Inspired Oxygen 21% 02/20/23 04:12: White Blood Count 12.8, Red Blood Count 2.92, Hemoglobin 9.3, Hematocrit 29, Mean Corpuscular Volume 98, Mean Corpuscular Hemoglobin 32, Mean Corpuscular Hemoglobin Concent 32, Red Cell Distribution Width 18.1, Platelet Count 306, Mean Platelet Volume 10.1, Immature Granulocyte % (Auto) 2, Neutrophils (%) (Auto) 77, Lymphocytes (%) (Auto) 17, Monocytes (%) (Auto) 4, Eosinophils (%) (Auto) 0, Basophils (%) (Auto) 0, Neutrophils # (Auto) 9.8, Lymphocytes # (Auto) 2.1, Monocytes # (Auto) 0.6, Eosinophils # (Auto) 0.0, Basophils # (Auto) 0.0, Immature Granulocyte # (Auto) 0.3, Prothrombin Time 13.5, INR Comment 1.0, Activated Partial Thromboplast Time 35, Fibrinogen 495, Sodium Level 143, Potassium Level 3.4, Chloride Level 107, Carbon Dioxide Level 26, Anion Gap 10, Blood Urea Nitrogen 13, Creatinine 0.66, Estimat Glomerular Filtration Rate 105, BUN/Creatinine Ratio 20, Glucose Level 109, Lactic Acid Level 0.67, Calcium Level 8.5, Corrected Calcium 9.5, Ionized Calcium (Measured) TNP:Client Request, Ionized Calcium pH TNP:Client Request, Ionized Calcium (Corrected) TNP:Client Request, Phosphorus Level 2.8, Magnesium Level 2.2, Total Bilirubin 0.2, Gamma Glutamyl Transpeptidase TNP:Client Request, Aspartate Amino Transf (AST/SGOT) 24, Alanine Aminotransferase (ALT/SGPT) 23, Alkaline Phosphatase 112, Lactate Dehydrogenase 264, Total Creatine Kinase 26, Troponin I < 0.028, Total Protein 6.6, Albumin 2.7, Triglycerides Level 88, Cholesterol Level 172, LDL Cholesterol Direct 124, VLDL Cholesterol 18, HDL Cholesterol 44, Amylase Level 50, Lipase 48 Discharge Home Medications: Active Scripts Active Reported Vitamin D2 (Ergocalciferol (Vitamin D2)) 1,250 Mcg (17468 Unit) Capsule 1,250 Mcg PO TUES Olanzapine 10 Mg Tablet 10 Mg PO BID Senna Plus 8.6-50 mg Tablet (Sennosides/Docusate Sodium) 8.6 Mg-50 Mg Tablet 1 Each PO BID Guaifenesin Dm Syrup (Guaifenesin/Dextromethorphan) 100 Mg-10 Mg/5 Ml Syrup 10 Ml PO Q8H PRN Clonazepam 1 Mg Tablet 1 Mg PO BID Vitamin C (Ascorbic Acid) 500 Mg Tablet 500 Mg PO DAILY Tylenol Extra Strength (Acetaminophen) 500 Mg Tablet 1,000 Mg PO Q6H PRN Sertraline HCl 100 Mg Tablet 200 Mg PO DAILY TAKES 2 (100MG) TABS Phenytoin 50 Mg Tab.chew 150 Mg PO BID TAKES 3 (50MG) TABS Phenobarbital 60 Mg Tablet 60 Mg PO BID Pantoprazole Sodium 40 Mg Tablet.dr 40 Mg PO BID Ondansetron HCl 8 Mg Tablet 8 Mg PO Q6H PRN Nystop (Nystatin) 100,000 Unit/Gram Powder 1 Applic TP Q8H PRN APPLY TO AFFECTED AREAS Loperamide (Loperamide HCl) 2 Mg Tablet 2 Mg PO Q6H PRN CALL NURSING IF LOOSE/WATERY STOOLS CONTINUE AFTER 2 DOSES Ibuprofen 200 Mg Capsule 400 Mg PO Q6H PRN Haloperidol 5 Mg Tablet 5 Mg PO BID Debrox (Carbamide Peroxide) 15 Ml Drops 5 Drops OU BID Cranberry (Cranberry Fruit) 450 Mg Tablet 450 Mg PO BID Benadryl Allergy (Diphenhydramine HCl) 25 Mg Tablet 25 Mg PO Q6H PRN Instructions to patient/family Please see electronic discharge instructions given to patient. SARA NEAL DO Feb 20, 2023 10:39
== END 2023-02-19 08:29 | disposition expired | DRG 207 ==
LOC: EDUNIT# 17:41 → ER 17:41 → ICU 21:12
PROVIDERS: ADMIT Internal Medicine; ATTEND Internal Medicine
PROC: 5A1955Z Respiratory Ventilation, Greater than 96 Consecutive Hours (ICD-10-PCS; principal; 2023-02-11)
PROC: 02H633Z Insertion of Infusion Device into Right Atrium, Percutaneous Approach (ICD-10-PCS; 2023-02-11)
PROC: 0BC17ZZ Extirpation of Matter from Trachea, Via Natural or Artificial Opening (ICD-10-PCS; 2023-02-11)
DX: T17.420A Food in trachea causing asphyxiation, initial encounter (principal); J69.0 Pneumonitis due to inhalation of food and vomit; J96.21 Acute and chronic respiratory failure with hypoxia; G93.1 Anoxic brain damage, not elsewhere classified; N39.0 Urinary tract infection, site not specified; Z16.12 Extended spectrum beta lactamase (ESBL) resistance; B96.20 Unspecified Escherichia coli [E. coli] as the cause of diseases classified elsewhere; F79 Unspecified intellectual disabilities; Z66 Do not resuscitate; G40.909 Epilepsy, unspecified, not intractable, without status epilepticus; F41.9 Anxiety disorder, unspecified; F31.9 Bipolar disorder, unspecified; Z79.1 Long term (current) use of non-steroidal anti-inflammatories (NSAID); Z79.899 Other long term (current) drug therapy
CPT/HCPCS: 36415; 36556; 36600; 51702; 70450; 71045; 80053; 80061; 80202; 81000; 82150; 82274; 82330; 82550; 82805; 82947; 82977; 83036; 83605; 83615; 83690; 83735; 84100; 84132; 84478; 84484; 85007; 85025; 85027; 85384; 85610; 85730; 86850; 86900; 86901; 87040; 87070; 87081; 87088; 87186; 87205; 87636; 93005; 93041; 94002; 94003; 94640; 94799; 96374; 96375

== ENCOUNTER 2023-02-20 08:57 | Inpatient (IN) | payer OTHER ==
[~2023-02-20 08:57] MED LIST changes: +ERGO1250 PO; +GUAI5SYR PO; +OLAN10TA71 PO; +SENN-259 PO
--- OUTSIDE RECORDS SUMMARY | 2023-02-20 09:04 | XMS REPORT ---
Author Author [facility] Address Unknown Phone Unavailable Care Team Providers Care Ebd Special Education Teacher Name Role Phone ELSA MONTANON Unavailable PROBLEMS Type Condition ICD9-CM Code [id number] Code Onset Dates Condition S tatus W/U Status Risk SNOMED Code Notes Problem Moderate intellectual disability F71 conf irmed 77031007 Problem Impulse control disorder F63.9 confirmed 56609346 Problem Schizophrenia, undifferentiated F20.3 confi rmed [id number] Problem OCD (obsessive compulsive disorder) F42.9 c onfirmed [id number] ALLERGIES No Known Allergies ENCOUNTERS from 1970 to 2022-12-23 Encounter Location Date Provider Diagnosis [facility] [address] [facility] [id number] [place] [address] December, JENNIFER CHARMAINE Schizophrenia, undif ferentiated F20.3 ; Moderate intellectual disability F71 ; OCD (obsessive compulsive disorder) F42.9 ; Impulse control disorder F63.9 and Other chcf (current) drug therapy Z7 9.899 IMMUNIZATIONS Vaccine Route Administration Date Status tdap (history) Unknown March 13, 2011 Administered tdap (history) Unknown Mar 26, 2015 Administered COVID-19 Moderna (history) Unknown Sep 28, 2020 Admin istered COVID-19 Moderna (history) Unknown October 26, 2020 Admin istered 1st Booster MODERNA Bivalent, COVID-19, 0.5mL IM Intramuscular S ept 2021 Administered SOCIAL HISTORY Sex Assigned At : Social History Observation Description Sex Assigned At Unknown Alcohol Screen (Audit-C) Question Answer Notes Did you have a drink containing alcohol in the past year? No Points 0 Interpretation Negative PHQ2 Question Answer Notes In the last 2 weeks, how often have you had little interest or pleasure in doing things? Not at all In the last 2 weeks, how often have you been feeling down, depressed, or hopeless? Not at all Total PHQ2 Score 0 REASON FOR REFERRAL No Information VITAL SIGNS Weight 197.2 lbs December, Weight-kg 89.45 kg December, MEDICATIONS Medication SIG (Take, Route, Frequency, Duration) Notes Start Da te End Date Status Ondansetron HCl 8 MG 1 tablet as needed Orally Once a day Active Ibuprofen 200 MG 2 tablet with food or milk a s needed Orally every 6 hours as needed Active Sertraline HCl 100 mg 2 tablet Orally Once a day for 7 days Active Imodium A-D 2 MG 1 tablet as needed Orally Four times a day Active clonazePAM 1 MG 1 tablet Orally Once a day Active Pantoprazole Sodium 40 MG 1 tablet Orally Once a day Active Senna S 8.6-50 MG 1 tablet in the evening as needed Orally Once a day Active PHENobarbital 60 MG 1 tablet Orally Twice a day Active Vitamin C 500 MG 1 tablet Orally Once a day Active Debrox 6.5 % 5 drops into affected ear Otic Twice a day Active Phenytoin 50 MG 3 tablet Orally twice a day Active Cranberry 450 MG as directed Orally Active Haloperidol 5 MG 1 tablet Orally twice daily for 7 days Active ZyPREXA 10 MG 1 tablet Orally twice a day for 7 days 2021 Active Benadryl Allergy 25 MG 1 tablet at bedtime as needed Orally Once a da y prn Active clonazePAM 0.5 MG 1 tablet at bedtime Orally Once a day for 30 days Active Tylenol Extra Strength 500 MG 1 tablet as needed Orally every 6 hrs Active PROCEDURES from 1970 to 2022-12-23 Procedure Date Ordered Date Performed Result Body Site EKG, TRACING (IN-HOUSE) 2021-01-08 2021-01-08 N/A RESULTS No Results REASON FOR VISIT Psychiatric intake - TARA Moura, Med list verified through facility MAR MEDICAL (GENERAL) HISTORY Type Description Date Medical History Schizophrenia, undifferentiated Medical History Moderate intellectual disability Medical History OCD (obsessive compulsive disorder) Medical History Impulse control disorder Medical History covid 08/2021 Surgical History No know Surgical history Goals Section No Information Health Concerns No Information MEDICAL EQUIPMENT No Information MENTAL STATUS No Information FUNCTIONAL STATUS No Information ASSESSMENTS Encounter Date Diagnosis Assessment Notes Treatment Notes Treatm ent Clinical Notes December, Schizophrenia, undifferentiated (ICD-10 - F20.3) December, Moderate intellectual disability (ICD-10 - F71) December, OCD (obsessive compulsive disorder) (ICD -10 - F42.9) December, Impulse control disorder (ICD-10 - F63.9 ) December, 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 -If safety becomes an issue, patient is to call the crisis line at [phone] or . Discussed patient diagnoses, to include treatment options, as well as alternative therapies. Risks vs benefits of pharmacological treatment vs none explained. Risks vs benefits discussed over the start of Haldol to include EPS, TD, NMS, dizziness, sedation, dry mouth, blurred vision, urinary retention, and constipation. PLAN OF TREATMENT Medication Medication Name Sig Start Date Stop Date Sertraline HCl 100 mg 2 tablet Orally Once a day for 7 days Haloperidol 5 MG 1 tablet Orally twice daily for 7 days ZyPREXA 10 MG 1 tablet Orally twice a day for 7 days Sep, 2 022 Next Appt Details 2 Months Reason: Follow-up Follow Up:2 MonthsBH Follow-up Insurance Providers Payer Name Payer Address Payer Phone Insured Name Patient Relati onship to Insured Coverage Start Date Coverage End Date Subscriber Number Group Nu mber [employer] MEDIC[employer] Part A [address] [facility] [phone] Jarvis Kang Self - patient is the insured [id number] [address] [address] [facility] [phone] Jarvis Kang Self - patient is the insured 001 [id number] PAZ [employer] 19 [address] [facility] [address] Jarvis Kang Self - patient is the insured [id number]
--- OUTSIDE RECORDS SUMMARY | 2023-02-20 09:04 | XMS REPORT ---
Author Author [facility] Address Unknown Phone Unavailable Care Team Providers Care Recessing Machine Operator Name Role Phone ELSA MONTANON Unavailable PROBLEMS Type Condition ICD9-CM Code ZXV49-KD Code Onset Dates Condition S tatus W/U Status Risk SNOMED Code Notes Problem Moderate intellectual disability F71 conf irmed [id number] Problem Impulse control disorder F63.9 confirmed [id number] Problem Schizophrenia, undifferentiated F20.3 confi rmed [id number] Problem OCD (obsessive compulsive disorder) F42.9 c onfirmed [id number] ALLERGIES No Known Allergies ENCOUNTERS from 1970 to 2023-01-07 Encounter Location Date Provider Diagnosis [facility] [address] [facility] [id number] [place] [address] Jan, JENNIFER CHARMAINE IMMUNIZATIONS Vaccine Route Administration Date Status tdap [...] REASON FOR REFERRAL No Information VITAL SIGNS No information MEDICATIONS Medication SIG (Take, Route, Frequency, Duration) [...] needed Orally every 6 hrs Active PROCEDURES No Information RESULTS No Results REASON FOR VISIT medication request MEDICAL (GENERAL) HISTORY Type Description Date Medical History Schizophrenia, undifferentiated Medical History Moderate intellectual disability Medical History OCD (obsessive compulsive disorder) Medical History Impulse control disorder Medical History covid 08/2021 Surgical History No know Surgical history Goals Section No Information Health Concerns No Information MEDICAL EQUIPMENT No Information MENTAL STATUS No Information FUNCTIONAL STATUS No Information ASSESSMENTS No Information PLAN OF TREATMENT Medication Medication Name Sig Start Date Stop Date Sertraline HCl 100 mg 2 tablet Orally Once a day for 7 days Haloperidol 5 MG 1 tablet Orally twice daily for 7 days ZyPREXA 10 MG 1 tablet Orally twice a day for 7 days Sep, 2 022 Insurance Providers Payer Name Payer Address Payer Phone Insured Name Patient Relati onship to Insured Coverage Start Date Coverage End Date Subscriber Number Group Nu mber [facility] [address] [facility] [id number] Jarvis Kang Self - patient is the insured [id number] [facility] [address] [facility] [id number] Jarvis Kang Self - patient is the insured [id number] [employer] MEDICARE Part A [address] [facility] [address] Jarvis Kang Self - patient is the insured [id number]
[2023-02-20] MEDS ORDERED: morphine INJ 10 MG/ML 1ML (SYR OR VIAL) IVP PRN (09:15)
[2023-02-20] MEDS: LORazepam/NS DRIP 100 ML IV SCH ×2 (09:15→11:12)
[2023-02-20] MEDS ORDERED: HEParin 1000 UNIT/ML (10ML VIAL) FOR BOLUS IV NR (09:30)
[2023-02-20] MEDS ORDERED: morphine INJ 4 MG/ML 1 ML (VIAL/SYRINGE) IVP ONE ×4 (10:10→11:59)
--- NOTE | 2023-02-20 10:42 | History & Physical ---
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 She remained intubated until court order agreed for guardian to make her DO NOT RESUSCITATE. She wanted to be an organ donor the organ harvesting the was assembled and she was terminally extubated but she did not in the amount of time for organ harvesting so she was placed on comfort care. Source: RN/MD, old records Exam Limitations: clinical condition Date Seen 02/20/23 Time Seen by a Provider: 12:30 Attending Physician Faizan Fierro MD PCP Admitting Physician: Siena Kowalski DO Attending Physician: Siena Kowalski DO Referring Physician Date of Admission Feb 20, 2023 at 08:57 Home Medications & Allergies Home Medications Reviewed patient Home Medication Reconciliation performed by pharmacy medication reconciliations billing and quality technician and/or nursing. Patients Allergies have been reviewed. Allergies Allergies Coded Allergies No Known Drug Allergies (Unverified10/28/22) Past [id number] Hx Past Med/Social Hx: Reviewed Nursing Past Med/Soc Hx, Reviewed and Corrections made Patient Social History Marrital Status: single Employed/Student: unemployed Alcohol Use: Denies Use Smoking Status: Never a Smoker 2nd Hand Smoke Exposure: No Immunizations Up To Date Tetanus Booster (TDap): Unknown Date of Influenza Vaccine: May 24, 2020 Past Medical History Neurological: Developmental Disorder, Seizure Disorder Intellectual Disability Psychosocial: Anxiety, Bipolar Family History No Pertinent Family Hx Unable to obtain accurate family history due to patient's intellectual disability Review of Systems Constitutional: see HPI Physical Exam Physical Exam Vital Signs Vital Signs - First Documented 02/20/23 02/20/23 09:15 10:12 Pulse 106 B/P (MAP) 112/62 O2 Delivery Room Air O2 Flow Rate 0.00 Capillary Refill : Height, Weight, BMI Height: '" Weight: lbs. oz. kg; 34.93 BMI Method: General Appearance: Chronically ill, Other (Terminally ill) Results Results/Procedures Labs Patient resulted labs reviewed. Assessment/Plan Admission Diagnosis Assessment: End-of-life care Plan: Comfort care Admission Status: Inpatient Order (span 2 midnights) Reason for Inpatient Admission: Terminal care SIENA KOWALSKI DO Feb 20, 2023 10:42
[2023-02-20] MEDS ORDERED: RT-ALBUTEROL/IPRATROPIUM 3 ML (DUONEB) VIAL INH PRN (10:45)
[2023-02-20] MEDS ORDERED: ACETAMINOPHEN 650 MG SUPP (TYLENOL) PR PRN (10:45)
[2023-02-20] MEDS ORDERED: SALIVA SUBSTITUTE 60 ML SPRAY(MOUTHKOTE) MM PRN (10:45)
[2023-02-20] MEDS ORDERED: ONDANSETRON 4 MG/2 ML (SDV) Z0FRAN IVP PRN (10:45)
[2023-02-20] MEDS ORDERED: SCOPOLAMINE 1.5 MG (TRANSDERM-SCOP) PATCH TOP SCH (10:45)
[2023-02-20] MEDS ORDERED: GLYCOPYRROLATE 0.2 MG/ML (ROBINUL) 2 ML VIAL IV PRN (10:45)
[2023-02-20] MEDS ORDERED: LORazepam ORAL CONCENTRATE 2 MG/ML 30 ML (ATIVAN) PO PRN (10:45)
[2023-02-20] MEDS ORDERED: ARTIFICAL TEARS 0.4 ML UNIT DOSE (REFRESH PLUS) OU PRN (10:45)
[2023-02-20] MEDS ORDERED: ATROPINE 1% OPHTHALMIC SOLN 2 ML SL PRN (10:45)
[2023-02-20] MEDS ORDERED: HEParin (CENTRAL IV FLUSH) 500 UNIT/5 ML SYR IV ONE (11:06)
[2023-02-20 11:12] VITALS: BP 77/47
[2023-02-20] MEDS ORDERED: LORazepam INJ 2 MG/ML (ATIVAN) VIAL IVP PRN (13:00)
--- NOTE | 2023-02-20 13:31 | Discharge Summary ---
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 Discharge Summary Discharge Physical Examination Allergies: Coded Allergies: No Known Drug Allergies (Unverified , 10/28/22) Vitals & I&Os Vital Signs Date Time Temp Pulse Resp B/P (MAP) Pulse Ox O2 Delivery O2 Flow Rate FiO2 02/20/23 11:12 105 77/47 02/20/23 10:12 Room Air 0.00 Hospital Course Was the Problem List Reviewed?: Yes See HPI Discharge Home Medications: Active Scripts Active Reported Vitamin D2 (Ergocalciferol (Vitamin D2)) 1,250 Mcg (13704 Unit) Capsule 1,250 Mcg PO TU Olanzapine 10 Mg Tablet 10 Mg PO BID Senna Plus 8.6-50 mg Tablet (Sennosides/Docusate Sodium) 8.6 Mg-50 Mg Tablet 1 Each PO BID Guaifenesin Dm Syrup (Guaifenesin/Dextromethorphan) 100 Mg-10 Mg/5 Ml Syrup 10 Ml PO Q8H PRN Clonazepam 1 Mg Tablet 1 Mg PO BID Vitamin C (Ascorbic Acid) 500 Mg Tablet 500 Mg PO DAILY Tylenol Extra Strength (Acetaminophen) 500 Mg Tablet 1,000 Mg PO Q6H PRN Sertraline HCl 100 Mg Tablet 200 Mg PO DAILY TAKES 2 (100MG) TABS Phenytoin 50 Mg Tab.chew 150 Mg PO BID TAKES 3 (50MG) TABS Phenobarbital 60 Mg Tablet 60 Mg PO BID Pantoprazole Sodium 40 Mg Tablet.dr 40 Mg PO BID Ondansetron HCl 8 Mg Tablet 8 Mg PO Q6H PRN Nystop (Nystatin) 100,000 Unit/Gram Powder 1 Applic TP Q8H PRN APPLY TO AFFECTED AREAS Loperamide (Loperamide HCl) 2 Mg Tablet 2 Mg PO Q6H PRN CALL NURSING IF LOOSE/WATERY STOOLS CONTINUE AFTER 2 DOSES Ibuprofen 200 Mg Capsule 400 Mg PO Q6H PRN Haloperidol 5 Mg Tablet 5 Mg PO BID Debrox (Carbamide Peroxide) 15 Ml Drops 5 Drops OU BID Cranberry (Cranberry Fruit) 450 Mg Tablet 450 Mg PO BID Benadryl Allergy (Diphenhydramine HCl) 25 Mg Tablet 25 Mg PO Q6H PRN Instructions to patient/family Please see electronic discharge instructions given to patient. SARA NEAL DO Feb 20, 2023 13:31
[2023-02-20] MEDS ORDERED: levETIRAcetam 1000 mg/NS 100ml 100 ML IV SCH (21:00)
== END 2023-02-20 17:27 | disposition expired | DRG 951 ==
LOC: ICU 08:57 → 4TH 12:38
PROVIDERS: ADMIT Internal Medicine; ATTEND Internal Medicine
DX: Z51.5 Encounter for palliative care (principal); G93.1 Anoxic brain damage, not elsewhere classified; Z66 Do not resuscitate; G40.909 Epilepsy, unspecified, not intractable, without status epilepticus; F79 Unspecified intellectual disabilities; F41.9 Anxiety disorder, unspecified; F31.9 Bipolar disorder, unspecified; Z79.1 Long term (current) use of non-steroidal anti-inflammatories (NSAID); Z79.899 Other long term (current) drug therapy